=== PATIENT | female | born 1950 | race Caucasian/White ===

== ENCOUNTER → 2017-10-26 12:01 | Outpatient (CLI) | payer BC, SELFPAY ==
--- NOTE | 2017-10-26 12:07 | RAD_ITS ---
STUDY: X-RAY - LEFT FOOT CLINICAL: Female, 67 years old. Bilateral heel pain. TECHNIQUE: 3 view(s) of the foot. COMPARISON: None. FINDINGS: There is an enthesophyte involving the posterior superior calcaneus at the site of insertion of the Achilles tendon. Plantar spur. Normal visualized subtalar, talonavicular, calcaneocuboid, tarsal and tarsometatarsal articulations. Normal metatarsi. Normal metatarsophalangeal joint of the great toe. Normal tibial and fibular sesamoid bones. Normal interphalangeal joint of the great toe. Normal phalanges of the great toe. Normal second through fifth metatarsophalangeal joints. Normal interphalangeal joints and phalanges of the lesser toes. The soft tissue structures are unremarkable. RAD/Foot min 3 Views IMPRESSION: Calcaneal spurs. Electronically Signed: Erickson Chew MD at 15:20 EST Tel [phone], Service support ,
--- NOTE | 2017-10-26 12:07 | RAD_ITS ---
STUDY: X-RAY - RIGHT FOOT CLINICAL: Female, 67 years old. Bilateral heel pain. TECHNIQUE: 3 view(s) of the foot. COMPARISON: None. FINDINGS: There is a plantar calcaneal spur. Normal visualized subtalar, talonavicular, calcaneocuboid, tarsal and tarsometatarsal articulations. Normal metatarsi. Normal metatarsophalangeal joint of the great toe. Normal tibial and fibular sesamoid bones. Normal interphalangeal joint of the great toe. Normal phalanges of the great toe. Normal second through fifth metatarsophalangeal joints. Normal interphalangeal joints and phalanges of the lesser toes. The soft tissue structures are unremarkable. RAD/Foot min 3 Views IMPRESSION: Plantar spur. Electronically Signed: Erickson Chew MD at 15:20 EST Tel [phone], Service support ,
== END ==
PROVIDERS: Family Provider Family Medicine; PCP Family Medicine; Visit Provider Family Medicine
DX: M79.671 Pain in right foot (principal); M79.672 Pain in left foot
CPT/HCPCS: 73630

== ENCOUNTER → 2018-07-09 11:12 | Outpatient (CLI) | payer BC, SELFPAY ==
[2018-07-09 13:09] LABS: Anion Gap 6 (5-15); BUN 19 mg/dL (7-18); BUN/Creat Ratio 26.1 RATIO (10-20); Calcium,Total 8.9 mg/dL (8.5-10.1); Chloride 106 mmol/L (98-107); Cholesterol 236 mg/dL (200); Creatinine, Serum 0.73 mg/dL (0.55-1.02); EST Glomerular Filtration Rate 85 mL/min (>60); Est Glom Filt Rate - Afr Amer 103 mL/min (>60); Glucose 81 mg/dL (74-106); High Density Lipoprotein 67 mg/dL; Potassium 3.8 mmol/L (3.5-5.1); Sodium Level 140 mmol/L (136-145); Triglycerides 110 mg/dL; Very Low Density Lipoprotein 22 mg/dL (5-40)
== END ==
PROVIDERS: Family Provider Family Medicine; PCP Family Medicine; Referring Provider Family Medicine; Visit Provider Family Medicine
DX: I10 Essential (primary) hypertension (principal)
CPT/HCPCS: 36415; 80048; 80061

== ENCOUNTER → 2018-07-25 08:42 | Outpatient (CLI) | payer BC, SELFPAY ==
--- NOTE | 2018-07-25 08:47 | BI_ITS ---
MAMMOGRAPHY - BILATERAL DIAGNOSTIC REASON FOR EXAM: Female, 68 years old. Left breast discoloration at the lumpectomy site. Left breast tenderness. PERTINENT HISTORY: Personal history of breast cancer. Triple negative. TECHNIQUE: Digital bilateral breast bridget (3D mammographic acquisition) in the CC and MLO projections. 2-D mediolateral oblique (MLO) and craniocaudad (CC) views of both breasts were obtained. CAD: Full Field Digital Mammography with Computer Added Detection was performed. COMPARISON: Comparison is made with prior study July 24, 2017. FINDINGS: Breast Composition: There are scattered areas of fibroglandular density. There are no dominant masses or suspicious calcifications. The patient is status post resection of the left alveolar complex. Surgical clips are seen in the left axillary region there is evidence of postoperative scarring. There is evidence of a significant thickening of the left breast. No other significant abnormalities are identified. BI/DIAG MAMM W/CAD, BILAT IMPRESSION: Postsurgical changes in the left breast as described. Correlation with ultrasound at the site of the discomfort is recommended. ASSESSMENT CATEGORY: BIRADS Category 0: Incomplete. Need additional imaging evaluation. A letter regarding these results will be sent to the patient by the facility within 30 days. Approximately 10% of breast cancers are not detected by mammography. A normal mammogram should not delay biopsy of a clinically suspicious abnormality. Electronically Signed: Erickson Chew MD at 10:30 EST Tel [phone], Service support ,
--- NOTE | 2018-07-25 08:50 | US_ITS ---
STUDY: ULTRASOUND BREAST - LEFT REASON FOR EXAM: Female, 68 years old. Left breast discoloration. History of radiation. TECHNIQUE: Axial and longitudinal images of the LEFT breast were performed with a high resolution ultrasound transducer. COMPARISON: Comparison is made with prior ultrasound the left breast dated July 24, 2017 and prior mammogram dated July 25, 2018. FINDINGS: LEFT Breast: Entire left breast was examined by ultrasound. There is homogeneous fibroglandular tissue. No sonographic abnormality is seen. US/Breast Complete Unilateral IMPRESSION: No sonographic abnormality is seen. ASSESSMENT CATEGORY: BIRADS Category 1: Negative. A letter regarding these results will be sent to the patient by the facility within 30 days. Electronically Signed: Erickson Chew MD at 8:13 EST Tel [phone], Service support ,
== END ==
PROVIDERS: Family Provider Family Medicine; PCP Family Medicine; Referring Provider Nurse Practitioner; Visit Provider Nurse Practitioner
DX: C50.912 Malignant neoplasm of unspecified site of left female breast (principal); E28.39 Other primary ovarian failure
CPT/HCPCS: 76641; 77062; 77066; G0279

== ENCOUNTER → 2018-08-06 13:58 | Outpatient (CLI) | payer BC, SELFPAY ==
--- NOTE | 2018-08-06 14:03 | CT_ITS ---
STUDY: CT CHEST WITH CONTRAST REASON FOR EXAM: Female, 68 years old. History of left breast cancer 2016 with no interval skin changes. RADIATION DOSAGE (If Supplied By Facility): CTDIvol = ( 16.96 ) mGy, DLP = ( 665.71 ) mGycm TECHNIQUE: Transaxial imaging was performed following intravenous administration of 100 ml of Isovue 300 contrast material. Individualized dose optimization techniques were used for this CT. COMPARISON: 01/10/2017 CTA chest FINDINGS: There are a few emphysematous blebs demonstrated. There is minimal lower lobe atelectasis. There is no visualized focal consolidation. Within the superior aspect of the left lower lobe there is a vague focal soft tissue density that is possibly containing a calcification and less apparent than on the prior study. See image #53 series 2 axial view compared to January 10, 2017 image 150 series 2. This likely represents a tiny granuloma smaller than prior study. There is no demonstrated pleural abnormality. There is mild cardiac enlargement. Mild left atrial enlargement. There is calcification in the subcarinal region left paratracheal region and subcarinal left hilar and anterior to the esophagus compatible with old granulomatous disease. There is calcification in the bilateral ofster status post old granulomatous disease, stable since prior study. Normal enhanced pulmonary arteries. There is partial calcification of the aorta at the arch. The ascending thoracic aorta measures 3.7 x 3.8 cm. There are multi-level degenerative changes of the thoracic spine. There is a thick-walled appearance of the left breast tissue similar to the prior study. There is a left-sided axillary dissection with multiple surgical clips and postoperative change also similar in appearance to the prior study. The liver appears homogeneous mildly fatty infiltrated there is mild distention of the gallbladder. The spleen appears normal. Adrenal glands appear grossly unremarkable. CT/Chest WITH Contrast IMPRESSION: Evidence of old granulomatous disease. Minimal atelectasis. No visualized suspicious focal mass. Postoperative changes left axilla stable left breast thickening compatible with radiation therapy. Degenerative change thoracic spine. No obvious evidence of bony metastatic disease. Electronically Signed: Usha Euceda MD at 15:45 EST Tel , Service support ,
== END ==
PROVIDERS: Family Provider Family Medicine; PCP Family Medicine; Referring Provider Surgery; Visit Provider Surgery
DX: R23.4 Changes in skin texture (principal)
CPT/HCPCS: 71260; Q9967

== ENCOUNTER → 2018-08-08 15:57 | Outpatient (CLI) | payer BC, SELFPAY ==
--- NOTE | 2018-08-08 14:15 | BRBX_PTH ---
PATIENT: RACHEL SHARMA LOC: [facility] U#:[id number] AGE/SX: 75/F ROOM: RE08/08/[address]: Dr. Nathan Blancas MD : 1950 BED: DIS: SPEC #: [id number] RECD: 08/08/18 15:17 STATUS: AUBRIE DARRELL #: [id number] IVETTE: 08/08/18 14:[address]: Nathan Blancas DEPT: SURGICAL PATHOLOGY RECD BY: Mason Meier ENTERED: 08/09/18 08:00 SP TYPE: BREAST BX OTHR DR: Dr. Preet Bernstein MD Tissues: Left breast, NOS Procedures: Surgery Specimen Level IV HEADER OPERATION: Left breast punch biopsy PRE-OP DIAGNOSIS: Left breast mastectomy changes TISSUE SUBMITTED: Left breast tissue MICROSCOPIC DIAGNOSIS Left breast skin, punch biopsy: Skin with underlying tissue, negative for carcinoma. SJ:kaye 08/10/18 COMMENT Please make reference to previous specimen ([id number]) left breast, partial mastectomy with diagnosis of invasive ductal carcinoma. MICROSCOPIC DESCRIPTION Slides are reviewed. GROSS DESCRIPTION Received in fixative is one container labeled with the patient's name and designated left breast tissue. The specimen consists of a punch biopsy of ruiz-white skin measuring 0.3 cm in diameter and 0.7 cm in length. The specimen is totally submitted in one cassette. / RY:rg 08/09/18 TC:5 CPT: 42245
== END ==
PROVIDERS: Family Provider Family Medicine; PCP Family Medicine; Referring Provider Surgery; Visit Provider Surgery
DX: R92.2 Inconclusive mammogram (principal)
CPT/HCPCS: 88305

== ENCOUNTER 2018-08-30 10:30 | Outpatient (RCR) | payer BC, SELFPAY | END 2018-09-03 23:59 | LOC: NS 10:30 | PROVIDERS: Family Provider Family Medicine; PCP Family Medicine; Visit Provider Family Medicine | DX: E66.9 Obesity, unspecified (principal); Z68.31 Body mass index [BMI] 31.0-31.9, adult; E78.5 Hyperlipidemia, unspecified; Z71.3 Dietary counseling and surveillance | CPT/HCPCS: 97802; 97803 ==

== ENCOUNTER 2018-09-25 10:30 | Outpatient (RCR) | payer BC, SELFPAY | END 2018-10-04 23:59 | LOC: NS 10:30 | PROVIDERS: Family Provider Family Medicine; PCP Family Medicine; Visit Provider Family Medicine | DX: E66.9 Obesity, unspecified (principal); Z68.31 Body mass index [BMI] 31.0-31.9, adult; E78.5 Hyperlipidemia, unspecified; Z71.3 Dietary counseling and surveillance | CPT/HCPCS: 97803 ==

== ENCOUNTER 2018-10-08 09:32 | Outpatient (RCR) | payer BC, SELFPAY | END 2018-11-01 23:59 | LOC: NS 09:32 | PROVIDERS: Family Provider Family Medicine; PCP Family Medicine; Visit Provider Family Medicine | DX: E66.9 Obesity, unspecified (principal); Z68.31 Body mass index [BMI] 31.0-31.9, adult; E78.5 Hyperlipidemia, unspecified; Z71.3 Dietary counseling and surveillance | CPT/HCPCS: 97803 ==

== ENCOUNTER 2018-11-20 10:19 | Outpatient (RCR) | payer BC, SELFPAY | END 2018-12-02 23:59 | LOC: NS 10:19 | PROVIDERS: Family Provider Family Medicine; PCP Family Medicine; Visit Provider Family Medicine | DX: E66.9 Obesity, unspecified (principal); Z68.31 Body mass index [BMI] 31.0-31.9, adult; E78.5 Hyperlipidemia, unspecified; Z71.3 Dietary counseling and surveillance | CPT/HCPCS: 97803 ==

== ENCOUNTER 2018-12-31 08:30 | Outpatient (RCR) | payer BC, SELFPAY | END 2018-12-31 23:59 | disposition home or self-care (01) | LOC: NS 08:30 | PROVIDERS: Family Provider Family Medicine; PCP Family Medicine; Visit Provider Family Medicine | DX: E66.9 Obesity, unspecified (principal); Z68.31 Body mass index [BMI] 31.0-31.9, adult; E78.5 Hyperlipidemia, unspecified; Z71.3 Dietary counseling and surveillance | CPT/HCPCS: 97803 ==

== ENCOUNTER → 2019-01-17 10:41 | Outpatient (CLI) | payer BC, SELFPAY ==
[2019-01-17 12:45] LABS: Vitamin D,25 Hydroxy 54.4 ng/mL (29.95-100.01)
[2019-01-17 12:51] LABS: Anion Gap 6 (5-15); BUN 19 mg/dL (7-18); BUN/Creat Ratio 24.3 RATIO (10-20); Calcium,Total 9.3 mg/dL (8.5-10.1); Chloride 106 mmol/L (98-107); Cholesterol 244 mg/dL (200); Creatinine, Serum 0.78 mg/dL (0.55-1.02); EST Glomerular Filtration Rate 78 mL/min (>60); Est Glom Filt Rate - Afr Amer 95 mL/min (>60); Glucose 91 mg/dL (74-106); High Density Lipoprotein 71 mg/dL; Potassium 3.9 mmol/L (3.5-5.1); Sodium Level 141 mmol/L (136-145); Triglycerides 98 mg/dL; Very Low Density Lipoprotein 20 mg/dL (5-40)
== END ==
PROVIDERS: Family Provider Family Medicine; PCP Family Medicine; Referring Provider Family Medicine; Visit Provider Family Medicine
DX: Z00.00 Encounter for general adult medical examination without abnormal findings (principal); E55.9 Vitamin D deficiency, unspecified
CPT/HCPCS: 36415; 80048; 80061; 82306

== ENCOUNTER → 2019-04-16 12:28 | Outpatient (CLI) | payer BC, SELFPAY ==
--- NOTE | 2019-04-16 12:40 | BD_ITS ---
STUDY: DUAL ENERGY X-RAY ABSORPTIOMETRY / DXA REASON FOR EXAM: Female, 69 years old. Early menopause. Loss of height. TECHNIQUE: Bone Mineral Density (BMD) measurements of lumbar spine and bilateral hips were obtained. COMPARISON: Comparison is made with prior study May 31, 2000. FINDINGS: Lumbar Spine (L1-L4): g/cm2 (1.122) / T-score (0.5) / Z-score (1.1) Findings are suggestive of normal bone density with a low fracture risk. Left Femur Total: g/cm2 (0.881) / T-score (-1.0) / Z-score (0.3) Left Femoral Neck: g/cm2 (0.764) / T-score (-2.0) / Z-score (-0.4) Right Femur Total: g/cm2 (0.910) / T-score (-0.8) / Z-score (0.5) Right Femoral Neck: g/cm2 (0.840) / T-score (-1.4) / Z-score (0.1) The T-Scores on the most recent prior examination were: Lumbar Spine (L1-L4): There has been improvement of bone density since the previous examination. Left Femur Total: which represents a worsening of 17.8%. BD/Dexa Bone Density Study IMPRESSION: The patient is considered osteopenic as outlined below according to World Moody Organization (WHO) criteria with a moderate fracture risk. There has been worsening of bone density since the previous examination. Reference Information: The T-score is the number of standard deviations above or below the standard which is normal for young adults at their peak bone mineral density. The World Health Organization (WHO) interprets the T-scores as follows: Above -1 Normal bone density Between -1 and -2.5 Osteopenia Equal to / or below -2.5 Osteoporosis As a practical clinical guideline, osteopenia may be graded as follows: Mild -1 through -1.5 Moderate -1.6 through -2.0 Severe -2.1 through -2.4 The Z-score is the number of standard deviations above or below age-matched controls. A Z-score of less than -1.5 would be considered abnormal. References: 1. NIH Osteoporosis and Related Bone Diseases http://www.osteo.org 2. International Society for Clinical Densitometry http://www.iscd.org 3. National Osteoporosis Foundation http://www.nof.org Electronically Signed: Erickson Chew, at 15:41 EDT , Service support ,
== END ==
PROVIDERS: Family Provider Family Medicine; PCP Family Medicine; Referring Provider Nurse Practitioner Women's Health; Visit Provider Nurse Practitioner Women's Health
DX: M85.80 Other specified disorders of bone density and structure, unspecified site (principal)
CPT/HCPCS: 77080

== ENCOUNTER 2019-05-11 01:22 | Observation (INO) | payer BC, MEDICARE, SELFPAY ==
[2019-04-23 15:13] VITALS: BMI 30.9
[2019-05-11] VITALS (10 sets, daily range): BP systolic 127–149; BP diastolic 65–90; PULSE 59–83; RESP 16–20; TEMP 35.8–36.8; O2SAT 96–100; BMI 31.7; BMI 30.1; BMI 30.2
--- NOTE | 2019-05-11 02:15 | CT_ITS ---
STUDY: CT BRAIN WITHOUT CONTRAST REASON FOR EXAM: Female, 69 years old. Vertigo, nausea and vomiting RADIATION DOSAGE (If Supplied By Facility): CTDIvol = ( 44.99 ) mGy, DLP = ( 812.98 ) mGycm TECHNIQUE: Transaxial CT imaging of the brain was performed without administration of intravenous contrast material. Individualized dose optimization techniques were used for this CT. COMPARISON: No relevant priors. FINDINGS: Normal soft tissue structures. Normal calvarium. There is mild cerebral atrophy with widening of the extra-axial spaces and ventricular dilatation. There is minimal bilateral periventricular and subcortical white matter hypoattenuation which is symmetric in distribution. Asymmetric fluid attenuation overlying the right posterior cerebellar hemisphere. Normal basal ganglia and thalami. Normal brainstem. Normal cerebellum. There is no intracranial hemorrhage. There are no findings of an acute ischemic infarction. There is moderate mucoperiosteal thickening of the paranasal sinuses. CT/Brain/Head without Contrast IMPRESSION: 1. No evidence of an acute intracranial abnormality. 2. Minimal bilateral periventricular and subcortical white matter chronic small vessel disease with age appropriate cerebral atrophy. 3. Arachnoid cyst within the right posterior cranial fossa. 4. Moderate chronic paranasal sinus disease Electronically Signed: Alexandre Quiroz MD at 3:13 EDT Tel , Service support ,
--- NOTE | 2019-05-11 02:15 | EKG12_ITS ---
Test Reason : NAUSEA/VOMITING Blood Pressure : / mmHG Vent. Rate : 074 BPM Atrial Rate : 074 BPM P-R Int : 146 ms QRS Dur : 078 ms QT Int : 432 ms P-R-T Axes : 029 049 058 degrees QTc Int : 479 ms Normal sinus rhythm Normal ECG Confirmed by REX ROCHA ([id number]), editor department PINKY JAFFE ([id number]) on 05/13/2019 2:25:50 PM Referred By: DELIA Confirmed By:REX ROCHA
--- NOTE | 2019-05-11 02:15 | ED.VIS.GEN ---
History of Present Illness Chief Complaint: Nausea/Vomiting Narrative: Patient is a 69-year-old female who presents with severe dizziness. She has had an upper respiratory infection illness for several weeks. She complains of sinus pressure and congestion. She was put on doxycycline last week and developed dizziness nausea and vomiting. She was then switched to amoxicillin and had similar symptoms again tonight. She complains of a sensation of the room spinning. This is worse with movement of her head or leaving her eyes open. She has a little relief by leaving her eyes closed. She has had severe nausea and vomiting and also began to develop some diarrhea today. No chest pain no shortness of breath no headache. No tinnitus. No history of prior similar symptoms except the episode last week. She denies any paresthesias weakness numbness tingling speech difficulty other neurological symptoms. Past Medical History - Allergies and Home Meds Allergies/Adverse Reactions: Allergies amantadine Allergy (Verified 05/11/19 01:27) Unknown diclofenac [From Voltaren] Allergy (Verified 05/11/19 01:27) Hives methylprednisolone [From Medrol] Allergy (Verified 05/11/19 01:27) Hives Primary Care Physician: Preet Bernstein MD [Primary Care Provider] - Past Medical History: - - Hypertension, high cholesterol Smoking Status: Former smoker Review of Systems All systems negative except as indicated General: Denies: Fever Cardiovascular: Denies: Chest pain Respiratory: Denies: Dyspnea Gastrointestinal: Reports: Nausea, Vomiting Neurological: Reports: - - Vertigo. Denies: Headache Physical Exam Vital Signs/Narrative: Vital Signs Temp Pulse Resp BP Pulse Ox 05/11/19 01:23 96.5 F L 80 20 H 149/65 H 99 General: Well nourished, - - Patient actively vomiting throughout my history and exam Head: Normocephalic Eyes: Perrl, EOMI ENT: Moist mucous membranes Neck: Supple Cardiovascular: Regular rate, Regular rhythm Respiratory: No distress, CTA bilaterally Abdomen: Soft, Nontender, Nondistended Skin: Normal color Neurological: Alert, Normal Strength, Normal Sensation, - - No focal or lateralizing neurological symptoms Psychological: Normal affect Diagnostic/Tx/Re-eval Impressions Brain CT 05/11/19 02:15 IMPRESSION: 1. No evidence of an acute intracranial abnormality. 2. Minimal bilateral periventricular and subcortical white matter chronic small vessel disease with age appropriate cerebral atrophy. 3. Arachnoid cyst within the right posterior cranial fossa. 4. Moderate chronic paranasal sinus disease Electronically Signed: Alexandre Quiroz MD at 3:13 EDT Tel , Service support , 05/11/19 02:15 Brain/Head without Contrast [CT] Stat Laboratory Results 05/11/19 05/11/19 01:30 01:30 WBC 5.2 RBC 4.13 L Hgb 13.9 Hct 39.4 MCV 95.4 MCH 33.7 H MCHC 35.3 RDW Std Deviation 42.5 RDW Coeff of Rivas 12.2 Plt Count 240 MPV 9.7 Sodium 138 Potassium 2.9 L Chloride 105 Carbon Dioxide 23.0 Anion Gap 10 BUN 16 Creatinine 0.98 Estim Creat Clear Calc 50.13 Est GFR (MDRD) Af Amer 73 Est GFR (MDRD) Non-Af 60 BUN/Creatinine Ratio 16.3 Glucose 189 H Calcium 9.5 Total Bilirubin 0.30 AST 23 ALT 24 Alkaline Phosphatase 93 Troponin I < 0.015 Total Protein 7.2 Albumin 3.8 Globulin 3.4 Albumin/Globulin Ratio 1.1 - Medical Decision Making Labs as above notable only for potassium of 2.9 which is likely related to diarrhea. CT the head shows no acute process. EKG showed normal sinus rhythm at a rate of 74 with no acute ischemic changes. I initially ordered IV Valium however we do not have this available. She was given Ativan and Zofran. She continues to vomit. Oral meclizine was ordered but I do not believe she will be able to tolerate it at this point. She was also given IV Phenergan. At this point she will require hospitalization due to intractable vertigo. ED Disposition - Plan for ED Patient: Disposition: Acute Care [facility] Diagnosis: Vertigo, Hypokalemia Referrals: Preet Bernstein MD [Primary Care Provider] -
[2019-05-11] MEDS: Ondansetron 4 MG/2 ML Vial IV ×2 (02:20→09:36)
[2019-05-11 02:21] LABS: Hematocrit 39.4 % (37-47); Hemoglobin 13.9 g/dL (12.0-15.0); Mean Corp Hgb Conc 35.3 g/dL (32-36); Mean Corpuscular Hgb 33.7 pg (27.0-32.0); Mean Corpuscular Volume 95.4 fL (81-99); Mean Platelet Vol. 9.7 fl (6.2-12.0); Platelet Count 240 K/mm3 (150-450); RBC Distribution Width CV 12.2 % (11.6-14.6); RBC Distribution Width SD 42.5 fl (35.1-43.9); Red Blood Count 4.13 M/mm3 (4.2-5.4); White Blood Count 5.2 K/mm3 (4.4-11.0)
[2019-05-11 02:36] LABS: ALB/GLOB Ratio 1.1 RATIO (0.9-2.4); AST(SGOT) 23 U/L (15-37); Alanine Aminotransfer ALT/SGPT 24 U/L (13-56); Albumin, Serum 3.8 g/dL (3.2-5.0); Alkaline Phosphatase 93 U/L (45-117); Anion Gap 10 (5-15); BUN 16 mg/dL (7-18); BUN/Creat Ratio 16.3 RATIO (10-20); Calcium,Total 9.5 mg/dL (8.5-10.1); Chloride 105 mmol/L (98-107); Creatinine, Serum 0.98 mg/dL (0.55-1.02); EST Glomerular Filtration Rate 60 mL/min (>60); Est Glom Filt Rate - Afr Amer 73 mL/min (>60); Estimated Creatinine Clearance 50.13 ml/min; Globulin 3.4 g/dL (2.2-4.2); Glucose 189 mg/dL (74-106); Potassium 2.9 mmol/L (3.5-5.1); Protein, Total 7.2 g/dL (6.4-8.2); Sodium Level 138 mmol/L (136-145)
[2019-05-11] MEDS: LORazepam 2 MG/ML Syringe 1 MG IV (02:40)
[2019-05-11] MEDS: Potassium Chloride 10mEq/100mL 10 MEQ/100 ML IV.SOLN. 100 MEQ IV BOLUS ×4 (03:01→06:36)
[2019-05-11] MEDS: proMETHazine 25 MG/ML Syringe 6.25 MG IV (04:30)
[2019-05-11] MEDS: Meclizine HCl 25 MG Tablet PO ×4 (04:32→21:40)
--- NOTE | 2019-05-11 04:33 | PCM.HP.STD ---
Problem List (1) Vertigo Status: Acute (2) Hypokalemia Status: Acute (3) History of left breast cancer Status: Acute History of Present Illness Date of Admission: 05/11/19 Chief Complaint: vertigo The patient is a 69 year old F with a significant history of left breast cancer status post lumpectomy, chemotherapy and radiation who presented to emergency department with vertigo that started few hours before presentation. About a week ago or so she had vertigo which disappeared only to re-occur. In the last 3 to 4 weeks patient was coughing and she was diagnosed with upper respiratory tract infection. She was started on doxycycline. Reportedly she could not complete the dose of doxycycline because she had rhinorrhea and other intolerable symptoms. She reported later she developed pain in her jaw and and in her face she was diagnosed with sinusitis. Patient was put on Augmentin. Patient reports loose stools; nausea and vomiting. Denies hearing loss or tinnitus. She has had multiple travels by plane and reports a feeling of ear congestion which has since resolved. Patient had received Ativan IV at the emergency department and was very lethargic at the time of history taking. History was difficult to be obtained from patient. Past Medical History Medical History: Medical History (Last Reviewed 05/11/19 @ 06:01 by Matthew Thomas MD) History of left breast cancer (Acute) Z85.3 Anxiety F41.9 Breast cancer C50.919 jun 2016 Osteoarthritis M19.90 Osteopenia M85.80 Sleep apnea G47.30 s/p port insertion s/p port removal HTN (hypertension) I10 Allergies amantadine Allergy (Verified 05/11/19 01:27) Unknown diclofenac [From Voltaren] Allergy (Verified 05/11/19 01:27) Hives methylprednisolone [From Medrol] Allergy (Verified 05/11/19 01:27) Hives Home Medications: Ambulatory Orders Medication Instructions Recorded Calcium Carb/Mag Ox/Zinc Sulf 1 ea PO BID 06/24/16 [Ushhjwr-Okqeuizpk-Swtn Tablet] Cholecalciferol (VIT D3) [Vitamin 2,000 unit PO BID 06/24/16 D3] Flaxseed Oil [Eldred-3 Flaxseed Oil] 1,000 mg PO DAILY 06/24/16 Lisinopril [Zestril] 5 mg PO DAILY 06/24/16 Multivitamins,Therapeutic 1 tab PO DAILY 06/24/16 [Multivitamin] rosuvastatin 5 mg tablet 5 mg PO DAILY 04/23/19 Aspirin [Aspirin, Baby] 81 mg PO DAILY@0800 05/11/19 Surgical History: Surgical History (Last Reviewed 05/11/19 @ 06:01 by Matthew Thomas MD) H/O lumpectomy Z98.890 H/O tubal ligation Z98.51 S/P tonsillectomy and adenoidectomy Z90.89 neuroma surgery Lives: With Family Smoking Status: Former smoker Alcohol: Occasional - *Family History Maternal Family History: Family History (Last Updated 05/11/19 @ 06:02 by Matthew Thomas MD) Mother Congestive heart failure Father Congestive heart failure Diabetes Review of Systems Constitutional: Denies: Chills, Fever, Weight Change HEENT: Denies: Difficulty Hearing, Difficulty Swallowing, Dysphasia Cardiovascular: Denies: Chest Pain, Palpitations Respiratory: Reports: Cough. Denies: Shortness of breath at rest, Sputum production Gastrointestinal: Reports: Diarrhea, Nausea, Vomiting. Denies: Abdominal Pain Genitourinary: Denies: Dysuria Musculoskeletal: Denies: Joint Pain, Joint Tenderness Skin: Denies: Rash, Wounds Neurological: Denies: Numbness, Tingling, Focal weakness Psychiatric: Denies: Anxiety, Depression, Homicidal Ideations, Suicidal Ideations Hematologic/ Lymphatic: Denies: Easy Bruising, Easy Bleeding VTE Information - Inpt Only VTE Present on Admission: No VTE Mechan Device Prophylaxis: None VTE Pharm Prophylaxis ordered?: Yes Patient Problems: Active and Suspected Problems (Last Reviewed 05/11/19 @ 06:01 by Matthew Thomas MD) Vertigo (Acute) Hypokalemia (Acute) - Physical Exam General: Oriented x3, Cooperative, Lethargic HEENT: Atraumatic, PERRLA, EOMI, Normocephalic, EAC Clear Neck: Supple, No JVD, Negative Carotid Bruits Lungs: Clear to auscultation, Normal air movement Cardiovascular: Regular rate, No murmurs Abdomen: Bowel Sounds Present, Soft, Non Tender Extremities: No edema, Capillary Refill Less than 3 Seconds Skin: No rashes, No breakdown Musculoskeletal: No Tenderness to Palpation of Joints or Extremities Neurological: Cranial nerves II-XII grossly intact, - - Efra-Hallpike maneuver could not be done as with sitting in bed patient was very nauseous. Psych/Mental Status: Normal Affect, Appropriate Vital Signs Temp Pulse Resp BP Pulse Ox 96.5 F L 82 16 142/76 H 98 05/11/19 01:23 05/11/19 04:18 05/11/19 04:18 05/11/19 04:18 05/11/19 04:18 Oxygen Delivery Method Room Air Weight: 86.6 kg Body Mass Index (BMI) 31.7 Intake and Output for Last 24 Hours 05/09/19 05/10/19 05/11/19 23:59 23:59 23:59 Intake Total 100 / 100 Balance 100 / 100 Laboratory Tests Past 24 Hrs 05/11/19 05/11/19 01:30 01:30 WBC 5.2 RBC 4.13 L Hgb 13.9 Hct 39.4 MCV 95.4 MCH 33.7 H MCHC 35.3 RDW Std Deviation 42.5 RDW Coeff of Rivas 12.2 Plt Count 240 MPV 9.7 Sodium 138 Potassium 2.9 L Chloride 105 Carbon Dioxide 23.0 Anion Gap 10 BUN 16 Creatinine 0.98 Estim Creat Clear Calc 50.13 Est GFR (MDRD) Af Amer 73 Est GFR (MDRD) Non-Af 60 BUN/Creatinine Ratio 16.3 Glucose 189 H Calcium 9.5 Total Bilirubin 0.30 AST 23 ALT 24 Alkaline Phosphatase 93 Troponin I < 0.015 Total Protein 7.2 Albumin 3.8 Globulin 3.4 Albumin/Globulin Ratio 1.1 Assessment/Plan All Active Problems (Last Reviewed 05/11/19 @ 06:01 by Matthew Thomas MD) Vertigo (Acute) Hypokalemia (Acute) URI, acute (Acute) History of left breast cancer (Acute) The patient is a 69 year old F with a significant history of left breast cancer status post lumpectomy, chemotherapy and radiation who presented to emergency department with vertigo; nausea; vomiting; and diarrhea in the setting of recent diagnosis of upper respiratory tract infection with recent antibiotic use consistent with vertigo with likely peripheral origin and probable antibiotic associated diarrhea. Vertigo Different diagnoses include vestibular neuritis likely from upper respiratory infection. Other differential diagnosis includes BPPV. Cannot rule out central cause of vertigo. Order MRI/MRA of head and neck. Schedule meclizine 3 times daily Ativan IV as needed for vertigo. PT and OT consult for vestibular exercises. Since Cannot rule out central source of vertigo will allow permissive hypertension for 1 day and night of 05/12/2019. Labetalol as needed for blood pressure output of 220 or diastolic blood pressure of more than 120. We will put patient on clear liquid diet since he has intractable nausea and vomiting. Hypokalemia On presentation her potassium was 2.9. Patient was ordered 40 mEq of potassium IV at the emergency department. We will give another 40 mEq of potassium IV. Put on lactated Ringer's with potassium. Trend BMP Acute Diarrhea Viral syndrome or side effect of antibiotics. Supportive treatment with IV fluids. URI Discontinue antibiotics for now. Clinical monitoring. Hypertension Presentation blood pressure was not within goal. On home lisinopril. Held for permissive hypertension. Labetalol as needed per stroke protocol. Of not stroke is less likely but can not rule out. DVT Prophylaxis Subcutaneous Lovenox Code Visit OBSV E&M: 49225 Initial observation care L3
--- NOTE | 2019-05-11 07:02 | MRI_ITS ---
STUDY: MRA NECK WITH AND WITHOUT CONTRAST REASON FOR EXAM: Female, 69 years old. VERTIGO, HX BREAST CA. TECHNIQUE: Source images were obtained, MIPs were performed. The study was performed unenhanced. Intravenous contrast was administered. Route IV Amount 17 Type/Agent Dotarem COMPARISON: None. FINDINGS: RIGHT CAROTID ARTERIES: Antegrade flow within the right common carotid artery (CCA). Antegrade flow within the right carotid bulb. There is mild atherosclerotic plaque formation of the origin of the right internal carotid artery with less than 50% cross sectional diameter stenosis. There is tortuous elongation of the cervical portion of the right internal carotid artery. There is small focal outpouching of the mid cervical portion (image 2 series [id number]) LEFT CAROTID ARTERIES: Antegrade flow within the left common carotid artery (CCA). Antegrade flow within the left common carotid bulb. There is moderate atherosclerotic plaque formation of the origin of the left internal carotid artery with an estimated stenosis of 50-69% stenosis. There is tortuous elongation of the cervical portion of the left internal carotid artery. VERTEBRAL ARTERIES: Antegrade flow within the bilateral vertebral artery. MRI/MRA Neck WITH and W/O Contrast IMPRESSION: Right ICA outpouching. 50-60% stenosis of the left ICA. Further evaluation with CTA is recommended. Electronically Signed: Rosy Sanderson MD at 12:22 EDT Tel , Service support ,
--- NOTE | 2019-05-11 07:02 | MRI_ITS ---
STUDY: MRA OF THE HEAD WITHOUT CONTRAST REASON FOR EXAM: Female, 69 years old. VERTIGO. TECHNIQUE: 3-D [id number] (TOF) imaging was performed with MIPs. The study was performed unenhanced. COMPARISON: None. FINDINGS: Patent right cavernous carotid artery. Patent left cavernous carotid artery. Patent right A1 segments of the anterior cerebral artery. Patent left A1 segments of the anterior cerebral artery. Unremarkable anterior communicating artery (ACOM) region. Normal bilateral A2 segments of the anterior cerebral arteries. Patent right M1 and M2 segments of the middle cerebral arteries, with a unremarkable M1 bifurcation. Patent left M1 and M2 segments of the middle cerebral arteries, with a unremarkable M1 bifurcation. There is a persistent origin of the right posterior cerebral artery with absence of the P1 segment of the right posterior cerebral artery. There is non-visualization of the left posterior communicating artery (PCOM). Patent basilar artery with a normal basilar bifurcation. Patent bilateral posterior cerebral arteries. MRI/MRA Head ONLY without Contrast IMPRESSION: No occlusion Electronically Signed: Rosy Sanderson MD at 12:15 EDT Tel , Service support ,
--- NOTE | 2019-05-11 07:02 | MRI_ITS ---
STUDY: MRI BRAIN WITHOUT CONTRAST REASON FOR EXAM: Female, 69 years old. VERTIGO, HX BREAST CA. TECHNIQUE: Standardized multiplanar fat and water weighted pulse sequences were obtained. COMPARISON: 05/11/2019 CT of the head FINDINGS: Normal size of the ventricles and extra-axial spaces for the patient's age. There are a limited number of small white matter hyperintensities, distributed throughout the deep white matter tracts of the cerebral hemispheres, consistent with minimal chronic white matter ischemic changes. Normal bilateral basal ganglia. Normal thalami. There is no extra-axial fluid accumulation. Normal flow voids within the major intracranial circulation suggesting patency by spin echo criteria. Normal sella turcica, pituitary gland, infundibular stalk, optic chiasm and hypothalamus. Normal tectal plate and pineal gland. Normal midbrain, mireille and medulla. There is a retrocerebellar arachnoid cyst. Normal basal cisterns. There is moderate paranasal sinus disease. There is mild left mastoid fluid MRI/Brain without Contrast IMPRESSION: No acute intracranial abnormality. Moderate paranasal sinus disease. Mild left mastoid disease. Electronically Signed: Rosy Sanderson MD at 12:13 EDT Tel , Service support ,
[2019-05-11] MEDS: Enoxaparin 40 MG/0.4 ML Syringe SC (11:34)
[2019-05-11 12:01] LABS: Potassium 3.7 mmol/L (3.5-5.1)
[2019-05-11] MEDS: guaiFENesin 1,200 MG Tablet 1200 MG PO ×2 (13:00→21:41)
[2019-05-11] MEDS: Fluticasone 0.05% 1 SPRAY NASAL.SRY NASAL ×2 (13:00→21:41)
--- NOTE | 2019-05-11 13:40 | PN_ITS ---
<Manish Mansfield - Last Filed: 05/11/19 13:40> Patient Problems: Active and Suspected Problems (Last Reviewed 05/11/19 @ 06:01 by Matthew Thomas MD) Vertigo (Acute) Hypokalemia (Acute) Subjective: Pt with ongoing vertigo (described as like a emjcn-qm-gwyot), nausea, vomiting. She has no focal weakness. She has blurry vision, numbness, or tingling. She has had ongoing sinus issues with BL ear pain, frontal and maxillary sinus pain, and congestion. She Completed 5 days of Doxy, and later one day of amoxicillin (most recently). She has not seen ENT for this. MRI was negative for stroke. No tinnitus or hearing loss. - Physical Exam General: Alert, Oriented x3, Cooperative HEENT: Atraumatic, PERRLA, EOMI, Normocephalic, - - TMs are erythematous and with fluid. Neck: Supple, No JVD, Negative Carotid Bruits Lungs: Clear to auscultation, Normal air movement Cardiovascular: Regular rate, No murmurs Abdomen: Bowel Sounds Present, Soft, Non Tender Extremities: No edema, Capillary Refill Less than 3 Seconds Skin: No rashes, No breakdown Musculoskeletal: No Tenderness to Palpation of Joints or Extremities Neurological: Cranial nerves II-XII grossly intact, - - severe resting horizontal nystagmus worse with lateral gaze BL. Psych/Mental Status: Normal Affect, Appropriate, Alert and oriented to time, place, person, mood and affect Vital Signs Temp Pulse Resp BP Pulse Ox 98.2 F 83 18 143/90 H 96 05/11/19 11:44 05/11/19 11:44 05/11/19 11:44 05/11/19 11:44 05/11/19 11:44 Oxygen Delivery Method Room Air Weight: 181 lb 3.52 oz Body Mass Index (BMI) 30.1 Intake and Output for Last 24 Hours 05/09/19 05/10/19 05/11/19 23:59 23:59 23:59 Intake Total 875.75 / 875.75 Balance 875.75 / 875.75 Laboratory Tests Past 24 Hrs 05/11/19 05/11/19 05/11/19 01:30 01:30 11:34 WBC 5.2 RBC 4.13 L Hgb 13.9 Hct 39.4 MCV 95.4 MCH 33.7 H MCHC 35.3 RDW Std Deviation 42.5 RDW Coeff of Rivas 12.2 Plt Count 240 MPV 9.7 Sodium 138 Potassium 2.9 L 3.7 Chloride 105 Carbon Dioxide 23.0 Anion Gap 10 BUN 16 Creatinine 0.98 Estim Creat Clear Calc 50.13 Est GFR (MDRD) Af Amer 73 Est GFR (MDRD) Non-Af 60 BUN/Creatinine Ratio 16.3 Glucose 189 H Calcium 9.5 Total Bilirubin 0.30 AST 23 ALT 24 Alkaline Phosphatase 93 Troponin I < 0.015 Total Protein 7.2 Albumin 3.8 Globulin 3.4 Albumin/Globulin Ratio 1.1 Medical Necessity - Tobacco Use Smoking Status: Former smoker Assessment/Plan All Active Problems (Last Reviewed 05/11/19 @ 06:01 by Matthew Thomas MD) Vertigo (Acute) Hypokalemia (Acute) URI, acute (Acute) History of left breast cancer (Acute) 1. Vertigo 2/2 acute URI - pt has recurrent sinusitis - sinus dz on CT. pain, congestion, and ear pain. TMs are acutely inflamed BL. Start unasyn. ENT follow up as outpatient or if she fails to improve. Supportive care with decongestants. No fever/leukocytosis -MRI brain no stroke. Sinus disease and left mastoid disease noted. MRA head and neck - 50-60% stenosis of the left ICA, right ICA outpouching - outpatient follow up. 2. Hypokalemia resolved 3. Hx left breast cancer 4. Other chronic medical problems osteoarthritis, osteopenia, GABY, HTN, Anx. DVT ppx: lovenox DC planning: monitor for symptomatic improvement on IV abx. This patient was seen by Manish Mansfield PA-C under the supervision of Dr. Ahn. <Gladys Ahn - Last Filed: 05/11/19 14:38> - Physical Exam Vital Signs Temp Pulse Resp BP Pulse Ox 98.2 F 83 18 143/90 H 96 05/11/19 11:44 05/11/19 11:44 05/11/19 11:44 05/11/19 11:44 05/11/19 11:44 Oxygen Delivery Method Room Air Weight: 82.2 kg Body Mass Index (BMI) 30.1 Intake and Output for Last 24 Hours 05/09/19 05/10/19 05/11/19 23:59 23:59 23:59 Intake Total 875.75 / 875.75 Balance 875.75 / 875.75 Laboratory Tests Past 24 Hrs 05/11/19 05/11/19 05/11/19 01:30 01:30 11:34 WBC 5.2 RBC 4.13 L Hgb 13.9 Hct 39.4 MCV 95.4 MCH 33.7 H MCHC 35.3 RDW Std Deviation 42.5 RDW Coeff of Rivas 12.2 Plt Count 240 MPV 9.7 Sodium 138 Potassium 2.9 L 3.7 Chloride 105 Carbon Dioxide 23.0 Anion Gap 10 BUN 16 Creatinine 0.98 Estim Creat Clear Calc 50.13 Est GFR (MDRD) Af Amer 73 Est GFR (MDRD) Non-Af 60 BUN/Creatinine Ratio 16.3 Glucose 189 H Calcium 9.5 Total Bilirubin 0.30 AST 23 ALT 24 Alkaline Phosphatase 93 Troponin I < 0.015 Total Protein 7.2 Albumin 3.8 Globulin 3.4 Albumin/Globulin Ratio 1.1 Assessment/Plan This patient was seen in conjunction with DANIELLE Velázquez. I have independently interviewed and examined the patient and reviewed pertinent historical, laboratory, and other data. Please refer to DANIELLE Velázquez note for his patient's presentation, findings, and recommendations. I have reviewed and his note and concur with his documentation Patient was seen and examined. Complains of feeling very dizzy. Has persistent nausea. Denies any chest pain or shortness of breath. Complains of fullness in her sinuses. MRI of the brain showed no acute intracranial abnormality. Moderate paranasal sinus disease as well as left mastoid disease. 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 Vertigo 2. Acute respiratory infection/acute sinusitis 3. Hypokalemia 4. Hypertension 5. Osteopenia/osteoarthritis Plan: Continue with symptomatic treatment, meclizine as needed IV Unasyn Trend labs in a.m. PT and OT to evaluate and treat Code Visit Inpatient E&M: 38478 Subs Hosp L2
[2019-05-11 15:11] LABS: Anion Gap 5 (5-15); BUN 9 mg/dL (7-18); BUN/Creat Ratio 13.2 RATIO (10-20); Calcium,Total 9.1 mg/dL (8.5-10.1); Chloride 106 mmol/L (98-107); Creatinine, Serum 0.68 mg/dL (0.55-1.02); EST Glomerular Filtration Rate 91 mL/min (>60); Est Glom Filt Rate - Afr Amer 111 mL/min (>60); Estimated Creatinine Clearance 49.12 ml/min; Glucose 109 mg/dL (74-106); Potassium 3.7 mmol/L (3.5-5.1); Sodium Level 138 mmol/L (136-145)
--- NOTE | 2019-05-11 21:38 | NURSING ---
Verified with pharmacy that Unasyn and current IVF orders are ok to run together
[2019-05-12] VITALS (10 sets, daily range): BP systolic 117–152; BP diastolic 74–92; PULSE 56–99; RESP 16–18; TEMP 36.4–36.9; O2SAT 97–98
[2019-05-12] MEDS: Meclizine HCl 25 MG Tablet PO ×3 (05:41→21:58)
[2019-05-12] MEDS: guaiFENesin 1,200 MG Tablet 1200 MG PO ×2 (08:40→21:58)
[2019-05-12] MEDS: Fluticasone 0.05% 1 SPRAY NASAL.SRY NASAL ×2 (08:40→21:58)
[2019-05-12] MEDS: Enoxaparin 40 MG/0.4 ML Syringe SC (08:40)
--- NOTE | 2019-05-12 11:20 | PCM.PROGNOTE ---
<Manish Mansfield - Last Filed: 05/12/19 11:20> Patient Problems: Active and Suspected Problems (Last Reviewed 05/11/19 @ 06:01 by Matthew Thomas MD) Vertigo (Acute) Hypokalemia (Acute) Subjective: Nausea drastically improved. Still dizzy. Could not get out of bed and walk because she felt too dizzy and unsteady this AM. Otherwise, she feels better. She would like to advance her diet. She is having difficulty focusing with her eyes open as she quickly becomes dizzy. She has had amoxicillin in the past without nausea or vomiting, and seems to be tolerating the unasyn without issue. - Physical Exam General: Alert, Oriented x3, Cooperative HEENT: Atraumatic, PERRLA, EOMI, Normocephalic, - - no mastoid tenderness or bogginess. Neck: Supple, No JVD, Negative Carotid Bruits Lungs: Clear to auscultation, Normal air movement Cardiovascular: Regular rate, No murmurs Abdomen: Bowel Sounds Present, Soft, Non Tender Extremities: No edema, Capillary Refill Less than 3 Seconds Skin: No rashes, No breakdown Musculoskeletal: No Tenderness to Palpation of Joints or Extremities Neurological: Cranial nerves II-XII grossly intact, - - BL lateral nystagmus Psych/Mental Status: Normal Affect, Appropriate, Alert and oriented to time, place, person, mood and affect Vital Signs Temp Pulse Resp BP Pulse Ox 98.2 F 63 18 148/92 H 98 05/12/19 09:59 05/12/19 09:59 05/12/19 09:59 05/12/19 09:59 05/12/19 09:59 Oxygen Delivery Method Room Air Weight: 181 lb 3.52 oz Body Mass Index (BMI) 30.1 Intake and Output for Last 24 Hours 05/10/19 05/11/19 05/12/19 23:59 23:59 23:59 Intake Total 267 / 267 Balance 267 / 267 Laboratory Tests Past 24 Hrs 05/11/19 05/11/19 11:34 14:50 Sodium 138 Potassium 3.7 3.7 Chloride 106 Carbon Dioxide 27.0 Anion Gap 5 BUN 9 Creatinine 0.68 Estim Creat Clear Calc 49.12 Est GFR (MDRD) Af Amer 111 Est GFR (MDRD) Non-Af 91 BUN/Creatinine Ratio 13.2 Glucose 109 H Calcium 9.1 Medical Necessity - Tobacco Use Smoking Status: Former smoker Assessment/Plan All Active Problems (Last Reviewed 05/11/19 @ 06:01 by Matthew Thomas MD) Vertigo (Acute) Hypokalemia (Acute) URI, acute (Acute) History of left breast cancer (Acute) 1. Vertigo 2/2 acute URI - pt has recurrent sinusitis - sinus dz on CT. pain, congestion, and ear pain. TMs are acutely inflamed BL. Conttinue unasyn, transition to augmentin at DC. ENT follow up as outpatient. Supportive care with decongestants. No fever/leukocytosis -MRI brain no stroke. Sinus disease and left mastoid disease noted. MRA head and neck - 50-60% stenosis of the left ICA, right ICA outpouching - outpatient follow up. -still very dizzy, neurology consulted to evaluate in the AM. 2. Hypokalemia resolved 3. Hx left breast cancer 4. Other chronic medical problems osteoarthritis, osteopenia, GABY, HTN, Anx. DVT ppx: lovenox DC planning: neuro eval in the AM. Too dizzy to walk today. Continue PTOT. This patient was seen by Manish Mansfield PA-C under the supervision of Dr. Ahn. <Gladys Ahn - Last Filed: 05/12/19 16:37> - Physical Exam Vital Signs Temp Pulse Resp BP Pulse Ox 98.4 F 66 18 117/74 97 05/12/19 15:19 05/12/19 15:19 05/12/19 15:19 05/12/19 15:19 05/12/19 15:19 Oxygen Delivery Method Room Air Weight: 82.2 kg Body Mass Index (BMI) 30.1 Orthostatic Vital Signs Start: 05/12/19 13:41 Freq: q24h Status: Active Protocol: Activity Type Activity Date Activity User E-Sign Co-Sign Detail Recorded Client Recorded Date Recorded By Document 05/12/19 13:41 CHENTE [id number] 05/12/19 13:42 CHENTE 05/12/19 13:41 Orthostatic Vitals Standing -Blood Pressure (90/60-120/80) 143/81 H -Extremity Use Right Arm -Pulse Rate (60-100) 87 Sitting -Blood Pressure (90/60-120/80) 152/92 H -Extremity Use Right Arm -Pulse Rate (60-100) 78 Lying -Blood Pressure (90/60-120/80) 151/82 H -Extremity Use Right Arm -Pulse Rate (60-100) 69 Intake and Output for Last 24 Hours 05/10/19 05/11/19 05/12/19 23:59 23:59 23:59 Intake Total 1722.75 / 1722.75 Balance 1722.75 / 1722.75 Assessment/Plan This patient was seen in conjunction with DANIELLE Velázquez. I have independently interviewed and examined the patient and reviewed pertinent historical, laboratory, and other data. Please refer to DANIELLE Velázquez note for his patient's presentation, findings, and recommendations. I have reviewed and his note and concur with his documentation Patient was seen and examined. Complaining of dizziness. Not been ambulating much. 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 Vertigo 2. Acute respiratory infection/acute sinusitis 3. Hypokalemia, replaced 4. Hypertension 5. Osteopenia/osteoarthritis Plan: Continue with symptomatic treatment, meclizine as needed Continue on IV Unasyn, Possible DC in a.m. Code Visit Inpatient E&M: 92353 Subs Hosp L2
[2019-05-13] VITALS (10 sets, daily range): BP systolic 127–142; BP diastolic 76–89; PULSE 55–76; RESP 16; TEMP 36.6–37; O2SAT 92–99
[2019-05-13] MEDS: Meclizine HCl 25 MG Tablet PO ×2 (05:36→13:37)
[2019-05-13] MEDS: Enoxaparin 40 MG/0.4 ML Syringe SC (09:27)
[2019-05-13] MEDS: Fluticasone 0.05% 1 SPRAY NASAL.SRY NASAL (09:27)
[2019-05-13] MEDS: guaiFENesin 1,200 MG Tablet 1200 MG PO (09:27)
--- NOTE | 2019-05-13 10:52 | CASEMGMT ---
Per Verona RODRIGUEZ, pt needs set up for vestibular OP therapy at discharge. Pt is agreeable at this time and order obtained for vestibular therapy at [facility]. Pt given original and copy faxed to [facility] at this time. Pt also requests a wheeled walker at this time. Pt given verbal list of in-network local DME companies at this time. [place] obtained [place] [facility] [place] this time and pt would like walker delivered to hospital prior to discharge. Call to Domitila at [facility] and Domitila aware of order and that pt to be discharged today, voices understanding. Reji MANNING CM
--- NOTE | 2019-05-13 11:47 | CON.PCM_ITS ---
Problem List (1) Vertigo Status: Acute Reason for Consult Date of Consultation: 05/13/19 Reason for Consultation: Vertigo History of Present Illness: The patient is a 69 year old F with PMH HTN, history of left breast cancer, sta tus post lumpectomy and lymph node resection admitted with vertigo. Per patient she started having vertigo since Monday night 05/10/2019, she was reading a book at night and she is felt that the whole room was spinning, was nauseous and vomited, dizziness became worse with head movement. She felt that she may have some double vision but denies any speech disturbances headaches, focal motor motor weakness, sensory loss. She got admitted as the dizziness was persistent. Patient denies any frequent falls, does not use any cane or walker to ambulate, does drive and does not need any assistance for her ADLs. MRI brain done on admission did not show any acute stroke. MRA head/neck reported to show 60% stenosis of the left ICA. [] Past Medical History Medical History: Medical History (Last Reviewed 05/11/19 @ 06:01 by Matthew Thomas MD) History of left breast cancer (Acute) Z85.3 Anxiety F41.9 Breast cancer C50.919 jun 2016 Osteoarthritis M19.90 Osteopenia M85.80 Sleep apnea G47.30 s/p port insertion s/p port removal HTN (hypertension) I10 Allergies amantadine Allergy (Verified 05/11/19 01:27) Unknown diclofenac [From Voltaren] Allergy (Verified 05/11/19 01:27) Hives methylprednisolone [From Medrol] Allergy (Verified 05/11/19 01:27) Hives Home Medications: Ambulatory Orders Medication Instructions Recorded Calcium Carb/Mag Ox/Zinc Sulf 1 ea PO BID 06/24/16 [Afxrigs-Gmzezxsru-Pwxp Tablet] Cholecalciferol (VIT D3) [Vitamin 2,000 unit PO BID 06/24/16 D3] Flaxseed Oil [[place]-3 Flaxseed Oil] 1,000 mg PO DAILY 06/24/16 Lisinopril [Zestril] 5 mg PO DAILY 06/24/16 Multivitamins,Therapeutic 1 tab PO DAILY 06/24/16 [Multivitamin] rosuvastatin 5 mg tablet 5 mg PO DAILY 04/23/19 Aspirin [Aspirin, Baby] 81 mg PO DAILY@0800 05/11/19 Acetaminophen [Tylenol Tablet] 650 mg PO Q6H PRN PRN tab 05/13/19 Amoxicillin/Potassium Clav 1 ea PO BID #20 tab 05/13/19 [Augmentin 875-125 Tablet] Fluticasone 0.05% [Flonase Nasal 1 spray NASAL BID #0 nasal.sry 05/13/19 [place]] Guaifenesin [Mucinex] 1,200 mg PO BID tab 05/13/19 Meclizine HCl [Antivert] 25 mg PO TID PRN PRN #21 tab 05/13/19 Ondansetron HCl [Zofran] 4 mg PO Q6H PRN PRN #20 tab 05/13/19 Surgical History: Surgical History (Last Reviewed 05/11/19 @ 06:01 by Matthew Thomas MD) H/O lumpectomy Z98.890 H/O tubal ligation Z98.51 S/P tonsillectomy and adenoidectomy Z90.89 neuroma surgery Lives: With Family Smoking Status: Former smoker Alcohol: Occasional - *Family History Maternal Family History: Family History (Last Updated 05/11/19 @ 06:02 by Matthew Thomas MD) Mother Congestive heart failure Father Congestive heart failure Diabetes Review of Systems Constitutional: Reports: - - Complete ROS negative except as documented in HPI - Physical Exam General: Alert HEENT: Normocephalic Neck: Supple Lungs: Normal air movement Cardiovascular: Normal S1, Normal S2 Abdomen: Bowel Sounds Present Extremities: No cyanosis Neurological: - - Conscious, alert, CN II through XII grossly intact except bilateral vertical intermittent nystagmus, power 5 x 5 both upper and lower extremities, no sensory loss, no cerebellar signs, gait deferred, no NR, reflexes + B/L B/S/T/K/A Psych/Mental Status: Normal Affect Vital Signs Temp Pulse Resp BP Pulse Ox 98 F 72 16 135/76 H 92 05/13/19 09:00 05/13/19 10:53 05/13/19 09:00 05/13/19 08:37 05/13/19 09:01 Oxygen Delivery Method Room Air Weight: 82.2 kg Body Mass Index (BMI) 30.1 Orthostatic Vital Signs Start: 05/12/19 13:41 Freq: q24h Status: Active Protocol: Activity Type Activity Date Activity User E-Sign Co-Sign Detail Recorded Client Recorded Date Recorded By Document 05/12/19 13:41 CHENTE [id number] 05/12/19 13:42 CHENTE 05/12/19 13:41 Orthostatic Vitals Standing -Blood Pressure (90/60-120/80) 143/81 H -Extremity Use Right Arm -Pulse Rate (60-100) 87 Sitting -Blood Pressure (90/60-120/80) 152/92 H -Extremity Use Right Arm -Pulse Rate (60-100) 78 Lying -Blood Pressure (90/60-120/80) 151/82 H -Extremity Use Right Arm -Pulse Rate (60-100) 69 Intake and Output for Last 24 Hours 05/11/19 05/12/19 05/13/19 23:59 23:59 23:59 Intake Total 2334.75 / 2574.75 1802 / 1802 Balance 2334.75 / 2574.75 [id number] Assessment/Plan All Active Problems (Last Reviewed 05/11/19 @ 06:01 by Matthew Thomas MD) Vertigo (Acute) Hypokalemia (Acute) URI, acute (Acute) History of left breast cancer (Acute) The patient is a 69 year old F with PMH HTN, history of left breast cancer, status post lumpectomy and lymph node resection admitted with vertigo. Per patient she started having vertigo since Monday night 05/10/2019, she was reading a book at night and she is felt that the whole room was spinning, was nauseous and vomited, dizziness became worse with head movement. She felt that she may have some double vision but denies any speech disturbances headaches, focal motor motor weakness, sensory loss. She got admitted as the dizziness was persistent. Patient denies any frequent falls, does not use any cane or walker to ambulate, does drive and does not need any assistance for her ADLs. MRI brain done on admission did not show any acute stroke. MRA head/neck reported to show 60% stenosis of the left ICA. Impression Vertigo?likely BPPV Carotid stenosis Plan ?MRI brain done on admission did not show any acute stroke. ?MRA head/neck reported to show 60% stenosis of the left ICA. Right ICA ou tpouching. If CTA head/neck confirms aneurysm, patient would need Neurosurgery evaluation ?Check CTA head/neck ?Meclizine as needed ?ENT referral ?Vestibular therapy -Vascular Surgery consult ?PT/OT/ST ?Fall precautions ?GI/DVT prophylaxis ?Further medical management per hospitalist team ?Follow-up with neurology as outpatient in 4-6 weeks ?Please call with questions if any ?Thank you for allowing us to participate in patient's care management This note has been generated using Zscaler dictation software. It may contain incorrect words, spellings and punctuation's that were not noted in the review of the note prior to signing. Code Visit Inpatient E&M: 96208 Init Hosp L3
--- NOTE | 2019-05-13 11:54 | CT_ITS ---
STUDY: CTA HEAD AND NECK WITH CONTRAST REASON FOR EXAM: Female, 69 years old. 50-60% stenosis of the left internal carotid artery on MRA neck and undetermined focal outpouching of the right mid cervical internal carotid artery. 4 further evaluation. RADIATION DOSAGE (If Supplied By Facility): CTDIvol = ( 30.22 ) mGy, DLP = ( 1408.33 ) mGycm TECHNIQUE: CT angiography was performed with a multi-detector CT scanner. Data acquisition was obtained from the skull base through the vertex following intravenous administration of 100CC IV Isovue 370. MIP images were reconstructed from the axial data set. Post-processing of the angiographic images was performed, with multiplanar reformation and 3D reconstruction. Individualized dose optimization techniques were used for this CT. COMPARISON: MRA neck 05/11/2019. FINDINGS: Normal bilateral petrous carotid arteries. Normal right cavernous carotid artery with a normal supraclinoid bifurcation. Normal left cavernous carotid artery with a normal supraclinoid bifurcation. Normal right A1 segment of the anterior cerebral artery. Normal left A1 segments of the anterior cerebral artery. Normal intact anterior communicating artery (ACOM). Normal bilateral A2 segments of the anterior cerebral arteries. Normal right M1 and M2 segments of the middle cerebral arteries, with a normal M1 bifurcation. Normal left M1 and M2 segments of the middle cerebral arteries, with a normal M1 bifurcation. Normal right posterior communicating artery (PCOM). No visible left posterior communicating artery (PCOM). Normal bilateral vertebral arteries. Normal basilar artery with a normal basilar bifurcation. The visualized bilateral superior cerebellar (SCA) arteries are normal. Normal bilateral P1, P2 and visualized P3 segments of the posterior cerebral arteries. There is no demonstrated aneurysm of the [place]. There is no demonstrated abnormality of the visualized brain. AORTIC ARCH: Normal visualized aortic arch. Normal origins of the brachiocephalic, left common carotid, and left subclavian arteries. The left vertebral artery has a direct aortic arch origin and is less dominant. RIGHT CAROTID ARTERIES: Normal right common carotid artery (CCA). Normal right internal carotid bulb. Normal origin of the right internal carotid (ICA) artery without a hemodynamically significant stenosis. Tortuous loop of the distal cervical internal carotid artery. There is a small nonocclusive calcified plaque in the right distal cervical internal carotid artery. There is a small saccular aneurysm in the medial wall of the right distal cervical internal carotid artery. This is just above and medial to the calcified plaque in the lateral wall of the right distal cervical internal carotid artery. The aneurysmal sacs directed cephalad and it has a 4 mm wide necked. It is 3.5 mm long with a 3.5 mm wide fundus. Normal origin of the right external carotid artery (ECA). LEFT CAROTID ARTERIES: Minimally occlusive calcified plaque in the distal end of the left common carotid artery (CCA). The left common carotid artery remains widely patent. Normal left internal carotid bulb. Normal origin of the left internal carotid (ICA) artery without a hemodynamically significant stenosis. Widely patent tortuous visualized cervical portion of the left internal carotid artery. Normal origin of the left external carotid artery (ECA). VERTEBRAL ARTERIES: Normal bilateral vertebral arteries. The right vertebral artery slightly more dominant. The left vertebral artery has a direct aortic arch origin. CT/CTA Head AND Neck W/ Contrast IMPRESSION: 1. No CTA evidence of 50-60% stenosis of the left internal carotid artery that was reported on MRA neck. The left internal carotid artery is widely patent. 2. Minimally occlusive calcified plaque in the distal end of the left common carotid artery corresponds to the 50-60% stenosis of the left internal carotid artery. The left common carotid artery remains widely patent without significant stenosis. 3. 3.5 x 3.5 mm saccular aneurysm involving the medial wall of the right distal cervical internal carotid artery with a 4 mm wide neck. This is opposite and above the nonocclusive calcified plaque in the lateral wall of the tortuous right distal cervical internal carotid artery. 4. No CTA evidence of intracranial vaso-occlusive disease or intracranial aneurysm. 5. Widely patent aortic arch and origins of the great vessels including the nondominant left vertebral artery which has a direct aortic arch origin. Electronically Signed: Sunil Jimenez MD at 15:53 EDT , Service support ,
--- NOTE | 2019-05-13 13:29 | DCINST_ITS ---
- Discharge Diagnoses Current Active Problems: Current Active and Chronic Problems (Last Reviewed 05/11/19 @ 06:01 by Matthew Thomas MD) Vertigo (Acute) Hypokalemia (Acute) You will use the following diet at home:: Cardiac Your food should be the consistency of: Regular Your liquids should be the consistency of: Regular/Thin Discharge Activity: May Not Drive - may not drive if experiencing vertigo or using meclizine Additional Instructions: Pursue outpatient physical therapy/occupational therapy. Allergies/Adverse Reactions: Allergies amantadine Allergy (Verified 05/11/19 01:27) Unknown diclofenac [From Voltaren] Allergy (Verified 05/11/19 01:27) Hives methylprednisolone [From Medrol] Allergy (Verified 05/11/19 01:27) Hives Medications to take at Discharge Calcium Carb/Mag Ox/Zinc Sulf [Gksroeh-Uuwrkpefb-Ihyo Tablet] 1 ea PO BID 06/24/16 Cholecalciferol (VIT D3) [Vitamin D3] 2,000 unit PO BID 06/24/16 Flaxseed Oil [[place]-3 Flaxseed Oil] 1,000 mg PO DAILY 06/24/16 Lisinopril [Zestril] 5 mg PO DAILY 06/24/16 Multivitamins,Therapeutic [Multivitamin] 1 tab PO DAILY 06/24/16 rosuvastatin 5 mg tablet 5 mg PO DAILY 04/23/19 Aspirin [Aspirin, Baby] 81 mg PO DAILY@0800 05/11/19 Acetaminophen [Tylenol Tablet] 650 mg PO Q6H PRN PRN tablet 05/13/19 Amoxicillin/Potassium Clav [Augmentin 875-125 Tablet] 1 ea PO BID #20 tab 05/13/19 Fluticasone 0.05% [Flonase Nasal [place]] 1 spray NASAL BID #0 nasal.sry 05/13/19 Guaifenesin [Mucinex] 1,200 mg PO BID tablet 05/13/19 Meclizine HCl [Antivert] 25 mg PO TID PRN PRN #21 tab 05/13/19 Ondansetron HCl [Zofran] 4 mg PO Q6H PRN PRN #20 tab 05/13/19 The following prescriptions were given: Meclizine HCl [Antivert] 25 mg PO TID PRN PRN #21 tab PRN Reason: Vertigo Transmission Status: Pending to [id number] Amoxicillin/Potassium Clav [Augmentin 875-125 Tablet] 1 ea PO BID #20 tab Transmission Status: Pending to [id number] Ondansetron HCl [Zofran] 4 mg PO Q6H PRN PRN #20 tab PRN Reason: Nausea Transmission Status: Pending to [id number] Primary Care Physician: Preet Bernstein MD [Primary Care Provider] - Please follow up with your Primary Care Physician in: 1-2 weeks Test Results: Test results from this visit will be discussed in further detail at your follow- up appointment, if applicable. Please Follow Up With: Redd Rosario MD When: 1-2 weeks Proposed Discharge Date: 05/13/19
[2019-05-13] MEDS: 0.9% NaCl Peripheral Flush Adult/Peds IV (13:38)
--- NOTE | 2019-05-13 16:14 | DS.PCM_ITS ---
<Manish Mansfield - Last Filed: 05/13/19 16:28> Discharge Date and Diagnosis - Problem List Patient Problems: Active and Suspected Problems (Last Reviewed 05/11/19 @ 06:01 by Matthew Thomas MD) Vertigo (Acute) Hypokalemia (Acute) Date of Admission: 05/11/19 Date of Discharge: 05/13/19 - Primary Discharge Diagnosis Active and Suspected Problems (Last Reviewed 05/11/19 @ 06:01 by Matthew Thomas MD) Vertigo (Acute) 2/2 sinusitis/otitis Acute sinusitis with otitis media Hypokalemia Hx breast cancer in remission HTN GABY Anxiety osteoarthritis osteopenia Hospital Course and Treatment Imaging Results: IMAGING: CT/CTA Head AND Neck W/ Contrast IMPRESSION: 1. No CTA evidence of 50-60% stenosis of the left internal carotid artery that was reported on MRA neck. The left internal carotid artery is widely patent. 2. Minimally occlusive calcified plaque in the distal end of the left common carotid artery corresponds to the 50-60% stenosis of the left internal carotid artery. The left common carotid artery remains widely patent without significant stenosis. 3. 3.5 x 3.5 mm saccular aneurysm involving the medial wall of the right distal cervical internal carotid artery with a 4 mm wide neck. This is opposite and above the nonocclusive calcified plaque in the lateral wall of the tortuous right distal cervical internal carotid artery. 4. No CTA evidence of intracranial vaso-occlusive disease or intracranial aneurysm. 5. Widely patent aortic arch and origins of the great vessels including the nondominant left vertebral artery which has a direct aortic arch origin. CT/Brain/Head without Contrast IMPRESSION: 1. No evidence of an acute intracranial abnormality. 2. Minimal bilateral periventricular and subcortical white matter chronic small vessel disease with age appropriate cerebral atrophy. 3. Arachnoid cyst within the right posterior cranial fossa. 4. Moderate chronic paranasal sinus disease MRI/Brain without Contrast IMPRESSION: No acute intracranial abnormality. Moderate paranasal sinus disease. Mild left mastoid disease. MRI/MRA Head ONLY without Contrast IMPRESSION: No occlusion MRI/MRA Neck WITH and W/O Contrast IMPRESSION: Right ICA outpouching. 50-60% stenosis of the left ICA. Further evaluation with CTA is recommended. Consultations: [place] - Neuro Operations: None Procedures: None Summary of Care Provided: Hospital Course: The patient is a 69 year old F with pmhx as above who presented to the ER with severe vertigo. This began 1 week prior to presentation and resolved on its own. The day of presentation it came back and was severe. She had severe nausea and vomiting. She had been fighting a sinus infection for the past 3-4 weeks. She had taken a course of doxy for 5 days which helped, however it came back. She started amoxicillin prior to presentation but was too nauseous to keep it down. She had severe BL lateral nystagmus. In the ER she had a CT of the brain without stroke, also showing sinusitis. She also complained of sinus pain and ear fullness. She was admitted for stroke work up. She had an MRI brain which did not show stroke, it did however show sinusitis and mastoiditis. On TM exam she had inflammation, erythema, and fluid present. She was placed on unasyn. She had MRA of the head and neck. This showed 50-60% stenosis of the left ICA. Neurology was consulted. Neuro recommended CTA of the head and neck. This showed that there was no stenosis as reported in the MRA's. See reports above. It did however, show a 3.5x3.5mm aneurysm as above. I discussed this with Neuro who advised follow up in 1-2 weeks with neurosurgery. I have advised the patient on the findings and instructed her to have strict follow up with her PCP especially with regards to blood pressure, and to see Dr. Barbara Waller for neurosurgery in 1-2 weeks. As for her vertigo, this gradually improved with antibiotics, meclizine, mucinex, and nasal steroids. She was placed on augmentin to complete a 14 day course of antibiotics as she has failed outpatient therapy. I have also advised her to see Dr. Rosario, ENT, whom she has seen in the past. She was discharged home in stable condition. I have recommended outpatient PT and OT for vestibular therapy at discharge as she did have episodic vertigo with position change. She is to not drive if she experiences vertigo or requiring meclizine. This patient was seen by Manish Mansfield PA-C under the supervision of Dr. Razo. [] Patient Problems: Active and Suspected Problems (Last Reviewed 05/11/19 @ 06:01 by Matthew Thomas MD) Vertigo (Acute) Hypokalemia (Acute) - Physical Exam General: Alert, Oriented x3, Cooperative HEENT: Atraumatic, PERRLA, EOMI, Normocephalic Neck: Supple, No JVD, Negative Carotid Bruits Lungs: Clear to auscultation, Normal air movement Cardiovascular: Regular rate, No murmurs Abdomen: Bowel Sounds Present, Soft, Non Tender Extremities: No edema, Capillary Refill Less than 3 Seconds Skin: No rashes, No breakdown Musculoskeletal: No Tenderness to Palpation of Joints or Extremities Neurological: Cranial nerves II-XII grossly intact Psych/Mental Status: Normal Affect, Appropriate, Alert and oriented to time, place, person, mood and affect Vital Signs Temp Pulse Resp BP Pulse Ox 98.6 F 71 16 142/76 H 99 05/13/19 15:51 05/13/19 15:51 05/13/19 15:51 05/13/19 15:51 05/13/19 15:51 Oxygen Delivery Method Room Air Weight: 181 lb 3.52 oz Body Mass Index (BMI) 30.1 Orthostatic Vital Signs Start: 05/12/19 13:41 Freq: q24h Status: Active Protocol: Activity Type Activity Date Activity User E-Sign Co-Sign Detail Recorded Client Recorded Date Recorded By Document 05/12/19 13:41 CHENTE [id number] 05/12/19 13:42 CHENTE 05/12/19 13:41 Orthostatic Vitals Standing -Blood Pressure (90/60-120/80) 143/81 H -Extremity Use Right Arm -Pulse Rate (60-100) 87 Sitting -Blood Pressure (90/60-120/80) 152/92 H -Extremity Use Right Arm -Pulse Rate (60-100) 78 Lying -Blood Pressure (90/60-120/80) 151/82 H -Extremity Use Right Arm -Pulse Rate (60-100) 69 Intake and Output for Last 24 Hours 05/11/19 05/12/19 05/13/19 23:59 23:59 23:59 Intake Total 2334.75 / 2574.75 4.0 / 1913.0 Balance 2334.75 / 2574.75 1914.0 / 1913.0 Discharge Diet: Low fat/ Low Cholesterol, 2000 mg Sodium Diet Discharge Activity: May Not Drive - may not drive if experiencing vertigo or using meclizine Home Medications: Medications to take at Discharge Calcium Carb/Mag Ox/Zinc Sulf [Hqlpkrj-Dpqnuvhqi-Iwhg Tablet] 1 ea PO BID 06/24/16 Cholecalciferol (VIT D3) [Vitamin D3] 2,000 unit PO BID 06/24/16 Flaxseed Oil [[place]-3 Flaxseed Oil] 1,000 mg PO DAILY 06/24/16 Lisinopril [Zestril] 5 mg PO DAILY 06/24/16 Multivitamins,Therapeutic [Multivitamin] 1 tab PO DAILY 06/24/16 rosuvastatin 5 mg tablet 5 mg PO DAILY 04/23/19 Aspirin [Aspirin, Baby] 81 mg PO DAILY@0800 05/11/19 Acetaminophen [Tylenol Tablet] 650 mg PO Q6H PRN PRN tab 05/13/19 Amoxicillin/Potassium Clav [Augmentin 875-125 Tablet] 1 ea PO BID #20 tab 05/13/19 Fluticasone 0.05% [Flonase Nasal [place]] 1 spray NASAL BID #0 nasal.sry 05/13/19 Guaifenesin [Mucinex] 1,200 mg PO BID tab 05/13/19 Meclizine HCl [Antivert] 25 mg PO TID PRN PRN #21 tab 05/13/19 Ondansetron HCl [Zofran] 4 mg PO Q6H PRN PRN #20 tab 05/13/19 Following Prescrptions Were Given to Patient: Meclizine HCl [Antivert] 25 mg PO TID PRN PRN #21 tab PRN Reason: Vertigo Transmission Status: [id number] Amoxicillin/Potassium Clav [Augmentin 875-125 Tablet] 1 ea PO BID #20 tab Transmission Status: Received by [id number] Ondansetron HCl [Zofran] 4 mg PO Q6H PRN PRN #20 tab PRN Reason: Nausea Transmission Status: Re[facility] by [id number] Primary Care Physician: Preet Bernstein MD [Primary Care Provider] - Please follow up with your Primary Care Physician in: 1-2 weeks Please Follow Up With: Redd Rosario MD When: 1-2 weeks Please Follow Up With: Barbara Waller MD When: 1-2 weeks Disposition: Home Minutes spent on discharge:: 45 Patient Condition:: Stable Medical Necessity - Tobacco Use Smoking Status: Former smoker Meaningful Use Info Meaningful Use Diagnoses (Choose all that apply): None applicable <Pedro Razo - Last Filed: 05/13/19 17:10> Discharge Date and Diagnosis - Primary Discharge Diagnosis Active and Suspected Problems (Last Reviewed 05/11/19 @ 06:01 by Matthew Thomas MD) Vertigo (Acute) Hypokalemia (Acute) Hospital Course and Treatment Imaging Results: 05/13/19 11:54 CTA Head AND Neck W/ Contrast [CT] Urgent Summary of Care Provided: This patient was seen in conjunction with Manish SANTOS. I have independently interviewed and examined the patient and reviewed pertinent history, examination findings, laboratory and plan of management. I have reviewed the note and agree with the documented findings with the few additional points. In brief, patient is admitted for severe vertigo as mentioned above. Patient also had nausea, vomiting and moderate paranasal sinusitis including maxillary and frontal sinuses. On exam today, there is no sinus tenderness on frontal and maxillary sinuses. Patient was treated with IV antibiotics for sinusitis. Earlier she just took 2 days of amoxicillin and earlier doxycycline. Follow-up with the ENT doctor. Patient was seen by neurologist. MRI brain was done which did not show acute stroke but sinusitis and mastoiditis. Patient also has inflammation erythema and fluid present on otoscopic exam. CTA of head and neck was done which showed 3.5 x 3.5 mm saccular aneurysm involving the medial wall of the right distal cervical internal carotid artery with a 4 mm wide neck. The patient is discharged home with outpatient OT for vertigo. Patient also advised to follow-up with neurosurgery in 1 to 2 weeks as mentioned above. Prescription was given for Augmentin as mentioned above. She was also advised to follow-up with ENT Dr. Rosario. Discharge medication reconciliation done. Discharge follow-up instructions completed. Discharge process discussed with the patient and all questions were answered to patient's satisfaction.. Total time spent, exact 35 minutes on discharge meds reconciliation, examination, review of imaging and blood test and discussion with the patient on follow-up instructions. I have discussed my assessment with PA, Manish and orders have been reviewed. [] Clinical Impression(s) from Imaging Studies Brain CT 05/11/19 02:15 IMPRESSION: 1. No evidence of an acute intracranial abnormality. 2. Minimal bilateral periventricular and subcortical white matter chronic small vessel disease with age appropriate cerebral atrophy. 3. Arachnoid cyst within the right posterior cranial fossa. 4. Moderate chronic paranasal sinus disease Electronically Signed: Alexandre Quiroz MD at 3:13 EDT Tel , Service support , Brain MRI 05/11/19 07:02 IMPRESSION: No acute intracranial abnormality. Moderate paranasal sinus disease. Mild left mastoid disease. Electronically Signed: Rosy Sanderson MD at 12:13 EDT Tel , Service support , Head MRA 05/11/19 07:02 IMPRESSION: No occlusion Electronically Signed: Rosy Sanderson MD at 12:15 EDT Tel , Service support , Neck MRA 05/11/19 07:02 IMPRESSION: Right ICA outpouching. 50-60% stenosis of the left ICA. Further evaluation with CTA is recommended. Electronically Signed: Rosy Sanderson MD at 12:22 EDT Tel , Service support , Head/Neck CTA 05/13/19 11:54 IMPRESSION: 1. No CTA evidence of 50-60% stenosis of the left internal carotid artery that was reported on MRA neck. The left internal carotid artery is widely patent. 2. Minimally occlusive calcified plaque in the distal end of the left common carotid artery corresponds to the 50-60% stenosis of the left internal carotid artery. The left common carotid artery remains widely patent without significant stenosis. 3. 3.5 x 3.5 mm saccular aneurysm involving the medial wall of the right distal cervical internal carotid artery with a 4 mm wide neck. This is opposite and above the nonocclusive calcified plaque in the lateral wall of the tortuous right distal cervical internal carotid artery. 4. No CTA evidence of intracranial vaso-occlusive disease or intracranial aneurysm. 5. Widely patent aortic arch and origins of the great vessels including the nondominant left vertebral artery which has a direct aortic arch origin. Electronically Signed: Sunil Jimenez MD at 15:53 EDT , Service support , Subjective: Seen and examined. Patient heart rate and blood pressure is controlled. Seen by neurologist. He recommended CTA of head and neck. - Physical Exam General: Alert, Oriented x3, Cooperative HEENT: Atraumatic, PERRLA, EOMI, Normocephalic Neck: Supple, No JVD, Negative Carotid Bruits Lungs: Clear to auscultation, Normal air movement, No rhonchi, No wheeze, No rales Cardiovascular: Regular rate, Regular Rhythm, Normal S1, Normal S2, No murmurs Abdomen: Bowel Sounds Present, Soft, Non Tender, Non-Distended Extremities: No edema, Capillary Refill Less than 3 Seconds Skin: No rashes, No breakdown Musculoskeletal: No Tenderness to Palpation of Joints or Extremities, Arthritic Changes Neurological: Cranial nerves II-XII grossly intact, Deep Tendon Reflexes 2+/4 and Symmetrical, Neuro grossly intact Psych/Mental Status: Normal Affect, Appropriate Vital Signs Temp Pulse Resp BP Pulse Ox 98.6 F 71 16 142/76 H 99 05/13/19 15:51 05/13/19 15:51 05/13/19 15:51 05/13/19 15:51 05/13/19 15:51 Oxygen Delivery Method Room Air Weight: 181 lb 3.52 oz Body Mass Index (BMI) 30.1 Orthostatic Vital Signs Start: 05/12/19 13:41 Freq: q24h Status: Active Protocol: Activity Type Activity Date Activity User E-Sign Co-Sign Detail Recorded Client Recorded Date Recorded By Document 05/12/19 13:41 CHENTE [id number] 05/12/19 13:42 CHENTE 05/12/19 13:41 Orthostatic Vitals Standing -Blood Pressure (90/60-120/80) 143/81 H -Extremity Use Right Arm -Pulse Rate (60-100) 87 Sitting -Blood Pressure (90/60-120/80) 152/92 H -Extremity Use Right Arm -Pulse Rate (60-100) 78 Lying -Blood Pressure (90/60-120/80) 151/82 H -Extremity Use Right Arm -Pulse Rate (60-100) 69 Intake and Output for Last 24 Hours 05/11/19 05/12/19 05/13/19 23:59 23:59 23:59 Intake Total 2334.75 / 2574.75 1913.0 / 1913.0 Balance 2334.75 / 2574.75 1913.0 / 1913.0 Code Visit OBSV E&M: 53000 Observation care discharge
== END 2019-05-13 13:31 | disposition home or self-care (01) ==
LOC: ED 04:31 → PCU 05:28
PROVIDERS: Physician Assistant; Admitting Provider Hospitalist; Emergency Provider Emergency Medicine; Family Provider Family Medicine; PCP Family Medicine; Visit Provider Internal Medicine
DX: J01.90 Acute sinusitis, unspecified (principal); H66.90 Otitis media, unspecified, unspecified ear; R42 Dizziness and giddiness; E87.6 Hypokalemia; I67.1 Cerebral aneurysm, nonruptured; I10 Essential (primary) hypertension; E78.00 Pure hypercholesterolemia, unspecified; M19.90 Unspecified osteoarthritis, unspecified site; Z79.899 Other long term (current) drug therapy; Z87.891 Personal history of nicotine dependence; Z79.82 Long term (current) use of aspirin; Z85.3 Personal history of malignant neoplasm of breast; G47.33 Obstructive sleep apnea (adult) (pediatric)
CPT/HCPCS: 36415; 70450; 70496; 70498; 70544; 70549; 70551; 80048; 80053; 84132; 84484; 85027; 93005; 96361; 96365; 96366; 96372; 96375; 96376; 97162; 97166; 97530; 99218; 99251; 99285; A9575; J7030; J7040; J7120; Q9967; A4216; G0378; G0463; J0295; J2405

== ENCOUNTER 2019-06-05 15:00 | Outpatient (RCR) | payer BC, SELFPAY ==
[2019-05-11 11:26] VITALS: BMI 30.1
--- NOTE | 2019-05-22 15:21 | HP.PTEVAL ---
Patient's Visit Information RACHEL SHARMA is a 69 year old F referred to Physical Therapy by DANIELLE Velázquez with a diagnosis of vertigo. Date of Evaluation: 05/22/19 Physical Therapist: Víctor Madrigal DPT, OCS, CSCS - Visit Plan Frequency: 1-2x /Week Duration: 4-6 Weeks Plan: weekly to 2x/week for adaptation, habituation and balance ex as needed. - Subjective Findings: Has vestibular neuritis. Was fighting a cold and eventually got ear and sinus infection. Got inner ear infection about two weeks ago and could not do anything. Was on antibiotic prior to becoming vestibular. did not help. Got in car and got motion sickness and nausea. Stopped antibiotic at that point. Felw home from [place] shortly thereafter and got pain R cheek adn went to regular doctor. Got another antibiotic for sinus infection. The next night she lied in bed and started spinning while reading a book. Rolled adn got worse, Hard to balance and vomitted. She called the squad on Monday night and went to hospital and had catscan to r/o stroke. In hopsital all day Monday and had to keep eyes closed and not move. ENT visited a few days later on Monday and could not really walk. Then later on Monday she was able to get to commode adn recliner. Ran some scans and may have narrow of carotid artery. More testing catscan on Monday. Went home Monday a week ago. Saw Marlene and only wants therapy. Gets around at home with stinson and needs wh walker out and about. [employer] work and moving can make her dizzy/goofy feeling with hard to focus. Feels normal when not moving. Feeling more normal every day. Currently at 70% better. 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 Was hard to look at computer and now can do it but not very long. Basic aDLs are getting done. Has steps at home and they are not too bad. Lives with Kids. - Objective neck ROM WNL and painfree. Walks with wh walker safe adn I, trasnfers I without UE, steps reciprocal albeit slow without rail. VOR walking veering. - B hallpike nicole, - roll test. Oculomotor: no nystagmus with gaze or head shake. - skew eye deviation. - ocular tilt. normal convergence. + L head thrust test. pursuit adn saccades normal. VOR 2/10 horiz for 20 seconds adn 1/10 vertic both after 30 seconds adn duration no longer than 30 seconds. - Balance Scores Functional Gait Assessment Score: 16 % Disability: 46.6700 CATSIB Score (Max score 120 seconds): 95 - Goals Goal 1:: abolish dizzyness Goal Time Frame: 2-4 Weeks Goal 2:: balance / to diminish fall risk. Goal Time Frame: 2-4 Weeks Goal 3:: Ready to travel for work without hesitation Goal Time Frame: 2-4 Weeks Goal 4:: <10% DHI Goal Time Frame: 2-4 Weeks - Rehabilitation Potential Physical Therapy Diagnosis: Unilateral vestibular hypofunction Rehabilitation Potential: Good - Anticipated Interventions Patient/Client Instruction: Educate patient on: Condition, Plan of Care For the Purpose of:: To increase tolerance to activity/condition/position, To improve ability of physical actions for home/community/work/leisure, To improve gait and locomotor functions Therapeutic Exercise to Include: Balance training Comment: adaptation/habituation For the Purpose of:: To increase tolerance to activity/condition/position, To improve ability of physical actions for home/community/work/leisure Thank you for the opportunity to evaluate your patient. For Medicare and Medicare HMO plans, please review the plan of care and approve it. It will need to be FAXED BACK to us at [phone] for Medicare purposes. For Medicare only, by signing this I certify the plan of care. Please let me know if there are questions or concerns regarding this plan of care. Physician Signature: Date:
--- NOTE | 2019-08-08 16:29 | HP.PT.NRP ---
HP - Discharge Summary (1) - Patient Information RACHEL SHARMA was seen in my office for initial evaluation on 05/22/19. The following Plan of Care was established for this patient: Initial Frequency: 1-2x /Week Initial Duration: 4-6 Weeks - Anticipated Interventions Patient/Client Instruction: Educate patient on: Condition, Plan of Care For the Purpose of:: To increase tolerance to activity/condition/position, To improve ability of physical actions for home/community/work/leisure, To improve gait and locomotor functions Therapeutic Exercise to Include: Balance training For the Purpose of:: To increase tolerance to activity/condition/position, To improve ability of physical actions for home/community/work/leisure This patient was last seen in our office 06/05/19. Pertinent comments regarding their Physical therapy will appear below: Pt seen 3 vists for vertigo and was 85% better. Was to f/u 2 weeks later but neglected to schedule. At this point, it has been over two months adn I will discontinue due to nonattendance. At this point I will be discontinuing this patient from physical therapy. I would be happy to see this patient again in the future if found appropriate by the physician. Thank you! Víctor Madrigal, DPT, OCS, CSCS
== END 2019-06-05 19:00 | disposition home or self-care (01) ==
LOC: PT 15:00
PROVIDERS: Family Provider Family Medicine; PCP Family Medicine; Referring Provider Family Medicine; Visit Provider Physician Assistant
DX: R42 Dizziness and giddiness (principal)
CPT/HCPCS: 97110; 97162; 97530

== ENCOUNTER → 2019-06-14 10:44 | Outpatient (CLI) | payer BC, SELFPAY ==
[2019-05-11 11:26] VITALS: BMI 30.1
[2019-06-14 13:09] LABS: Anion Gap 7 (5-15); BUN 17 mg/dL (7-18); BUN/Creat Ratio 19.6 RATIO (10-20); Calcium,Total 9.4 mg/dL (8.5-10.1); Chloride 108 mmol/L (98-107); Cholesterol 194 mg/dL (200); Creatinine, Serum 0.87 mg/dL (0.55-1.02); EST Glomerular Filtration Rate 69 mL/min (>60); Est Glom Filt Rate - Afr Amer 84 mL/min (>60); Glucose 94 mg/dL (74-106); High Density Lipoprotein 73 mg/dL; Potassium 4.4 mmol/L (3.5-5.1); Sodium Level 141 mmol/L (136-145); Triglycerides 67 mg/dL; Very Low Density Lipoprotein 13 mg/dL (5-40)
== END ==
PROVIDERS: Family Provider Family Medicine; PCP Family Medicine; Referring Provider Family Medicine; Visit Provider Family Medicine
DX: I10 Essential (primary) hypertension (principal)
CPT/HCPCS: 36415; 80048; 80061

== ENCOUNTER → 2019-07-29 13:20 | Outpatient (CLI) | payer BC, SELFPAY ==
[2019-05-11 11:26] VITALS: BMI 30.1
--- NOTE | 2019-07-29 13:22 | BI_ITS ---
MAMMOGRAPHY - BILATERAL SCREENING 3-D TOMOSYNTHESIS REASON FOR EXAM: Female, 69 years old. PERTINENT HISTORY: No significant family history. TECHNIQUE: 2-D mammograms and 3-D Tomosynthesis of the breast (s) were performed. CAD was performed. COMPARISON: None. FINDINGS: The breast composition is of scattered fibroglandular tissue. On the mediolateral oblique projection of the left breast there is 1.2 cm subtle lesion in the middle of the breast with spiculation this is not identified on the craniocaudal view most likely represents summation of shadows but I do recommend ultrasound for better assessment. No architectural distortion is identified. There is no skin thickening or retraction. The right breast reveals no abnormality detected. BI/SCREENING MAMM (CAD), BILAT IMPRESSION: Subtle spiculated 1.2cm area midportion of the left breast seen in the craniocaudal view for ultrasound evaluation. BIRADS-0. Approximately 10% of breast cancers are not detected by mammography. A normal mammogram should not delay biopsy of a clinically suspicious abnormality. Electronically Signed: Noah Livingston, at 10:07 EST Tel , Service support ,
== END ==
PROVIDERS: Family Provider Family Medicine; PCP Family Medicine; Referring Provider Nurse Practitioner Women's Health; Visit Provider Nurse Practitioner Women's Health
DX: Z12.31 Encounter for screening mammogram for malignant neoplasm of breast (principal)
CPT/HCPCS: 77067

== ENCOUNTER → 2019-08-05 11:04 | Outpatient (CLI) | payer BC, SELFPAY ==
[2019-07-29 14:13] VITALS: BMI 30.1
--- NOTE | 2019-08-05 11:08 | US_ITS ---
STUDY: ULTRASOUND BREAST - LEFT REASON FOR EXAM: Female, 69 years old. Abnormal screening mammogram. TECHNIQUE: Axial and longitudinal images of the LEFT breast were performed with a high resolution ultrasound transducer. # OF IMAGES: 41 COMPARISON: Comparison is made with prior mammogram dated July 29, 2019 and prior ultrasound of the left breast dated July 25, 2018. FINDINGS: LEFT Breast: There is a 4 mm x 5 mm x 4 mm well-defined hypoechoic nodule with central echogenic hilum. This may represent a small lymph node. US/Breast Limited Unilateral IMPRESSION: Findings suggestive of a 4 mm x 5 mm x 4 mm lymph node at the 11:00 position of the breast. ASSESSMENT CATEGORY: BIRADS Category 2: Benign. A letter regarding these results will be sent to the patient by the facility within 30 days. Electronically Signed: Erickson Chew, at 15:17 EST , Service support ,
== END ==
PROVIDERS: Family Provider Family Medicine; PCP Family Medicine; Referring Provider Obstetrics & Gynecology; Visit Provider Obstetrics & Gynecology
DX: R92.8 Other abnormal and inconclusive findings on diagnostic imaging of breast (principal)
CPT/HCPCS: 76642

== ENCOUNTER → 2019-08-27 09:49 | Outpatient (CLI) | payer BC, SELFPAY ==
--- NOTE | 2019-08-27 | IMM_PTH ---
PATIENT: RACHEL SHARMA LOC: [facility] U#:[id number] AGE/SX: 75/F ROOM: RE08/27/[address]: Dr. Nathan Blancas MD : 1950 BED: DIS: SPEC #: [id number] RECD: 08/29/19 11:56 STATUS: AUBRIE REQ #: [id number] IVETTE: 08/27/19 00:[address]: Nathan Blancas DEPT: IMMUNOHISTOCHEMISTRY RECD BY: Ana Maria Manzano ENTERED: 08/29/19 11:57 SP TYPE: IMMUNO OTHR DR: Dr. Preet Bernstein MD Tissues: Left breast, NOS Procedures: Calponin-1(initial) CK5-6 (add) P53 (add) P40 (add) PHYSICIAN & INSTITUTION [place] [id number] SPECIMEN INFORMATION: Tissue Source: Left breast biopsy Clinical Info: Abnormal ultrasound Specimen Number: [id number] CPT code: 90347, 77340 x3 METHODOLOGY: Deparaffinized sections of prefer/formalin-fixed tissue or PAP/DQ stained slides are incubated with monoclonal/polyclonal antibodies/oligonucleotide probes. Localization is made via biotin free immunoperoxidase method. Appropriate controls are performed and reacted as expected. Results on target cell population are indicated in the following table: RESULTS: ANTIBODY / CLONE RESULT Calponin-1 (UH671X) positive P40 (BC28) positive CK5-6 (D5 & 1684) positive P53 (DO-7) negative These tests were developed and their performance characteristics determined by [facility]. They may not have been cleared or approved by the U.S. Food and Drug Administration. The FDA has determined that such clearance or approval is not necessary. The above immunohistochemical/dualISH markers are ordered and reviewed by the Pathologist. INTERPRETATION: Left breast, biopsy: Benign breast tissue. AM:kaye 08/30/19
--- NOTE | 2019-08-27 | BRBX_PTH ---
PATIENT: RACHEL SHARMA LOC: [facility] U#:[id number] AGE/SX: 75/F ROOM: RE08/27/[address]: Dr. Nathan Blancas MD : 1950 BED: DIS: SPEC #: [id number] RECD: 08/27/19 10:44 STATUS: AUBRIE RAMÍREZ #: [id number] IVETTE: 08/27/19 00:[address]: Nathan Blancas DEPT: SURGICAL PATHOLOGY RECD BY: Alexandre Cast ENTERED: 08/27/19 11:56 SP TYPE: BREAST BX OTHR DR: Dr. Preet Bernstein MD Tissues: Left breast, NOS Procedures: Surgery Specimen Level IV HEADER OPERATION: Left breast biopsy PRE-OP DIAGNOSIS: Abnormal ultrasound TISSUE SUBMITTED: Left breast FIXATION TIME: 36 hours MICROSCOPIC DIAGNOSIS Left breast, biopsy: Dense collagenized stroma. No evidence of malignancy. See comment. AM:kaye 08/29/19 COMMENT Immunohistochemistry ([id number]) supports the above diagnosis. MICROSCOPIC DESCRIPTION Slides are reviewed. GROSS DESCRIPTION Received in fixative is one container labeled with the patient's name and designated left breast. The specimen consists of multiple elongated fragments of ruiz-yellow fibroadipose tissue that in aggregate measure 2.5 x 0.5 x 0.1 cm. The entire specimen is submitted in one cassette. / SJ:rg 08/27/19 TC:3 CPT: 85721
[2019-08-27 08:54] VITALS: BMI 30.1
--- NOTE | 2019-08-27 09:51 | BI_ITS ---
MAMMOGRAPHY - UNILATERAL DIAGNOSTIC: LEFT BREAST REASON FOR EXAM: Female, 69 years old. Recent left breast biopsy TECHNIQUE: Digital examination. Spot compression views were performed. CAD: CAD was performed on this study. Mediolateral oblique (MLO) and craniocaudad (CC) views of both breasts were obtained. COMPARISON: 07/29/2019, 07/25/2018 FINDINGS: Breast Composition: There are scattered areas of fibroglandular density. Patient with recent breast biopsy on the left with a clip placed along the central one third of the CC and also MLO views Stable clips in the left axilla. There are no dominant masses or suspicious calcifications. BI/DIAG MAMM W/CAD, UNILAT IMPRESSION: New post biopsy clip on the left due to recent biopsy with good positioning of the clip. Correlation with the biopsy result is recommended as follow-up. ASSESSMENT CATEGORY: BIRADS Category 3: Probably Benign - Short-Interval Follow-up Suggested. A letter regarding these results will be sent to the patient by the facility within 30 days. FOLLOW UP RECOMMENDATION: Follow up recommended within 6 months. (C) Approximately 10% of breast cancers are not detected by mammography. A normal mammogram should not delay biopsy of a clinically suspicious abnormality. Electronically Signed: Deny Ac MD at 15:22 EST Tel [phone], Service support ,
== END ==
PROVIDERS: Family Provider Family Medicine; PCP Family Medicine; Referring Provider Surgery; Visit Provider Surgery
DX: N63.20 Unspecified lump in the left breast, unspecified quadrant (principal); R92.8 Other abnormal and inconclusive findings on diagnostic imaging of breast
CPT/HCPCS: 77065; 88305; 88341; 88342

== ENCOUNTER → 2019-11-13 13:25 | Outpatient (CLI) | payer BC, SELFPAY ==
[2019-08-27 08:54] VITALS: BMI 30.1
[2019-11-08 15:03] LABS: BUN 16 mg/dL (7-18); Creatinine, Serum 0.69 mg/dL (0.55-1.02); EST Glomerular Filtration Rate 90 mL/min (>60); Est Glom Filt Rate - Afr Amer 109 mL/min (>60)
--- NOTE | 2019-11-13 13:30 | CT_ITS ---
STUDY: CTA NECK WITH CONTRAST REASON FOR EXAM: Female, 69 years old. Carotid artery aneurysm. Hx hypertension, breast cancer with left lumpectomy and axillary LN removed, radiation and amp; chemotherapy. RADIATION DOSAGE (If Supplied By Facility): CTDIvol = ( 21.16 ) mGy, DLP = ( 578.48 ) mGycm TECHNIQUE: CT angiography with multi-detector data acquisition was performed from the aortic arch to the skull base following intravenous administration of 100mL Isovue 300. MIP images were reconstructed from the axial data set. Post-processing of the angiographic images was performed, with multiplanar reformation and 3D reconstruction. Individualized dose optimization techniques were used for this CT. COMPARISON: None. FINDINGS: Focal calcific nodule in the posterior aspect of the right lobe of the thyroid. There is a 1 cm cystic nodule in the isthmus. AORTIC ARCH: There is atherosclerotic calcific plaque formation of the aortic arch and great vessels arising from the aortic arch, without a hemodynamically significant stenosis. There is a normal origin of the brachiocephalic, left common carotid, and left subclavian arteries. Calcific plaque at the origin of the left subclavian artery. RIGHT CAROTID ARTERIES: Normal right common carotid artery (CCA). Normal right common carotid bulb. Normal origin of the right internal carotid (ICA) artery without a hemodynamically significant stenosis. Nonstenotic calcific plaque in the distal portion of the right internal carotid artery. Normal visualized cervical portion of the right internal carotid artery. Normal origin of the right external carotid artery (ECA). LEFT CAROTID ARTERIES: Normal left common carotid artery (CCA). Normal left common carotid bulb. There is mild atherosclerotic plaque formation of the origin of the left internal carotid artery with less than 50% cross sectional diameter stenosis. Normal visualized cervical portion of the left internal carotid artery. Normal origin of the left external carotid artery (ECA). VERTEBRAL ARTERIES: There is enhancement within the bilateral vertebral arteries with a small left vertebral artery, and a dominant right vertebral artery. CT/CTA Neck W/WO Contrast IMPRESSION: Focal calcific plaque at the origin of the left internal carotid artery without significant stenosis. Electronically Signed: Erickson Chew, at 14:16 EDT , Service support ,
== END ==
PROVIDERS: PCP Family Medicine; Referring Provider Surgery Vascular Surgery; Visit Provider Surgery Vascular Surgery
DX: I72.0 Aneurysm of carotid artery (principal); I65.22 Occlusion and stenosis of left carotid artery; Z85.828 Personal history of other malignant neoplasm of skin; K21.9 Gastro-esophageal reflux disease without esophagitis; E78.00 Pure hypercholesterolemia, unspecified; I10 Essential (primary) hypertension; F32.9 Major depressive disorder, single episode, unspecified; Z85.3 Personal history of malignant neoplasm of breast; F41.9 Anxiety disorder, unspecified
CPT/HCPCS: 36415; 70498; 82565; 84520; Q9967

== ENCOUNTER → 2019-12-16 09:37 | Outpatient (CLI) | payer BC, SELFPAY ==
[2019-08-27 08:54] VITALS: BMI 30.1
[2019-12-16 12:47] LABS: Anion Gap 3 (5-15); BUN 12 mg/dL (7-18); BUN/Creat Ratio 16.2 RATIO (10-20); Calcium,Total 9.2 mg/dL (8.5-10.1); Chloride 104 mmol/L (98-107); Cholesterol 192 mg/dL (200); Creatinine, Serum 0.74 mg/dL (0.55-1.02); EST Glomerular Filtration Rate 83 mL/min (>60); Est Glom Filt Rate - Afr Amer 100 mL/min (>60); Free T3 3.3 pg/mL (2.18-3.98); Glucose 88 mg/dL (74-106); High Density Lipoprotein 71 mg/dL; Potassium 3.6 mmol/L (3.5-5.1); Sodium Level 138 mmol/L (136-145); T4 Total, Thyroxin 9.7 ug/dL (4.8-13.9); Thyroid Stim Hormone (TSH) 2.11 uIU/mL (0.358-3.74); Triglycerides 79 mg/dL; Very Low Density Lipoprotein 16 mg/dL (5-40)
== END ==
PROVIDERS: PCP Family Medicine; Referring Provider Family Medicine; Visit Provider Family Medicine
DX: E04.1 Nontoxic single thyroid nodule (principal); I10 Essential (primary) hypertension
CPT/HCPCS: 36415; 80048; 80061; 84436; 84443; 84481

== ENCOUNTER → 2020-02-06 09:02 | Outpatient (CLI) | payer BC, SELFPAY ==
[2019-08-27 08:54] VITALS: BMI 30.1
--- NOTE | 2020-02-06 09:04 | US_ITS ---
STUDY: ULTRASOUND BREAST - LEFT REASON FOR EXAM: Female, 69 years old. History of prior left lumpectomy. TECHNIQUE: Axial and longitudinal images of the LEFT breast were performed with a high resolution ultrasound transducer. # OF IMAGES: 53 COMPARISON: Comparison is made with prior ultrasound the left breast dated August 05, 2019. FINDINGS: LEFT Breast: No sonographic abnormality is seen. US/Breast Complete Unilateral IMPRESSION: No sonographic abnormality is seen. ASSESSMENT CATEGORY: BIRADS Category 1: Negative. A letter regarding these results will be sent to the patient by the facility within 30 days. Electronically Signed: Erickson Chew, at 12:16 EDT , Service support ,
--- NOTE | 2020-02-06 09:04 | BI_ITS ---
MAMMOGRAPHY - UNILATERAL DIAGNOSTIC: LEFT BREAST REASON FOR EXAM: Female, 69 years old. Six-month follow-up for left breast biopsy. PERTINENT HISTORY: Non-contributory. TECHNIQUE: Digital unilateral breast bridget (3D mammographic acquisition) in the CC and MLO projections. 2-D mediolateral oblique (MLO) and craniocaudad (CC) views of both breasts were obtained. CAD: Full Field Digital Mammography with Computer Added Detection was performed. COMPARISON: Comparison is made with prior examination dated August 27, 2019. FINDINGS: Breast Composition: There are scattered areas of fibroglandular density. There are no dominant masses or suspicious calcifications. A tissue clip marker is seen in the slightly upper central portion of the left breast. Stable overlying skin thickening. Stable architectural distortion in the axillary region of the left breast with the surgical clips seen in the left axillary region. No other significant abnormalities are identified. There has been no significant change since the prior study. BI/DIAG MAMM W/CAD, UNILAT IMPRESSION: Stable unilateral diagnostic mammogram. One year follow-up mammogram recommended. (A) ASSESSMENT CATEGORY: BIRADS Category 2: Benign. A letter regarding these results will be sent to the patient by the facility within 30 days. Approximately 10% of breast cancers are not detected by mammography. A normal mammogram should not delay biopsy of a clinically suspicious abnormality. Electronically Signed: Erickson Chew, at 10:10 EDT , Service support ,
== END ==
PROVIDERS: PCP Family Medicine; Referring Provider Surgery; Visit Provider Surgery
DX: R92.8 Other abnormal and inconclusive findings on diagnostic imaging of breast (principal); Z85.3 Personal history of malignant neoplasm of breast
CPT/HCPCS: 76641; 77061; 77065; G0279

== ENCOUNTER → 2020-06-15 09:41 | Outpatient (CLI) | payer BC, SELFPAY ==
[2020-02-12 12:15] VITALS: BMI 30.1
[2020-06-15 13:33] LABS: Anion Gap 7 (5-15); BUN 11 mg/dL (7-18); BUN/Creat Ratio 15.3 RATIO (10-20); Calcium,Total 9.4 mg/dL (8.5-10.1); Chloride 103 mmol/L (98-107); Cholesterol 208 mg/dL (200); Creatinine, Serum 0.72 mg/dL (0.55-1.02); EST Glomerular Filtration Rate 86 mL/min (>60); Est Glom Filt Rate - Afr Amer 104 mL/min (>60); Glucose 91 mg/dL (74-106); High Density Lipoprotein 83 mg/dL; Potassium 3.6 mmol/L (3.5-5.1); Sodium Level 139 mmol/L (136-145); Triglycerides 67 mg/dL; Very Low Density Lipoprotein 13 mg/dL (5-40)
== END ==
PROVIDERS: PCP Family Medicine; Visit Provider Family Medicine
DX: I10 Essential (primary) hypertension (principal)
CPT/HCPCS: 36415; 80048; 80061

== ENCOUNTER → 2020-08-03 15:38 | Outpatient (CLI) | payer BC, SELFPAY ==
[2020-02-12 12:15] VITALS: BMI 30.1
[2020-08-03 15:23] VITALS: BMI 28.3
--- NOTE | 2020-08-03 15:39 | BI_ITS ---
MAMMOGRAPHY - BILATERAL SCREENING REASON FOR EXAM: Female, 70 years old. Routine annual screening examination. PERTINENT HISTORY: Personal history of breast cancer. Prior left lumpectomy with radiation and chemotherapy. TECHNIQUE: Digital bilateral breast brennen (3D mammographic acquisition) in the CC and MLO projections. 2-D mediolateral oblique (MLO) and craniocaudad (CC) views of both breasts were obtained. CAD: Full Field Digital Mammography with Computer Added Detection was performed. COMPARISON: Comparison is made with prior study dated 08/27/2019 and 02/06/2020. FINDINGS: Breast Composition: There are scattered areas of fibroglandular density. There are no dominant masses or suspicious calcifications. The patient is status post prior left lumpectomy with post surgical scarring. A tissue clip marker is once again seen in the central portion of the left breast. Stable overlying skin thickening. No other significant abnormalities are identified. There has been no significant change since the prior study. BI/SCREEN MAMM (CAD) W/BRENNEN BILAT IMPRESSION: Stable bilateral screening mammogram. Yearly follow-up mammogram recommended. (A) ASSESSMENT CATEGORY: BIRADS Category 2: Benign. A letter regarding these results will be sent to the patient by the facility within 30 days. Approximately 10% of breast cancers are not detected by mammography. A normal mammogram should not delay biopsy of a clinically suspicious abnormality. [id number] Electronically Signed: Erickson Chew, at 16:17 EST , Service support ,
== END ==
PROVIDERS: PCP Family Medicine; Referring Provider Obstetrics & Gynecology; Visit Provider Obstetrics & Gynecology
DX: Z12.31 Encounter for screening mammogram for malignant neoplasm of breast (principal); Z85.3 Personal history of malignant neoplasm of breast; R32 Unspecified urinary incontinence
CPT/HCPCS: 77063; 77067; 87086

== ENCOUNTER → 2020-10-24 09:53 | Outpatient (CLI) | payer BC, SELFPAY ==
[2020-08-03 15:23] VITALS: BMI 28.3
[2020-10-24 10:52] LABS: BUN 15 mg/dL (7-18); Creatinine, Serum 0.89 mg/dL (0.55-1.02); EST Glomerular Filtration Rate 67 mL/min (>60); Est Glom Filt Rate - Afr Amer 81 mL/min (>60)
== END ==
PROVIDERS: PCP Family Medicine; Visit Provider Surgery Vascular Surgery
DX: Z01.818 Encounter for other preprocedural examination (principal); I65.22 Occlusion and stenosis of left carotid artery; I72.0 Aneurysm of carotid artery; Z85.828 Personal history of other malignant neoplasm of skin; K21.9 Gastro-esophageal reflux disease without esophagitis; E78.70 Disorder of bile acid and cholesterol metabolism, unspecified; I10 Essential (primary) hypertension; F32.9 Major depressive disorder, single episode, unspecified; F41.9 Anxiety disorder, unspecified; Z85.3 Personal history of malignant neoplasm of breast
CPT/HCPCS: 36415; 82565; 84520

== ENCOUNTER → 2020-11-12 13:00 | Outpatient (CLI) | payer BC, SELFPAY ==
[2020-08-03 15:23] VITALS: BMI 28.3
--- NOTE | 2020-11-12 13:05 | CT_ITS ---
STUDY: CTA NECK WITH CONTRAST REASON FOR EXAM: Female, 70 years old. STENOSIS/ANEURYSM OF CAROTID ARTERY/ESSEN HTN/HX BREAST CA RADIATION DOSAGE (If Supplied By Facility): CTDIvol = ( 21.07 ) mGy, DLP = ( 563.58 ) mGycm TECHNIQUE: CT angiography with multi-detector data acquisition was performed from the aortic arch to the skull base following intravenous administration of IV 100mL Isovue-370. MIP images were reconstructed from the axial data set. Post-processing of the angiographic images was performed, with multiplanar reformation and 3D reconstruction. Individualized dose optimization techniques were used for this CT. COMPARISON: CTA carotid 11/13/2019 FINDINGS: AORTIC ARCH: Normal visualized aortic arch. Normal origins of the brachiocephalic, left common carotid, and left subclavian arteries. RIGHT CAROTID ARTERIES: Normal right common carotid artery (CCA). Normal right common carotid bulb. Normal origin of the right internal carotid (ICA) artery without a hemodynamically significant stenosis. Normal visualized cervical portion of the right internal carotid artery. Normal origin of the right external carotid artery (ECA). LEFT CAROTID ARTERIES: Normal left common carotid artery (CCA). There is mild atherosclerotic plaque formation with minimal narrowing of the left carotid bulb. Normal origin of the left internal carotid (ICA) artery without a hemodynamically significant stenosis. Normal visualized cervical portion of the left internal carotid artery. Normal origin of the left external carotid artery (ECA). VERTEBRAL ARTERIES: Normal bilateral vertebral arteries. Right vertebral artery is dominant. Left vertebral artery demonstrates change in the anatomic variant origin directly from the arch. 6 x 10 mm cystic lesion within the isthmus of the thyroid. IMPRESSION: 10 mm cystic lesion within the thyroid. Recommend nonemergent thyroid ultrasound follow-up. Normal bilateral cervical carotid and vertebral arteries. Electronically Signed: Redd Rosenthal MD at 23:11 EST , Service support , CT/CTA Neck W/WO Contrast
== END ==
PROVIDERS: PCP Family Medicine; Referring Provider Surgery Vascular Surgery; Visit Provider Surgery Vascular Surgery
DX: I65.22 Occlusion and stenosis of left carotid artery (principal); I72.0 Aneurysm of carotid artery; Z85.828 Personal history of other malignant neoplasm of skin; K21.9 Gastro-esophageal reflux disease without esophagitis; E78.70 Disorder of bile acid and cholesterol metabolism, unspecified; I10 Essential (primary) hypertension; F32.9 Major depressive disorder, single episode, unspecified; F41.9 Anxiety disorder, unspecified; Z85.3 Personal history of malignant neoplasm of breast
CPT/HCPCS: 70498; Q9967

== ENCOUNTER → 2020-12-14 10:00 | Outpatient (CLI) | payer BC, SELFPAY ==
[2020-08-03 15:23] VITALS: BMI 28.3
[2020-12-14 12:37] LABS: Cholesterol 198 mg/dL (200); High Density Lipoprotein 80 mg/dL; Triglycerides 57 mg/dL; Very Low Density Lipoprotein 11 mg/dL (5-40)
== END ==
PROVIDERS: PCP Family Medicine; Visit Provider Family Medicine
DX: I10 Essential (primary) hypertension (principal)
CPT/HCPCS: 36415; 80061

== ENCOUNTER → 2020-12-17 12:55 | Outpatient (CLI) | payer BC, SELFPAY ==
[2020-08-03 15:23] VITALS: BMI 28.3
--- NOTE | 2020-12-17 12:59 | US_ITS ---
STUDY: THYROID ULTRASOUND REASON FOR EXAM: Female, 70 years old. CYST TECHNIQUE: Ultrasound evaluation of the thyroid was performed with real-time and static wright-scale imaging. COMPARISON: CT 11/12/2020 FINDINGS: RIGHT LOBE: The right lobe of the thyroid gland measures 3.8 x 1.5 x 2.0 cm. There is a homogeneous echotexture. There are no demonstrated solid, cystic or complex lesions. 5 mm coarse calcification of the posterior right lobe of the thyroid gland. LEFT LOBE: The left lobe of the thyroid gland measures 3.4 x 1.5 x 1.3 cm. There is a homogeneous echotexture. Nodule 1:5 x 3 x 5 mm solid hypoechoic wider than tall ill-defined marginated nodule with no echogenic foci (TR 4) in the mid left lobe consistent with a tiny adenoma. ISTHMUS: The isthmus measures 4 mm thick. Nodule 2:13 x 5 x 14 mm cystic anechoic septated wider than tall smoothly marginated nodule with no echogenic foci (TR 1) in the isthmus consistent with a colloid cyst corresponding to the mass seen on CT.. The regional lymph nodes are normal. US/Thyroid IMPRESSION: Ultrasound confirms a 14 mm colloid cyst in the isthmus corresponding to the nodule seen on CT Electronically Signed: Memo Balbuena MD at 13:50 EDT Tel , Service support ,
== END ==
PROVIDERS: PCP Family Medicine; Referring Provider Family Medicine; Visit Provider Family Medicine
DX: E04.1 Nontoxic single thyroid nodule (principal)
CPT/HCPCS: 76536

== ENCOUNTER → 2021-06-16 10:01 | Outpatient (CLI) | payer BC, SELFPAY ==
[2021-06-16 12:31] LABS: Anion Gap 5 (5-15); BUN 15 mg/dL (7-18); Calcium,Total 9.7 mg/dL (8.5-10.1); Chloride 102 mmol/L (98-107); Cholesterol 210 mg/dL (200); Creatinine, Serum 0.88 mg/dL (0.55-1.02); EST Glomerular Filtration Rate 68 mL/min (>60); Est Glom Filt Rate - Afr Amer 82 mL/min (>60); Glucose 91 mg/dL (74-106); High Density Lipoprotein 78 mg/dL; Potassium 3.9 mmol/L (3.5-5.1); Sodium Level 138 mmol/L (136-145); Triglycerides 100 mg/dL; Very Low Density Lipoprotein 20 mg/dL (5-40)
== END ==
PROVIDERS: PCP Family Medicine; Referring Provider Family Medicine; Visit Provider Family Medicine
DX: F32.A Depression, unspecified (principal)
CPT/HCPCS: 36415; 80048; 80061

== ENCOUNTER → 2021-08-04 10:31 | Outpatient (CLI) | payer BC, SELFPAY ==
[2020-08-03 15:23] VITALS: BMI 28.3
--- NOTE | 2021-08-04 10:33 | BI_ITS ---
MAMMOGRAPHY - BILATERAL SCREENING REASON FOR EXAM: Female, 71 years old. Routine annual screening examination. PERTINENT HISTORY: Personal history of breast cancer. Prior left lumpectomy with chemotherapy and radiation therapy. TECHNIQUE: Digital bilateral breast brennen (3D mammographic acquisition) in the CC and MLO projections. 2-D mediolateral oblique (MLO) and craniocaudad (CC) views of both breasts were obtained. CAD: Full Field Digital Mammography with Computer Added Detection was performed. COMPARISON: Comparison is made with prior study dated 08/03/2020 and 02/06/2020. FINDINGS: Breast Composition: There are scattered areas of fibroglandular density. There are no dominant masses or suspicious calcifications. Once again, the patient is status post left lumpectomy with postsurgical changes in the deep upper lateral aspect of the left breast. A tissue clip marker is once again seen in the central portion of the left breast. No other significant abnormalities are identified. There has been no significant change since the prior study. BI/SCRN MAMM (CAD)W/BRENNEN BILAT IMPRESSION: Stable bilateral screening mammogram. Yearly follow-up mammogram recommended. (A) ASSESSMENT CATEGORY: BIRADS Category 2: Benign. A letter regarding these results will be sent to the patient by the facility within 30 days. Approximately 10% of breast cancers are not detected by mammography. A normal mammogram should not delay biopsy of a clinically suspicious abnormality. [id number] Electronically Signed: Erickson Chew MD at 12:38 EST , Service support ,
--- NOTE | 2021-08-04 10:36 | BD_ITS ---
STUDY: DUAL ENERGY X-RAY ABSORPTIOMETRY / DXA REASON FOR EXAM: Female, 71 years old. Osteopenia TECHNIQUE: Bone Mineral Density (BMD) measurements of lumbar spine and bilateral hips were obtained. COMPARISON: Comparison is made with prior study 04/16/2019. FINDINGS: Lumbar Spine (L1-L4): g/cm2 (0.956) / T-score (-0.8) / Z-score (1.2) Findings are suggestive of normal bone density with a low fracture risk. Left Femur Total: g/cm2 (0.835) / T-score (-0.9) / Z-score (0.6) Left Femoral Neck: g/cm2 (0.6 x 0) / T-score (-1.8) / Z-score (0.0) Right Femur Total: g/cm2 (0.931) / T-score (-0.1) / Z-score (1.4) Right Femoral Neck: g/cm2 (0.684) / T-score (-1.5) / Z-score (0.3) The T-Scores on the most recent prior examination were: Lumbar Spine (L1-L4): There has been worsening of bone density since the previous examination. Left Femur Total: which represents an improvement of 2.1%. Right Femur Total: which represents an improvement of 10%. BD/Dexa Bone Density Study IMPRESSION: The patient is considered osteopenic as outlined below according to World Moody Organization (WHO) criteria with a moderate fracture risk. There has been improvement of bone density since the previous examination. Reference Information: The T-score is the number of standard deviations above or below the standard which is normal for young adults at their peak bone mineral density. The World Health Organization (WHO) interprets the T-scores as follows: Above -1 Normal bone density Between -1 and -2.5 Osteopenia Equal to / or below -2.5 Osteoporosis As a practical clinical guideline, osteopenia may be graded as follows: Mild -1 through -1.5 Moderate -1.6 through -2.0 Severe -2.1 through -2.4 The Z-score is the number of standard deviations above or below age-matched controls. A Z-score of less than -1.5 would be considered abnormal. References: 1. NIH Osteoporosis and Related Bone Diseases www osteo.org 2. International Society for Clinical Densitometry www iscd.org 3. National Osteoporosis Foundation www nof.org Electronically Signed: Erickson Chew MD at 11:53 EST , Service support ,
== END ==
PROVIDERS: PCP Family Medicine; Referring Provider Obstetrics & Gynecology; Visit Provider Obstetrics & Gynecology
DX: Z12.31 Encounter for screening mammogram for malignant neoplasm of breast (principal); M85.80 Other specified disorders of bone density and structure, unspecified site
CPT/HCPCS: 77063; 77067; 77080

== ENCOUNTER → 2022-02-03 | Outpatient (CLI) | payer BC, SELFPAY ==
[2022-02-03 13:02] LABS: Anion Gap 4 (5-15); BUN 18 mg/dL (7-18); BUN/Creat Ratio 21.8 RATIO (10-20); Calcium,Total 9.6 mg/dL (8.5-10.1); Chloride 105 mmol/L (98-107); Cholesterol 194 mg/dL (200); Creatinine, Serum 0.83 mg/dL (0.55-1.02); EST Glomerular Filtration Rate 73 mL/min (>60); Est Glom Filt Rate - Afr Amer 88 mL/min (>60); Glucose 101 mg/dL (74-106); High Density Lipoprotein 71 mg/dL; Potassium 4.2 mmol/L (3.5-5.1); Sodium Level 138 mmol/L (136-145); Thyroid Stim Hormone (TSH) 1.73 uIU/mL (0.358-3.74); Triglycerides 95 mg/dL; Very Low Density Lipoprotein 19 mg/dL (5-40)
== END | disposition home or self-care (01) ==
LOC: MFPLAB 09:46
PROVIDERS: PCP Family Medicine; Visit Provider Family Medicine
DX: I10 Essential (primary) hypertension (principal); F41.9 Anxiety disorder, unspecified
CPT/HCPCS: 36415; 80048; 80061; 84443

== ENCOUNTER → 2022-07-18 | Outpatient (CLI) | payer BC, SELFPAY ==
--- NOTE | 2022-07-18 08:45 | RAD_ITS ---
STUDY: X-RAY - ESOPHAGUS (BARIUM SWALLOW) WITH FLUOROSCOPY REASON FOR EXAM: Female, 72 years old. DYSPHAGIA TECHNIQUE: 15 view(s) of the esophagus were obtained following swallowing of barium. FLUOROSCOPY TIME (if supplied): (28 seconds) minutes/seconds COMPARISON: None. FINDINGS: There is no demonstrated esophageal foreign body. There is no demonstrated stricture or mucosal abnormality. Normal gastroesophageal junction, without a demonstrated hiatal hernia. The patient ingested a 12 mm tablet of barium without any difficulty. There is atherosclerotic calcification of the aortic arch with tortuosity of the descending aorta. Normal visualized pulmonary parenchyma. Normal visualized osseous structures of the thorax. RAD/Esophagus Dual Contrast IMPRESSION: Normal plain film x-ray examination (barium swallow) of the esophagus. Electronically Signed: Erickson Chew MD at 13:48 EST ,
== END | disposition home or self-care (01) ==
LOC: RAD 08:42
PROVIDERS: PCP Family Medicine; Referring Provider Internal Medicine Gastroenterology; Visit Provider Internal Medicine Gastroenterology
DX: R13.10 Dysphagia, unspecified (principal)
CPT/HCPCS: 74221

== ENCOUNTER → 2022-08-19 | Outpatient (CLI) | payer BC, SELFPAY ==
--- NOTE | 2022-08-19 10:32 | BI_ITS ---
MAMMOGRAPHY - BILATERAL SCREENING REASON FOR EXAM: Female, 72 years old. Routine annual screening examination. PERTINENT HISTORY: Personal history of breast cancer. Prior left lumpectomy with radiation and chemotherapy. TECHNIQUE: Digital bilateral breast brennen (3D mammographic acquisition) in the CC and MLO projections. 2-D mediolateral oblique (MLO) and craniocaudad (CC) views of both breasts were obtained. CAD: Full Field Digital Mammography with Computer Added Detection was performed. COMPARISON: Comparison is made with prior study 08/04/2021 and 08/03/2020. FINDINGS: Breast Composition: There are scattered areas of fibroglandular density. There are no dominant masses or suspicious calcifications. Once again, the patient is status post left lumpectomy with postsurgical changes seen in the deep upper lateral aspect of the left breast. A tissue clip marker is also seen in the central portion of the left breast No other significant abnormalities are identified. There has been no significant change since the prior study. BI/SCRN MAMM (CAD)W/BRENNEN BILAT IMPRESSION: Stable bilateral screening mammogram. Yearly follow-up mammogram recommended. (A) ASSESSMENT CATEGORY: BIRADS Category 2: Benign. A letter regarding these results will be sent to the patient by the facility within 30 days. Approximately 10% of breast cancers are not detected by mammography. A normal mammogram should not delay biopsy of a clinically suspicious abnormality. [id number] Electronically Signed: Erickson Chew MD at 8:43 EST ,
== END | disposition home or self-care (01) ==
LOC: OPBI 10:31
PROVIDERS: PCP Family Medicine; Visit Provider Obstetrics & Gynecology
DX: Z12.31 Encounter for screening mammogram for malignant neoplasm of breast (principal); Z92.21 Personal history of antineoplastic chemotherapy
CPT/HCPCS: 77063; 77067

== ENCOUNTER → 2023-09-01 | Outpatient (CLI) | payer MEDICARE, SELFPAY ==
--- NOTE | 2023-09-01 08:47 | BI_ITS ---
MAMMOGRAPHY - BILATERAL SCREENING 3-D TOMOSYNTHESIS REASON FOR EXAM: Female, 73 years old. Routine annual screening mammogram. PERTINENT HISTORY: Prior left lumpectomy, radiation therapy and chemotherapy for breast cancer. TECHNIQUE: 2-D mammograms and 3-D Tomosynthesis of the breast (s) were performed. CAD was performed. COMPARISON: August 19, 2022, August 04, 2021 FINDINGS: The breast composition is composed of scattered fibroglandular density. Stable benign calcifications, left fat necrosis calcifications and post lumpectomy changes of the left breast with skin thickening and minimal deformity. No dominant masses, suspicious microcalcifications or asymmetry is identified. BI/SCRN MAMM (CAD)W/BRENNEN BILAT IMPRESSION: No interval change and no mammographic signs of malignancy. Routine yearly mammogram recommended. ASSESSMENT CATEGORY: BIRADS Category 2: Benign. A letter regarding these results will be sent to the patient by the facility within 30 days. FOLLOW UP RECOMMENDATION: Yearly follow up mammogram recommended. (A) Approximately 10% of breast cancers are not detected by mammography. A normal mammogram should not delay biopsy of a clinically suspicious abnormality. Electronically Signed: Sheldon Menjivar MD at 14:11 EST ,
--- OUTSIDE RECORDS SUMMARY | 2023-09-01 09:03 | XMS RPT_ITS | CCD ---
Author Name Unknown Address [id number] [place] [address] Organization [facility] Care Team Providers Care Healthcare Sales Representative Name Role Phone Preet Bernstein MD Primary Care Provider [phone]( [phone] Edin MANCINI MD, Daesung Unavailable Preet Bernstein MD Primary Care Provider Edin MANCINI MD, Daesung Unavailable Howard Arias DO Primary Care Provider HOWARD ARIAS Primary Care Unavailable MELLO STEVEN Attending Unavailable CARISSA LEDBETTER Referring Unavailable Cleveland Calhoun RN Unavailable [phone] Cleveland Calhoun RN Unavailable [phone] HOWARD ARIAS Primary Care Unavailable HOWARD ARIAS Attending Unavailable HOWARD ARIAS Primary Care Unavailable HOWARD ARIAS Referring Unavailable HOWARD ARIAS Primary Care Unavailable PB IYER JR Referring Unavailable HOWARD ARIAS Primary Care Unavailable CARISSA LEDBETTER Attending Unavailable LAZARA JAIN Referring Unavailable RUTH KHAN Attending Unavailable HOWARD ARIAS Primary Care Unavailable THUY HOUSTON Attending Unavailable CRISPIN HAWKINS Referring UnavailHOWARD Woods Primary Care Unavailable PREET BERNSTEIN Primary Care Unavailable LAZARA JAIN Referring Unavailable RUTH KHAN Attending Unavailable REEMA DAN Attending Unavailable HOWARD ARIAS Primary Care Unavailable THUY HOUSTON Referring Unavailable BONIFACIO PALMA Attending Unavailabl e HOWARD ARIAS Primary Care Unavailable MABLE MCPHERSON Referring Unavailable HOWARD ARIAS Primary Care Unavailable MABLE MCPHERSON Referring Unavailable HOWARD ARIAS Primary Care Unavailable HOWARD ARIAS Primary Care Unavailable MABLE MCPHERSON Referring Unavailable HOWARD ARIAS Primary Care Unavailable PB IYER JR Attending Unavailable HOWARD ARIAS Primary Care Unavailable MABLE MCPHERSON Attending Unavailable MABLE MCPHERSON Attending Unavailable ARIASHOWARD SCHOFIELD Primary Care Unavailable ARIASHOWARD SCHOFIELD Primary Care Unavailable MABLE MCPHERSON Referring Unavailable HOWARD ARIAS Primary Care Unavailable CARISSA LEDBETTER Referring Unavailable CRISPIN HAWKINS Attending UnavailHOWARD Woods Primary Care Unavailable CRISPIN HAWKINS Attending UnavailHOWARD Woods Primary Care Unavailable Allergies Allergy Classification Reported Allergen(s) Allergy Type Date of Onset Reaction(s) Facility (20 sources) Amantadine; Translations: [AMANTADINE] Drug Allergy 11-07-2008 Intolerance [facility] (20 sources) Diclofenac; Translations: [DICLOFENAC SODIUM] Drug Allergy 11-27-2007 Hives [facility] Work Phone: Medications Current Medications Medication Drug Class(es) Dates Sig (Normalized) Sig (Original) amoxicillin 875 mg / clavulanate 125 mg oral tablet (1 source) Penicillin-class Antibacterial Start: 11-23-2022 End: 11-30-2022 take 1 tablet by mouth twice daily amoxicillin-clav ulanic acid (AUGMENTIN) 875-125 mg per tablet Take 1 tablet by mouth twice daily for 7 days. 14 tablet 0 11/23/2022 11/30/2022 Active Completed/Discontinued Medications Medication Drug Class(es) Dates Sig (Normalized) Sig (Original) aspirin 81 mg delayed release oral tablet (20 sources) Platelet Aggregation Inhibitor, Nonsteroidal Anti-inflammatory Drug take 1 tablet by mouth once daily aspirin, enteric coated (ASPIRIN, ENTERIC COATED) 81 mg EC tablet Indications: Abnormal CT scan Take 81 mg by mouth once daily. 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)] Onset: 02-07-2023 Chronic Attention-deficit, conduct, and disruptive behavior disorders (1 source) Other symptoms and signs involving appearance and behavior; Translations: [Cognitive and behavioral changes] Onset: 04-04-2023 Episodic Cancer of breast (20 sources) 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; Translations: [Malignant neoplasm of unspecified site of left female breast] Onset: 06-20-2016 Chronic Disorders of lipid metabolism (20 sources) Hyperlipidemia; Translations: [Hyperlipidemia, unspecified] Onset: 06-22-2006 06-22-2006 Chronic Disorders usually diagnosed in infancy, childhood, or adolescence (20 sources) Attention deficit hyperactivity disorder, predominantly inattentive type; Translations: [Other specified behavioral and emotional disorders with onset usually occurring in childhood and adolescence] Onset: 02-22-2012 02-22-2012 Chronic Epilepsy; convulsions (16 sources) Dysmnesic seizure; 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, not intractable, without status epilepticus] Onset: 01-24-2023 Chronic Essential hypertension (20 sources) Essential hypertension; Translations: [Essential (primary) hypertension] Onset: 06-22-2006 06-22-2006 Chronic Miscellaneous mental health disorders (2 sources) Dissociative convulsions; Translations: [Conversion disorder with seizures or convulsions] Onset: 08-11-2023 08-11-2023 Chronic Mood disorders (20 sources) Depressive disorder; Translations: [Other specified depressive episodes] Onset: 02-22-2012 08-22-2006 Chronic Mood disorders (1 source) Mood disorders; Translations: [Depression, unspecified depression type] Onset: 02-22-2012 Nutritional deficiencies (20 sources) Vitamin D deficiency; Translations: [Vitamin D deficiency, unspecified] Onset: 08-01-2017 08-01-2017 Chronic Other and ill-defined cerebrovascular disease (1 source) Cerebral aneurysm, nonruptured; Translations: [Nonruptured cerebral aneurysm] Onset: 02-07-2023 Chronic Other nervous system disorders (12 sources) Cerebral arachnoid cyst; Translations: [Cerebral cysts] Onset: 03-23-2023 Chronic Other nervous system disorders (1 source) Cerebral cysts; Translations: [Intracranial arachnoid cyst] Onset: 03-23-2023 Chronic Other nervous system disorders (3 sources) Impaired cognition; Translations: [Other symptoms and signs involving cognitive functions and awareness] 03-30-2023 Episodic Other nervous system disorders (1 source) Disorganized thinking; Translations: [Other symptoms and signs involving cognitive functions and awareness] 04-27-2023 Episodic Other nervous system disorders (1 source) Other symptoms and signs involving cognitive functions and awareness; Translations: [Cognitive and behavioral changes] Onset: 04-04-2023 Episodic Other upper respiratory infections (1 source) Bacterial sinusitis; Translations: [Chronic sinusitis, unspecified] Chronic Residual codes; unclassified (1 source) Amnesia; Translations: [Other amnesia] Episodic Residual codes; unclassified (1 source) Confusional state; Translations: [Disorientation, unspecified] 04-24-2023 Episodic Spondylosis; intervertebral disc disorders; other back problems (20 sources) Low back pain; Translations: [Lumbago] 08-22-2006 Episodic Past or Other Problems Problem Classification Problem Date Documented Da te Episodic/Chronic Cancer of breast (16 sources) History of malignant neoplasm of breast; Translations: [Personal history of malignant neoplasm of breast] Onset: 01-25-2023 Episodic Epilepsy; convulsions (3 sources) Seizure; Translations: [Unspecified convulsions] Onset: 02-07-2023 Episodic Nonspecific chest pain (2 sources) Chest pain; Translations: [Chest pain, unspecified] Onset: 10-04-2022 Episodic Other bone disease and musculoskeletal deformities (20 sources) Osteopenia; Translations: [Other specified disorders of bone density and structure, unspecified site] Onset: 08-01-2017 08-01-2017 Episodic Other bone disease and musculoskeletal deformities (1 source) Other specified disorders of bone density and structure, unspecified site; Translations: [Osteopenia, unspecified location] Onset: 08-01-2017 Episodic Other screening for suspected conditions (not mental disorders or infectious disease) (20 sources) Mammography abnormal; Translations: [Other abnormal and inconclusive findings on diagnostic imaging of breast] Onset: 06-09-2016 06-09-2016 Episodic Residual codes; unclassified (20 sources) Memory impairment; Translations: [Other amnesia] Onset: 01-25-2023 Episodic Residual codes; unclassified (13 sources) H/O: radiation exposure; Translations: [Personal history of irradiation] Onset: 01-25-2023 01-25-2023 Episodic Residual codes; unclassified (13 sources) History of antineoplastic chemotherapy; Translations: [Personal history of antineoplastic chemotherapy] Onset: 01-25-2023 01-25-2023 Episodic Residual codes; unclassified (2 sources) Other amnesia; Translations: [Memory changes] Onset: 01-24-2023 Episodic Sprains and strains (20 sources) Neck sprain; Translations: [Sprain of joints and ligaments of unspecified parts of neck, initial encounter] Onset: 08-02-2006 08-02-2006 Episodic Results Test Name Value Interpretation Reference Range Facil ity Vital Signs Date Time Vital Sign Value Performing Clinician Faci lity 08-11-2023 10:13-0500 Body height 163.8 cm Crispin Hawkins MD Work Phone: [facility] 08-11-2023 10:13-0500 Body weight 72.58 kg Crispin Hawkins MD Work Phone: [facility] 08-11-2023 10:13-0500 Diastolic blood pressure 85 mm[Hg] Crispin Hawkins MD Work Phone: [facility] 08-11-2023 10:13-0500 Heart rate 73 /min Crispin Hawkins MD Work Phone: [facility] 08-11-2023 10:13-0500 Respiratory rate 16 /min Crispin Hawkins MD Work Phone: [facility] 08-11-2023 10:13-0500 Systolic blood pressure 136 mm[Hg] Crispin Hawkins MD Work Phone: [facility] 04-24-2023 09:13-0400 Body weight 71.76 kg Reema Nayan HISTOLOGY AIDE.MANAGER [employer] Work Phone: [facility] 04-24-2023 09:13-0400 Diastolic blood pressure 72 mm[Hg] Reema Nayan HISTOLOGY AIDE.MANAGER [employer] Work Phone: [facility] 04-24-2023 09:13-0400 Heart rate 62 /min Reema Nayan HISTOLOGY AIDE.MANAGER [employer] Work Phone: [facility] 04-24-2023 09:13-0400 Respiratory rate 16 /min Reema Nayan HISTOLOGY AIDE.MANAGER [employer] Work Phone: [facility] 04-24-2023 09:13-0400 SaO2% (BldA) [Mass fraction] 98 % Reema Dan HISTOLOGY AIDE.MANAGER [employer] Work Phone: [facility] 04-24-2023 09:13-0400 Systolic blood pressure 104 mm[Hg] Reema Nayan HISTOLOGY AIDE.MANAGER [employer] Work Phone: [facility] 04-04-2023 12:36-0400 Body weight 71.44 kg Thuy Houston MD Work Phone: [facility] 04-04-2023 12:36-0400 Diastolic blood pressure 69 mm[Hg] Thuy Houston MD Work Phone: [facility] 04-04-2023 12:36-0400 Heart rate 62 /min Thuy Houston MD Work Phone: [facility] 04-04-2023 12:36-0400 Systolic blood pressure 112 mm[Hg] Thuy Houston MD Work Phone: [facility] 03-23-2023 09:59-0400 Body height 162.6 cm Mello Steven MD Work Phone: [facility] 03-23-2023 09:59-0400 Body weight 70.67 kg Mello Steven MD Work Phone: [facility] 03-23-2023 09:59-0400 Diastolic blood pressure 86 mm[Hg] Mello Steven MD Work Phone: [facility] 03-23-2023 09:59-0400 Heart rate 63 /min Mello Steven MD Work Phone: [facility] 03-23-2023 09:59-0400 Systolic blood pressure 131 mm[Hg] Mello Steven MD Work Phone: [facility] 03-08-2023 08:01-0400 Body height 163.8 cm Crispin Hawkins MD Work Phone: [facility] 03-08-2023 08:01-0400 Body weight 72.58 kg Crispin Hawkins MD Work Phone: [facility] 03-08-2023 08:01-0400 Diastolic blood pressure 86 mm[Hg] Crispin Hawkins MD Work Phone: [facility] 03-08-2023 08:01-0400 Heart rate 63 /min Crispin Hawkins MD Work Phone: [facility] 03-08-2023 08:01-0400 Respiratory rate 16 /min Crispin Hawkins MD Work Phone: [facility] 03-08-2023 08:01-0400 Systolic blood pressure 138 mm[Hg] Crispin Hawkins MD Work Phone: [facility] 02-27-2023 13:28-0400 Body height 164.5 cm Ruth Khan HISTOLOGY AIDE.MANAGER [employer] Work Phone: [facility] 02-27-2023 13:28-0400 Body temperature 97.39 [degF] Ruth Khan HISTOLOGY AIDE.MANAGER [employer] Work Phone: [facility] 02-27-2023 13:28-0400 Body weight 73.94 kg Ruth Khan HISTOLOGY AIDE.MANAGER [employer] Work Phone: [facility] 02-27-2023 13:28-0400 Diastolic blood pressure 85 mm[Hg] Ruth Khan HISTOLOGY AIDE.MANAGER [employer] Work Phone: [facility] 02-27-2023 13:28-0400 Heart rate 63 /min Ruth Khan HISTOLOGY AIDE.MANAGER [employer] Work Phone: [facility] 02-27-2023 13:28-0400 SaO2% (BldA) [Mass fraction] 98 % Ruth Khan HISTOLOGY AIDE.MANAGER [employer] Work Phone: [facility] 02-27-2023 13:28-0400 Systolic blood pressure 122 mm[Hg] Ruth Khan HISTOLOGY AIDE.MANAGER [employer] Work Phone: [facility] 02-14-2023 09:08-0400 Body temperature 98.4 [degF] Carissa Ramirezer PA-C Work Phone: [facility] 02-14-2023 09:08-0400 Body weight 73.48 kg Carissa Ramirezer PA-C Work Phone: [facility] 02-14-2023 09:08-0400 Diastolic blood pressure 87 mm[Hg] Carissa Ramirezer PA-C Work Phone: [facility] 02-14-2023 09:08-0400 Heart rate 54 /min Carissa Ramirezer PA-C Work Phone: [facility] 02-14-2023 09:08-0400 Respiratory rate 16 /min Carissa Ramirezer PA-C Work Phone: [facility] 02-14-2023 09:08-0400 SaO2% (BldA) [Mass fraction] 99 % Carissa Ramirezer PA-C Work Phone: [facility] 02-14-2023 09:08-0400 Systolic blood pressure 138 mm[Hg] Carissa Ramirezer PA-C Work Phone: [facility] 11-23-2022 16:57-0400 Body temperature 98.1 [degF] Diogenes Pendlebury HISTOLOGY AIDE.MANAGER [employer] Work Phone: [facility] 11-23-2022 16:57-0400 Body weight 72.58 kg Diogenes Pendlebury HISTOLOGY AIDE.MANAGER [employer] Work Phone: [facility] 11-23-2022 16:57-0400 Diastolic blood pressure 80 mm[Hg] Diogenes Pendlebury HISTOLOGY AIDE.MANAGER [employer] Work Phone: [facility] 11-23-2022 16:57-0400 Heart rate 62 /min Diogenes Pendlebury HISTOLOGY AIDE.MANAGER [employer] Work Phone: [facility] 11-23-2022 16:57-0400 Respiratory rate 18 /min Diogenes Pendlebury HISTOLOGY AIDE.MANAGER [employer] Work Phone: [facility] 11-23-2022 16:57-0400 SaO2% (BldA) [Mass fraction] 98 % Diogenes Dueñas HISTOLOGY AIDE.MANAGER [employer] Work Phone: [facility] 11-23-2022 16:57-0400 Systolic blood pressure 126 mm[Hg] Diogenes Pendlebury HISTOLOGY AIDE.MANAGER [employer] Work Phone: [facility] 10-03-2022 14:30-0500 Body height 163.8 cm Amble Mcpherson HISTOLOGY AIDE.MANAGER [employer] Work Phone: [facility] 10-03-2022 14:30-0500 Body weight 74.39 kg Mable Mcpherson HISTOLOGY AIDE.MANAGER [employer] Work Phone: [facility] 10-03-2022 14:30-0500 Diastolic blood pressure 60 mm[Hg] Mable Mcpherson HISTOLOGY AIDE.MANAGER [employer] Work Phone: [facility] 10-03-2022 14:30-0500 Heart rate 72 /min Mable Mcpherson HISTOLOGY AIDE.MANAGER [employer] Work Phone: [facility] 10-03-2022 14:30-0500 Respiratory rate 14 /min Mable Mcpherson HISTOLOGY AIDE.MANAGER [employer] Work Phone: [facility] 10-03-2022 14:30-0500 SaO2% (BldA) [Mass fraction] 98 % Mable Mcpherson HISTOLOGY AIDE.MANAGER [employer] Work Phone: [facility] 10-03-2022 14:30-0500 Systolic blood pressure 140 mm[Hg] Mable Mcpherson HISTOLOGY AIDE.MANAGER [employer] Work Phone: [facility] 08-15-2022 08:52-0500 Body height 163 cm Denver Khan HISTOLOGY AIDE.MANAGER [employer] Work Phone: [facility] 08-15-2022 08:52-0500 Body temperature 98.01 [degF] Ruth Khan HISTOLOGY AIDE.MANAGER [employer] Work Phone: [facility] 08-15-2022 08:52-0500 Body weight 75.3 kg Denver Khan HISTOLOGY AIDE.MANAGER [employer] Work Phone: [facility] 08-15-2022 08:52-0500 Diastolic blood pressure 75 mm[Hg] Ruth Khan HISTOLOGY AIDE.MANAGER [employer] Work Phone: [facility] 08-15-2022 08:52-0500 Heart rate 60 /min Ruth Khan HISTOLOGY AIDE.MANAGER [employer] Work Phone: [facility] 08-15-2022 08:52-0500 SaO2% (BldA) [Mass fraction] 98 % Ruth Khan HISTOLOGY AIDE.MANAGER [employer] Work Phone: [facility] 08-15-2022 08:52-0500 Systolic blood pressure 130 mm[Hg] Ruth Khan HISTOLOGY AIDE.MANAGER [employer] Work Phone: [facility] 02-28-2022 08:16-0400 Body temperature 98.6 [degF] Ruth Khan HISTOLOGY AIDE.MANAGER [employer] Work Phone: [facility] 02-28-2022 08:16-0400 Body weight 81.65 kg Ruth Khan HISTOLOGY AIDE.MANAGER [employer] Work Phone: [facility] 02-28-2022 08:16-0400 Diastolic blood pressure 88 mm[Hg] Ruth Khan HISTOLOGY AIDE.MANAGER [employer] Work Phone: [facility] 02-28-2022 08:16-0400 Heart rate 68 /min Ruth Khan HISTOLOGY AIDE.MANAGER [employer] Work Phone: [facility] 02-28-2022 08:16-0400 Systolic blood pressure 136 mm[Hg] Ruth Khan HISTOLOGY AIDE.MANAGER [employer] Work Phone: [facility] Encounters Encounter Date Encounter Type Care Provider Facility Start: 08-11-2023 End: 08-11-2023 ambulatory CRISPIN HAWKINS [facility] Start: 08-11-2023 End: 08-11-2023 Patient encounter procedure Crispin Hawkins MD Work Phone: Neurology Epilepsy Procedures Date Procedure Procedure Detail Performing Clinician Start: 11-10-2022 Ct head/brain w/o co ntrast material Mable Mcpherson HISTOLOGY AIDE.MANAGER [employer] Work Phone: Start: 10-04-2022 Lipid 1996 panel - S lola or Plasma Ct (I-Stat) Work Phone: Start: 08-15-2022 Mammography Mable Somers son HISTOLOGY AIDE.MANAGER [employer] Work Phone: Start: 02-03-2017 Colonoscopy Ruth Owens enter HISTOLOGY AIDE.MANAGER [employer] Work Phone: Start: 11-17-2011 Mammography Ruth Owens enter HISTOLOGY AIDE.MANAGER [employer] Work Phone: Plan of Treatment Date Care Activity Detail Author Start: 10-04-2027 Lipid 1996 panel - S lola or Plasma Lipid Screening [facility] Start: 10-04-2027 LIPID SCREEN LIPID SCREEN [facility] Start: 02-03-2027 Colonoscopy COLONOSCOPY [facility] Start: 02-03-2027 COLORECTAL CANCER SCREENING COLORECTAL CANCER SCREENING [facility] Start: 03-27-2026 DIABETES SCREEN DIABETES SCREEN [facility] Start: 03-27-2026 Diabetes Screening Diabetes Screenin g [facility] Start: 10-04-2025 DIABETES SCREEN DIABETES SCREEN [facility] Start: 05-21-2025 Urine microalbumin profile DTa P,Tdap,Td Vaccine (4 - Td or Tdap) [facility] Start: 04-24-2024 ANNUAL PCP TEAM INVASIVE CARDIOLOGIST BRAVO DISEASE VISIT ANNUAL PCP TEAM CHRONIC DISEASE VISIT [facility] Start: 04-24-2024 BP CONTROLLED (<130/80) BP CONTROLLE D (<130/80) [facility] Start: 04-04-2024 BP CONTROLLED (<130/80) BP CONTROLLE D (<130/80) [facility] Start: 01-24-2024 ANNUAL PCP TEAM INVASIVE CARDIOLOGIST BRAVO DISEASE VISIT ANNUAL PCP TEAM CHRONIC DISEASE VISIT [facility] Start: 10-24-2023 ANNUAL PCP TEAM INVASIVE CARDIOLOGIST BRAVO DISEASE VISIT ANNUAL PCP TEAM CHRONIC DISEASE VISIT [facility] Start: 10-24-2023 BP CONTROLLED (<130/80) BP CONTROLLE D (<130/80) [facility] Start: 10-03-2023 ANNUAL PCP TEAM INVASIVE CARDIOLOGIST BRAVO DISEASE VISIT ANNUAL PCP TEAM CHRONIC DISEASE VISIT [facility] Start: 10-03-2023 BP CONTROLLED (<130/80) BP CONTROLLE D (<130/80) [facility] Start: 10-03-2023 Urine microalbumin profile [facility] Immunizations Immunization Date Immunization Notes Care Provider Wander andrew 06-03-2022 influenza virus vacc ine, unspecified formulation Ct (I-Stat) Work Phone: [facility] 03-04-2010 tetanus toxoid, redu david diphtheria toxoid, and acellular pertussis vaccine, adsorbed Ruth Khan HISTOLOGY AIDE.MANAGER [employer] Work Phone: [facility] 07-05-2006 influenza virus vacc ine, unspecified formulation Denver Khan HISTOLOGY AIDE.MANAGER [employer] Work Phone: [facility] Work Phone: 07-26-2005 influenza virus vacc ine, unspecified formulation Denver Khan HISTOLOGY AIDE.MANAGER [employer] Work Phone: [facility] 07-20-2004 pneumococcal polysaccharide vaccine, 23 valent Ruth Khan HISTOLOGY AIDE.MANAGER [employer] Work Phone: [facility] Work Phone: 12-20-1999 diphtheria and tetan us toxoids, adsorbed for pediatric use Denver Khan HISTOLOGY AIDE.MANAGER [employer] Work Phone: [facility] Work Phone: Payers Date Payer Category Payer Medicare [employer] [place] [id number] 2023-Present [phone] [address] [place] [address] O [id number] 2023 Medicare [id number] 2013 Unknown [employer] PPO OOS [id number] 2013-Present [phone] [address] [place] [address] PPO [id number] 2013 Unknown [employer] PPO OOS [id number] 2013-Present [phone] [address] [place] [address] PPO [id number] 2013 Unknown [id number] Social History Date Type Detail Facility Start: 07-18-2016 End: 08-11-2023 Tobacco smoking status NHIS Ex-smoker [facility] End: 09-04-1997 History of tobacco use Current smoker [facility] End: 09-04-1997 History of tobacco use Cigarette Smoker [facility] Start: 07-18-2016 End: 01-23-2023 Cigarettes smoked current (pack per day) - Reported 1 [facility] Start: 07-18-2016 End: 08-11-2023 Tobacco use and exposure Smokeless tobacco non-user [facility] Start: 02-28-2022 End: 08-11-2023 Alcohol intake Current drinker of alcohol (finding) [facility] Start: 02-12-2021 History SDOH Alcohol Comment occassionally [facility] Start: 07-18-2016 End: 10-24-2022 Tobacco Comment Pt smoked on & off x 20 years. [facility] Start: 1950 Sex Assigned At Female C [facility] Start: 10-17-2022 History SDOH Alcohol Frequency 2 [facility] Start: 10-17-2022 History SDOH Alcohol Std Drinks 1 [facility] Start: 10-17-2022 History SDOH Social Connections Phone 4 [facility] Start: 10-17-2022 History SDOH Social Connections Get Together 5 [facility] Start: 10-17-2022 History SDOH Social Connections Congregation 3 [facility] Start: 10-17-2022 History SDOH Physica l Activity DPW 0 [facility] Start: 10-17-2022 End: 01-23-2023 Social connection and isolation panel [facility] Do you belong to any clubs or organizations such as christian groups, unions, fraternal or athletic groups, or school groups? Yes [facility] Are you now , , , , never or living with a partner? [facility] How often to you hav e a drink containing alcohol? Monthly or less [facility] How many standard dr inks containing alcohol do you have on a typical day? 1 or 2 [facility] How often do you hav e 6 or more drinks on 1 occasion? Never [facility] How hard is it for y ou to pay for the very basics like food, housing, medical care, and heating Not hard at all [facility] Do you feel stress - tense, restless, nervous, or anxious, or unable to sleep at night because your mind is troubled all the time - these days [OSQ] To some extent [facility] The food that (I/we) bought just didn't last, and (I/we) didn't have money to get more. Never true [facility] Start: 10-13-2021 Gender identity Identifies as female gender (finding) [facility] Start: 10-13-2021 Sexual orientation Heterosexual (fin ding) [facility] How hard is it for y ou to pay for the very basics like food, housing, medical care, and heating Not very hard [facility] In the past 12 month s, was there a time when you were not able to pay the mortgage or rent on time? No [facility] History of tobacco use Passive smoker [facility] Clinical Notes 11-14-2016 to 08-11-2023 Patient InstructionsCrispin Hawkins MD - 08/11/2023 10:17 AM ESTTelephone Encounter - Jennifer Dunne PRODUCTION MECHANIC - 05/15/2023 10:49 AM Bonifacio Mack, PhD - 05/03/2023 8:46 AM EDT Note Date & Type Note Facility 08-11-2023 Note HNO ID: [id number] Author: Crispin Hawkins MD Service: ? Author Type: Physician Type: Progress Notes Filed: 08/14/2023 10:54 AM Note Text: [facility] Patient Name: Rachel Leigh Date of : 1950 ESTABLISHED EPILEPSY CLINIC NOTE 08/11/2023 10:20 AM Reason for Visit: Follow Up Clinical Summary: Ms. Leigh is a 73 year old right-handed female seen in [facility]. There is no one accompanying the patient during today's visit. DIAGNOSIS SUMMARY Paroxysmal Events HISTORY OF PRESENT ILLNESS Handedness: right-handed Age of onset: 72 years Seizure History and Evolution Ms. Rachel Leigh is a 73 year old Right handed woman with history of hypertension here for evaluation of possible seizures. Referred by Dr. Ieyr/Ms. Carissa Ledbetter PA-C from Neurology clinic. Fall of 2018 had sudden onset of vertigo with nystagmus- underwent vestibular rehab. Reportedly MRI was negative for stroke. MRA neck showed a small outpouching of distal cervical Right ICA which was confirmed on CTA as a 3.5 x3.5 mm saccular aneurysm.Subsequent repeat CTA in 2019 and 2022 does not mention aneurym in the report. She was started on Aspirin 81 mg. In March 2021 she had Covid while on a cruise ship. Had 'brain fog' symptoms since then. Was briefly on Addreall for ADD symptoms but that led to high blood pressure and worsening cognitive symptoms. She was also told by other providers that she may have bipolar disorder that was misdiagnosed as ADD. Around 2021, she started experiencing constant sense of familiarity to events, conversations or day to day tasks. She would point out to a TV show or news shows and would say I have seen that but family would tell her that this a new event or show. She would tell people that they had this exact conversation before only to have others tell her this is not the case. These sensations are present althtough the day. She is at a point where she is limiting interactions with others to avoid distress. She underwent routine EEG(20 mins) in January 2023 during which she had constant sense of familiarity- EEG had no correlating seizures. MRI/MRA brain was non-contributory except for right cerebellar archnoid cyst. Crying all the time. Celexa helps. 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 Graduated with honors. Paternal Aunt with epilepsy ( unknown type and medications) Son had febrile seizure in 5th-6th grade, and another seizure in the setting of head injury. Interval Seizure History Since last visit, She underwent EMU evaluation which was non-diagnostic. She had persistant Patience vu with periodic worsening during EMU stay and was NOT associated EEG changes. She was given a bolus of Vimpat 200 mg IV once without any change in her symptoms. [facility] a neurocognitive evaluation with no evidence of abnormalities or patterns suggestive of a neurodegenerative disorder. Total # of Current Anti-seizure Medications: Side Effects to Current Anti-seizure Medications: Seizure Frequency at First Visit: Longest Seizure-free Interval: CURRENT OUTPATIENT ANTISEIZURE MEDICATIONS (as of the start of the encounter) None Prior Anti-seizure Therapies: Trial Adequacy: Max Daily Dose Achieved: Side Effects: Effectiveness: Comments: Comorbidities: Episode Description: SEIZURE TYPE 1: Patience Vu Onset: Jul 2022 Aura: yes Aura - Cognition: Patience-vu Loss of awareness: Duration: Frequency: Last occurred: Patient Entered Data: EPILEPSY SCORE 04/04/2023 10:03 AM PHQ-9 SCORE 7 [Mild Depression] SALBADOR 2 SCORE - SALBADOR 7 SCORE - QOLIE-10 SCORE (0=worst; 100=best QoL - higher scores represent better function) - LSSS SCORE (0- no seizures 100- most severe possible seizures) - C-SSRS SCREEN - On average, how many hours of sleep do you get in a 24-hour period? - PROMIS Sleep Disturbance T-SCORE - Have you been diagnosed with Sleep Apnea? - Seizure risk factors: Brain Tumor Unanswered SENIOR POLICY ANALYST Infections Unanswered Developmental Delay Unanswered Family history of seizures Unanswered Febrile Seizure Unanswered Complications Unanswered Stroke Unanswered Traumatic Brain Injury Unanswered Previous Epilepsy Evaluations MRI brain 05/2019 [facility] : no acute intracranial abnormality. 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 MRI brain 02/07/2023 [facility] No acute brain findings. Moderate generalized brain volume loss. Hippocampal volume is concordant with th (more content not included)... [facility] 08-11-2023 Crispin Lozoya MD - 08/11/2023 10:41 AM EST Summary of the things we discussed today: The testing so far is unrevealing for epileptic disorders, neurodegenerative disorders or brain lesion (like tumors). In cases without organic causes, there is some anecdotal evidence of benefit with CBT. I will refer you to see a psychologist for cognitive behavioral therapy (CBT) for persistent Patience Vu. Please call my office if you develop a new symptom/seizures. Crispin Hawkins MD Associate Staff, Epilepsy [facility] August 11, 2023 Office phone: [phone] documented in this encounter [facility] 08-11-2023 History of Present illness Narrative [facility] Patient Name: Rachel Leigh Date of : 1950 ESTABLISHED EPILEPSY CLINIC NOTE 08/11/2023 10:20 AM Reason for Visit: Follow Up Clinical Summary: Ms. Leigh is a 73 year old right-handed female seen in [facility]. There is no one accompanying the patient during today's visit. DIAGNOSIS SUMMARY Paroxysmal Events HISTORY OF PRESENT ILLNESS Handedness: right-handed Age of onset: 72 years Seizure History and Evolution Ms. Rachel Leigh is a 73 year old Right handed woman with history of hypertension here for evaluation of possible seizures. Referred by Dr. Iyer/Ms. Carissa Ledbetter PA-C from Neurology clinic. Fall of 2018 had sudden onset of vertigo with nystagmus- underwent vestibular rehab. Reportedly MRI was negative for stroke. MRA neck showed a small outpouching of distal cervical Right ICA which was confirmed on CTA as a 3.5 x3.5 mm saccular aneurysm.Subsequent repeat CTA in 2019 and 2022 does not mention aneurym in the report. She was started on Aspirin 81 mg. In March 2021 she had Covid while on a cruise ship. Had 'brain fog' symptoms since then. Was briefly on Addreall for ADD symptoms but that led to high blood pressure and worsening cognitive symptoms. She was also told by other providers that she may have bipolar disorder that was misdiagnosed as ADD. Around 2021, she started experiencing constant sense of familiarity to events, conversations or day to day tasks. She would point out to a TV show or news shows and would say I have seen that but family would tell her that this a new event or show. She would tell people that they had this exact conversation before only to have others tell her this is not the case. These sensations are present althtough the day. She is at a point where she is limiting interactions with others to avoid distress. She underwent routine EEG(20 mins) in January 2023 during which she had constant sense of familiarity- EEG had no correlating seizures. MRI/MRA brain was non-contributory except for right cerebellar archnoid cyst. Crying all the time. Celexa helps. 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 Graduated with honors. Paternal Aunt with epilepsy ( unknown type and medications) Son had febrile seizure in 5th-6th grade, and another seizure in the setting of head injury. Interval Seizure History Since last visit, She underwent EMU evaluation which was non-diagnostic. She had persistant Patience vu with periodic worsening during EMU stay and was NOT associated EEG changes. She was given a bolus of Vimpat 200 mg IV once without any change in her symptoms. She was referred to [facility] and underwent a neurocognitive evaluation with no evidence of abnormalities or patterns suggestive of a neurodegenerative disorder. Total # of Current Anti-seizure Medications: Side Effects to Current Anti-seizure Medications: Seizure Frequency at First Visit: Longest Seizure-free Interval: CURRENT OUTPATIENT ANTISEIZURE MEDICATIONS (as of the start of the encounter) None Prior Anti-seizure Therapies: Trial Adequacy: Max Daily Dose Achieved: Side Effects: Effectiveness: Comments: Comorbidities: Episode Description: SEIZURE TYPE 1: Patience Vu Onset: Jul 2022 Aura: yes Aura - Cognition: Patience-vu Loss of awareness: Duration: Frequency: Last occurred: Patient Entered Data: EPILEPSY SCORE 04/04/2023 10:03 AM PHQ-9 SCORE 7 [Mild Depression] SALBADOR 2 SCORE - SALBADOR 7 SCORE - QOLIE-10 SCORE (0=worst; 100=best QoL - higher scores represent better function) - LSSS SCORE (0- no seizures 100- most severe possible seizures) - C-SSRS SCREEN - On average, how many hours of sleep do you get in a 24-hour period? - PROMIS Sleep Disturbance T-SCORE - Have you been diagnosed with Sleep Apnea? - Seizure risk factors: Brain Tumor Unanswered SENIOR POLICY ANALYST Infections Unanswered Developmental Delay Unanswered Family history of seizures Unanswered Febrile Seizure Unanswered Complications Unanswered Stroke Unanswered Traumatic Brain Injury Unanswered Previous Epilepsy Evaluations MRI brain 05/2019 [facility] : no acute intracranial abnormality. 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 MRI brain 02/07/2023 [facility] No acute brain findings. Moderate generalized brain volume loss. Hippocampal volume is concordant with the general background brain volume loss. Approximately 3 cm right-sided retrocerebellar arachnoid cyst. Localized mass effect on the posterior right cerebellum, but no abnormal signal or any evidence for CSF obstruction. Normally patent intracranial arterial vasculature. Normal variant anatomy as noted. Satisfactory patency of the cervical great vessels. EEG 01/2023 [facility] Interictal: Normal, Ictal: No EEG Change Paroxysmal Event Impression: This EEG is within normal limits. No epileptiform discharges during this recording. The patient reported a constant feeling of patience vu during the recording, which was not accompanied by EEG changes to confirm seizure activity. Other caregivers: Primary Care Provider: Howard Arias, DO Current Outpatient Medications Medication Sig citalopram (CELEXA) 20 mg tablet Take 1 tablet by mouth once daily. lisinopril (ZESTRIL) 10 mg tablet Take 1 tablet by mouth once daily. BIOTIN ORAL Take by mouth once daily. rosuvastatin (CRESTOR) 5 mg tablet Take 1 tablet by mouth once daily. calcium citrate/vitamin D3 (CITRACAL-D3 PETITES ORAL) Take by mouth once daily. OTC NUTRITIONAL SUPPLEMENT 20 mg Collagen Powder, add to cup of coffee every morning B-complex with vitamin C (VITAMIN B COMPLEX-C ORAL) Take 1 capsule by mouth once daily. MAGNESIUM ORAL Take 1 tablet by mouth once daily. aspirin, enteric coated (ASPIRIN, ENTERIC COATED) 81 mg EC tablet Take 81 mg by mouth once daily. flaxseed 1,000 mg cap Take 1 capsule by mouth once daily. multivitamins(DAILY MULTIVITAMIN TAB) Take one(1) tablet daily. Current Facility-Administered Medications Medication Dose Route Frequency perflutren lipid microspheres 1.3 mL in NaCl (PF) 0.9% 10 mL injection (DEFINITY) INTRAVENOUS DIRECTED PRN sodium chloride 0.9 % (flush) 10 mL (BD POSIFLUSH) 10 mL INTRAVENOUS DIRECTED PRN ALLERGIES Allergen Reactions Amantadine Intolerance crying Voltaren [Diclofena* Hives PAST MEDICAL HISTORY Diagnosis Date Anxiety disorder in conditions classified elsewhere Breast cancer (HCC) 2015 Breast cancer--LEFT Depressive disorder, not elsewhere classified Diverticulosis of colon (without mention of hemorrhage) Esophageal reflux Internal hemorrhoids without mention of complication Lumbago Other and unspecified hyperlipidemia Skin cancer Unspecified essential hypertension PAST SURGICAL HISTORY Procedure Laterality Date BX BREAST W/DEVICE 1ST LESION ULTRASOUND GUID Left 06/09/16 U/S core left retroareolar bx COLONOSCOPY FLX DX W/COLLJ SPEC WHEN PFRMD 03/03/2004,2012 Colonoscopy HEART CATHETERIZATION 98 INSJ TUNNELED CTR VAD W/SUBQ PORT AGE 5 YR/> Right 06-28-16 MASTECTOMY,PARTIAL, WITH AXILLARY LYMPHADENECTOMY Left 06-28-16 W/ SLN BIOPSY PAST SURGICAL HISTORY OF BILAT. PARTIAL SALPINGECTOMY PAST SURGICAL HISTORY OF NEUROMA REMOVED FROM L FOOT PAST SURGICAL HISTORY OF REATTACHMENT OF L DISTAL BICEPS TONSILLECTOMY PRIMARY/SECONDARY <AGE 12 UNSPECIFIED ORAL SURGERY PROCEDURE, BY REPORT [place] [facility] FAMILY HISTORY Problem Relation Age of Onset Osteoporosis Mother Heart Mother CHF Hypertension Mother Diabetes Father Hypertension Father Heart Father CHF Cancer Maternal Grandfather 60's, lung cancer, hx of smoking Cancer Maternal Uncle 70 Lung cancer Cancer Maternal Uncle 60's; lung and esophageal cancer; hx of smoking Skin Cancer Paternal Aunt SOCIAL HISTORY: -Lives in [place], [place] -Patient lives alone? -Vocation: -Education: -Cigarette, alcohol, substance use: -Functional status: -Patient driving? Review of Systems All other systems reviewed and are negative. VITAL SIGNS: BP 136/85 Pulse 73 Resp 16 Ht 163.8 cm (5' 4.5 ) Wt 72.6 kg (160 lb) BMI 27.04 kg/m General Examination: She is alone. General: Awake, alert, interactive, no acute distress, good nutritional status, normal development, well-kept Neurological Exam Mental Status Alert, fully oriented, attentive, with normal cognition, memory, speech and affect. Cranial Nerves Face symmetric. Hearing intact with conversational speech. Motor Examination and Coordination Motor examination with normal bulk. Normal coordination. No adventitious movements or significant tremor. Gait Casual gait normal. IMPRESSION: Ms. Rachel Leigh is a 73 year old Right handed woman with persistant Patience Vu of uncertain etiology. EM evaluation did not show EEG changes associated with these symptoms. Empiric trial of Anti-seizure medications ( outpatient as well as IV bolus during EMU stay) did not offer improvement in her symptoms. No epileptic cause has been found at this time to explain her Patience Vu. She underwent evaluation at [facility] where neurocognitive testing did not shows neurodegenerative process. Her test results showed above average to superior scoring in various performance measures. We discussed that since no organic cause have been found yet for her symptoms, she may benefit from cognitive behavioral therapy. Anecdotal evidence suggested benefit with CBT for persistent Patience Vu. PLAN: Referral to psychology for CBT for non-epileptic phenomenon. Follow up with Epilepsy as needed or if symptoms change. Data reviewed as above including: electronic medical record I discussed the risks, benefits and alternatives of the medical plan with the patient. Questions were answered. The patient agreed with the plan as discussed. FOLLOW-UP: Return if symptoms worsen or fail to improve. I spent a total of 20 minutes on the date of the service which included: preparing to see the patient completing clinical documentation [id number] patient care obtaining and/or reviewing separately obtained history performing a medically appropriate examination counseling and educating the patient/family/caregiver ordering medications, tests, or procedures Crispin Hawkins MD cc: Primary Care Physician: Howard Arias DO [id number] [facility] [id number] Referring: Patient: Ms. Rachel Leigh [id number] [facility] [id number] documented in this encounter [facility] 05-15-2023 Miscellaneous Notes Called pt and let her know of below. She voices understanding . She states to just despose of paperwork she made a copy. After looking closer at her paperwork, this should likely be completed by her specialist-neurology or neuropsych as it is requesting diagnoses and prognosis, which I don't have this specific information. Forms are in the outbox in our office. Reema Dan APRN.LAM Paperwork placed in RS inbox Geeta Hendricks Contacted patient and paperwork not dropped off at this time. Geeta Hendricks Ok to forward these forms to myself as I saw her the most recently. Reema Dan APRN.CNP Patient reports her employer tells her she will need to do Short Term Disability in order to hold her job. Reports she was told, since pcp found her brain issues to begin with, she is told pcp will have to fill out the paperwork. Reports she will be sending the forms to pcp, either through [facility] or drop them off. Reports she was just seen by Mechanic Assistant on 04-24-23. documented in this encounter [facility] 05-03-2023 Note HNO ID: [id number] Author: Bonifacio Palma, PhD Service: ? 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 The current evaluation was performed in the context of medical care and a clinical referral question and not for purposes of a forensic, disability, or workers' compensation evaluation. This assessment is part of a multidisciplinary evaluation conducted in the [facility]. The assessment consisted of a brief interview with the patient and collateral (when available), neurobehavioral examination, and standardized neuropsychological assessment. Given the targeted nature of the referral, details of the patient's history, which are already known to the referral source, are only briefly summarized. Please see patient medical records for more detailed information. RELEVANT BACKGROUND: Ms. Rachel Leigh is a 73 year old, right-handed, , White female referred for a neuropsychological evaluation in the context of cognitive concerns. MoCA score in Dr. Houston's evaluation (04/04/23) was 26/30. The patient was unaccompanied to the evaluation. She reported a feeling of patience vu that has been almost constant since fall. She indicated that her children raised concerns around Thanksgi2021. She reported a long-standing history of attention problems (diagnosed with ADD as an adult) but feels this is a different experience. She finds it difficult to differentiate between experiences and whether she has already done something or not. REVIEW OF COGNITIVE FUNCTIONS: Memory: as above Attention/Working Memory: patience vu experiences are frustrating and distracting Executive Functions: misplaces items, trouble making decisions Language: word finding problems, words may come to her later Visuospatial: affected by cataracts Motor: no changes FUNCTIONAL STATUS: Driving: has to think more about where she is going Medications: independent Finances: she may think she has already paid or may pay a bill twice; she has had difficulty with adding or balancing her checkbook Appointments: uses calendar, checks frequently Regarding mood, the patient reported that she tries to remain positive but often becomes overwhelmed and frustrated by her difficulties and can be tearful. Suicidal ideation was denied. RECENT WORK-UP: MRI Brain: 02/07/2023 IMPRESSION: No acute brain findings. Moderate generalized brain volume loss. Hippocampal volume is concordant with the general background brain volume loss. Approximately 3 cm right-sided retrocerebellar arachnoid cyst. Localized mass effect on the posterior right cerebellum, but no abnormal signal or any evidence for CSF obstruction. Normally patent intracranial arterial vasculature. Normal variant anatomy as noted. Satisfactory patency of the cervical great vessels. EMU: 03/27/2023-03/30/2023; per records, patient was noted to have intermittent feelings of patience vu through her admission without EEG change. SOCIAL/ACADEMIC/OCCUPATIONAL BACKGROUND: Development: No complications or developmental delays Medical History: osteopenia, breast cancer (s/p chemotherapy and radiation), COVID-19 (2021), hyperlipidemia, hypertension, and GABY Surgical History: tonsillectomy, partial mastectomy Neurological History: no known history of head injury, stroke, or seizure Current Medications (in Epic): citalopram, lisinopril, rosuvastatin, multivitamin, flaxseed, aspirin, magnesium, vitamin B complex, Citracal, biotin. Psychiatric History: The patient reported lifelong psychiatric issues, dating back to grade school. She was reportedly prescribed a nerve pill in 4th grade due to perfectionistic tendencies (i.e., needing to get perfect grades). She has been treated on and off throughout her life for different issues (e.g., marriage problems, financial concerns). She is currently prescribed Celexa by her PCP. She has seen a therapist in the past. She was diagnosed with Attention Deficit Disorder around age 62 (currently untreated). Substance Use: Current substance use is unremarkable (drinks alcohol on vacation). Past substance use is notable for nicotine and alcohol. Family Medical History: Parkinson's disease (maternal aunt), psychiatric disorders (various family members) Educational History: 13 years, including high school and a few semesters of college. She reported attention difficulties in school that were likely undiagnosed ADD. 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 She is currently on leave from her job. Social History: The patient is and has 2 children. The patient li (more content not included)... 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 The current evaluation was performed in the context of medical care and a clinical referral question and not for purposes of a forensic, disability, or workers' compensation evaluation. This assessment is part of a multidisciplinary evaluation conducted in the [facility]. The assessment consisted of a brief interview with the patient and collateral (when available), neurobehavioral examination, and standardized neuropsychological assessment. Given the targeted nature of the referral, details of the patient's history, which are already known to the referral source, are only briefly summarized. Please see patient medical records for more detailed information. RELEVANT BACKGROUND: Ms. Rcahel Leigh is a 73 year old, right-handed, , White female referred for a neuropsychological evaluation in the context of cognitive concerns. MoCA score in Dr. Houston's evaluation (04/04/23) was 26/30. The patient was unaccompanied to the evaluation. She reported a feeling of patience vu that has been almost constant since fall. She indicated that her children raised concerns around 2021. She reported a long-standing history of attention problems (diagnosed with ADD as an adult) but feels this is a different experience. She finds it difficult to differentiate between experiences and whether she has already done something or not. REVIEW OF COGNITIVE FUNCTIONS: Memory: as above Attention/Working Memory: patience vu experiences are frustrating and distracting Executive Functions: misplaces items, trouble making decisions Language: word finding problems, words may come to her later Visuospatial: affected by cataracts Motor: no changes FUNCTIONAL STATUS: Driving: has to think more about where she is going Medications: independent Finances: she may think she has already paid or may pay a bill twice; she has had difficulty with adding or balancing her checkbook Appointments: uses calendar, checks frequently Regarding mood, the patient reported that she tries to remain positive but often becomes overwhelmed and frustrated by her difficulties and can be tearful. Suicidal ideation was denied. RECENT WORK-UP: MRI Brain: 02/07/2023 IMPRESSION: No acute brain findings. Moderate generalized brain volume loss. Hippocampal volume is concordant with the general background brain volume loss. Approximately 3 cm right-sided retrocerebellar arachnoid cyst. Localized mass effect on the posterior right cerebellum, but no abnormal signal or any evidence for CSF obstruction. Normally patent intracranial arterial vasculature. Normal variant anatomy as noted. Satisfactory patency of the cervical great vessels. EMU: 03/27/2023-03/30/2023; per records, patient was noted to have intermittent feelings of patience vu through her admission without EEG change. SOCIAL/ACADEMIC/OCCUPATIONAL BACKGROUND: Development: No complications or developmental delays Medical History: osteopenia, breast cancer (s/p chemotherapy and radiation), COVID-19 (2021), hyperlipidemia, hypertension, and GABY Surgical History: tonsillectomy, partial mastectomy Neurological History: no known history of head injury, stroke, or seizure Current Medications (in Epic): citalopram, lisinopril, rosuvastatin, multivitamin, flaxseed, aspirin, magnesium, vitamin B complex, Citracal, biotin. Psychiatric History: The patient reported lifelong psychiatric issues, dating back to grade school. She was reportedly prescribed a nerve pill in 4th grade due to perfectionistic tendencies (i.e., needing to get perfect grades). She has been treated on and off throughout her life for different issues (e.g., marriage problems, financial concerns). She is currently prescribed Celexa by her PCP. She has seen a therapist in the past. She was diagnosed with Attention Deficit Disorder around age 62 (currently untreated). Substance Use: Current substance use is unremarkable (drinks alcohol on vacation). Past substance use is notable for nicotine and alcohol. Family Medical History: Parkinson's disease (maternal aunt), psychiatric disorders (various family members) Educational History: 13 years, including high school and a few semesters of college. She reported attention difficulties in school that were likely undiagnosed ADD. 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 She is currently on leave from her job. Social History: The patient is and has 2 children. The patient lives with her son and [id number]. PHYSICAL FUNCTIONING: Motor Problems: reduced balance (attributed to vertigo) Sensory Problems: none Pain: denied chronic pain Sleep: Average of 6 hours per night, reported GABY, uses CPAP regularly, feels unrested upon awakening and is often tired. Autonomic Dysfunction: none BEHAVIORAL OBSERVATIONS: Mood: anxious Affect: broad Rapport: amicable Speech: fluent Comprehension: good Historian: good, somewhat overly inclusive or tangential at times Thought Processes: logical Motor: normal Sensory Problems: wore glasses Participation: active Attention: appeared alert but somewhat inattentive Behavior: reported some difficulty seeing stimuli on angle estimation task Effort/Validity: appropriate; results are considered valid ? COGNITIVE RESULTS: Estimated premorbid abilities: Based on a combination of her single word reading performance and demographic variables, Ms. Ricci premorbid intellectual abilities are estimated to be in the average range. Attention/Processing Speed: Auditory attentional span was superior. Working memory was high average. Performance on a measure of visuomotor processing speed and sequencing was superior. Processing speed on a digit-symbol reports analyst task was high average. Speeded color naming was high average, and speeded word reading was high average. Executive functioning: Verbal abstract reasoning ability was superior. Visual planning/problem solving was very superior. Mental flexibility and visuomotor set shifting was superior. Verbal response inhibition was superior, and the same task with a set switching component was high average. Language: Confrontation naming was intact. Lexical verbal fluency was superior. Semantic verbal fluency was average. Learning and Memory: Story learning was high average. Following a delay, story recall was superior, and recognition of story elements was within normal limits. Word list learning was average. Following a delay, word recall was high average, and recognition of the words was average. Learning of geometric shapes was superior. Following a delay, recall of the shapes was high average, and recognition was average. Visuospatial: Visuoconstruction (block assembly) ability was high average. Copy of individual geometric shapes was within expectations. Visuoperception on an angle estimation task was low average. Mood: Ms. Leigh endorsed mild symptoms of depression and moderate symptoms of anxiety on self-report measures. SUMMARY/IMPRESSIONS: Neuropsychological evaluation revealed performance that was within the normal range or higher in all cognitive domains, with scores falling in the low average to very superior range relative to age-based norms. Particular strengths (i.e., superior range or higher) were observed on measures of story recall, non-verbal learning, auditory attention, psychomotor speed, lexical verbal fluency, and various executive functions. On brief mood screening measures, she indicated mild symptoms of depression and moderate symptoms of anxiety. Overall, results of this exam indicate a normal neuropsychological profile. Findings do not support the presence of a neurodegenerative condition or cognitive disorder. The patient reported understandable distress and frustration regarding ongoing patience vu experiences, although the current exam does not reveal a neurological correlate of her symptoms. Factors that may affect cognition and daily function include ongoing mood disturbance and fatigue, as well as possible residual effects of COVID-19 infection. RECOMMENDATIONS 1. This exam establishes a baseline of cognitive function at this time, and repeat neuropsychological evaluation may be considered in the future if there are further concerns about her cognitive status. 2. Ms. Leigh is encouraged to maintain a healthy lifestyle to optimize brain health and limit risk factors for stroke and cognitive decline. Continued engagement in regular activity and exercise is recommended and may be beneficial. Continued involvement in cognitively stimulating activities is also recommended (i.e., reading, puzzles, gardening). Lastly, attention to nutritional factors and proper diet is encouraged. OVERVIEW The graph below shows performance in different areas of cognitive function. The table is intended to serve as a summary of the data and may not include each individual test score derived. See 'Test Results' and 'Impressions/Summary' section for a comprehensive discussion of all test scores. Very Superior Superior X X High Average X X X X Average X X X n/a Low Average Moderately Low Extremely Low Estimated IQ Learning Memory Recog- nition Attention Processing Speed Executive Language Visuo- spatial Motor This table should not be presented separate from the Neuropsychological Evaluation Report dated 05/03/2023. This report is meant to be considered as only one part of the comprehensive examination. The results will be communicated to the referring physician via shared electronic medical record. Bonifacio Palma, Ph.D., [facility]- Board Certified in Clinical Neuropsychology Neurobehavioral status exam/clinical interview by neuropsychologist = 1 hour Neuropsychological evaluation services by neuropsychologist = 2 hours Neuropsychological test administration/scoring by supervisor files = 2 hours documented in this encounter [facility] 04-30-2023 Note HNO ID: [id number] Author: Cleveland Calhoun RN Service: ? Author Type: Registered Nurse Type: Progress Notes Filed: 04/30/2023 3:32 PM Note Text: TRANSITION CARE MANAGEMENT (TCM) FOLLOW-UP NOTE Provider Action/FYI: TCM Chart review Pt had PCP f/u on 04/24/23 Telephone outreach deferred. Appointments for Next 60 Days Date Time Provider Location Dept Phone 05/03/2023 8:00 AM BONIFACIO PALMA Bldg [phone] Discharge Network Status: In-Network Discharge Summary: Pt discharged from [facility] on 03/30/23. Admitted for: Seizures Courtesy Van Driver plan for next outreach: No further follow up needed at this time JACQUELIN Education Ordered -: No Signature Cleveland Calhoun RN April 30, 2023 [facility] 04-30-2023 History of Present illness Narrative TRANSITION CARE MANAGEMENT (TCM) FOLLOW-UP NOTE Provider Action/FYI: TCM Chart review Pt had PCP f/u on 04/24/23 Telephone outreach deferred. Appointments for Next 60 Days Date Time Provider Location Dept Phone 05/03/2023 8:00 AM BONIFACIO PALMA Bldg [phone] Discharge Network Status: In-Network Discharge Summary: Pt discharged from [facility] on 03/30/23. Admitted for: Seizures Courtesy Van Driver plan for next outreach: No further follow up needed at this time JACQUELIN Education Ordered -: No Signature Cleveland Calhoun RN April 30, 2023 documented in this encounter [facility] 04-30-2023 Note Patient Outreach (AM [facility]) RACHEL LEIGH ([id number]) 1950 F Date Time Provider Department 04/30/23 CLEVELAND CALHOUN AM[facility] During your visit today, we recorded the following information about you: Cleveland Calhoun RN 04/30/2023 3:32 PM Signed TRANSITION CARE MANAGEMENT (TCM) FOLLOW-UP NOTE Provider Action/FYI: TCM Chart review Pt had PCP f/u on 04/24/23 Telephone outreach deferred. Appointments for Next 60 Days Date Time Provider Location Dept Phone 05/03/2023 8:00 AM BONIFACIO PALMA [facility] [phone] Discharge Network Status: In-Network Discharge Summary: Pt discharged from [facility] on 03/30/23. Admitted for: Seizures Courtesy Van Driver plan for next outreach: No further follow up needed at this time JACQUELIN Education Ordered -: No Signature Cleveland Calhoun RN April 30, 2023 Allergies As of Date: 04/30/2023 Noted Allergy Reaction AMANTADINE 11/07/2008 5 - Intolerance Comments: crying VOLTAREN (DICLOFENAC SODIUM) 11/27/2007 4 - Hives Date Reviewed: 04/24/2023 Reviewed by: Reema Dan APRN.[employer]NA[employer] - Fully Assessed Reason for Visit: Transition Of Care [4074] Cmt: TCM follow up [facility] Discharge 03/30/23 Prescriptions as of 04/30/2023 - citalopram (CELEXA) 20 mg tablet Take 1 tablet by mouth once daily. - lisinopril (ZESTRIL) 10 mg tablet Take 1 tablet by mouth once daily. - BIOTIN ORAL Take by mouth once daily. - rosuvastatin (CRESTOR) 5 mg tablet Take 1 tablet by mouth once daily. - calcium citrate/vitamin D3 (CITRACAL-D3 PETITES ORAL) Take by mouth once daily. - OTC NUTRITIONAL SUPPLEMENT 20 mg Collagen Powder, add to cup of coffee every morning - B-complex with vitamin C (VITAMIN B COMPLEX-C ORAL) Take 1 capsule by mouth once daily. - MAGNESIUM ORAL Take 1 tablet by mouth once daily. - aspirin, enteric coated (ASPIRIN, ENTERIC COATED) 81 mg EC tablet Take 81 mg by mouth once daily. - flaxseed 1,000 mg cap Take 1 capsule by mouth once daily. - multivitamins(DAILY MULTIVITAMIN TAB) Take one(1) tablet daily. Facility-Administered Medications as of 04/30/2023 - perflutren lipid microspheres 1.3 mL in NaCl (PF) 0.9% 10 mL injection (DEFINITY) - sodium chloride 0.9 % (flush) 10 mL (BD POSIFLUSH) Meds Comments as of 05/08/2008: Problem List As Of Date 04/30/2023 Noted Resolved HYPERTENSION NOS [I10] 06/22/2006 Dyslipidemia [E78.5] 06/22/2006 SPRAIN OF NECK [S13.9XXA] 08/02/2006 SPRAIN LUMBAR REGION [S33.5XXA] 08/02/2006 LUMBAGO [M54.50] DEPRESSIVE DISORDER NEC [F32.89] ANXIETY STATE NOS [F41.1] SPRAIN OF KNEE AND LEG NEC [S83.8X9A, S86.819A] 11/13/2007 ADD (attention deficit disorder) [F98.8] 02/22/2012 Depression [F32.A] 02/22/2012 Abnormality of left breast on screening mammogr*06/09/2016 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] 06/20/2016 Breast cancer, stage 3 (HCC) [C50.919] 07/12/2016 Chemotherapy-induced neutropenia (HCC) [D70.1, *08/05/2016 01/27/2017 Invasive ductal carcinoma of left breast in fem*11/02/2016 Cancer of central portion of left female breast*11/14/2016 01/20/2017 Vitamin D deficiency [E55.9] 08/01/2017 Osteopenia [M85.80] 08/01/2017 History of radiation exposure [Z92.3] 01/25/2023 History of chemotherapy [Z92.21] 01/25/2023 History of breast cancer [Z85.3] 01/25/2023 Memory problem [R41.3] 01/25/2023 Memory changes [R41.3] 01/25/2023 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 Arias rather than previous PCP. Please contact pt and confirm. Patient has been identified by name and date of : Yes Last office visit in this department: 04/24/2023 RX INSTRUCTIONS: Patient aware RX will be sent to pharmacy. No need to notify patient. Patient phones requesting refills as follows: Requested Prescriptions Pending Prescriptions Disp Refills citalopram (CELEXA) 20 mg tablet Sig: Take 1 tablet by mouth once daily. lisinopril (ZESTRIL) 10 mg tablet Sig: Take 1 tablet by mouth once daily. Please review and advise. Lakhwinder Schaefer documented in this encounter [facility] 04-24-2023 Note HNO ID: [id number] Author: Reema Dan APRN.[employer] Service: ? Author Type: Nurse Practitioner Type: Progress Notes Filed: 04/27/2023 8:19 AM Note Text: Chief Complaint Patient presents with: Follow Up: Memory changes HPI Rachel Leigh is a 73 year old female who presents here today for Above Complaints. Today: Having memory concerns. Frequent patience vu. Is seeing multiple neurologic specialists. Is scheduled with neuropsychology on 05/03/2023. Is not having anyone go with her to her to her appointments with neuro specialists. States she doesn't need anyone to drive with her because she knows where she is going. Denies needing someone to help her remember directions/instructions from specialists at these visits. Past medical history, appointments, medications, allergies reviewed. Previous Medical History PAST MEDICAL HISTORY Diagnosis Date Anxiety disorder in conditions classified elsewhere Breast cancer (HCC) 2016 Breast cancer--LEFT Depressive disorder, not elsewhere classified Diverticulosis of colon (without mention of hemorrhage) Esophageal reflux Internal hemorrhoids without mention of complication Lumbago Other and unspecified hyperlipidemia Skin cancer Unspecified essential hypertension Previous Surgical History PAST SURGICAL HISTORY Procedure Laterality Date BX BREAST W/DEVICE 1ST LESION ULTRASOUND GUID Left 06/09/16 U/S core left retroareolar bx COLONOSCOPY FLX DX W/COLLJ SPEC WHEN PFRMD 03/03/2004,2012 Colonoscopy HEART CATHETERIZATION 98 INSJ TUNNELED CTR VAD W/SUBQ PORT AGE 7 YR/> Right 06-28-16 MASTECTOMY,PARTIAL, WITH AXILLARY LYMPHADENECTOMY Left 06-28-16 W/ SLN BIOPSY PAST SURGICAL HISTORY OF BILAT. PARTIAL SALPINGECTOMY PAST SURGICAL HISTORY OF NEUROMA REMOVED FROM L FOOT PAST SURGICAL HISTORY OF REATTACHMENT OF L DISTAL BICEPS TONSILLECTOMY PRIMARY/SECONDARY UNSPECIFIED ORAL SURGERY PROCEDURE, BY REPORT [place] [facility] Family History FAMILY HISTORY Problem Relation Age of Onset Osteoporosis Mother Heart Mother CHF Hypertension Mother Diabetes Father Hypertension Father Heart Father CHF Cancer Maternal Grandfather 60's, lung cancer, hx of smoking Cancer Maternal Uncle 70 Lung cancer Cancer Maternal Uncle 60's; lung and esophageal cancer; hx of smoking Skin Cancer Paternal Aunt Patient Allergies ALLERGIES Allergen Reactions Amantadine Intolerance crying Voltaren [Diclofena* Hives Current Medications Current Outpatient Medications on File Prior to Visit Medication Sig BIOTIN ORAL Take by mouth once daily. rosuvastatin (CRESTOR) 5 mg tablet Take 1 tablet by mouth once daily. calcium citrate/vitamin D3 (CITRACAL-D3 PETITES ORAL) Take by mouth once daily. lisinopril (ZESTRIL, PRINIVIL) 10 mg tablet Take 10 mg by mouth once daily. citalopram (CELEXA) 20 mg tablet Take 20 mg by mouth once daily. OTC NUTRITIONAL SUPPLEMENT 20 mg Collagen Powder, add to cup of coffee every morning B-complex with vitamin C (VITAMIN B COMPLEX-C ORAL) Take 1 capsule by mouth once daily. MAGNESIUM ORAL Take 1 tablet by mouth once daily. aspirin, enteric coated (ASPIRIN, ENTERIC COATED) 81 mg EC tablet Take 81 mg by mouth once daily. flaxseed 1,000 mg cap Take 1 capsule by mouth once daily. multivitamins(DAILY MULTIVITAMIN TAB) Take one(1) tablet daily. Current Facility-Administered Medications on File Prior to Visit Medication perflutren lipid microspheres 1.3 mL in NaCl (PF) 0.9% 10 mL injection (DEFINITY) sodium chloride 0.9 % (flush) 10 mL (BD POSIFLUSH) Social History Social History Tobacco Use Smoking status: Former Packs/day: 1 Types: Cigarettes Quit date: 09/04/1997 Years since quittin.6 Smokeless tobacco: Never Tobacco comments: Pt smoked on AND off x 20 years. Vaping Use Vaping Use: Never used Substance Use Topics Alcohol use: Yes Comment: occassionally Drug use: No Review of Symptoms REVIEW OF SYSTEMS See HPI, otherwise negative EXAM: BP 104/72 (BP Site: Right Arm, BP Position: Sitting, BP Cuff Size: Regular Adult) Pulse 62 Resp 16 Wt 71.8 kg (158 lb 3.2 oz) SpO2 98% BMI 27.15 kg/m? General Appearance: Well appearing, alert, in no acute distress, well-hydrated, well nourished.. Lungs: Lungs clear to auscultation. No wheezing, rhonchi, rales.. Heart: RRR without murmur, gallop, or rubs. No ectopy. Psychiatric: pleasant, cooperative, tangential, repetitive, anxious, impulsive in speech. Health Maintenance List SHINGRIX VACCINE(1 of 2) Never done PNEUMOCOCCAL: 65+(2 - PCV) due on 02/14/2017 COVID-19 VACCINE(5 - Moderna series) due on 01/20/2023 ADVANCE DIRECTIVE DISCUSSION due on 09/03/2023 DTAP,TDAP,TD(3 - Td or Tdap) due on 10/03/2023 INFLUENZA(1) due on 05/05/2023 MAMMOGRAM due on 08/15/2023 ANNUAL PCP TEAM CHRONIC DISEASE VISIT due on 04/24/2024 BP CONTROLLED (<130/80) due on 04/24/2024 DIABETES SCREEN due on 03/27 (more content not included)... [facility] 04-24-2023 Instructions Reema Dan APRN.MANA[employer] - 04/24/2023 9:46 AM EDT See neuropsychology on 05/03 as scheduled. Recommend family member go along to appointments to help with retaining information. Do not take lorazepam at this point due to already existing symptoms. documented in this encounter [facility] 04-24-2023 History of Present illness Narrative Chief Complaint Patient presents with: Follow Up: Memory changes HPI Rachel Leigh is a 73 year old female who presents here today for Above Complaints. Today: Having memory concerns. Frequent patience vu. Is seeing multiple neurologic specialists. Is scheduled with neuropsychology on 05/03/2023. Is not having anyone go with her to her to her appointments with neuro specialists. States she doesn't need anyone to drive with her because she knows where she is going. Denies needing someone to help her remember directions/instructions from specialists at these visits. Past medical history, appointments, medications, allergies reviewed. Previous Medical History PAST MEDICAL HISTORY Diagnosis Date Anxiety disorder in conditions classified elsewhere Breast cancer (HCC) 2016 Breast cancer--LEFT Depressive disorder, not elsewhere classified Diverticulosis of colon (without mention of hemorrhage) Esophageal reflux Internal hemorrhoids without mention of complication Lumbago Other and unspecified hyperlipidemia Skin cancer Unspecified essential hypertension Previous Surgical History PAST SURGICAL HISTORY Procedure Laterality Date BX BREAST W/DEVICE 1ST LESION ULTRASOUND GUID Left 06/09/16 U/S core left retroareolar bx COLONOSCOPY FLX DX W/COLLJ SPEC WHEN PFRMD 03/03/2004,2012 Colonoscopy HEART CATHETERIZATION 98 INSJ TUNNELED CTR VAD W/SUBQ PORT AGE 7 YR/> Right 06-28-16 MASTECTOMY,PARTIAL, WITH AXILLARY LYMPHADENECTOMY Left 06-28-16 W/ SLN BIOPSY PAST SURGICAL HISTORY OF BILAT. PARTIAL SALPINGECTOMY PAST SURGICAL HISTORY OF NEUROMA REMOVED FROM L FOOT PAST SURGICAL HISTORY OF REATTACHMENT OF L DISTAL BICEPS TONSILLECTOMY PRIMARY/SECONDARY <AGE 14 UNSPECIFIED ORAL SURGERY PROCEDURE, BY REPORT [place] [facility] Family History FAMILY HISTORY Problem Relation Age of Onset Osteoporosis Mother Heart Mother CHF Hypertension Mother Diabetes Father Hypertension Father Heart Father CHF Cancer Maternal Grandfather 60's, lung cancer, hx of smoking Cancer Maternal Uncle 70 Lung cancer Cancer Maternal Uncle 60's; lung and esophageal cancer; hx of smoking Skin Cancer Paternal Aunt Patient Allergies ALLERGIES Allergen Reactions Amantadine Intolerance crying Voltaren [Diclofena* Hives Current Medications Current Outpatient Medications on File Prior to Visit Medication Sig BIOTIN ORAL Take by mouth once daily. rosuvastatin (CRESTOR) 5 mg tablet Take 1 tablet by mouth once daily. calcium citrate/vitamin D3 (CITRACAL-D3 PETITES ORAL) Take by mouth once daily. lisinopril (ZESTRIL, PRINIVIL) 10 mg tablet Take 10 mg by mouth once daily. citalopram (CELEXA) 20 mg tablet Take 20 mg by mouth once daily. OTC NUTRITIONAL SUPPLEMENT 20 mg Collagen Powder, add to cup of coffee every morning B-complex with vitamin C (VITAMIN B COMPLEX-C ORAL) Take 1 capsule by mouth once daily. MAGNESIUM ORAL Take 1 tablet by mouth once daily. aspirin, enteric coated (ASPIRIN, ENTERIC COATED) 81 mg EC tablet Take 81 mg by mouth once daily. flaxseed 1,000 mg cap Take 1 capsule by mouth once daily. multivitamins(DAILY MULTIVITAMIN TAB) Take one(1) tablet daily. Current Facility-Administered Medications on File Prior to Visit Medication perflutren lipid microspheres 1.3 mL in NaCl (PF) 0.9% 10 mL injection (DEFINITY) sodium chloride 0.9 % (flush) 10 mL (BD POSIFLUSH) Social History Social History Tobacco Use Smoking status: Former Packs/day: 1 Types: Cigarettes Quit date: 09/04/1997 Years since quittin.6 Smokeless tobacco: Never Tobacco comments: Pt smoked on & off x 20 years. Vaping Use Vaping Use: Never used Substance Use Topics Alcohol use: Yes Comment: occassionally Drug use: No Review of Symptoms REVIEW OF SYSTEMS See HPI, otherwise negative EXAM: BP 104/72 (BP Site: Right Arm, BP Position: Sitting, BP Cuff Size: Regular Adult) Pulse 62 Resp 16 Wt 71.8 kg (158 lb 3.2 oz) SpO2 98% BMI 27.15 kg/m General Appearance: Well appearing, alert, in no acute distress, well-hydrated, well nourished.. Lungs: Lungs clear to auscultation. No wheezing, rhonchi, rales.. Heart: RRR without murmur, gallop, or rubs. No ectopy. Psychiatric: pleasant, cooperative, tangential, repetitive, anxious, impulsive in speech. Health Maintenance List SHINGRIX VACCINE(1 of 2) Never done PNEUMOCOCCAL: 65+(2 - PCV) due on 02/14/2017 COVID-19 VACCINE(5 - Moderna series) due on 01/20/2023 ADVANCE DIRECTIVE DISCUSSION due on 09/03/2023 DTAP,TDAP,TD(3 - Td or Tdap) due on 10/03/2023 INFLUENZA(1) due on 05/05/2023 MAMMOGRAM due on 08/15/2023 ANNUAL PCP TEAM CHRONIC DISEASE VISIT due on 04/24/2024 BP CONTROLLED (<130/80) due on 04/24/2024 DIABETES SCREEN due on 03/27/2026 COLORECTAL CANCER SCREENING due on 02/03/2027 LIPID SCREEN due on 10/04/2027 BONE DENSITY Completed HPV VACCINE Aged Out HEPATITIS C SCREENING Discontinued Data reviewed See HPI, otherwise negative ASSESSMENT/PLAN: 1. Disorganized thought process - ICD9: 781.99, ICD10: R41.89 (primary diagnosis) Extremely tangential in speech, poor thought processes, repetitive in speech. Encouraged patient to continue following with her neuro specialists. Family members have offered to accompany her to visits and she does not feel this is necessary, encouraged her to allow them to attend because is always helpful to have a second set of ears to help remember specifics of appointments. 2. Patience vu seizure disorder (HCC) - ICD9: 345.40, ICD10: G40.209 Extremely tangential in speech, poor thought processes, repetitive in speech. Encouraged patient to continue following with her neuro specialists. Family members have offered to accompany her to visits and she does not feel this is necessary, encouraged her to allow them to attend because is always helpful to have a second set of ears to help remember specifics of appointments. 3. Memory changes - ICD9: 780.93, ICD10: R41.3 Extremely tangential in speech, poor thought processes, repetitive in speech. Encouraged patient to continue following with her neuro specialists. Family members have offered to accompany her to visits and she does not feel this is necessary, encouraged her to allow them to attend because is always helpful to have a second set of ears to help remember specifics of appointments. 4. Memory problem - ICD9: 780.93, ICD10: R41.3 Extremely tangential in speech, poor thought processes, repetitive in speech. Encouraged patient to continue following with her neuro specialists. Family members have offered to accompany her to visits and she does not feel this is necessary, encouraged her to allow them to attend because is always helpful to have a second set of ears to help remember specifics of appointments. 5. Confusion - ICD9: 298.9, ICD10: R41.0 Extremely tangential in speech, poor thought processes, repetitive in speech. Encouraged patient to continue following with her neuro specialists. Family members have offered to accompany her to visits and she does not feel this is necessary, encouraged her to allow them to attend because is always helpful to have a second set of ears to help remember specifics of appointments. Reema Dan APRN.LAM Greater than 50% of 45-minute visit spent face to face with patient in counseling and education. documented in this encounter [facility] 04-04-2023 Note HNO ID: [id number] Author: Thuy Houston MD Service: ? Author Type: Physician Type: Progress Notes Filed: 04/05/2023 9:16 AM Note Text: [facility] New Patient Evaluation Date: April 04, 2023 Patient Name: Rachel Leigh The [facility] was asked by Dr. Hawkins to evaluate Rachel Leigh. Our recommendations of care will be communicated by shared medical record. Reason for Evaluation/Chief complaint: memory problems Accompanied by: SELF --------- - SUBJECTIVE: HPI: Rachel Leigh is a 73 year old Right handed female who presents to the [facility] for an initial evaluation for memory concerns . Patient has been seen and referred by Dr. Crispin Hawkins. Patient has a pertinent PMHx significant for Hypertension,Depression, Anxiety and Hyperlipidemia. 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 She stopped working about 6 months ago since she had issues. She states she has issues with patience vu. She stated even though she is meeting me for the first time today she has the sensation that she has seen me before. She thinks symptoms started July of 2022 or at least by the end of year. The kids started questioning her in because she would tell them that she already knows something or already saw a movie which hasn't even been released. In March 2022 she was in [place] she got COVID in the cruise even since then she states she has been in a Fog. She states she feels she has chemo brain. She states she cant remember. In Fall 2018 she states she had vestibular neuronitis and has been having issues with poor focus. She had breast cancer in 2015. She has been somewhat tangential throughout the encounter and needed to be redirected. She denies any auditory or visual hallucinations. She has had a psychiatrist in the past during COVID. She no longer is following with a psychiatrist. She also states during COVID was tough for her as she also had ADD and didn't have structure. Her support was the christian but due to restrictions during COVID she was socially isolated. She does not have a therapist. She is frustrated that she has had multiple evaluations now but no definitive answers. Short-term Memory: Repeats questions/statements: YES Misplacing items around the house: YES always been forgetful Difficulty remembering details of recent conversations within a few hours: YES Difficulty remembering names of familiar people (not family or friends): YES Missed some appointments or major events due to memory changes: YES Language: Word-finding difficulty: YES Fluency: NO Difficulty understanding conversations: YES Difficulty with reading or writing: YES Difficulty with reading comprehension: YES Mood: Frustrated not being able to do things I used to. She is sometimes depressed. When she watches an old movie it helps her feel at ease. She denies any thought of hurting herself or others. Neurobehavioral symptoms: slightly impaired. People have told her she looks more confused. Sleep: normally Goes to bed at 10 pm wakes up at 6:30 am. She is always tired. Parkinsonism: normal REVIEW OF SYSTEMS: Weight change/Appetite: alright Hearing: no change Vision: no change Constipation, Diarrhea: no Incontinence: no Chest pain: No Edema: No Dyspnea: No Falls/injuries/accidents: No NEURO: SEE HPI --------- - OUTPATIENT MEDICATIONS Current Outpatient Medications on File Prior to Visit Medication Sig BIOTIN ORAL Take by mouth once daily. rosuvastatin (CRESTOR) 5 mg tablet Take 1 tablet by mouth once daily. calcium citrate/vitamin D3 (CITRACAL-D3 PETITES ORAL) Take by mouth once daily. lisinopril (ZESTRIL, PRINIVIL) 10 mg tablet Take 10 mg by mouth once daily. citalopram (CELEXA) 20 mg tablet Take 20 mg by mouth once daily. OTC NUTRITIONAL SUPPLEMENT 20 mg Collagen Powder, add to cup of coffee every morning B-complex with vitamin C (VITAMIN B COMPLEX-C ORAL) Take 1 capsule by mouth once daily. MAGNESIUM ORAL Take 1 tablet by mouth once daily. aspirin, enteric coated (ASPIRIN, ENTERIC COATED) 81 mg EC tablet Take 81 mg by mouth once daily. flaxseed 1,000 mg cap Take 1 capsule by mouth once daily. multivitamins(DAILY MULTIVITAMIN TAB) Take one(1) tablet daily. Current Facility-Administered Medications on File Prior to Visit Medication perflutren lipid microspheres 1.3 mL in NaCl (PF) 0.9% 10 mL injection (DEFINITY) sodium chloride 0.9 % (flush) 10 mL (BD POSIFLUSH) MEDICAL HISTORY PAST MEDICAL HISTORY Diagnosis Date Anxiety disorder in conditions classified elsewhere Breast cancer (HCC) 2 (more content not included)... [facility] 04-04-2023 Instructions Abner Crowell MD - 04/04/2023 2:05 PM EDT Complete Neuropsych testing May consider talking to your PCP about talking about a psychiatrist or a counselor regarding your stress/ anxiety. Follow up with Dr. Houston after the same documented in this encounter [facility] 04-04-2023 History of Present illness Narrative Images from the original note were not included. [facility] New Patient Evaluation Date: April 04, 2023 Patient Name: Rachel Leigh The [facility] was asked by Dr. Hawkins to evaluate Rachel Leigh. Our recommendations of care will be communicated by shared medical record. Reason for Evaluation/Chief complaint: memory problems Accompanied by: SELF SUBJECTIVE: HPI: Rachel Leigh is a 73 year old Right handed female who presents to the [facility] for an initial evaluation for memory concerns . Patient has been seen and referred by Dr. Crispin Hawkins. Patient has a pertinent PMHx significant for Hypertension,Depression, Anxiety and Hyperlipidemia. 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 She stopped working about 6 months ago since she had issues. She states she has issues with patience vu. She stated even though she is meeting me for the first time today she has the sensation that she has seen me before. She thinks symptoms started July of 2022 or at least by the end of year. The kids started questioning her in thanks because she would tell them that she already knows something or already saw a movie which hasn't even been released. In March 2022 she was in [place] she got COVID in the cruise even since then she states she has been in a Fog. She states she feels she has chemo brain. She states she cant remember. In Fall 2018 she states she had vestibular neuronitis and has been having issues with poor focus. She had breast cancer in 2014. She has been somewhat tangential throughout the encounter and needed to be redirected. She denies any auditory or visual hallucinations. She has had a psychiatrist in the past during COVID. She no longer is following with a psychiatrist. She also states during COVID was tough for her as she also had ADD and didn't have structure. Her support was the christian but due to restrictions during COVID she was socially isolated. She does not have a therapist. She is frustrated that she has had multiple evaluations now but no definitive answers. Short-term Memory: Repeats questions/statements: YES Misplacing items around the house: YES always been forgetful Difficulty remembering details of recent conversations within a few hours: YES Difficulty remembering names of familiar people (not family or friends): YES Missed some appointments or major events due to memory changes: YES Language: Word-finding difficulty: YES Fluency: NO Difficulty understanding conversations: YES Difficulty with reading or writing: YES Difficulty with reading comprehension: YES Mood: Frustrated not being able to do things I used to. She is sometimes depressed. When she watches an old movie it helps her feel at ease. She denies any thought of hurting herself or others. Neurobehavioral symptoms: slightly impaired. People have told her she looks more confused. Sleep: normally Goes to bed at 10 pm wakes up at 6:30 am. She is always tired. Parkinsonism: normal REVIEW OF SYSTEMS: Weight change/Appetite: alright Hearing: no change Vision: no change Constipation, Diarrhea: no Incontinence: no Chest pain: No Edema: No Dyspnea: No Falls/injuries/accidents: No NEURO: SEE HPI OUTPATIENT MEDICATIONS Current Outpatient Medications on File Prior to Visit Medication Sig BIOTIN ORAL Take by mouth once daily. rosuvastatin (CRESTOR) 5 mg tablet Take 1 tablet by mouth once daily. calcium citrate/vitamin D3 (CITRACAL-D3 PETITES ORAL) Take by mouth once daily. lisinopril (ZESTRIL, PRINIVIL) 10 mg tablet Take 10 mg by mouth once daily. citalopram (CELEXA) 20 mg tablet Take 20 mg by mouth once daily. OTC NUTRITIONAL SUPPLEMENT 20 mg Collagen Powder, add to cup of coffee every morning B-complex with vitamin C (VITAMIN B COMPLEX-C ORAL) Take 1 capsule by mouth once daily. MAGNESIUM ORAL Take 1 tablet by mouth once daily. aspirin, enteric coated (ASPIRIN, ENTERIC COATED) 81 mg EC tablet Take 81 mg by mouth once daily. flaxseed 1,000 mg cap Take 1 capsule by mouth once daily. multivitamins(DAILY MULTIVITAMIN TAB) Take one(1) tablet daily. Current Facility-Administered Medications on File Prior to Visit Medication perflutren lipid microspheres 1.3 mL in NaCl (PF) 0.9% 10 mL injection (DEFINITY) sodium chloride 0.9 % (flush) 10 mL (BD POSIFLUSH) MEDICAL HISTORY PAST MEDICAL HISTORY Diagnosis Date Anxiety disorder in conditions classified elsewhere Breast cancer (HCC) 2016 Breast cancer--LEFT Depressive disorder, not elsewhere classified Diverticulosis of colon (without mention of hemorrhage) Esophageal reflux Internal hemorrhoids without mention of complication Lumbago Other and unspecified hyperlipidemia Skin cancer Unspecified essential hypertension SURGICAL HISTORY PAST SURGICAL HISTORY Procedure Laterality Date BX BREAST W/DEVICE 1ST LESION ULTRASOUND GUID Left 06/09/16 U/S core left retroareolar bx COLONOSCOPY FLX DX W/COLLJ SPEC WHEN PFRMD 03/03/2004,2012 Colonoscopy HEART CATHETERIZATION 98 INSJ TUNNELED CTR VAD W/SUBQ PORT AGE 7 YR/> Right 06-28-16 MASTECTOMY,PARTIAL, WITH AXILLARY LYMPHADENECTOMY Left 06-28-16 W/ SLN BIOPSY PAST SURGICAL HISTORY OF BILAT. PARTIAL SALPINGECTOMY PAST SURGICAL HISTORY OF NEUROMA REMOVED FROM L FOOT PAST SURGICAL HISTORY OF REATTACHMENT OF L DISTAL BICEPS TONSILLECTOMY PRIMARY/SECONDARY <AGE 14 UNSPECIFIED ORAL SURGERY PROCEDURE, BY REPORT [place] [facility] SOCIAL HISTORY Social History Tobacco Use Smoking status: Former Packs/day: 1.00 Types: Cigarettes Quit date: 09/04/1997 Years since quittin.5 Smokeless tobacco: Never Tobacco comments: Pt smoked on & off x 20 years. Vaping Use Vaping Use: Never used Substance Use Topics Alcohol use: Yes Comment: occassionally Drug use: No -No tobacco. Ocassionally during vacation uses alcohol. No history of substance abuse. -Marital status: Social She lives with kids since her breast cancer diagnosis in 2014 -Advanced directives/POA: She states her POA is her son. FAMILY HISTORY FAMILY HISTORY Problem Relation Age of Onset Osteoporosis Mother Heart Mother CHF Hypertension Mother Diabetes Father Hypertension Father Heart Father CHF Cancer Maternal Grandfather 60's, lung cancer, hx of smoking Cancer Maternal Uncle 70 Lung cancer Cancer Maternal Uncle 60's; lung and esophageal cancer; hx of smoking Skin Cancer Paternal Aunt No known family history of dementia. ALLERGIES ALLERGIES Allergen Reactions Amantadine Intolerance crying Voltaren [Diclofena* Hives OUTSIDE RECORDS: No outside records provided to review. INTERNAL RECORDS: The patient's electronic medical record was reviewed. The relevant details are summarized in this note. Functional Evaluation: B-ADLs: (I=independent,A=assistance,D=dep endent) ?Bathing: I , Dressing: I , Toileting: I , Transferring: I , Continence: I , Feeding: I I-ADLs: Transportation: I , Medications: I , Handle Finances: I sometimes pays twice or forgets to pay since fall. OBJECTIVE: PHYSICAL EXAM: Vitals: BP 112/69 Pulse 62 Wt 71.4 kg (157 lb 8 oz) BMI 27.03 kg/m General appearance: Sitting upright. Appears stated age. No acute distress. Non-toxic appearing. No hypomimia. Lungs: Non labored respirations Heart:Normal Rate Neuro: Sebastien Cognitive Assessment (MoCA) Version 1 Total Score: 26/30 Visuospatial/Executive Alternating [place] Making: Patient successfully draws the pattern without drawing any lines that cross. (+1) Visuoconstructional Skills (Shape): Patient is unable to successfully complete the task. (0) Visuoconstructional Skills (Clock): Abnormal-Hands Visuospatial/Executive Score: 3/5 Naming The patient was able to name: Camel or Dromedary, Lion, Rhinoceros or Rhino Naming Score: 3/3 Memory Trials Memory Trial (1): The patient was able to correctly register: 5/5 Memory Trial (2): The patient was able to correctly register: 5/5 Attention Forward Digit Span: Correct (+1) Backward Digit Span: Correct (+1) Vigilance: Incorrect (0) Attention - Serial 7's: (4 or 5) Correct subtractions (+3) Attention Score: 5/6 Language Sentence Repetition (1): Correct (+1) Sentence Repetition (2): Correct (+1) Verbal Fluency: Patient produced 19 words. (+1) Language Score: 3/3 Abstraction Abstraction (1): Patient successfully related similarity. (+1) Abstraction (2): Patient successfully related similarity. (+1) Abstraction Score: 2/2 Delayed Recall Word 1: Spontaneously recalled (+1) Word 2: Unable to recall (0) Word 3: Spontaneously recalled (+1) Word 4: Spontaneously recalled (+1) Word 5: Spontaneously recalled (+1) Delayed Recall Score: 4/5 Orientation The patient was able to answer correctly: exact date, month, year, day of the week, exact place (name of hospital, clinic, office), city. Orientation Score: 6/6 Education less than or equal to 12th grade: +0 Semantic Fluency Patient produced 18 words. MoCA Past Scores MoCA 04/04/2023 MOCA TOTAL SCORE 26 out of 30 Visuospatial/ Executive 3 Naming 3 Attention 5 Language 3 Abstraction 2 Delayed Recall 4 Orientation 6 Education Level 0 Mental Status: Alert, oriented to person, place, and time. Follows commands. Answering questions appropriately. No dysarthria or hypophonia. Cranial Nerves: EOMI CN VII: Face symmetric CN VIII: Auditory acuity intact CN IX/CN X: Normal palate elevation CN XI: Normal shoulder shrug CN XII: Tongue Midline Motor Exam: No cog-wheeling. No rest tremor. No significant postural or intention tremor. No bradykinesia with finger tapping bilaterally. No abnormal movements, jerks. At least 4/5 Strength with no focality of weakness. Reflexes 2+ symmetric Sensory: Intact to light touch in all extremities. Coordination: FNF with no ataxia or dysmetria. Gait: Arises independently; normal posture; gait stable with normal stride length, NEUROPSYCHOLOGY: None no file IMAGING REVIEW: MRI Brain February 2023 No acute brain findings. Moderate generalized brain volume loss. Hippocampal volume is concordant with the general background brain volume loss. Approximately 3 cm right-sided retrocerebellar arachnoid cyst. (Has followed with general neurology for same. Plans for interval imaging and followup) Localized mass effect on the posterior right cerebellum, but no abnormal signal or any evidence for CSF obstruction. LABS Hemoglobin A1C Date Value Ref Range Status 10/04/2022 5.4 4.3 - 5.6 % Final Comment: [place] [employer] guidelines indicate that patients with HgbA1c in the range 5.7-6.4% are at increased risk for development of diabetes, and intervention by lifestyle modification may be beneficial. HgbA1c greater or equal to 6.5% is considered diagnostic of diabetes. TSH Date Value Ref Range Status 01/24/2023 1.700 0.270 - 4.200 mIU/L Final Vitamin B12 Date Value Ref Range Status 01/24/2023 688 232 - 1,245 pg/mL Final Plan ASSESSMENT: Rachel Leigh is a 73 year old Right handed female who presents to the [facility] for an initial evaluation for memory concerns . Patient has been seen and referred by Dr. Crispin Hawkins. Patient has a pertinent PMHx significant for Hypertension,Depression, Anxiety and Hyperlipidemia. Impression: She's referred for memory complaints after recent EMU stay. According to her feeling of Patience vu started in July 2022. The feeling of Patience Vu has been most distressing for her. March 2022 reports she had issues after COVID after an [place] cruise and feels foggy. In Fall 2018 she reports she had vestibular neuronitis and since then having issues with focusing and concentration. MOCA 26/30 with excellent semantic and phonetic fluency. Independent with with ADL's and IADL's although has noted some issue with her finances in the past year with ocassional missed bills. She has been worked up for Patience Vu sensation by epilepsy team and no EEG correlation .Low concern for a neurodegenerative process. Also endorses has history of ADD, anxiety and depression and social isolation after COVID. Will proceed with baseline neurocognitive evaluation. PLAN: Complete Neuropsych testing for baseline evaluation May consider talking to your PCP about a psychiatrist or a counselor regarding your stress/ anxiety. Follow up with Dr. Houston after the same Abner Crowell MD Cognitive Neurology Fellow [facility] 04/04/2023 1:05 PM Attending Note I evaluated the patient and personally participated in the mcdonald components. I have seen and evaluated the patient and discussed the case with the Cognitive Neurology Fellow. I agree with the assessment and plan as documented in the note. I spent a total of 60 minutes on the date of the service which included preparing to see the patient, [id number] patient care, completing clinical documentation, obtaining and/or reviewing separately obtained history, performing a medically appropriate examination, counseling and educating the patient/family/caregiver, ordering medications, tests, or procedures, and communicating with other HCPs (not separately reported). Voice recognition software was used to compose this office note. Please excuse any unintended typographical errors. Thuy Houston M.D Geriatric Medicine [facility] CC: Referring Physician: Crispin Hawkins [id number] [facility] [id number] PCP: Howard Arias [address] [place] [address] Patient Entered Data: Patient-Reported 04/04/2023 Where are you currently living? Home / Private residence Are you using any community resources to help care for yourself? No Has your caregiver accompanied you today? No Did you receive help completing this questionnaire? No If you received help, could you have completed this questionnaire on your own? N/A - I did not receive any help Activities of Daily Living (ADL) No flowsheet data found. PROMIS-10 PROMIS 10 02/13/2023 10/17/2022 In general, would you say your health is: Good Good In general, would you say your quality of life is: Fair Good In general, how would you rate your physical health? Good Good In general, how would you rate your mental health, including your mood and your ability to think? Poor Good In general, how would you rate your satisfaction with your social activities and relationships? Fair Good To what extent are you able to carry out your everyday physical activities such as walking, climbing stairs, carrying groceries, or moving a chair? Moderately Mostly In general, please rate how well you carry out your usual social activities and roles. (This includes activities at home, at work and in your community, and responsibilities as a parent, child, spouse, employee, friend, etc.) Poor Good How would you rate your pain on average? 0 - No Pain 1 How would you rate your fatigue on average? Moderate Mild How often have you been bothered by emotional problems such as feeling anxious, depressed or irritable? Often Sometimes PROMIS Adult Short Form-Global Health Score (Physical) 44.9 (Good) 47.7 (Good) PROMIS Adult Short Form-Global Health Score (Mental) 31.3 (Fair) 43.5 (Good) PHQ-9 PHQ-9 All Questions 04/04/2023 02/26/2023 Little interest or pleasure in doing things 1 1 Feeling down, depressed, or hopeless 0 1 Trouble falling or staying asleep, or sleeping too much 1 - Feeling tired or having little energy 1 - Poor appetite or overeating 1 - Feeling bad about yourself - or that you are a failure or have let yourself or your family down 0 - Trouble concentrating on things, such as reading the newspaper or watching television 2 - Moving or speaking so slowly that other people could have noticed. Or the opposite - being so fidgety or restless that you have been moving around a lot more than usual 1 - Thoughts that you would be better off , or of hurting yourself in some way 0 - PHQ-9 Score 7 - (0-4) minimal depression (5-9) mild depression (10-14) moderate depression (15-19) moderately severe depression (20-27) severe depression Full History of PHQ-9 Scores PHQ-9 Score 04/04/2023 7 Sleep 04/04/2023 02/13/2023 Have you been diagnosed with sleep apnea? Yes - Are you currently using positive airway pressure (PAP) therapy? Yes - How many hours per night on average do you use PAP therapy? 6 - Do you snore loudly? - Yes Do you often feel sleepy, tired, or fatigued during the day? - Yes Have you been told that you stop breathing during sleep? - Yes Have you been told or are you being treated for high blood pressure? - Yes Probability of moderate-severe sleep apnea (%) SAPS V2 - 51 (Recommend sleep study) No flowsheet data found. Caregiver-Reported No flowsheet data found. Dementia Severity Rating Scale (DSRS) No flowsheet data found. documented in this encounter [facility] 04-04-2023 Nurse Note Rachel Leigh is a 73 year old year old right handed woman Accompanied by: patient. 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 Consult Vital Signs: BP 112/69 Pulse 62 Wt 71.4 kg (157 lb 8 oz) BMI 27.03 kg/m documented in this encounter [facility] 03-31-2023 Note [place] [facility] [place]ACHEL LEIGH ([id number]) 1950 F Date Time Provider Department 03/31/23 [facility] During your visit today, we recorded the following information about you: Cleveland Calhoun RN 03/31/2023 11:42 AM Signed TCM Home Visit Referral Source of Stratification: TCM [facility] Admission Status: Discharged Readmission Risk Score: 6 LUCAS Score: 2 Patient meets program referral criteria: No Patient does not qualify for High Risk TCM Home Visit program due to: Discharged home, does not meet program criteria Clevelnad Calhoun RN March 31, 2023 9:58 AM TRANSITIONAL CARE MANAGEMENT (TCM) COMMUNITY MONITORING PROGRAM Provider Action/FYI: Spoke to patient. Pt states she has patience vu Has been having it since July 2022 Denies headache or dizziness. Pt states she is having some fatigue Did not move around much the past 4 days in the hospital. Denies questions or concerns. Appointments for Next 60 Days Date Time Provider Location Dept Phone 04/24/2023 9:00 AM [facility] [phone] SUMMARY: Discharge Network Status: In-Network Discharge Pt discharged from [facility] on 03/30/23. Admitted for: Seizures HOSPITAL COURSE: Rachel Leigh is a 73 year old female with depression and anxiety that presented with daily sensations of Patience Vu concerning for possible epileptic seizures since July of 2020. Prior routine EEG was normal while patient reported constant Patience Vu sensation. Recently started on low dose LCM 50/50 with no improvement. Rachel presented to the [facility] on 03/27/2023 for diagnosis. Medications (Vimpat) were discontinued during the admission. Patient noted to have intermittent feelings of patience vu through her admission without EEG change. Please see separate video-EEG report for details. A one time trial of LCM 200 mg was given on 03/30 with no effect. Prior to discharge, antiepileptic medications were stopped as there was no evidence of Epilepsy. A referral was placed to [facility] for further work up. Transitions of Care Critical Issues: SPECIALIST FOLLOW-UP: [facility] [place] MEDICATION CHANGES: Vimpat stopped LABS AND PROCEDURES PENDING AT DISCHARGE: Finalized Video EEG Report Contact made with patient: Yes Hi my name is Cleveland Calhoun RN and I am calling from the [facility] on behalf of your PCP, Howard Arias, DO I understand you were recently in the hospital so I am calling to check in with you to ensure you are feeling well now that you're home. May I ask you a few questions related to your hospital stay and well-being? Yes Contact with patient post discharge, spoke to patient. Patient identified by name and . Do you feel your health is BETTER, WORSE, or the SAME since leaving the hospital? Same ACTION TAKEN: Patient indicated symptoms are better or same, no action required. Continue outreach. MEDICATIONS: Many patients have questions or concerns about their medications once they are home. Do you have any questions about taking your medications or which medication you should be on? No Do you need any medication refills at this time, including any of the medications you might take only when needed? No ACTION TAKEN: No action required For RNs or Pharmacy completing outreach ONLY, was a medication review completed? Yes SOCIAL: We would like to make sure you have what you need so that your basics needs are met - including your personal safety, food, housing and medications. Would you like to speak with a social work team automobile assembler to help give you support for any of these needs? No It can be normal to feel anxious or down during a time like this. Would you like to talk to a mental health professional about how you have been feeling? No ACTION TAKEN: No action taken DISCHARGE INTRUCTIONS: Your discharge instructions / After Visit Summary (AVS) are important in guiding you through the recovery process. Do you have any questions related to your discharge instructions? No Do you have all the necessary equipment and supplies at home? Yes ACTION TAKEN: No action required I would like to help you schedule a hospital follow-up virtual or telephone visit with your PCP. This is a great way for you to connect with your provider to ensure you have safely transitioned home. If you are agreeable, I will send your request to a keyboarding teacher who will contact and assist you with that appointment. This will give you an opportunity to ask any questions or address any concerns you may have with your PCP. Inform the patient that if they have any questions or concerns prior to that appointment, to call their PCP's office right away. ACTION TAKEN: No action required, patient declines appointment. Your doctor would like us to remind you of the recommendations regard (more content not included)... [facility] 03-31-2023 Note HNO ID: [id number] Author: Cleveland Calhoun RN Service: ? Author Type: Registered Nurse Type: Progress Notes Filed: 03/31/2023 11:42 AM Note Text: TCM Home Visit Referral Source of Stratification: TCM [facility] Admission Status: Discharged Readmission Risk Score: 6 LUACS Score: 2 Patient meets program referral criteria: No Patient does not qualify for High Risk TCM Home Visit program due to: Discharged home, does not meet program criteria Cleveland Calhoun RN March 31, 2023 9:58 AM TRANSITIONAL CARE MANAGEMENT (TCM) COMMUNITY MONITORING PROGRAM Provider Action/FYI: Spoke to patient. Pt states she has patience vu Has been having it since July 2022 Denies headache or dizziness. Pt states she is having some fatigue Did not move around much the past 4 days in the hospital. Denies questions or concerns. Appointments for Next 60 Days Date Time Provider Location Dept Phone 04/24/2023 9:00 AM [facility] [phone] SUMMARY: Discharge Network Status: In-Network Discharge Pt discharged from [facility] on 03/30/23. Admitted for: Seizures HOSPITAL COURSE: Rachel Leigh is a 73 year old female with depression and anxiety that presented with daily sensations of Patience Vu concerning for possible epileptic seizures since July of 2020. Prior routine EEG was normal while patient reported constant Patience Vu sensation. Recently started on low dose LCM 50/50 with no improvement. Rachel presented to [facility] on [facility]/27/2023 for diagnosis. Medications (Vimpat) were discontinued during the admission. Patient noted to have intermittent feelings of patience vu through her admission without EEG change. Please see separate video-EEG report for details. A one time trial of LCM 200 mg was given on 03/30 with no effect. Prior to discharge, antiepileptic medications were stopped as there was no evidence of Epilepsy. A referral was placed to [facility] for further work up. Transitions of Care Critical Issues: SPECIALIST FOLLOW-UP: [facility] [place] MEDICATION CHANGES: Vimpat stopped LABS AND PROCEDURES PENDING AT DISCHARGE: Finalized Video EEG Report Contact made with patient: Yes Hi my name is Cleveland Calhoun RN and I am calling from the [facility] on behalf of your PCP, Howard Arias, DO I understand you were recently in the hospital so I am calling to check in with you to ensure you are feeling well now that you're home. May I ask you a few questions related to your hospital stay and well-being? Yes Contact with patient post discharge, spoke to patient. Patient identified by name and . Do you feel your health is BETTER, WORSE, or the SAME since leaving the hospital? Same ACTION TAKEN: Patient indicated symptoms are better or same, no action required. Continue outreach. MEDICATIONS: Many patients have questions or concerns about their medications once they are home. Do you have any questions about taking your medications or which medication you should be on? No Do you need any medication refills at this time, including any of the medications you might take only when needed? No ACTION TAKEN: No action required For RNs or Pharmacy completing outreach ONLY, was a medication review completed? Yes SOCIAL: We would like to make sure you have what you need so that your basics needs are met - including your personal safety, food, housing and medications. Would you like to speak with a social work team automobile assembler to help give you support for any of these needs? No It can be normal to feel anxious or down during a time like this. Would you like to talk to a mental health professional about how you have been feeling? No ACTION TAKEN: No action taken DISCHARGE INTRUCTIONS: Your discharge instructions / After Visit Summary (AVS) are important in guiding you through the recovery process. Do you have any questions related to your discharge instructions? No Do you have all the necessary equipment and supplies at home? Yes ACTION TAKEN: No action required I would like to help you schedule a hospital follow-up virtual or telephone visit with your PCP. This is a great way for you to connect with your provider to ensure you have safely transitioned home. If you are agreeable, I will send your request to a keyboarding teacher who will contact and assist you with that appointment. This will give you an opportunity to ask any questions or address any concerns you may have with your PCP. Inform the patient that if they have any questions or concerns prior to that appointment, to call their PCP's office right away. ACTION TAKEN: No action required, patient declines appointment. Your doctor would like us to remind you of the recommendations regarding the coronavirus (Covid19) outbreak: Avoid public places as much as possible. Avoid close contact (within 6 feet) with others you don?t live with, especially if they are sick (more content not included)... [facility] 03-31-2023 History of Present illness Narrative TCM Home Visit Referral Source of Stratification: TCM [facility] Admission Status: Discharged Readmission Risk Score: 6 LUCAS Score: 2 Patient meets program referral criteria: No Patient does not qualify for High Risk TCM Home Visit program due to: Discharged home, does not meet program criteria Cleveland Calhoun RN March 31, 2023 9:58 AM TRANSITIONAL CARE MANAGEMENT (TCM) COMMUNITY MONITORING PROGRAM Provider Action/FYI: Spoke to patient. Pt states she has patience vu Has been having it since July 2022 Denies headache or dizziness. Pt states she is having some fatigue Did not move around much the past 4 days in the hospital. Denies questions or concerns. Appointments for Next 60 Days Date Time Provider Location Dept Phone 04/24/2023 9:00 AM [facility] [phone] SUMMARY: Discharge Network Status: In-Network Discharge Pt discharged from [facility] on 03/30/23. Admitted for: Seizures HOSPITAL COURSE: Rachel Leigh is a 73 year old female with depression and anxiety that presented with daily sensations of Patience Vu concerning for possible epileptic seizures since July of 2020. Prior routine EEG was normal while patient reported constant Patience Vu sensation. Recently started on low dose LCM 50/50 with no improvement. Rachel presented to the [facility] on 03/27/2023 for diagnosis. Medications (Vimpat) were discontinued during the admission. Patient noted to have intermittent feelings of patience vu through her admission without EEG change. Please see separate video-EEG report for details. A one time trial of LCM 200 mg was given on 03/30 with no effect. Prior to discharge, antiepileptic medications were stopped as there was no evidence of Epilepsy. A referral was placed to [facility] for further work up. Transitions of Care Critical Issues: SPECIALIST FOLLOW-UP: [facility] [place] MEDICATION CHANGES: Vimpat stopped LABS AND PROCEDURES PENDING AT DISCHARGE: Finalized Video EEG Report Contact made with patient: Yes Hi my name is Cleveland Calhoun RN and I am calling from the [facility] on behalf of your PCP, Howard Arias, DO I understand you were recently in the hospital so I am calling to check in with you to ensure you are feeling well now that you're home. May I ask you a few questions related to your hospital stay and well-being? Yes Contact with patient post discharge, spoke to patient. Patient identified by name and . Do you feel your health is BETTER, WORSE, or the SAME since leaving the hospital? Same ACTION TAKEN: Patient indicated symptoms are better or same, no action required. Continue outreach. MEDICATIONS: Many patients have questions or concerns about their medications once they are home. Do you have any questions about taking your medications or which medication you should be on? No Do you need any medication refills at this time, including any of the medications you might take only when needed? No ACTION TAKEN: No action required For RNs or Pharmacy completing outreach ONLY, was a medication review completed? Yes SOCIAL: We would like to make sure you have what you need so that your basics needs are met - including your personal safety, food, housing and medications. Would you like to speak with a social work team automobile assembler to help give you support for any of these needs? No It can be normal to feel anxious or down during a time like this. Would you like to talk to a mental health professional about how you have been feeling? No ACTION TAKEN: No action taken DISCHARGE INTRUCTIONS: Your discharge instructions / After Visit Summary (AVS) are important in guiding you through the recovery process. Do you have any questions related to your discharge instructions? No Do you have all the necessary equipment and supplies at home? Yes ACTION TAKEN: No action required I would like to help you schedule a hospital follow-up virtual or telephone visit with your PCP. This is a great way for you to connect with your provider to ensure you have safely transitioned home. If you are agreeable, I will send your request to a keyboarding teacher who will contact and assist you with that appointment. This will give you an opportunity to ask any questions or address any concerns you may have with your PCP. Inform the patient that if they have any questions or concerns prior to that appointment, to call their PCP's office right away. ACTION TAKEN: No action required, patient declines appointment. Your doctor would like us to remind you of the recommendations regarding the coronavirus (Covid19) outbreak: Avoid public places as much as possible. Avoid close contact (within 6 feet) with others you don t live with, especially if they are sick. Stay home if you are sick. Wash your hands regularly for at least 20 seconds with soap and water. Wear a cloth mask in public places to help reduce community spread. Do not go to your Doctor s office unless instructed to do so. For any non-emergency symptoms, call your Doctor s office to get instructions on how to manage (we might recommend a telephone or virtual visit). For emergency symptoms, proceed to Emergency Department as usual but inform them of cough and fever symptoms HAL if present (or call on the way if possible). JACQUELIN Education Ordered -: No Cleveland Calhoun RN documented in this encounter [facility] 03-30-2023 Note HNO ID: [id number] Author: Jovita Gallagher APRN.[employer]NAGER [employer] Service: Neurology Adult Epilepsy Author Type: Nurse Practitioner Type: Progress Notes Filed: 03/30/2023 12:10 PM Note Text: NEUROLOGY EPILEPSY MONITORING UNIT (EMU) PROGRESS NOTE NIGHT AND WEEKEND COVERAGE: After 5 pm and over the weekends, please page [phone] to contact the epilepsy provider occupational therapy director Subjective No complaints. No difference after loading dose of Vimpat IV 200 mg HOME ANTI EPILEPTIC DRUGS: LCM 50/50 ANTI EPILEPTIC DRUGS HERE: Objective 03/30/23 0510 03/30/23 0824 03/30/23 0933 03/30/23 1000 BP: 116/62 117/69 Pulse: (!) 53 63 67 Resp: 13 19 Temp: 36.4 ?C (97.5 ?F) 36.8 ?C (98.2 ?F) TempSrc: Temporal Temporal SpO2: 97% 98% Weight: Height: EKG, TELEMETRY, EEG, MONITORS AND ALARMS ARE ON: Yes ? Written order: Remains standing. SEIZURE DETECTION SOFTWARE ON: Yes ? combination technician has been notified: Yes ? customer account administrator has been notified: Yes EXAM: Mental Status: Alert and oriented to person, place and time. Able to follow 1 and 2 step commands. Cranial Nerves: Pupils equal and reactive to light, extraocular muscles intact. No nystagmus, face symmetric. Motor: Moves all extremities equally. Sensation: Intact to light touch. Coordination: No dysmetria DATA: Diagnostic tests reviewed for today's visit: Component Latest Ref Rng AND Units 03/27/2023 Lacosamide 2.2 - 19.8 ug/mL 3.2 Desmethyllacosamide <2.6 ug/mL <0.6 QUALITY CHECKLIST: Lines, Drains, and Airways Line Duration Peripheral 03/27/23 1412 Right Hand 22 Gauge 2 days Reviewed lines and needs to be continued: REASONS: PRN IV SEIZURE MEDICATION Current restraint orders: None Assessment AND Plan This is a 73 year old right handed females with depression and anxiety that presents with daily sensations of Patience Vu concerning for possible epileptic seizures since July of 2020. Prior routine EEG was normal while patient reported constant Patience Vu sensation. Recently started on low dose LCM 50/50 with minimal improvement. Admitted to clarify diagnosis. Trial of LCM 200 mg IV this morning to see if any affect of Patience vu, no change per pt Seizures- PLAN: VEEG for diagnosis Seizure precautions Hold LCM SCD's bilaterally Continue 2 mg of ativan for rescue for sz >3 mins or 3 or more sz's in 8 hrs DC planning: pending results Medication and Non-Pharmacologic VTE Prophylaxis/Anticoagulants Anticoagulant AND Antiplatelet Medications (From admission, onward) Start Dose Route Frequency Last Action Ordered Stop 03/27/23 2100 aspirin, enteric coated 81 mg tab(s) 81 mg ORAL AT BEDTIME Given, 03/29 202803/27/23 1547 -- 03/27/23 1315 activity - mobilize patient (sc,ak) VTE Prophylaxis: VTE prophylaxis appropriate Plan of care discussed with: Provider, RN, Patient SIGNATURE: Jovita Gallagher APRN.CNP PATIENT NAME: Rachel Leigh DATE: March 30, 2023 TIME: 11:00 AM [facility] 03-29-2023 Note HNO ID: [id number] Author: Jovita Gallagher APRN.[employer]NA[employer] Service: Neurology Adult Epilepsy Author Type: Nurse Practitioner Type: Progress Notes Filed: 03/29/2023 1:04 PM Note Text: Attestation signed by Crispin Hawkins MD at 03/29/2023 4:26 PM EPILEPSY CENTER ATTENDING NOTE [facility] Epilepsy Monitoring Unit Progress Note Date of Service: 03/29/2023 [facility] STAFF PHYSICIAN NOTE OF PERSONAL INVOLVEMENT IN CARE Patient was interviewed and examined by me on separate attending rounds this morning with nurse practitioner, Jovita Gallagher [employer]. I have reviewed the history, exam, diagnosis, and plan obtained and documented by the nurse practitioner as above. I performed my own [id number] assessment and personally participated in the mcdonald components. The following comments revise or confirm these. I have discussed the case and management of the patient's care with the care team. Clinical overnight update: No episodes. No complaints. Reports constant sense of familiarity Pertinent exam: Normal neurological examination Data reviewed: Continuous video EEG recording was personally reviewed by myself and the results of the evaluation to date are summarized below. Interictal findings: ST LT Ictal findings: None yet. Reports constant feeling of sense of familiarity (when meeting new staff on the floor, watching TV or reading news) IMPRESSION: Ms. Rachel Leigh is a 73 year old Right handed woman with constant sensation of Patience Vu. 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 Routine EEG was normal while patient reported constant Patience Vu sensation. We gave a trial of Low dose Vimpat 50 mg BID without significant improvement, however she was able to read a book without Patience vu. Currently admitted for diagnostic evaluation. So far no EEG seizures have been recorded, while she is reporting constant Patience Vu. Interictal EEG shows sharp transients in Left temporal region ( no definite Sharp waves). Primary epileptologist: Crispin Hawkins MD Admit Date: 03/27/2023 Seizure types: Type A: Patience Vu AEDs Home LCM 50 mg BID Here None Prior PLAN: Continuous video-EEG monitoring continues Holding home anti-epileptic medications. Will give trial of IV vimpat 200 mg once in the AM tomorrow. If any improvement in her symptoms is noted, we may place her on maintenance dose. If no response, we discussed not resuming AEDs and getting [facility]. Admission AED levels pending Activation procedures: hyperventilation, photic stimulation Seizure precautions Rescue plan in place: 2mg of lorazepam (Ativan) IV as needed for prolonged motor epileptic seizure greater than 3 minutes and or 3rd motor epileptic seizure within 8 hours. Discharge planning pending capturing episodes of concern. Follow-up after discharge with Crispin Hawkins MD The treatment plan was discussed in detail with the patient. Time for questions was given and answers were discussed. The patient agreed with the treatment plan. Crispin Hawkins MD Associate Staff, Epilepsy [facility] 03/29/2023 Office phone: [phone] Pager: [phone] For urgent EEG review, call the Epilepsy Continuous Monitoring Unit (ECMU) at [facility] [phone] or [phone]. For overnight issues, 7pm [place] 7am, [place] [phone]. For in house night coverage of emergencies, call [facility] pager [phone]. NEUROLOGY EPILEPSY MONITORING UNIT (EMU) PROGRESS NOTE NIGHT AND WEEKEND COVERAGE: After 5 pm and over the weekends, please page [phone] to contact the epilepsy provider occupational therapy director Subjective No complaints. Continues to report intermittent feeling of familiarly when meeting new staff HOME ANTI EPILEPTIC DRUGS: LCM 50/50 ANTI EPILEPTIC DRUGS HERE: Objective 03/29/23 0200 03/29/23 0300 03/29/23 0500 03/29/23 1057 BP: 121/71 Pulse: (!) 47 (!) 46 (!) 56 Resp: 13 12 14 Temp: 36.6 ?C (97.9 ?F) 36.2 ?C (97.2 ?F) TempSrc: Temporal Temporal SpO2: 99% 98% 98% Weight: Height: EKG, TELEMETRY, EEG, MONITORS AND ALARMS ARE ON: Yes ? Written order: Remains standing. SEIZURE DETECTION SOFTWARE ON: Yes ? combination technician has been notified: Yes ? customer account administrator has been notified: Yes EXAM: Mental Status: Alert and orien (more content not included)... [facility] 03-29-2023 Note HNO ID: [id number] Author: Jovita Gallagher APRN.MANAGER UNIVERSITY Service: Neurology Adult Epilepsy Author Type: Nurse Practitioner Type: Progress Notes Filed: 03/29/2023 1:02 PM Note Text: NEUROLOGY EPILEPSY MONITORING UNIT (EMU) PROGRESS NOTE NIGHT AND WEEKEND COVERAGE: After 5 pm and over the weekends, please page [phone] to contact the epilepsy provider occupational therapy director Subjective No complaints. Continues to report intermittent feeling of familiarly when meeting new staff HOME ANTI EPILEPTIC DRUGS: LCM 50/50 ANTI EPILEPTIC DRUGS HERE: Objective 03/29/23 0200 03/29/23 0300 03/29/23 0500 03/29/23 1057 BP: 121/71 Pulse: (!) 47 (!) 46 (!) 56 Resp: 13 12 14 Temp: 36.6 ?C (97.9 ?F) 36.2 ?C (97.2 ?F) TempSrc: Temporal Temporal SpO2: 99% 98% 98% Weight: Height: EKG, TELEMETRY, EEG, MONITORS AND ALARMS ARE ON: Yes ? Written order: Remains standing. SEIZURE DETECTION SOFTWARE ON: Yes ? combination technician has been notified: Yes ? customer account administrator has been notified: Yes EXAM: Mental Status: Alert and oriented to person, place and time. Able to follow 1 and 2 step commands. Cranial Nerves: Pupils equal and reactive to light, extraocular muscles intact. No nystagmus, face symmetric. Motor: Moves all extremities equally. Sensation: Intact to light touch. Coordination: No dysmetria DATA: Diagnostic tests reviewed for today's visit: Component Latest Ref Rng AND Units 03/27/2023 Lacosamide 2.2 - 19.8 ug/mL 3.2 Desmethyllacosamide <2.6 ug/mL <0.6 QUALITY CHECKLIST: Lines, Drains, and Airways Line Duration Peripheral 03/27/23 1412 Right Hand 22 Gauge 1 day Reviewed lines and needs to be continued: REASONS: PRN IV SEIZURE MEDICATION Current restraint orders: None Assessment AND Plan This is a 73 year old right handed females with depression and anxiety that presents with daily sensations of Patience Vu concerning for possible epileptic seizures since July of 2020. Prior routine EEG was normal while patient reported constant Patience Vu sensation. Recently started on low dose LCM 50/50 with minimal improvement. Admitted to clarify diagnosis. LCM held on admission. Seizures- PLAN: VEEG for diagnosis Seizure precautions Hold LCM SCD's bilaterally Continue 2 mg of ativan for rescue for sz >3 mins or 3 or more sz's in 8 hrs DC planning: pending results Medication and Non-Pharmacologic VTE Prophylaxis/Anticoagulants Anticoagulant AND Antiplatelet Medications (From admission, onward) Start Dose Route Frequency Last Action Ordered Stop 03/27/23 2100 aspirin, enteric coated 81 mg tab(s) 81 mg ORAL AT BEDTIME Given, 03/28 203603/27/23 1547 -- 03/27/23 1315 activity - mobilize patient (sc,oh) VTE Prophylaxis: VTE prophylaxis appropriate Plan of care discussed with: Provider, RN, Patient SIGNATURE: Jovita Gallagher APRN.CNP PATIENT NAME: Rachel Leigh DATE: March 29, 2023 TIME: 10:35 AM [facility] 03-29-2023 Note HNO ID: [id number] Author: Jovita Israel RN Service: Care Management Author Type: Registered Nurse Type: Care Mgt Progress Note Filed: 03/29/2023 7:50 AM Note Text: CARE MANAGEMENT PROGRESS NOTE SERVICE DATE: 03/29/2023 SERVICE TIME: 7:50 AM LOS: 0 days Post-Acute Discharge Planning Patient Goal(s): General wellness, Be able to go home Mack of Choice Explained: Discharge Planning Participant(s): Patient Patient/Family Comments: Anticipated # of Days Until Discharge: Transport at Discharge: Transportation Arrangements: Car Destination: Home Needs Prior to Discharge: Needs Prior to Discharge: To Be Determined, Discharge Prescriptions Post-Acute Discharge Plan: Patient from home with family. IND DETONATOR MAKER. Family to provide transportation at discharge. Planned admission. No CM needs at this time. Will follow for transitional care planning. SIGNATURE: Jovita Israel RN PATIENT NAME: Rachel Leigh DATE: March 29, 2023 TIME: 7:50 AM PAGER/CONTACT #: [phone] [facility] 03-28-2023 Note HNO ID: [id number] Author: Jovita Israle RN Service: Care Management Author Type: Registered Nurse Type: Care Mgt Initial Assessment Filed: 03/28/2023 10:04 AM Note Text: CARE MANAGEMENT: ASSESSMENT AND DISCHARGE PLAN SERVICE DATE: March 28, 2023 SERVICE TIME: 10:02 AM PCP: Howard Arias DO Primary Contact: Extended Emergency Contact Information Primary Emergency Contact: Jonnie Leigh Address: [address] [place] [address] Mobile Relation: Son Secondary Emergency Contact: Kaelyn Leigh Address: [address] [place], [place] [id number] [place] [address] Mobile Relation: Other Admission Status: Observation Insurance Provider: JESENIA FARMER OOS Discharge Planning requested by: Per Department Practice Potential Transition Plans No Services Indicated;Home Advance Directives Current Advance Directive: Health Care Power of Forming Machine Tender;Living Will In Chart: No Current Living Arrangements and Support Lives with: Children Type of Residence: Private Residence (House) Does the patient have to climb stairs at home?: Yes;stairs outside the home;stairs within the home Support: Friends/neighbors, Family members, Children How do you manage to accomplish the following: Independent: Ambulation;Bathe/Shower;Dress;Carmen ls/Meal Prep;Going to the bathroom;Medication Management;Transportation to appointments/community Current Services/Equipment Current Post-Acute Service(s): DME Current DME Type: Continuous Positive Airway Pressure Discharge Planning Patient Goal(s): General wellness, Be able to go home Mack of Choice Explained: Mack of Choice Given: No Reason Not Given: No placements necessary Are you interested in bedside delivery of your medications? No Discharge Planning Participant(s): Patient Patient/Family Comments: Caregiver Assessment: Caregiver is ready, willing and able to meet the patient's needs as recommended by the inter-professional team: No Caregiver needed Transport at Discharge: Transportation Arrangements: Car Destination: Home Needs Prior to Discharge: Needs Prior to Discharge: To Be Determined;Discharge Prescriptions Post-Acute Discharge Plan: Spoke with patient. Patient lives with her son and his in a 2 story home. She lives upstairs. 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 +Cpap. Patient states that she has AD's but are at home. She uses [facility] in [place] for scripts. Family to provide transportation at discharge. +PCP +RX +DME No CM needs at this time. Will follow for transitional care planning. SIGNATURE: Jovita Israel RN PATIENT NAME: Rachel Leigh DATE: March 28, 2023 TIME: 10:02 AM CONTACT #: [phone] [facility] 03-28-2023 Note HNO ID: [id number] Author: Jovita Gallagher APRN.MANAGER [employer]IVERSITY Service: Neurology Adult Epilepsy Author Type: Nurse Practitioner Type: Progress Notes Filed: 03/28/2023 10:39 AM Note Text: Attestation signed by Crispin Hawkins MD at 03/28/2023 11:40 AM EPILEPSY CENTER ATTENDING NOTE [facility] Epilepsy Monitoring Unit Progress Note Date of Service: March 28, 2023 [facility] STAFF PHYSICIAN NOTE OF PERSONAL INVOLVEMENT IN CARE Patient was interviewed and examined by me on separate attending rounds this morning with nurse practitioner, Jovita Gallagher MANAGER UNIVERSITY. I have reviewed the history, exam, diagnosis, and plan obtained and documented by the nurse practitioner as above. I performed my own [id number] assessment and personally participated in the mcdonald components. The following comments revise or confirm these. I have discussed the case and management of the patient's care with the care team. Clinical overnight update: No episodes. No complaints. Pertinent exam: Normal neurological examination Data reviewed: Continuous video EEG recording was personally reviewed by myself and the results of the evaluation to date are summarized below. Interictal findings: ST LT Ictal findings: None yet. Reports constant feeling of sense of familiarity ( when meeting new staff on the floor, watching TV or reading news) IMPRESSION: Ms. Rachel Leigh is a 73 year old Right handed woman with constant sensation of Patience Vu. 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 Routine EEG was normal while patient reported constant Patience Vu sensation. We gave a trial of Low dose Vimpat 50 mg BID without significant improvement, however she was able to read a book without Patience vu. Currently admitted for diagnostic evaluation. So far no EEG seizures have been recorded, while she is reporting constant Patience Vu. Interictal EEG shows sharp transients in Left temporal region ( no definite Sharp waves). Primary epileptologist: Crispin Hawkins MD Admit Date: 03/27/2023 Seizure types: Type A: Patience Vu AEDs Home LCM 50 mg BID Here None Prior PLAN: Continuous video-EEG monitoring continues Holding home anti-epileptic medications Admission AED levels pending Activation procedures: hyperventilation, photic stimulation Seizure precautions Rescue plan in place: 2mg of lorazepam (Ativan) IV as needed for prolonged motor epileptic seizure greater than 3 minutes and or 3rd motor epileptic seizure within 8 hours. Discharge planning pending capturing episodes of concern. We may give a trial of higher dose of Vimpat at discharge while we plan to refer her to [facility]. Follow-up after discharge with Crispin Hawkins MD The treatment plan was discussed in detail with the patient. Time for questions was given and answers were discussed. The patient agreed with the treatment plan. Crispin Hawkins MD Associate Staff, Epilepsy [facility] March 28, 2023 Office phone: [phone] Pager: [phone] For urgent EEG review, call the Epilepsy Continuous Monitoring Unit (ECMU) at [facility] [phone] or [phone]. For overnight issues, 7pm [place] 7am, [place] [phone]. For in house night coverage of emergencies, call [facility] pager [phone]. NEUROLOGY EPILEPSY MONITORING UNIT (EMU) PROGRESS NOTE NIGHT AND WEEKEND COVERAGE: After 5 pm and over the weekends, please page [phone] to contact the epilepsy provider occupational therapy director Subjective No complaints. Continues to report intermittent feeling of familiarly when meeting new staff and changing channels on the TV, like she has met them before or seen the show before HOME ANTI EPILEPTIC DRUGS: LCM 50/50 ANTI EPILEPTIC DRUGS HERE: Objective 03/27/23 2100 03/27/23 2302 03/28/23 0514 03/28/23 0910 BP: 129/86 120/75 125/77 121/80 Pulse: (!) 58 (!) 53 (!) 52 Resp: 23 14 13 Temp: 36.6 ?C (97.9 ?F) 36.6 ?C (97.9 ?F) 36.3 ?C (97.3 ?F) TempSrc: Temporal Temporal Oral SpO2: 98% 97% Weight: Height: EKG, TELEMETRY, EEG, MONITORS AND ALARMS ARE ON: Yes Written order: Remains standing. SEIZURE DETECTION SOFTWARE ON: Yes combination technician has been notified: Yes customer account administrator has been notified: Yes EXAM: Mental Status: Alert and oriented to person, place and time. Able to follow (more content not included)... [facility] documented as of this encounter (statuses as of 03/30/2023) [facility]07-24-2023 History of Past illness Narrative* Problem Noted Date Diagnosed Date Resolved Date Seizures 03/27/2023 03/30/2023 Last Assessment & Plan: PLAN: VEEG for diagnosis Seizure precautions Hold LCM SCD's bilaterally Continue 2 mg of ativan for rescue for sz >3 mins or 3 or more sz's in 8 hrs DC planning: pending results Cancer of central portion of left female breast 11/14/2016 01/20/2017 Chemotherapy-induced neutropenia 08/05/2016 01/27/2017 documented as of this encounter (statuses as of 03/31/2023) [facility] History of Past illness Narrative* Problem Noted Date Diagnosed Date Resolved Date Seizures 03/27/2023 03/30/2023 Last Assessment & Plan: PLAN: VEEG for diagnosis Seizure precautions Hold LCM SCD's bilaterally Continue 2 mg of ativan for rescue for sz >3 mins or 3 or more sz's in 8 hrs DC planning: pending results Cancer of central portion of left female breast 11/14/2016 01/20/2017 Chemotherapy-induced neutropenia 08/05/2016 01/27/2017 documented as of this encounter (statuses as of 04/05/2023) [facility] History of Past illness Narrative* Problem Noted Date Diagnosed Date Resolved Date Seizures 03/27/2023 03/30/2023 Last Assessment & Plan: PLAN: VEEG for diagnosis Seizure precautions Hold LCM SCD's bilaterally Continue 2 mg of ativan for rescue for sz >3 mins or 3 or more sz's in 8 hrs DC planning: pending results Cancer of central portion of left female breast 11/14/2016 01/20/2017 Chemotherapy-induced neutropenia 08/05/2016 01/27/2017 documented as of this encounter (statuses as of 04/27/2023) [address]24-2023 History of Past illness Narrative* Problem Noted Date Diagnosed Date Resolved Date Seizures 03/27/2023 03/30/2023 Last Assessment & Plan: PLAN: VEEG for diagnosis Seizure precautions Hold LCM SCD's bilaterally Continue 2 mg of ativan for rescue for sz >3 mins or 3 or more sz's in 8 hrs DC planning: pending results Cancer of central portion of left female breast 11/14/2016 01/20/2017 Chemotherapy-induced neutropenia 08/05/2016 01/27/2017 documented as of this encounter (statuses as of 04/28/2023) [facility] History of Past illness Narrative* Problem Noted Date Diagnosed Date Resolved Date Seizures 03/27/2023 03/30/2023 Last Assessment & Plan: PLAN: VEEG for diagnosis Seizure precautions Hold LCM SCD's bilaterally Continue 2 mg of ativan for rescue for sz >3 mins or 3 or more sz's in 8 hrs DC planning: pending results Cancer of central portion of left female breast 11/14/2016 01/20/2017 Chemotherapy-induced neutropenia 08/05/2016 01/27/2017 documented as of this encounter (statuses as of 04/30/2023) [facility] History of Past illness Narrative* Problem Noted Date Diagnosed Date Resolved Date Seizures 03/27/2023 03/30/2023 Last Assessment & Plan: PLAN: VEEG for diagnosis Seizure precautions Hold LCM SCD's bilaterally Continue 2 mg of ativan for rescue for sz >3 mins or 3 or more sz's in 8 hrs DC planning: pending results Cancer of central portion of left female breast 11/14/2016 01/20/2017 Chemotherapy-induced neutropenia 08/05/2016 01/27/2017 documented as of this encounter (statuses as of 05/04/2023) [facility] History of Past illness Narrative* Problem Noted Date Diagnosed Date Resolved Date Seizures 03/27/2023 03/30/2023 Last Assessment & Plan: PLAN: VEEG for diagnosis Seizure precautions Hold LCM SCD's bilaterally Continue 2 mg of ativan for rescue for sz >3 mins or 3 or more sz's in 8 hrs DC planning: pending results Cancer of central portion of left female breast 11/14/2016 01/20/2017 Chemotherapy-induced neutropenia 08/05/2016 01/27/2017 documented as of this encounter (statuses as of 05/15/2023) [facility] History of Past illness Narrative* Problem Noted Date Diagnosed Date Resolved Date Seizures 03/27/2023 03/30/2023 Last Assessment & Plan: PLAN: VEEG for diagnosis Seizure precautions Hold LCM SCD's bilaterally Continue 2 mg of ativan for rescue for sz >3 mins or 3 or more sz's in 8 hrs DC planning: pending results Cancer of central portion of left female breast 11/14/2016 01/20/2017 Chemotherapy-induced neutropenia (HCC) 08/05/2016 01/27/2017 documented as of this encounter (statuses as of 08/14/2023) [facility]-20-2023 NoteHNO ID: [id number] Author: Mello Steven MD Service: ? Author Type: Physician Type: Progress Notes Filed: 03/23/2023 2:13 PM Note Text: [facility] General Neurology Follow up/ Established patient visit Individuals who were included in, or assisted with the encounter were: Rachel Leigh Mello Steven MD Chief Complaint/Issues: Rachel Leigh is a 73 year old right-handed female with history of hypertension, anxiety, depression seen in the [facility] for: Arachnoid cyst Most Recent Neurological Assessment and Plan: Last Filed Values None HPI/Interval History: She has been seeing neurologist Dr. Hawkins for Patience vu. She had MRI brain which showed an arachnoid cyst and was referred to me. She is otherwise doing well. No headache, dizziness. Fall of 2019 had sudden onset of vertigo with nystagmus- underwent vestibular rehab. Reportedly MRI was negative for stroke. MRA neck showed a small outpouching of distal cervical Right ICA which was confirmed on CTA as a 3.5 x3.5 mm saccular aneurysm.Subsequent repeat CTA in 2019 and 2022 does not mention aneurym in the report. She was started on Aspirin 81 mg. MRI brain 02/07/2023 Moderate generalized brain volume loss. Hippocampal volume is concordant with the general background brain volume loss. Approximately 3 cm right-sided retrocerebellar arachnoid cyst. Localized mass effect on the posterior right cerebellum, but no abnormal signal or any evidence for CSF obstruction. MRA head and neck 02/07/2023 Distal internal carotid arteries are normally patent to the carotid terminus. Anterior circulation branch vessels are patent. Left A1 segment is dominant. No focal high-grade intracranial stenosis, vessel cutoff, filling defect, vascular malformation, or aneurysm. General Examination: BP 131/86 Pulse 63 Ht 162.6 cm (5' 4 ) Wt 70.7 kg (155 lb 12.8 oz) BMI 26.74 kg/m? General: Awake, alert, interactive, no acute distress, good nutritional status, normal development, well-kept Neurological Exam Mental Status Alert, fully oriented, attentive, with normal cognition, memory, speech and affect. Cranial Nerves Visual guevara intact. Pupils reactive. Extraocular movements conjugate and full. No ptosis. No nystagmus. Facial sensation intact. Face symmetric and strong. Palate and tongue normal. XI normal. Motor Examination and Coordination Motor examination with normal bulk, strength and tone. No drift. Normal rapid alternating movements and coordination. No adventitious movements or significant tremor. Reflexes Deep tendon reflexes graded by MRC Sensation Sensation intact to light touch, pinprick, proprioception and vibration. Gait Arises easily. Casual gait are normal. Assessment AND Plan 03/23/2023 - General Neurology, Mello Steven MD ASSESSMENT Rachel Leigh is a 73 year old right-handed female with history of hypertension, breast cancer s/p resection, anxiety, depression seen in the [facility] for: 1. Arachnoid cyst -- Arachnoid cyst: I suspect that there is a scheduling error. She has been seeing neurologist. There is no previous imaging to compare. But I discussed with her about the nature course of the arachnoid cyst. There is no compression on the cerebellum or brainstem at this moment. No surrounding edema. I think it could be followed with periodic MRI. --?a small outpouching of distal cervical Right ICA suspected to be aneurysm: It did not show on the recent MRA. I agree that we need to obtain original CTA. It could be artifact or very small. I would recommend either repeated CTA now or in a year. I discussed with her about risk of factors with associated with aneurysm growth or rupture. She does not smoke. She drinks alcohol only socially. Blood pressure is well controlled. --HTN --anxiety, depression --Patiencecollette altamirano: Constant feeling. She has scheduled EMU next week. --H breast cancer s/p resection PLAN -- repeat MRI brain in a year to follow-up on the arachnoid cyst --obtain OSH CTA in 2019 and repeat CTA in a year. --You can follow up with Dr. Iyer or her other neurologist Encounter Diagnosis ICD-10-CM 1. Intracranial arachnoid cyst G93.0 No follow-ups on file. Data Review Objective Current Outpatient Medications Medication Sig BIOTIN ORAL Take by mouth once daily. lacosamide (VIMPAT) 50 mg tab Take 1 tablet by mouth twice daily for 30 days. rosuvastatin (CRESTOR) 5 mg tablet Take 1 tablet by mouth once daily. calcium citrate/vitamin D3 (CITRACAL-D3 PETITES ORAL) Take by mouth once daily. lisinopril (ZESTRIL, PRINIVIL) 10 mg tablet Take 10 mg by mouth once daily. citalopram (CELEXA) 20 mg tablet Take 20 mg by mouth once daily. OTC NUTRITIONAL SUPPLEMENT 20 mg Collagen Powder, add to cup of coffee every mor (more content not included)...[id number] * Patient Instructions* Mello Steven MD - 03/23/2023 10:30 AM EDT --The arachnoid cyst is likely chronic that you have been having for years if not lifelong. I recommend to repeat MRI brain in a year --Regarding the reported aneurysm on your CTA in 2019, it is not shown on your MRA. Either that is very small or artifact on CTA. We can repeat a CTA head and neck in a year. Drinking alcohol, smoking, or high blood pressure may cause aneurysm growth. --You can follow up with Dr. Iyer if it's closure to you. [facility] History of Present illness Narrative* Mello Steven MD - 03/23/2023 10:02 AM EDT Images from the original note were not included. [facility] Follow up/ Established patient visit Individuals who were included in, or assisted with the encounter were: Rachel Steven, MD Chief Complaint/Issues: Rachel Leigh is a 73 year old right-handed female with history of hypertension, anxiety, depression seen in the [facility] for: Arachnoid cyst Most Recent Neurological Assessment and Plan: Last Filed Values None HPI/Interval History: She has been seeing neurologist Dr. Hawkins for Patience adarsh. She had MRI brain which showed an arachnoid cyst and was referred to me. She is otherwise doing well. No headache, dizziness. Fall of 2019 had sudden onset of vertigo with nystagmus- underwent vestibular rehab. Reportedly MRIwas negative for stroke. MRA neck showed a small outpouching of distal cervical Right ICA which wasconfirmed on CTA as a 3.5 x3.5 mm saccular aneurysm.Subsequent repeat CTA in 2019 and 2022 does notmention aneurym in the report. She was started on Aspirin 81 mg. MRI brain 02/07/2023 Moderate generalized brain volume loss. Hippocampal volume is concordant with the general background brain volume loss. Approximately 3 cm right-sided retrocerebellar arachnoid cyst. Localized mass effect on the posterior right cerebellum, but no abnormal signal or any evidence for CSF obstruction. MRA head and neck 02/07/2023 Distal internal carotid arteries are normally patent to the carotid terminus. Anterior circulation branch vessels are patent. Left A1 segment is dominant. No focal high-grade intracranial stenosis, vessel cutoff, filling defect, vascular malformation, or aneurysm. General Examination: BP 131/86 Pulse 63 Ht 162.6 cm (5' 4 ) Wt 70.7 kg (155 lb 12.8 oz) BMI 26.74 kg/m General: Awake, alert, interactive, no acute distress, good nutritional status, normal development,well-kept Neurological Exam Mental Status Alert, fully oriented, attentive, with normal cognition, memory, speech and affect. Cranial Nerves Visual guevara intact. Pupils reactive. Extraocular movements conjugate and full. No ptosis. No nystagmus. Facial sensation intact. Face symmetric and strong. Palate and tongue normal. XI normal. Motor Examination and Coordination Motor examination with normal bulk, strength and tone. No drift. Normal rapid alternating movementsand coordination. No adventitious movements or significant tremor. Reflexes Deep tendon reflexes graded by MRC Sensation Sensation intact to light touch, pinprick, proprioception and vibration. Gait Arises easily. Casual gait are normal. Assessment & Plan 03/23/2023 - General Neurology, Mello Steven MD ASSESSMENT Rachel Leigh is a 73 year old right-handed female with history of hypertension, breast cancer s/p resection, anxiety, depression seen in the [facility] for General Neurology for: 1. Arachnoid cyst -- Arachnoid cyst: I suspect that there is a scheduling error. She has been seeing neurologist. There is no previous imaging to compare. But I discussed with her about the nature course of the arachnoid cyst. There is no compression on the cerebellum or brainstem at this moment. No surrounding edema. I think it could be followed with periodic MRI. --?a small outpouching of distal cervical Right ICA suspected to be aneurysm: It did not show on the recent MRA. I agree that we need to obtain original CTA. It could be artifact or very small. I would recommend either repeated CTA now or in a year. I discussed with her about risk of factors with associated with aneurysm growth or rupture. She does not smoke. She drinks alcohol only socially. Blood pressure is well controlled. --HTN --anxiety, depression --Patience vu: Constant feeling. She has scheduled EMU next week. --H breast cancer s/p resection PLAN -- repeat MRI brain in a year to follow-up on the arachnoid cyst --obtain OSH CTA in 2019 and repeat CTA in a year. --You can follow up with Dr. Iyer or her other neurologist Encounter Diagnosis ICD-10-CM 1. Intracranial arachnoid cyst G93.0 No follow-ups on file. Data Review Objective Current Outpatient Medications Medication Sig BIOTIN ORAL Take by mouth once daily. lacosamide (VIMPAT) 50 mg tab Take 1 tablet by mouth twice daily for 30 days. rosuvastatin (CRESTOR) 5 mg tablet Take 1 tablet by mouth once daily. calcium citrate/vitamin D3 (CITRACAL-D3 PETITES ORAL) Take by mouth once daily. lisinopril (ZESTRIL, PRINIVIL) 10 mg tablet Take 10 mg by mouth once daily. citalopram (CELEXA) 20 mg tablet Take 20 mg by mouth once daily. OTC NUTRITIONAL SUPPLEMENT 20 mg Collagen Powder, add to cup of coffee every morning B-complex with vitamin C (VITAMIN B COMPLEX-C ORAL) Take 1 capsule by mouth once daily. MAGNESIUM ORAL Take 1 tablet by mouth once daily. aspirin, enteric coated (ASPIRIN, ENTERIC COATED) 81 mg EC tablet Take 81 mg by mouth once daily. flaxseed 1,000 mg cap Take 1 capsule by mouth once daily. multivitamins(DAILY MULTIVITAMIN TAB) Take one(1) tablet daily. cholecalciferol (VITAMIN D3) 5,000 unit tab Take 5,000 Units by mouth once daily. Current Facility-Administered Medications Medication Dose Route Frequency perflutren lipid microspheres 1.3 mL in NaCl (PF) 0.9% 10 mL injection (DEFINITY) INTRAVENOUS DIRECTED PRN sodium chloride 0.9 % (flush) 10 mL (BD POSIFLUSH) 10 mL INTRAVENOUS DIRECTED PRN ACTIVE PROBLEM LIST Unspecified Essential Hypertension Dyslipidemia Sprain of Neck Sprain of Lumbar Region Lumbago Depressive Disorder, Not Elsewhere Classified Anxiety State, Unspecified Sprain and Strain of Other Specified Sites of Knee and Leg Add (Attention Deficit Disorder) Depression Abnormality of Left Breast On Screening Mammogram Ductal Carcinoma of Left Breast (Hcc) Breast Cancer, Stage 3 (Hcc) Invasive Ductal Carcinoma of Left Breast in Female (Hcc) Vitamin D Deficiency Osteopenia History of Radiation Exposure History of Chemotherapy History of Breast Cancer Memory Problem Memory Changes Patience Vu Seizure Disorder (Hcc) PAST MEDICAL HISTORY Diagnosis Date Anxiety disorder in conditions classified elsewhere Breast cancer (HCC) 2015 Breast cancer--LEFT Depressive disorder, not elsewhere classified Diverticulosis of colon (without mention of hemorrhage) Esophageal reflux Internal hemorrhoids without mention of complication Lumbago Other and unspecified hyperlipidemia Skin cancer Unspecified essential hypertension PAST SURGICAL HISTORY Procedure Laterality Date BX BREAST W/DEVICE 1ST LESION ULTRASOUND GUID Left 06/09/16 U/S core left retroareolar bx COLONOSCOPY FLX DX W/COLLJ SPEC WHEN PFRMD 03/03/2004,2013 Colonoscopy HEART CATHETERIZATION 98 INSJ TUNNELED CTR VAD W/SUBQ PORT AGE 5 YR/> Right 06-28-16 MASTECTOMY,PARTIAL, WITH AXILLARY LYMPHADENECTOMY Left 06-28-16 W/ SLN BIOPSY PAST SURGICAL HISTORY OF BILAT. PARTIAL SALPINGECTOMY PAST SURGICAL HISTORY OF NEUROMA REMOVED FROM L FOOT PAST SURGICAL HISTORY OF REATTACHMENT OF L DISTAL BICEPS TONSILLECTOMY PRIMARY/SECONDARY <AGE 14 UNSPECIFIED ORAL SURGERY PROCEDURE, BY REPORT [place] [facility] Social History Tobacco Use Smoking status: Former Packs/day: 1.00 Types: Cigarettes Quit date: 09/04/1997 Years since quittin.5 Smokeless tobacco: Never Tobacco comments: Pt smoked on & off x 20 years. Vaping Use Vaping Use: Never used Substance Use Topics Alcohol use: Yes Comment: occassionally Drug use: No FAMILY HISTORY Problem Relation Age of Onset Osteoporosis Mother Heart Mother CHF Hypertension Mother Diabetes Father Hypertension Father Heart Father CHF Cancer Maternal Grandfather 60's, lung cancer, hx of smoking Cancer Maternal Uncle 70 Lung cancer Cancer Maternal Uncle 60's; lung and esophageal cancer; hx of smoking Skin Cancer Paternal Aunt Review of Systems Lab and Test Review: Results for orders placed or performed in visit on 01/24/23 TSH BLD Result Value Ref Range TSH 1.700 0.270 - 4.200 mIU/L T4 FREE/FREE THYROX Result Value Ref Range Free T4 1.1 0.9 - 1.7 ng/dL T3 FREE BLD Result Value Ref Range Free T3 2.8 2.3 - 4.1 pg/mL VITAMIN D 25 HYDROXY Result Value Ref Range Vitamin D 25 Hydroxy 90.2 (H) 31.0 - 80.0 ng/mL VITAMIN B12 BLOOD Result Value Ref Range Vitamin B12 688 232 - 1,245 pg/mL HEAVY METALS SCRN BL Result Value Ref Range Arsenic, Blood <10.0 <=12.0 ug/L Lead <2.0 <=4.9 ug/dL Mercury <2.5 <=10.0 ug/L C-REACTIVE PROTEIN (CRP) Result Value Ref Range CRP <0.3 <0.9 mg/dL SED RATE WESTERGREN Result Value Ref Range Sed Rate, Westergren 2 0 - 20 mm/hr IRON + TIBC Result Value Ref Range Iron 94 41 - 186 ug/dL TIBC 310 232 - 386 ug/dL Transferrin Saturation 30.3 15.0 - 57.0 % Outside Data/Labs: Subjective Patient-Entered Data: 03/23/23 - GENERAL NEUROLOGY SCORES PROMIS 10 02/09/2021 10/17/2022 02/13/2023 In general, would you say your health is: Very good Good Good In general, would you say your quality of life is: Very good Good Fair In general, how would you rate your physical health? Good Good Good In general, how would you rate your mental health, including your mood and your ability to think? Good Good Poor In general, how would you rate your satisfaction with your social activities and relationships? Very good Good Fair To what extent are you able to carry out your everyday physical activities such as walking, climbing stairs, carrying groceries, or moving a chair? Completely Mostly Moderately In general, please rate how well you carry out your usual social activities and roles. (This includes activities at home, at work and in your community, and responsibilities as a parent, child, spouse, employee, friend, etc.) Good Good Poor How would you rate your pain on average? 0 - No Pain 1 0 - No Pain How would you rate your fatigue on average? Mild Mild Moderate How often have you been bothered by emotional problems such as feeling anxious, depressed or irritable? Rarely Sometimes Often PROMIS Adult Short Form-Global Health Score (Physical) 54.1 (Very Good) 47.7 (Good) 44.9 (Good) PROMIS Adult Short Form-Global Health Score (Mental) 50.8 (Very Good) 43.5 (Good) 31.3 (Fair) Depression Screening 02/06/2017 02/09/2021 02/26/2023 PHQ-2 Score 0 0 2 SLEEP APNEA SCORE 02/13/2023 Probability of moderate-severe sleep apnea (%) SAPS V2 51 (Recommend sleep study) No flowsheet data found. No flowsheet data found. I spent a total of 40 minutes on the date of the service which included preparing to see the patient, [id number] patient care, completing clinical documentation, obtaining and/or reviewing separately obtained history, performing a medically appropriate examination, counseling and educating the pat ient/family/caregiver, ordering medications, tests, or procedures, independently interpreting results (not separately reported), communicating results to the patient/family/caregiver, and care coordination (not separately reported). Mello Steven MD documented in this [facility]23 NoteHNO ID: [id number] Author: Crispin Hawkins MD Service: ? Author Type: Physician Type: Progress Notes Filed: 03/09/2023 9:19 AM Note Text: [facility] Patient Name: Rachel ROSE Date of : 1950 Referring Provider: Carissa Ledbetter [address] [facility] [place] [address] INITIAL EPILEPSY CLINIC NOTE 03/08/2023 8:00 AM CHIEF COMPLAINT: New Patient and Seizures HISTORY OF PRESENT ILLNESS Ms. Leigh is a 73 year old right-handed female [facility] for initial consultation. There is no one accompanying the patient during today's visit. Handedness: right-handed Age of onset: 72 years Seizure History and Evolution Ms. Rachel Leigh is a 73 year old Right handed woman with history of hypertension here for evaluation of possible seizures. Referred by Dr. Iyer/Ms. Carissa Ledbetter PA-C from Neurology clinic. Fall of 2018 had sudden onset of vertigo with nystagmus- underwent vestibular rehab. Reportedly MRI was negative for stroke. MRA neck showed a small outpouching of distal cervical Right ICA which was confirmed on CTA as a 3.5 x3.5 mm saccular aneurysm.Subsequent repeat CTA in 2019 and 2022 does not mention aneurym in the report. She was started on Aspirin 81 mg. In March 2021 she had Covid while on a cruise ship. Had 'brain fog' symptoms since then. Was briefly on Addreall for ADD symptoms but that led to high blood pressure and worsening cognitive symptoms. She was also told by other providers that she may have bipolar disorder that was misdiagnosed as ADD. Around 2021, she started experiencing constant sense of familiarity to events, conversations or day to day tasks. She would point out to a TV show or news shows and would say I have seen that but family would tell her that this a new event or show. She would tell people that they had this exact conversation before only to have others tell her this is not the case. These sensations are present althtough the day. She is at a point where she is limiting interactions with others to avoid distress. She underwent routine EEG(20 mins) in January 2023 during which she had constant sense of familiarity- EEG had no correlating seizures. MRI/MRA brain was non-contributory except for right cerebellar archnoid cyst. Crying all the time. Celexa helps. 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 Graduated with honors. Paternal Aunt with epilepsy ( unknown type and medications) Son had febrile seizure in 5th-6th grade, and another seizure in the setting of head injury. Total # of Current Anti-seizure Medications: Side Effects to Current Anti-seizure Medications: Seizure Frequency at First Visit: Longest Seizure-free Interval: CURRENT OUTPATIENT ANTISEIZURE MEDICATIONS (as of the start of the encounter) None Prior Anti-seizure Therapies: Trial Adequacy: Max Daily Dose Achieved: Side Effects: Effectiveness: Comments: Comorbidities: Episode Description: SEIZURE TYPE 1: Patience Vu Onset: Jul 2022 Aura: yes Aura - Cognition: Patience-vu Loss of awareness: Duration: Frequency: Last occurred: 1 per day Patient Entered Data: EPILEPSY SCORE No Data PHQ-9 SCORE - SALBADOR 2 SCORE - SALBADOR 7 SCORE - QOLIE-10 SCORE (0=worst; 100=best QoL - higher scores represent better function) - LSSS SCORE (0- no seizures 100- most severe possible seizures) - C-SSRS SCREEN - On average, how many hours of sleep do you get in a 24-hour period? - PROMIS Sleep Disturbance T-SCORE - Have you been diagnosed with Sleep Apnea? - Seizure risk factors: Brain Tumor Unanswered SENIOR POLICY ANALYST Infections Unanswered Developmental Delay Unanswered Family history of seizures Unanswered Febrile Seizure Unanswered Complications Unanswered Stroke Unanswered Traumatic Brain Injury Unanswered Previous Epilepsy Evaluations MRI brain 05/2019 [facility] : no acute intracranial abnormality. 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 MRI brain 02/07/2023 [facility] No acute brain findings. Moderate generalized brain volume loss. Hippocampal volume is concordant with the general background brain volume loss. Approximately 3 cm right-sided retrocerebellar arachnoid cyst. Localized mass effect on the posterior right cerebellum, but no abnormal signal or any evidence for CSF obstruction. Normally patent intracranial arterial vasculature. Normal variant anatomy as noted. Satisfactory patency of the cervical great vessels. EEG 01/2023 [facility] Interictal: Normal, Ic (more content not included)...[facility]07-05-2023 Instructions* Patient Instructions* Crispin Hawkins MD - 03/08/2023 9:03 AM EDT Summary of the things we discussed today We will plan to bring you in for an inpatient video-EEG monitoring test to get diagnostic clarification of your symptoms. In the interim, we will give a trial of low dose Vimpat 50 mg twice a day. Please reach out to my office to give us an update on how you are responding to the medication in 2-3 weeks. Seizure precautions - No driving in the [facility] until seizure free for 6 months - No operating heavy machines - No swimming without supervision or bathing in a bathtub due to risk of drowning in the event of aseizure. Patient may shower. - Avoid unsafe heights, including ladders, due to risk of fall-related injury in the event of a seizure. - Seizure precipitating factors discussed including not taking seizure medications as prescribed, stress, excessive caffeine intake, energy drinks, alcohol, sleep deprivation or any identifiable seizure precipitating factor. ' Crispin Hawkins MD Associate Staff, Epilepsy [facility] March 08, 2023 Office phone: [phone] documented in this encounterMount [facility]el [facility]07-05-2023 History of Present illness Narrative* Crispin Hawkins MD - 03/08/2023 8:10 AM EDT [facility] Patient Name: Rachel ROSE Date of : 1950 Referring Provider: Carissa Ledbetter [address] [facility] [place] [address] INITIAL EPILEPSY CLINIC NOTE 03/08/2023 8:00 AM CHIEF COMPLAINT: New Patient and Seizures HISTORY OF PRESENT ILLNESS Ms. Leigh is a 73 year old right-handed female seen in [facility] for initial consultation. There is no one accompanying the patient during today's visit. Handedness: right-handed Age of onset: 72 years Seizure History and Evolution Ms. Rachel Leigh is a 73 year old Right handed woman with history of hypertension here for evaluation of possible seizures. Referred by Dr. Iyer/Ms. Carissa Ledbetter PA-C from Neurology clinic. Fall of 2018 had sudden onset of vertigo with nystagmus- underwent vestibular rehab. Reportedly MRIwas negative for stroke. MRA neck showed a small outpouching of distal cervical Right ICA which wasconfirmed on CTA as a 3.5 x3.5 mm saccular aneurysm.Subsequent repeat CTA in 2019 and 2022 does notmention aneurym in the report. She was started on Aspirin 81 mg. In March 2021 she had Covid while on a cruise ship. Had 'brain fog' symptoms since then. Was briefly on Addreall for ADD symptoms but that led to high blood pressure and worsening cognitive symptoms. She was also told by other providers that she may have bipolar disorder that was misdiagnosed as ADD. Around 2021, she started experiencing constant sense of familiarity to events, conversations or day to day tasks. She would point out to a TV show or news shows and would say I have seen that but family would tell her that this a new event or show. She would tell people that they had this exact conversation before only to have others tell her this is not the case. These sensations are present althtough the day. She is at a point where she is limiting interactions with others to avoid distress. She underwent routine EEG(20 mins) in January 2023 during which she had constant sense of familiarity- EEG had no correlating seizures. MRI/MRA brain was non- contributory except for right cerebellar archnoid cyst. Crying all the time. Celexa helps. 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 Graduated with honors. Paternal Aunt with epilepsy ( unknown type and medications) Son had febrile seizure in 5th-6th grade, and another seizure in the setting of head injury. Total # of Current Anti-seizure Medications: Side Effects to Current Anti-seizure Medications: Seizure Frequency at First Visit: Longest Seizure-free Interval: CURRENT OUTPATIENT ANTISEIZURE MEDICATIONS (as of the start of the encounter) None Prior Anti-seizure Therapies: Trial Adequacy: Max Daily Dose Achieved: Side Effects: Effectiveness: Comments: Comorbidities: Episode Description: SEIZURE TYPE 1: Patience Vu Onset: Jul 2022 Aura: yes Aura - Cognition: Patience-vu Loss of awareness: Duration: Frequency: Last occurred: 1 per day Patient Entered Data: EPILEPSY SCORE No Data PHQ-9 SCORE - SALBADOR 2 SCORE - SALBADOR 7 SCORE - QOLIE-10 SCORE (0=worst; 100=best QoL - higher scores represent better function) - LSSS SCORE (0- no seizures 100- most severe possible seizures) - C-SSRS SCREEN - On average, how many hours of sleep do you get in a 24-hour period? - PROMIS Sleep Disturbance T-SCORE - Have you been diagnosed with Sleep Apnea? - Seizure risk factors: Brain Tumor Unanswered SENIOR POLICY ANALYST Infections Unanswered Developmental Delay Unanswered Family history of seizures Unanswered Febrile Seizure Unanswered Complications Unanswered Stroke Unanswered Traumatic Brain Injury Unanswered Previous Epilepsy Evaluations MRI brain 05/2019 [facility] : no acute intracranial abnormality. 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 MRI brain 02/07/2023 [facility] No acute brain findings. Moderate generalized brain volume loss. Hippocampal volume is concordant with the general background brain volume loss. Approximately 3 cm right-sided retrocerebellar arachnoid cyst. Localized mass effect on the posterior right cerebellum, but no abnormal signal or any evidence for CSF obstruction. Normally patent intracranial arterial vasculature. Normal variant anatomy as noted. Satisfactory patency of the cervical great vessels. EEG 01/2023 [facility] Interictal: Normal, Ictal: No EEG Change Paroxysmal Event Impression: This EEG is within normal limits. No epileptiform discharges during this recording. The patient reported a constant feeling of patience vu during the recording, which was not accompanied by EEG changes to confirm seizure activity. Other caregivers: Primary Care Provider: Howard Arias, DO Current Outpatient Medications Medication Sig rosuvastatin (CRESTOR) 5 mg tablet Take 1 tablet by mouth once daily. calcium citrate/vitamin D3 (CITRACAL-D3 PETITES ORAL) Take by mouth once daily. lisinopril (ZESTRIL, PRINIVIL) 10 mg tablet Take 10 mg by mouth once daily. citalopram (CELEXA) 20 mg tablet Take 20 mg by mouth once daily. OTC NUTRITIONAL SUPPLEMENT 20 mg Collagen Powder, add to cup of coffee every morning B-complex with vitamin C (VITAMIN B COMPLEX-C ORAL) Take 1 capsule by mouth once daily. MAGNESIUM ORAL Take 1 tablet by mouth once daily. aspirin, enteric coated (ASPIRIN, ENTERIC COATED) 81 mg EC tablet Take 81 mg by mouth once daily. flaxseed 1,000 mg cap Take 1 capsule by mouth once daily. multivitamins(DAILY MULTIVITAMIN TAB) Take one(1) tablet daily. BIOTIN ORAL Take by mouth once daily. lacosamide (VIMPAT) 50 mg tab Take 1 tablet by mouth twice daily for 30 days. cholecalciferol (VITAMIN D3) 5,000 unit tab Take 5,000 Units by mouth once daily. Current Facility-Administered Medications Medication Dose Route Frequency perflutren lipid microspheres 1.3 mL in NaCl (PF) 0.9% 10 mL injection (DEFINITY) INTRAVENOUS DIRECTED PRN sodium chloride 0.9 % (flush) 10 mL (BD POSIFLUSH) 10 mL INTRAVENOUS DIRECTED PRN ALLERGIES Allergen Reactions Amantadine Intolerance crying Voltaren [Diclofena* Hives PAST MEDICAL HISTORY Diagnosis Date Anxiety disorder in conditions classified elsewhere Breast cancer (HCC) 2016 Breast cancer--LEFT Depressive disorder, not elsewhere classified Diverticulosis of colon (without mention of hemorrhage) Esophageal reflux Internal hemorrhoids without mention of complication Lumbago Other and unspecified hyperlipidemia Skin cancer Unspecified essential hypertension PAST SURGICAL HISTORY Procedure Laterality Date BX BREAST W/DEVICE 1ST LESION ULTRASOUND GUID Left 06/09/16 U/S core left retroareolar bx COLONOSCOPY FLX DX W/COLLJ SPEC WHEN PFRMD 03/03/2004,2012 Colonoscopy HEART CATHETERIZATION 98 INSJ TUNNELED CTR VAD W/SUBQ PORT AGE 5 YR/> Right 06-28-16 MASTECTOMY,PARTIAL, WITH AXILLARY LYMPHADENECTOMY Left 06-28-16 W/ SLN BIOPSY PAST SURGICAL HISTORY OF BILAT. PARTIAL SALPINGECTOMY PAST SURGICAL HISTORY OF NEUROMA REMOVED FROM L FOOT PAST SURGICAL HISTORY OF REATTACHMENT OF L DISTAL BICEPS TONSILLECTOMY PRIMARY/SECONDARY <AGE 14 UNSPECIFIED ORAL SURGERY PROCEDURE, BY REPORT [place] [facility] FAMILY HISTORY Problem Relation Age of Onset Osteoporosis Mother Heart Mother CHF Hypertension Mother Diabetes Father Hypertension Father Heart Father CHF Cancer Maternal Grandfather 60's, lung cancer, hx of smoking Cancer Maternal Uncle 70 Lung cancer Cancer Maternal Uncle 60's; lung and esophageal cancer; hx of smoking Skin Cancer Paternal Aunt SOCIAL HISTORY: -Lives in [place], [place] -Patient lives alone? -Vocation: -Education: -Cigarette, alcohol, substance use: -Functional status: -Patient driving? Review of Systems All other systems reviewed and are negative. VITAL SIGNS: BP 138/86 Pulse 63 Resp 16 Ht 163.8 cm (5' 4.5 ) Wt 72.6 kg (160 lb) BMI 27.04 kg/m General Examination: She is alone. General: Awake, alert, interactive, no acute distress, good nutritional status, normal development,well-kept Neurological Exam Mental Status Alert, fully oriented, attentive, with normal cognition, memory, speech and affect. Cranial Nerves Face symmetric. Hearing intact with conversational speech. Motor Examination and Coordination Motor examination with normal bulk. Normal coordination. No adventitious movements or significant tremor. Gait Casual gait normal. IMPRESSION: Ms. Rachel Leigh is a 73 year old Right handed woman with constant sensation of Patience Vu. 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 Routine EEG was normal while patient reported constant Patience Vu sensation. Patient is a previously high functioning person, now clearly distraught by these symptoms. Discussed trial of low dose AEDs to see if it provides any benefit while we plan for video EEG monitoring. Will give Vimpat 50 mg BID. She is also struggling with emotional lability and has some benefit with Celexa. Seizures: 1. Psychic Aura PLAN: Start Vimpat 50 mg BID. Diagnostic EMU evaluation. If no benefit with AED trial and if EMU evaluation remains normal, patient may benefit from evaluation at [facility] for memory impairment. Data reviewed as above including: MRI images, electronic medical record Testing Ordered Diagnostic epilepsy monitoring unit admission (see separate abstract on this date) Education Seizure precautions - No driving in the [facility] until seizure free for 6 months - No operating heavy machines - No swimming without supervision or bathing in a bathtub due to risk of drowning in the event of aseizure. Patient may shower. - Avoid unsafe heights, including ladders, due to risk of fall-related injury in the event of a seizure. - Seizure precipitating factors discussed including not taking seizure medications as prescribed, stress, excessive caffeine intake, energy drinks, alcohol, sleep deprivation or any identifiable seizure precipitating factor. I discussed the risks, benefits and alternatives of the medical plan with the patient. Questions were answered. The patient agreed with the plan as discussed. FOLLOW-UP: Return in about 4 months (around 07/09/2023). I spent a total of 70 minutes on the date of the service which included: preparing to see the patient [id number] patient care completing clinical documentation obtaining and/or reviewing separately obtained history performing a medically appropriate examination counseling and educating the patient/family/caregiver ordering medications, tests, or procedures Crispin Hawkins MD cc: Primary Care Physician: Howard Arias DO [address] [place], [place] [id number] Referring: Carissa Ledbetter [address] [id number] Patient: Ms. Rachel Leigh [address] [id number] Please route this encounter to the EMU Scheduling Pool ( P EMU ) or PMU Scheduling Pool ( P PMU ) through LOS & Follow up PHASE 1.0 AND 1.5 ORDER SYNOPSIS Patient: Rachel Leigh ([id number]) Best contact number: [phone] Insurance: Payor: LESLY / Plan: JESENIA STOCK PPO OOS / Product Type: PPO / Scheduling Team: Please call for adult patients: Donna Buenrostro ([phone]) Jovita Mcpherson ([phone]) Grazyna Zavala ([phone]) Susanne Olivares([phone]) Jamilah Cuenca([phone]) Please call for pediatric patients: Susanne Olivares ([phone]) Donna Buenrostro ([phone]) Jovita Mcpherson ([phone]) Grazyna Zavala ([phone]),Jamilah Cuenca([phone]) 03/08/2023 Admission Type EMU Adult Number of Days requested 5 Location [place] (Adults only) Admit Priority Routine PURPOSE 03/08/2023 Patient Being Considered for Epilepsy Surgery? No VEEG recommended to assess seizure burden, address new & concerning syymptom- sign complex, and/or clarify syndromic epilepsy diagnosis? Yes 03/08/2023 Sphenoidal monitoring No Electrode placement Standard Appointments and Tests EPIL EEG LEAD PLACEMENT EPIL VEEG ADMIT TO EMU/PMU Consultations CONSULT TO NEUROLOGY Epilepsy Center Please route this encounter to the EMU Scheduling pool ( P EMU ) or PMU Scheduling pool ( P PMU ) through LOS & Follow up Scheduling coordinators: For all VNS patients being scheduled for JORDAN, please schedule VNS off/on office visits. documented in this encounterMount [facility]el [facility]06-26-2023 NoteHNO ID: [id number] Author: Ruth Khan APRN.MANAGER UNIVERSITY Service: ? Author Type: Nurse Practitioner Type: Progress Notes Filed: 02/27/2023 2:06 PM Note Text: Chief Complaint Patient presents with: Established Patient HPI: Rachel Leigh is a 73 year old female who presents here today for follow up breast cancer. Per Dr. Jain's previous note: H/o abnormal left mammogram. She is A0. Menarche at age 13. This child born when she was 23. menopause age 51. She did not breast-feed. No previous breast biopsy. She is not on any estrogen replacement. Family history is negative for breast cancer or ovarian cancer. She denies any left nipple discharge or bleeding. No left breast pain. The patient simply presented for routine mammogram screening. On June 02, 2016 at the [facility] she had bilateral mammography. There was felt to be a ridge of tissue and the subareolar region of the left breast with thickening of the periareolar areolar region. Correlation with ultrasound was recommended. The mammograms were interpreted as BI-RADS Category 0. Subsequently on June 06, 2016 an ultrasound and diagnostic left mammogram was obtained demonstrating a 2.1 x 1.4 x 1.2 cm irregular hypoechoic mass in the retroareolar region of the left breast with increased vascular supply. BI-RADS Category 5. Biopsy strongly recommended. The patient by Dr. Blancas at the request of Dr. Preet Bernstein MD for advice regarding abnormal left mammogram. Mrs. Leigh had a needle biopsy of the left breast mass on June 09, 2016. Pathology showed invasive ductal carcinoma, nuclear grade 3 (1.1 centimeter in greatest length); ER/MA 0%, HER-2/ember positive 2+ by IHC, FISH nonamplified ( HER-2: CEP 17 ratio: 1.09, average HER-2 signal 1.8 ). Status post partial left mastectomy with removal of the nipple areolar complex as well as a left axillary blue dye sentinel lymph node biopsy then extended to a left axillary lymph node dissection. The primary tumor was retroareolar though not invading the areola or nipple. 2.1 x 2 x 1.5 cm. The initial sentinel lymph node was negative. A total of 14 lymph nodes were removed. 8 with macro metastasis. Overall grade was 3. Margins were clear being 0.2 cm from the overlying nipple which was removed with other margins being more than 3 cm. The sentinel node had a 1 cm area of metastasis with extranodal extension noted. Estrogen receptor -0% Progesterone receptor -0% HER-2/ember equivocal 2+ HER-2/ember by dual ALEJANDRO negative Stage IIIA Adjuvant Chemotherapy Treatment: Dose-dense Adriamycin / Cytoxan x 4; Pacitaxel x 4 ( 07/25/16 - 11/13/16 ) Adjuvant Radiation Therapy: 6000 cGy in 30 fractions. (5000 cGy in 25 fractions to the left breast and regional lymphatics to the 100% isodose line with 10 AND 15 MV and 6 segmented guevara followed by 1000 cGy in 5 fractions boost to the tumor bed to the 90% isodose line with 12 MV electron and 1 en face field.) ( 11/22/16 to 01/04/17 ) Pt. has been followed by Neuro for feeling like things have already happened during the day. Dx-Patience vu seizure disorder/cognitive impairment/depression Appetite: Ok. Energy level: I get tired. I'm not working so I'm not out and doing stuff. Denies fevers or recent illness. 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 Past medical history, appointments, medications, allergies reviewed. No changes. EXAM: BP 122/85 Pulse 63 Temp 36.3 ?C (97.4 ?F) Ht 164.5 cm (5' 4.76 ) Wt 73.9 kg (163 lb) SpO2 98% BMI 27.32 kg/m? APPEARANCE Well appearing, alert, in no acute distress, well-hydrated, well nourished. HEART RRR with normal S1 and S2, no murmurs LUNG clear to auscultation BREAST FEMALE no mass/nodule b/l, L nipple/AC surgically absent/radiation changes LYMPH NODES No cervical lymphadenopathy, No supraclavicular lymphadenopathy, and No axillary lymphadenopathy. ABDOMEN bowel sounds normoactive, soft, non-tender EXTREMITIES No edema NEURO Awake, alert and oriented x 3, Normal gait, and No involuntary motions. SKIN Skin color, texture, turgor normal, no suspicious rashes or lesions ASSESSMENT/PLAN: 1. 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 Stage IIIA Status post partial left mastectomy. Completed Adjuvant chemotherapy AND radiation therapy. - No concerning findings on exam. - Pt. now 6 years out from treatment. - Mammogram due 2022. Ordered by GLUE SPECIALTY SUPERVISOR-Done at [facility]. - Bone density per GLUE SPECIALTY SUPERVISOR. - Follow up in one year (more content not included)...[facility] 02-27-2023 History of Present illness Narrative* Ruth Khan, LISA.[facility] - 02/27/2023 1:33 PM EDT Chief Complaint Patient presents with: Established Patient HPI: Rachel Leigh is a 73 year old female who presents here today for follow up breast cancer. Per Dr. Jain's previous note: H/o abnormal left mammogram. She is A0. Menarche at age 13. This child born when she was 23. menopause age 51. She did not breast-feed. No previous breast biopsy. She is not on any estrogen replacement. Family history is negative for breast cancer or ovarian cancer. She denies any left nipple discharge or bleeding. No left breast pain. The patient simply presented for routine mammogram screening. On June 02, 2016 at the [facility] she had bilateral mammography. There was felt to be a ridge of tissue and the subareolar region of the left breast with thickening of the periareolar areolar region. Correlation with ultrasound was recommended. The mammograms were interpreted as BI-RADS Category 0. Subsequently on June 06, 2016 an ultrasound and diagnostic left mammogram was obtained demonstrating a 2.1 x 1.4 x 1.2 cm irregular hypoechoic mass in the retroareolar region of the left breast with increased vascular supply. BI-RADS Category 5. Biopsy strongly recommended. The patient by Dr. Blancas at the request of Dr. Preet Bernstein MD for advice regarding abnormal left mammogram. Mrs. Leigh had a needle biopsy of the left breast mass on June 09, 2016. Pathologyshowed invasive ductal carcinoma, nuclear grade 3 (1.1 centimeter in greatest length); ER/MA 0%, HER-2/ember positive 2+ by IHC, FISH nonamplified ( HER-2: CEP 17 ratio: 1.09, average HER-2 signal 1.8 ). Status post partial left mastectomy with removal of the nipple areolar complex as well as a left axillary blue dye sentinel lymph node biopsy then extended to a left axillary lymph node dissection. The primary tumor was retroareolar though not invading the areola or nipple. 2.1 x 2 x 1.5 cm. The initial sentinel lymph node was negative. A total of 14 lymph nodes were removed. 8 with macro metastasis. Overall grade was 3. Margins were clear being 0.2 cm from the overlying nipple which was removed with other margins being more than 3 cm. The sentinel node had a 1 cm area of metastasis with extranodal extension noted. Estrogen receptor -0% Progesterone receptor -0% HER-2/ember equivocal 2+ HER-2/ember by dual ALEJANDRO negative Stage IIIA Adjuvant Chemotherapy Treatment: Dose-dense Adriamycin / Cytoxan x 4; Pacitaxel x 4 ( 07/25/16 - 11/13/16 ) Adjuvant Radiation Therapy: 6000 cGy in 30 fractions. (5000 cGy in 25 fractions to the left breast and regional lymphatics to the 100% isodose line with 10 & 15 MV and 6 segmented guevara followedby 1000 cGy in 5 fractions boost to the tumor bed to the 90% isodose line with 12 MV electron and 1en face field.) ( 11/22/16 to 01/04/17 ) Pt. has been followed by Neuro for feeling like things have already happened during the day. Dx-Patience vu seizure disorder/cognitive impairment/depression Appetite: Ok. Energy level: I get tired. I'm not working so I'm not out and doing stuff. Denies fevers or recent illness. 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 Past medical history, appointments, medications, allergies reviewed. No changes. EXAM: BP 122/85 Pulse 63 Temp 36.3 C (97.4 F) Ht 164.5 cm (5' 4.76 ) Wt 73.9 kg (163 lb) SpO2 98% BMI 27.32 kg/m APPEARANCE Well appearing, alert, in no acute distress, well-hydrated, well nourished. HEART RRR with normal S1 and S2, no murmurs LUNG clear to auscultation BREAST FEMALE no mass/nodule b/l, L nipple/AC surgically absent/radiation changes LYMPH NODES No cervical lymphadenopathy, No supraclavicular lymphadenopathy, and No axillary lymphadenopathy. ABDOMEN bowel sounds normoactive, soft, non-tender EXTREMITIES No edema NEURO Awake, alert and oriented x 3, Normal gait, and No involuntary motions. SKIN Skin color, texture, turgor normal, no suspicious rashes or lesions ASSESSMENT/PLAN: 1. 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 Stage IIIA Status post partial left mastectomy. Completed Adjuvant chemotherapy & radiation therapy. - No concerning findings on exam. - Pt. now 6 years out from treatment. - Mammogram due 2022. Ordered by GLUE SPECIALTY SUPERVISOR-Done at [facility]. - Bone density per GLUE SPECIALTY SUPERVISOR. - Follow up in one year. - Pt. aware to call office any questions/concerns. The patient indicates understanding of these issues and agrees with the plan. All documentation from previous visit of 08/15/22-Dr. Jain/myself was copied and pasted, documentation has been reviewed and edited as necessary for today's visit. Ruth Khan APRN.LAM documented in this encounterMount Carmel Health System06-13-2023 NoteHNO ID: [id number] Author: Carissa Ledbetter PA-C Service: ? Author Type: Physician Technical Mgr Type: Progress Notes Filed: 02/14/2023 9:59 AM Note Text: ESTABLISHED PATIENT VISIT Last visit: 12/19/[address] Iyer ASSESSMENT/PLAN: 1. Patience vu seizure disorder (HCC) - ICD9: 345.40, ICD10: G40.209 (primary diagnosis) 2. Cognitive impairment - ICD9: 294.9, ICD10: R41.89 3. Depression, unspecified depression type - ICD9: 311, ICD10: F32.A 4. History of cerebral aneurysm - ICD9: V12.59, ICD10: Z86.79 Patient with complaints as above, with primary symptom being feeling like where is in the present, she already experienced in the past. This is a near constantly and daily symptoms. Patient is a poor historian with pressured speech and poor focus. Neuro exam is otherwise non-focal. Etiology of symptoms uncertain. Pt fixated at this point that these are seizures, although pt with not risks for seizures. Still, feel appropriate to further evaluate and thus, will order EEG to determine if epileptiform abnormalities as well as MRI brain to evaluate for possible intracranial source of such symptoms. Pt later at conclusion of visit also mentions she has an aneurysm in the base of her brain and thus will also get MRA of head and neck to further evaluate for such. Will determine further workup based on results of this study. However, if workup in unremarkable then would recommend evaluations by psychiatry and neuropsychology for evaluation of ADD or other possible mood disorder given concerns for bipolar disorder by other physicians in the past. Pb Iyer MD CHIEF COMPLAINT: follow up HISTORY OF PRESENT ILLNESS: Rachel Leigh is a 73 year old female, There were no vitals taken for this visit. with a PMH significant for hypertension, breast cancer, dyslipidemia, depression, anxiety. MRI of the brain showed possible cystic structure with mass effect and cerebellum, no other abnormalities found. MRA head and neck normal without any signs of aneurysm. EEG was obtained, patient did have patience vu experience while EEG was obtained, but this was normal without any signs of epileptiform changes. Since last appointment, patient continues to have daily episodes of patience vu-like feeling, without any definitive start and stop time for each episode. Notes that she has difficulty differentiating if she is experienced something or not, if what she is experiencing at the current time is real. Notes that he had to take a leave absence from work, works from home. Notes that during a meeting she would feel as if everything she was experiencing she is already experienced, and then we have difficulty remembering what happened afterwards. No loss of consciousness with these episodes, no tongue biting, no bowel bladder incontinence. No history of seizures in the past, but notes history of breast cancer with last chemotherapy and radiation in 2017. Notes that symptoms began around the time of , but may have been gradually beginning prior to this. Notes they definitely worsened around 2021. No known eliciting event, medication or anything else. Patient also notes some overall poor memory issues, has history of ADD but states this feels different. States that she has poor short-term memory, forgets what people said, get what things happen. No getting lost with having walking, no bowel or bladder incontinence, no gait change, no leaving the stove on, no falls at home. Patient also notes some increased emotional lability, states that she would not on the Celexa 20 mg she would be crying frequently throughout the day. Of note, patient states that she had a previous neurologic work-up at [facility] in [place] concerning for possible aneurysm. Records are unavailable, but MRA head and neck did not show any signs of aneurysm recently. 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 REVIEW OF SYSTEMS GENERAL:No weight loss, malaise or fevers. HEENT:Negative for frequent or significant headaches, No changes in hearing or vision, no nose bleeds or other nasal problems NECK:Negative for lumps, goiter, pain and significant neck swelling RESPIRATORY: Negative for cough, wheezing or shortness of breath. CARDIOVASCULAR: Negative for chest pain, leg swelling or palpitations. GASTROINTESTINAL: Negative for abdominal discomfort, blood in stools or black stools or change in bowel habits GENITOURINARY: No history of dysuria, frequency or incontinence MUSCULOSKELETAL: Negative for joint pain or swelling, back pain or muscle pain. NEUROLOGIC:Negative for focal numbness or weakness, headaches and dizziness or syncope, vision changes, speech/languag changes - EXCEPT that as per HPI above. SKIN:Negative for lesions, rash, and itching. PSYCHIATRIC: Negative for sleep disturbance, mood disorder and recent psychosocial (more content not included)...[facility]06-13-2023 Instructions* Patient Instructions* Carissa Ledbetter PA-C - 02/14/2023 9:10 AM EDT Consult to neurosurgery Consult to epilepsy for further work up of patience vu seizure disorder Follow up as needed should further work up with epilepsy be negative. documented in this encounterMount Carmel Health System06-13-2023 History of Present illness Narrative* Carissa Ledbetter PA-C - 02/14/2023 9:07 AM EDT ESTABLISHED PATIENT VISIT Last visit: 12/19/[address] Iyer ASSESSMENT/PLAN: 1. Patience vu seizure disorder (HCC) - ICD9: 345.40, ICD10: G40.209 (primary diagnosis) 2. Cognitive impairment - ICD9: 294.9, ICD10: R41.89 3. Depression, unspecified depression type - ICD9: 311, ICD10: F32.A 4. History of cerebral aneurysm - ICD9: V12.59, ICD10: Z86.79 Patient with complaints as above, with primary symptom being feeling like where is in the present, she already experienced in the past. This is a near constantly and daily symptoms. Patient is a poorhistorian with pressured speech and poor focus. Neuro exam is otherwise non-focal. Etiology of symptoms uncertain. Pt fixated at this point that these are seizures, although pt with not risks for seizures. Still, feel appropriate to further evaluate and thus, will order EEG to determine if epileptiform abnormalities as well as MRI brain to evaluate for possible intracranial source of such symptoms. Pt later at conclusion of visit also mentions she has an aneurysm in the base of her brain and thus will also get MRA of head and neck to further evaluate for such. Will determine further workup based on results of this study. However, if workup in unremarkable then would recommend evaluations bypsychiatry and neuropsychology for evaluation of ADD or other possible mood disorder given concernsfor bipolar disorder by other physicians in the past. Pb Iyer MD CHIEF COMPLAINT: follow up HISTORY OF PRESENT ILLNESS: Rachel Leigh is a 73 year old female, There were no vitals taken for this visit. with a PMH significant for hypertension, breast cancer, dyslipidemia, depression, anxiety. MRI of the brain showed possible cystic structure with mass effect and cerebellum, no other abnormalities found. MRA head and neck normal without any signs of aneurysm. EEG was obtained, patient did have d j vu experience while EEG was obtained, but this was normal without any signs of epileptiformchanges. Since last appointment, patient continues to have daily episodes of d j vu-like feeling, without any definitive start and stop time for each episode. Notes that she has difficulty differentiating if she is experienced something or not, if what she is experiencing at the current time is real. Notes that he had to take a leave absence from work, works from home. Notes that during a meeting she would feel as if everything she was experiencing she is already experienced, and then we have difficultyremembering what happened afterwards. No loss of consciousness with these episodes, no tongue biting, no bowel bladder incontinence. No history of seizures in the past, but notes history of breast cancer with last chemotherapy and radiation in 2016. Notes that symptoms began around the time of , but may have been gradually beginning prior to this. Notes they definitely worsened around Year'2021. No known eliciting event, medication or anything else. Patient also notes some overall poor memory issues, has history of ADD but states this feels different. States that she has poor short-term memory, forgets what people said, get what things happen. No getting lost with having walking, no bowel or bladder incontinence, no gait change, no leaving thestove on, no falls at home. Patient also notes some increased emotional lability, states that she would not on the Celexa 20 mg she would be crying frequently throughout the day. Of note, patient states that she had a previous neurologic work-up at [facility] in [place] concerning for possible aneurysm. Records are unavailable, but MRA head and neck did not show any signs of aneurysm recently. 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 REVIEW OF SYSTEMS GENERAL:No weight loss, malaise or fevers. HEENT:Negative for frequent or significant headaches, No changes in hearing or vision, no nose bleeds or other nasal problems NECK:Negative for lumps, goiter, pain and significant neck swelling RESPIRATORY: Negative for cough, wheezing or shortness of breath. CARDIOVASCULAR: Negative for chest pain, leg swelling or palpitations. GASTROINTESTINAL: Negative for abdominal discomfort, blood in stools or black stools or change in bowel habits GENITOURINARY: No history of dysuria, frequency or incontinence MUSCULOSKELETAL: Negative for joint pain or swelling, back pain or muscle pain. NEUROLOGIC:Negative for focal numbness or weakness, headaches and dizziness or syncope, vision changes, speech/languag changes - EXCEPT that as per HPI above. SKIN:Negative for lesions, rash, and itching. PSYCHIATRIC: Negative for sleep disturbance, mood disorder and recent psychosocial stressors. HEMATOLOGIC/LYMPHATIC/IMMUNOLOGIC:Negative for prolonged bleeding, bruising easily or swollen nodes. ENDOCRINE: Negative for cold or heat intolerance, polyuria, polydipsia and goiter. The remainder of the ROS was reviewed and is negative. LAB/IMAGING: Those performed since patient's last visit have been reviewed. MRI brain, MRA head and neck 02/08/23 IMPRESSION: No acute brain findings. Moderate generalized brain volume loss. Hippocampal volume is concordant with the general background brain volume loss. Approximately 3 cm right-sided retrocerebellar arachnoid cyst. Localized mass effect on the posterior right cerebellum, but no abnormal signal or any evidence for CSF obstruction. Normally patent intracranial arterial vasculature. Normal variant anatomy as noted. Satisfactory patency of the cervical great vessels. EEG 01/25/23 Impression: This EEG is within normal limits. No epileptiform discharges during this recording. The patient reported a constant feeling of patience vu during the recording, which was not accompanied by EEG changes to confirm seizure activity. MEDICATIONS: rosuvastatin (CRESTOR) 5 mg tablet^Take 1 tablet by mouth once daily.^Disp: 90 tablet^Rfl: 3 calcium citrate/vitamin D3 (CITRACAL-D3 PETITES ORAL)^Take by mouth once daily.^Disp: ^Rfl: lisinopril (ZESTRIL, PRINIVIL) 10 mg tablet^Take 10 mg by mouth once daily.^Disp: ^Rfl: citalopram (CELEXA) 20 mg tablet^Take 20 mg by mouth once daily.^Disp: ^Rfl: OTC NUTRITIONAL SUPPLEMENT^20 mg Collagen Powder, add to cup of coffee every morning^Disp: ^Rfl: B-complex with vitamin C (VITAMIN B COMPLEX-C ORAL)^Take 1 capsule by mouth once daily.^Disp: ^Rfl: MAGNESIUM ORAL^Take 1 tablet by mouth once daily.^Disp: ^Rfl: aspirin, enteric coated (ASPIRIN, ENTERIC COATED) 81 mg EC tablet^Take 81 mg by mouth once daily.^Disp: ^Rfl: flaxseed 1,000 mg cap^Take 1 capsule by mouth once daily.^Disp: ^Rfl: multivitamins(DAILY MULTIVITAMIN TAB)^Take one(1) tablet daily.^Disp: ^Rfl: 0 cholecalciferol (VITAMIN D3) 5,000 unit tab^Take 5,000 Units by mouth once daily.^Disp: ^Rfl: HISTORIES PAST MEDICAL HISTORY Diagnosis Date Anxiety disorder in conditions classified elsewhere Breast cancer ([facility]) 2015 Breast cancer--LEFT Depressive disorder, not elsewhere classified Diverticulosis of colon (without mention of hemorrhage) Esophageal reflux Internal hemorrhoids without mention of complication Lumbago Other and unspecified hyperlipidemia Skin cancer Unspecified essential hypertension FAMILY HISTORY Problem Relation Age of Onset Osteoporosis Mother Heart Mother CHF Hypertension Mother Diabetes Father Hypertension Father Heart Father CHF Cancer Maternal Grandfather 60's, lung cancer, hx of smoking Cancer Maternal Uncle 70 Lung cancer Cancer Maternal Uncle 60's; lung and esophageal cancer; hx of smoking Skin Cancer Paternal Aunt SOCIAL HISTORY Social History Tobacco Use Smoking status: Former Packs/day: 1.00 Types: Cigarettes Quit date: 09/04/1997 Years since quittin.4 Smokeless tobacco: Never Tobacco comments: Pt smoked on & off x 20 years. Vaping Use Vaping Use: Never used Substance Use Topics Alcohol use: Yes Comment: occassionally Drug use: No PHYSICAL EXAMINATION BP 138/87 Pulse (!) 54 Temp 36.9 C (98.4 F) Resp 16 Wt 73.5 kg (162 lb) SpO2 99% BMI 27.38 kg/m GENERAL EXAM: General appearance: NAD, pleasant. HEENT: NC/AT, nasal congestion absent, no oral lesions, membranes moist. NECK: No masses, supple. Lungs: Breathing comfortably Extr: Moves all extremities without difficulty Skin: Cool to touch. No rash. NEUROLOGICAL EXAM: General: Awake, alert, oriented x3 (person,place,time), speech fluent, no dysarthria; comprehension, naming, repetition intact. Does get confused and forgets what she is talking about, states that she remembers me even though we have not met CN: PERRL, EOMI and without nystagmus, VFF to confrontation, facial sensation and strength are normal and symmetric, hearing is intact to finger rub bilaterally, palate and tongue movements are intact and symmetric. SCM and trapezius strength normal. Motor: Normal tone, bulk and strength (5/5) bilaterally (throughout extremities x4). Reflexes: 2/4 and symmetric, plantar stimulation is flexor. Coordination: FNF intact. No tremors. Sensation: LT, intact throughout. No evidence of neglect. Negative extinction to double simultaneous stimulation Gait: Narrow based and stable with normal stride and arm swing. Assessment and Plan: ASSESSMENT/PLAN: 1. Patience vu seizure disorder (HCC) - ICD9: 345.40, ICD10: G40.209 (primary diagnosis) Patient with persistent d j vu-like symptoms, starting around last year but acutely worsening around New Year's. Notes she has a daily experience of d j vu. Patient also notes increased emotional lability since July of last year, states that without the Celexa she would be crying daily. States that she is unsure when things are happening as she is experiencing them, unsure if this is in the past or present. Notes confusion associated with this and poor memory. Notes that she had to stop working because when she was in meetings she would have felt she already experienced this and would not be able to remember them afterwards. No tongue biting, no convulsions, no bowel bladder incontinence. EEG was negative, MRI did show possible arachnoid cysts, but no mass. Patient with history breast cancer, finished chemotherapy in 2017. Patient may need further seizure work-up if routine EEG was not sensitive enough. Will refer to epilepsy for further evaluation. Patient without any issues driving, no loss of consciousness with any of her episodes. There is no definitive start and stop time for each episode. 2. Intracranial arachnoid cyst - ICD9: 348.0, ICD10: G93.0 Patient with arachnoid cyst found on MRI, with possible mass effect. Does not appear to be causing any impediment with CSF drainage, but will refer to neurosurgery for further evaluation. 3. Memory loss - ICD9: 780.93, ICD10: R41.3 Patient with general memory loss, poor short-term memory. Unclear this is secondary to her d j vu or alternative process. MRI of brain does show moderate generalized volume loss, hippocampus loss is consistent with overall volume loss. Patient without any falls, no car accidents, no getting lost while driving or walking, no leaving stove on. Says she still working, although currently on leave dueto possible seizures. Discussed neurocognitive testing, prefer to rule out seizure disorder prior to having further cognitive work-up done. Patient without any concerns of safety at home at this time, no loss of consciousness, no falling. Neurologic exam is overall reassuring. Unclear etiology story loss, differentials include chemotherapy exposure, mild cognitive impairment, seizure disorder. Patient agreeable to treatment plan at this time, all questions were answered. Patient to follow-upshould epilepsy work-up be negative. Carissa Ledbetter PA-C I spent a total of 45 minutes on the date of the service which included preparing to see the patient, [id number] patient care, completing clinical documentation, obtaining and/or reviewing separately obtained history, performing a medically appropriate examination, counseling and educating the pat ient/family/caregiver, and ordering medications, tests, or procedures. This document has been created with the use of voice recognition technology. It may contain inaccuracies: (e.g. misspellings, inaccurate syntax or word sense) that have escaped review. [facility] NoteHNO ID: [id number] Author: RT Gen(R) Service: Radiology Author Type: Technologist Type: Progress Notes Filed: 02/07/2023 7:14 PM Note Text: Radiology Service Progress Note PATIENT NAME: Rachel Leigh DATE OF SERVICE: February 07, 2023 TIME: 7:13 PM PATIENT IDENTITY VERIFICATION COMPLETED USING TWO (2) IDENTIFIERS: Name and Date of confirmed by patient verbally. FALL SCREENING: Has the patient had 2 falls in the last year or 1 fall with injury or currently using an Ambulatory Assistive Device (Walker, Cane, Wheelchair, Crutches, etc.)? No PATIENT GENDER DATA: Female. status: : No status: NO. PATIENT RELEVANT IMPLANT DATA REVIEWED: Yes RADIOLOGY DEPARTMENT: MR; Exam(s) Completed: Head: Seizure [place] MRA Neck: Carotids MRA, bilateral PERIPHERAL IV DATA: Not applicable SIGNED BY: Manan Alaniz, RT(R)MR February 07, 2023 7:13 [facility]05-22-2023 NoteHNO ID: [id number] Author: Howard Arias, DO Service: ? Author Type: Physician Type: Progress Notes Filed: 01/25/2023 7:39 AM Note Text: CC: Rachel Leigh is a 72 year old female who presents to the office to establish care. HPI: Patient states that all day long she experiences situations that she can recollect such as patience Vu symptoms even though that she hasn't seen those situations (the same people she sees in the same spot, having the same conversations). This is getting to be very annoying to her. Struggles with concentration deficit, hx of ADD. Also history of Covid 19 infection in March 2022, struggled with same feeling of chemo brain until fall 2021. Then kept struggling with sinusitis and URI symptoms. She is unsure when exactly this Patience Vu symptoms started but did start after March 2022. Had CT brain in November 2022 which was normal- has seen Dr. Iyer Neurologist recently on 12/19/2022. She is scheduled to have MRI and MRA brain and carotid testing on February 07 for further evaluation. Is struggling with conversations and forgetting what she has told someone and also struggling with memory at times. Afraid that this is affecting her ability to work right now. Was on stimulant for ADD in the past. Was started on Celexa medication due to ADD and anxiety. Lives with youngest son and her daughter in law. Hx of chemo and radiation to chest due to breast CA in 2015, has had some palpitations. Had ECHO completed 09/2022- EF 58% and Grade 1 diastolic dysfunction. Also LA mild enlargement and mild aortic regurgitation. Has appt to see Cardiology Sury Abreu CNP in a few weeks. Also did have a very severe significant illness in Fall 2018, she is wondering if she had covid 19 then. Was treated with antibiotics and had vertigo symptoms. She thinks she had a reaction to the antibiotics. Had severe fatigue and sleepiness. Did have labs in Sep which showed high vitamin D levels, otherwise CBC and CMP were normal Hasn't had thyroid labs or metal labs or iron labs or vitamin B12 levels or inflammation markers checked. PAST MEDICAL HISTORY Diagnosis Date Anxiety disorder in conditions classified elsewhere Breast cancer (HCC) 2016 Breast cancer--LEFT Depressive disorder, not elsewhere classified Diverticulosis of colon (without mention of hemorrhage) Esophageal reflux Internal hemorrhoids without mention of complication Lumbago Other and unspecified hyperlipidemia Skin cancer Unspecified essential hypertension PAST SURGICAL HISTORY Procedure Laterality Date BX BREAST W/DEVICE 1ST LESION ULTRASOUND GUID Left 06/09/16 U/S core left retroareolar bx COLONOSCOPY FLX DX W/COLLJ SPEC WHEN PFRMD 03/03/2004,2013 Colonoscopy HEART CATHETERIZATION 98 INSJ TUNNELED CTR VAD W/SUBQ PORT AGE 5 YR/> Right 06-28-16 MASTECTOMY,PARTIAL, WITH AXILLARY LYMPHADENECTOMY Left 06-28-16 W/ SLN BIOPSY PAST SURGICAL HISTORY OF BILAT. PARTIAL SALPINGECTOMY PAST SURGICAL HISTORY OF NEUROMA REMOVED FROM L FOOT PAST SURGICAL HISTORY OF REATTACHMENT OF L DISTAL BICEPS TONSILLECTOMY PRIMARY/SECONDARY UNSPECIFIED ORAL SURGERY PROCEDURE, BY REPORT [place] [facility] Social History: Social History Tobacco Use Smoking status: Former Packs/day: 1.00 Types: Cigarettes Quit date: 09/04/1997 Years since quittin.4 Smokeless tobacco: Never Tobacco comments: Pt smoked on AND off x 20 years. Vaping Use Vaping Use: Never used Substance Use Topics Alcohol use: Yes Comment: occassionally Drug use: No FAMILY HISTORY Problem Relation Age of Onset Osteoporosis Mother Heart Mother CHF Hypertension Mother Diabetes Father Hypertension Father Heart Father CHF Cancer Maternal Grandfather 60's, lung cancer, hx of smoking Cancer Maternal Uncle 70 Lung cancer Cancer Maternal Uncle 60's; lung and esophageal cancer; hx of smoking Skin Cancer Paternal Aunt Current Outpatient prescriptions: calcium citrate/vitamin D3 (CITRACAL-D3 PETITES ORAL)Take by mouth once daily.Disp: Rfl: cholecalciferol (VITAMIN D3) 5,000 unit tabTake 5,000 Units by mouth once daily.Disp: Rfl: lisinopril (ZESTRIL, PRINIVIL) 10 mg tabletTake 10 mg by mouth once daily.Disp: Rfl: citalopram (CELEXA) 20 mg tabletTake 20 mg by mouth once daily.Disp: Rfl: OTC NUTRITIONAL BAAHDCYEIS76 mg Collagen Powder, add to cup of coffee every morningDisp: Rfl: B-complex with vitamin C (VITAMIN B COMPLEX-C ORAL)Take 1 capsule by mouth once daily.Disp: Rfl: MAGNESIUM ORALTake 1 tablet by mouth once daily.Disp: Rfl: aspirin, enteric coated (ASPIRIN, ENTERIC COATED) 81 mg EC tabletTake 81 mg by mouth once daily.Disp: Rfl: multivitamins(DAILY MULTIVITAMIN TAB)Take one(1) tablet daily.Disp: Rfl: 0 rosuvastatin (CRESTOR) 5 mg tabletTake 1 tablet by mouth once daily.Disp: 90 tabletRfl: 3 flaxseed 1,000 mg capTake 1 capsule by mouth once daily.Disp: Rfl: Allergies: ALLERGIES Allerg (more content not included)...[facility]04-17-2023 Note HNO ID: [id number] Author: Pb Iyer Jr., MD Service: ? Author Type: Physician Type: Progress Notes Filed: 12/19/2022 3:16 PM Note Text: NEW PATIENT (CONSULT) HISTORY AND PHYSICAL EXAM PRIMARY CARE PHYSICIAN: Howard Arias DO REASON FOR CONSULT: Seizures REFERRING PHYSICIAN: Mable Mcpherson APRN.LAM CHIEF COMPLAINT: Seizures Consultation requested by Mable Mcpherson APRN.LAM for an opinion regarding chief complaint of Patient presents with: New Patient and my final recommendations will be communicated back to the requesting physician by way of shared medical record or letter via [place] mail. HISTORY OF PRESENT ILLNESS: Rachel Leigh is a 72 year old female, BMI 27.28 kg/m2 with a PMH significant for that noted below. States presented to PCP on 10/03/22 for symptoms occurring since 07/2022 with definite episode on 09/03/22. Pt takes time to explain symptoms, with pt's focus on testing that was completed and ordered tests. Pt focused on diagnosis of seizures provided by PCP. Pt states she is seeing things that she already saw over and over all day long. States she feels like she has had this conversation with me before even though we have never met. States that when she was checking in, the people around her feel the same people are checking in. If at an intersection, feels the cars that are there are the same cars that are already there. States cannot do anything without this sensation. The event on (): lives with children, and states she would come downstairs and they would have something on the tv and would say I already saw that , but they will say they have not seen it . States she does not feel they perform a sermon at [facility] that they have not already done. Then goes back to [employer], (does not then clarify if really was [employer]). States a commercial came on for the movie a man named Morgan, and she states she already saw it, but they state it was not even released yet. Then states on [place] was watching football game and would see plays happening that in her mind are already happening. Then states she would be switching between the football game and [place] celebration and every time it was I already saw this . This is occurring everyday, every hour, every minute per pt. 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 States only time she can relax is if she watches an old movie. 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 CT brain on 11/10/22 showing no definite acute intracranial process on review of images. Per rad report: Post-operative change: None. Acute change: No evidence of an acute infarct or other acute parenchymal process. Hemorrhage: No evidence of acute intracranial hemorrhage. ECASS hemorrhagic transformation score: Not Applicable Mass Lesion / Mass Effect: Incidental right paramedian posterior convexity cerebellar arachnoid cyst with no substantial mass effect. Otherwise no apparent intracranial mass or extra-axial fluid collection. No midline shift. Chronic change: Scattered patchy foci of low attenuation are present within supratentorial white matter which is a nonspecific finding but likely represents mild microvascular ischemia. Atherosclerotic calcifications in the carotid siphons. Parenchyma: Mild generalized prominence of the sulci and fissures, although the overall parenchymal volume is suspected to be within normal limits for patient age. Ventricles: Ventricular calibers are commensurate with the parenchymal volume and normal in configuration. No loc. No abnormal movements. No tongue biting or urinary incontinence with symptoms. Pt states she does have ADD and thus working from home is very hard and during COVID was not taking medications for ADD. Then PCP started on Adderall but BP too high and became angry. Then tried on Vyvanse, but still side effects and crying all the time. Then started on Celexa. States dx with ADD at age 62 years (I cannot find dx). Note pt then states Dr. Bernstein felt pt might have been misdiagnosed and actually biplopar. Pressured speech throughout the interview. Now I cannot remember stuff . Pt does have GABY but states using PAP. States has difficulties balancing checkbook and so much she cannot remember and feels stressed out doing stuff. States getting to the point that she does not want to go out anymore. She questions if she is making up a story. MODIFIED MOCA: Immediate recall: 01/06 Number repeat: 10/06 Sentence repeat: 10/06 Serial 7s: [id number] 10/07 Similar objects: 10/06 Orientation: 12/19/2022, Jared02/07 Namin/3 Delayed recall: 12/07 A tap: 09/04 Clock drawin/3 REVIEW OF SYSTEMS GENERAL:No weight loss, malaise or fevers. HEENT:Negative for frequent or significant (more content not included)... [facility]03-22-2023 NoteHNO ID: [id number] Author: Diogenes Dueñas APRN.[employer] Service: ? Author Type: Nurse Practitioner Type: Progress Notes Filed: 11/23/2022 5:26 PM Note Text: Subjective HPI Nontoxic-appearing female presents urgent care chief plaint possible sinus infection. Duration of symptoms 10 days. Associated symptoms sinus pressure drainage. Patient states over the last 3 to 4 days she has noted unilateral facial tenderness and upper teeth tenderness. History of sinus infections this feels similar. Has used OTC medication no success. No known sick contacts. Denies any history of sinus surgery. Denies any fever body aches chills productive cough chest pain shortness of breath pleuritic pain hemoptysis nausea vomiting abdominal pain change in bowel or bladder habits. Past medical history prescription medication use and allergies reviewed. .Patient presents with: Sinus Problem: Sinus pressure, facial pain and drainage x 10 days PAST MEDICAL HISTORY Diagnosis Date Anxiety disorder in conditions classified elsewhere Breast cancer (HCC) 2015 Breast cancer--LEFT Depressive disorder, not elsewhere classified Diverticulosis of colon (without mention of hemorrhage) Esophageal reflux Internal hemorrhoids without mention of complication Lumbago Other and unspecified hyperlipidemia Skin cancer Unspecified essential hypertension PAST SURGICAL HISTORY Procedure Laterality Date BX BREAST W/DEVICE 1ST LESION ULTRASOUND GUID Left 06/09/16 U/S core left retroareolar bx COLONOSCOPY FLX DX W/COLLJ SPEC WHEN PFRMD 03/03/2004,2012 Colonoscopy HEART CATHETERIZATION 98 INSJ TUNNELED CTR VAD W/SUBQ PORT AGE 5 YR/> Right 18 MASTECTOMY,PARTIAL, WITH AXILLARY LYMPHADENECTOMY Left 06-28-16 W/ SLN BIOPSY PAST SURGICAL HISTORY OF BILAT. PARTIAL SALPINGECTOMY PAST SURGICAL HISTORY OF NEUROMA REMOVED FROM L FOOT PAST SURGICAL HISTORY OF REATTACHMENT OF L DISTAL BICEPS TONSILLECTOMY PRIMARY/SECONDARY UNSPECIFIED ORAL SURGERY PROCEDURE, BY REPORT [place] [facility] ALLERGIES Amantadine and Voltaren [Diclofenac Sodium] MEDICATIONS calcium citrate/vitamin D3 (CITRACAL-D3 PETITES ORAL)Take by mouth once daily.Disp: Rfl: lisinopril (ZESTRIL, PRINIVIL) 10 mg tabletTake 10 mg by mouth once daily.Disp: Rfl: citalopram (CELEXA) 20 mg tabletTake 20 mg by mouth once daily.Disp: Rfl: OTC NUTRITIONAL COAXPZIDWQ14 mg Collagen Powder, add to cup of coffee every morningDisp: Rfl: rosuvastatin (CRESTOR) 5 mg tabletTake 5 mg by mouth once daily.Disp: Rfl: B-complex with vitamin C (VITAMIN B COMPLEX-C ORAL)Take 1 capsule by mouth once daily.Disp: Rfl: MAGNESIUM ORALTake 1 tablet by mouth once daily.Disp: Rfl: aspirin, enteric coated (ASPIRIN, ENTERIC COATED) 81 mg EC tabletTake 81 mg by mouth once daily.Disp: Rfl: flaxseed 1,000 mg capTake 1 capsule by mouth once daily.Disp: Rfl: cholecalciferol (VITAMIN D3) 5,000 unit tabTake 5,000 Units by mouth once daily.Disp: Rfl: multivitamins(DAILY MULTIVITAMIN TAB)Take one(1) tablet daily.Disp: Rfl: 0 (Patient not taking: Reported on 11/23/2022) FAMILY HISTORY Problem Relation Age of Onset Osteoporosis Mother Heart Mother CHF Hypertension Mother Diabetes Father Hypertension Father Heart Father CHF Cancer Maternal Grandfather 60's, lung cancer, hx of smoking Cancer Maternal Uncle 70 Lung cancer Cancer Maternal Uncle 60's; lung and esophageal cancer; hx of smoking Skin Cancer Paternal Aunt Social History Tobacco Use Smoking status: Former Packs/day: 1.00 Types: Cigarettes Quit date: 09/04/1997 Years since quittin.2 Smokeless tobacco: Never Tobacco comments: Pt smoked on AND off x 20 years. Vaping Use Vaping Use: Never used Substance Use Topics Alcohol use: Yes Comment: occassionally Drug use: No BP 126/80 Pulse 62 Temp 36.7 ?C (98.1 ?F) (Tympanic) Resp 18 Wt 72.6 kg (160 lb) SpO2 98% BMI 27.04 kg/m? Review of Systems Constitutional: Negative for chills, fever and malaise/fatigue. HENT: Positive for congestion and sinus pain. Negative for ear discharge, ear pain and sore throat. Eyes: Negative for blurred vision, pain, discharge and redness. Respiratory: Negative for cough, hemoptysis, sputum production, shortness of breath, wheezing and stridor. Cardiovascular: Negative for chest pain. Gastrointestinal: Negative for abdominal pain, diarrhea, nausea and vomiting. Musculoskeletal: Negative for myalgias. Skin: Negative for itching and rash. Neurological: Negative for dizziness and headaches. Objective Physical Exam Constitutional: General: She is not in acute distress. Appearance: She is not diaphoretic. HENT: Head: Normocephalic. Jaw: No trismus, tenderness or pain on movement. Right Ear: Tympanic membrane, ear canal and external ear normal. Left Ear: Tympanic membrane, ear canal and external ear normal. Nose: Right Sinus: Maxillary sinus tenderness present. (more content not included)...[facility]03-22-2023 History of Present illness Narrative* Diogenes Dueñas APRN.[facility] - 11/23/2022 5:02 PM EDT Subjective HPI Nontoxic-appearing female presents urgent care chief plaint possible sinus infection. Duration of symptoms 10 days. Associated symptoms sinus pressure drainage. Patient states over the last 3 to 4 days she has noted unilateral facial tenderness and upper teeth tenderness. History of sinus infections this feels similar. Has used OTC medication no success. No known sick contacts. Denies any historyof sinus surgery. Denies any fever body aches chills productive cough chest pain shortness of breath pleuritic pain hemoptysis nausea vomiting abdominal pain change in bowel or bladder habits. Past medical history prescription medication use and allergies reviewed. .Patient presents with: Sinus Problem: Sinus pressure, facial pain and drainage x 10 days PAST MEDICAL HISTORY Diagnosis Date Anxiety disorder in conditions classified elsewhere Breast cancer (HCC) 2016 Breast cancer--LEFT Depressive disorder, not elsewhere classified Diverticulosis of colon (without mention of hemorrhage) Esophageal reflux Internal hemorrhoids without mention of complication Lumbago Other and unspecified hyperlipidemia Skin cancer Unspecified essential hypertension PAST SURGICAL HISTORY Procedure Laterality Date BX BREAST W/DEVICE 1ST LESION ULTRASOUND GUID Left 06/09/16 U/S core left retroareolar bx COLONOSCOPY FLX DX W/COLLJ SPEC WHEN PFRMD 03/03/2004,2012 Colonoscopy HEART CATHETERIZATION 98 INSJ TUNNELED CTR VAD W/SUBQ PORT AGE 7 YR/> Right 06-28-16 MASTECTOMY,PARTIAL, WITH AXILLARY LYMPHADENECTOMY Left 06-28-16 W/ SLN BIOPSY PAST SURGICAL HISTORY OF BILAT. PARTIAL SALPINGECTOMY PAST SURGICAL HISTORY OF NEUROMA REMOVED FROM L FOOT PAST SURGICAL HISTORY OF REATTACHMENT OF L DISTAL BICEPS TONSILLECTOMY PRIMARY/SECONDARY <AGE 14 UNSPECIFIED ORAL SURGERY PROCEDURE, BY REPORT [place] [facility] ALLERGIES Amantadine and Voltaren [Diclofenac Sodium] MEDICATIONS calcium citrate/vitamin D3 (CITRACAL-D3 PETITES ORAL)^Take by mouth once daily.^Disp: ^Rfl: lisinopril (ZESTRIL, PRINIVIL) 10 mg tablet^Take 10 mg by mouth once daily.^Disp: ^Rfl: citalopram (CELEXA) 20 mg tablet^Take 20 mg by mouth once daily.^Disp: ^Rfl: OTC NUTRITIONAL SUPPLEMENT^20 mg Collagen Powder, add to cup of coffee every morning^Disp: ^Rfl: rosuvastatin (CRESTOR) 5 mg tablet^Take 5 mg by mouth once daily.^Disp: ^Rfl: B-complex with vitamin C (VITAMIN B COMPLEX-C ORAL)^Take 1 capsule by mouth once daily.^Disp: ^Rfl: MAGNESIUM ORAL^Take 1 tablet by mouth once daily.^Disp: ^Rfl: aspirin, enteric coated (ASPIRIN, ENTERIC COATED) 81 mg EC tablet^Take 81 mg by mouth once daily.^Disp: ^Rfl: flaxseed 1,000 mg cap^Take 1 capsule by mouth once daily.^Disp: ^Rfl: cholecalciferol (VITAMIN D3) 5,000 unit tab^Take 5,000 Units by mouth once daily.^Disp: ^Rfl: multivitamins(DAILY MULTIVITAMIN TAB)^Take one(1) tablet daily.^Disp: ^Rfl: 0 (Patient not taking: Reported on 11/23/2022) FAMILY HISTORY Problem Relation Age of Onset Osteoporosis Mother Heart Mother CHF Hypertension Mother Diabetes Father Hypertension Father Heart Father CHF Cancer Maternal Grandfather 60's, lung cancer, hx of smoking Cancer Maternal Uncle 70 Lung cancer Cancer Maternal Uncle 60's; lung and esophageal cancer; hx of smoking Skin Cancer Paternal Aunt Social History Tobacco Use Smoking status: Former Packs/day: 1.00 Types: Cigarettes Quit date: 09/04/1997 Years since quittin.2 Smokeless tobacco: Never Tobacco comments: Pt smoked on & off x 20 years. Vaping Use Vaping Use: Never used Substance Use Topics Alcohol use: Yes Comment: occassionally Drug use: No BP 126/80 Pulse 62 Temp 36.7 C (98.1 F) (Tympanic) Resp 18 Wt 72.6 kg (160 lb) SpO2 98% BMI 27.04 kg/m Review of Systems Constitutional: Negative for chills, fever and malaise/fatigue. HENT: Positive for congestion and sinus pain. Negative for ear discharge, ear pain and sore throat. Eyes: Negative for blurred vision, pain, discharge and redness. Respiratory: Negative for cough, hemoptysis, sputum production, shortness of breath, wheezing and stridor. Cardiovascular: Negative for chest pain. Gastrointestinal: Negative for abdominal pain, diarrhea, nausea and vomiting. Musculoskeletal: Negative for myalgias. Skin: Negative for itching and rash. Neurological: Negative for dizziness and headaches. Objective Physical Exam Constitutional: General: She is not in acute distress. Appearance: She is not diaphoretic. HENT: Head: Normocephalic. Jaw: No trismus, tenderness or pain on movement. Right Ear: Tympanic membrane, ear canal and external ear normal. Left Ear: Tympanic membrane, ear canal and external ear normal. Nose: Right Sinus: Maxillary sinus tenderness present. Mouth/Throat: Lips: [place]. Mouth: Mucous membranes are moist. Pharynx: Oropharynx is clear. Uvula midline. No pharyngeal swelling, oropharyngeal exudate, posterior oropharyngeal erythema or uvula swelling. Eyes: Conjunctiva/sclera: Conjunctivae normal. Pupils: Pupils are equal, round, and reactive to light. Cardiovascular: Rate and Rhythm: Normal rate and regular rhythm. Heart sounds: Normal heart sounds. Pulmonary: Effort: Pulmonary effort is normal. No tachypnea, accessory muscle usage or respiratory distress. Breath sounds: Normal breath sounds. No stridor. No wheezing, rhonchi or rales. Abdominal: Palpations: Abdomen is soft. Tenderness: There is no abdominal tenderness. There is no guarding or rebound. Musculoskeletal: Cervical back: Normal range of motion and neck supple. No rigidity or tenderness. Lymphadenopathy: Cervical: No cervical adenopathy. Skin: General: Skin is warm and dry. Neurological: Mental Status: She is alert and oriented to person, place, and time. ASSESSMENT/PLAN: 1. Bacterial sinusitis - ICD9: 473.9, 041.9, ICD10: J32.9, B96.89 Diagnosed with bacterial sinusitis. Placed on Augmentin. Red flags prompt reevaluation discussed. Patient was educated on supportive therapies. Patient will follow up with primary care provider as needed. Patient was instructed to immediately proceed to emergency room for any new, worsening, or symptoms lasting longer than anticipated. The patient's clinical presentation is otherwise unremarkable at this time. Based on exam and clinical finding, the patient is stable for discharge. Plan of care was discussed with patient. Patient verbalizes understanding and agrees to plan of care. This note was generated using [employer] software. It may contain errors in wording, punctuation, or spelling. Diogenes Dueñas APRN.LAM documented in this encounterMount [facility]03-15-2023 Miscellaneous Notes* Telephone Encounter - Reema Dan APRN.CNP - 11/16/2022 5:36 PM EDT Noted, thank you. Reema Dan APRN.CNP * Telephone Encounter - Addis Gonzalez - 11/16/2022 4:12 PM EDT Spoke with the patient and she prefers to keep appointment with Dr Iyer rather than a sooner appointment with another provider.She is on the wait list for Kyle Iyer but there is nothing sooner at thistime. She also stated she does not need FMLA paperwork completed as her employer is small. * Telephone Encounter - Geeta Hendricks - 11/11/2022 3:22 PM EST Schedulers, are we able to get patient scheduled sooner with neuro? Geeta Hendricks * Telephone Encounter - Mable Mcpherson APRN.CNP - 11/11/2022 3:16 PM EST Please see if we can get her in with neurology sooner. If needing FMLA -- please have her get paperwork from employer and schedule appointment to review and discuss. Thank you, Mable Mcpherson APRN.CNP documented in this encounterMount Carmel [facility] System03-09-2023 NoteHNO ID: [id number] Author: RT Beth(Conchita) Service: ? Author Type: Supervisor Multifocal Lens Type: Progress Notes Filed: 11/10/2022 2:57 PM Note Text: Radiology Service Progress Note PATIENT NAME: Rachel Leigh DATE OF SERVICE: November 10, 2022 TIME: 2:56 PM PATIENT IDENTITY VERIFICATION COMPLETED USING TWO (2) IDENTIFIERS: Name and Date of confirmed by patient verbally. FALL SCREENING: Has the patient had 2 falls in the last year or 1 fall with injury or currently using an Ambulatory Assistive Device (Walker, Cane, Wheelchair, Crutches, etc.)? No PATIENT GENDER DATA: Female. status: : No status: NO. PATIENT RELEVANT IMPLANT DATA REVIEWED: Yes RADIOLOGY DEPARTMENT: CT; Exam(s) Completed: Brain PERIPHERAL IV DATA: Not applicable SIGNED BY: RT Rula(R) November 10, 2022 2:56 [facility]03-09-2023 History of Present illness Narrative* Carmenza Dupree RT(R) - 11/10/2022 8:20 AM EST Radiology Service Progress Note PATIENT NAME: Rachel Leigh DATE OF SERVICE: November 10, 2022 TIME: 2:56 PM PATIENT IDENTITY VERIFICATION COMPLETED USING TWO (2) IDENTIFIERS: Name and Date of confirmedby patient verbally. FALL SCREENING: Has the patient had 2 falls in the last year or 1 fall with injury or currently using an Ambulatory Assistive Device (Walker, Cane, Wheelchair, Crutches, etc.)? No PATIENT GENDER DATA: Female. status: : No status: NO. PATIENT RELEVANT IMPLANT DATA REVIEWED: Yes RADIOLOGY DEPARTMENT: CT; Exam(s) Completed: Brain PERIPHERAL IV DATA: Not applicable SIGNED BY: RT Rula(R) November 10, 2022 2:56 PM documented in this encounterMount Carmel Health System02-20-2023 NoteHNO ID: [id number] Author: Mable Mcpherson APRN.MANAGER [employer]ERS[employer] Service: ? Author Type: Nurse Practitioner Type: Progress Notes Filed: 10/24/2022 10:36 AM Note Text: Chief Complaint Patient presents with: 4 week f/up HPI Rachel Leigh is a 72 year old female who presents here today for Above Complaints.. Rachel is a new patient to our PCP team as of last visit 3 weeks ago. Following up today d/t numerous complaints at last visit. Concerns today... Patience-vu ---- Following up on Patience-vu symptoms from last visit. Reports feeling like everything she does has already happened. Not able to predict future but as she is experiencing things, she feels as though it already happened. Will have conversations with family, and she feels like she already heard the same stories over and over again. No prior neurology hx. No other neuro deficits. Walking normally. No hx of seizures. memory seems intact. Feels memory will be delayed sometimes. Mini-cog/MMSE performed. See below in PE. Past medical history, appointments, medications, allergies reviewed. Previous Medical History PAST MEDICAL HISTORY Diagnosis Date Anxiety disorder in conditions classified elsewhere Breast cancer (HCC) 2016 Breast cancer--LEFT Depressive disorder, not elsewhere classified Diverticulosis of colon (without mention of hemorrhage) Esophageal reflux Internal hemorrhoids without mention of complication Lumbago Other and unspecified hyperlipidemia Skin cancer Unspecified essential hypertension Previous Surgical History PAST SURGICAL HISTORY Procedure Laterality Date BX BREAST W/DEVICE 1ST LESION ULTRASOUND GUID Left 06/09/16 U/S core left retroareolar bx COLONOSCOPY FLX DX W/COLLJ SPEC WHEN PFRMD 03/03/2004,2013 Colonoscopy HEART CATHETERIZATION 98 INSJ TUNNELED CTR VAD W/SUBQ PORT AGE 5 YR/> Right 06-28-16 MASTECTOMY,PARTIAL, WITH AXILLARY LYMPHADENECTOMY Left 06-28-16 W/ SLN BIOPSY PAST SURGICAL HISTORY OF BILAT. PARTIAL SALPINGECTOMY PAST SURGICAL HISTORY OF NEUROMA REMOVED FROM L FOOT PAST SURGICAL HISTORY OF REATTACHMENT OF L DISTAL BICEPS TONSILLECTOMY PRIMARY/SECONDARY UNSPECIFIED ORAL SURGERY PROCEDURE, BY REPORT [place] [facility] Family History FAMILY HISTORY Problem Relation Age of Onset Osteoporosis Mother Heart Mother CHF Hypertension Mother Diabetes Father Hypertension Father Heart Father CHF Cancer Maternal Grandfather 60's, lung cancer, hx of smoking Cancer Maternal Uncle 70 Lung cancer Cancer Maternal Uncle 60's; lung and esophageal cancer; hx of smoking Skin Cancer Paternal Aunt Patient Allergies ALLERGIES Allergen Reactions Amantadine Intolerance crying Voltaren [Diclofena* Hives Current Medications Current Outpatient Medications on File Prior to Visit Medication Sig calcium citrate/vitamin D3 (CITRACAL-D3 PETITES ORAL) Take by mouth once daily. cholecalciferol (VITAMIN D3) 5,000 unit tab Take 5,000 Units by mouth once daily. lisinopril (ZESTRIL, PRINIVIL) 10 mg tablet Take 10 mg by mouth once daily. citalopram (CELEXA) 20 mg tablet Take 20 mg by mouth once daily. OTC NUTRITIONAL SUPPLEMENT 20 mg Collagen Powder, add to cup of coffee every morning rosuvastatin (CRESTOR) 5 mg tablet Take 5 mg by mouth once daily. B-complex with vitamin C (VITAMIN B COMPLEX-C ORAL) Take 1 capsule by mouth once daily. MAGNESIUM ORAL Take 1 tablet by mouth once daily. aspirin, enteric coated (ASPIRIN, ENTERIC COATED) 81 mg EC tablet Take 81 mg by mouth once daily. flaxseed 1,000 mg cap Take 1 capsule by mouth once daily. multivitamins(DAILY MULTIVITAMIN TAB) Take one(1) tablet daily. (Patient not taking: Reported on 10/03/2022) Current Facility-Administered Medications on File Prior to Visit Medication perflutren lipid microspheres 1.3 mL in NaCl (PF) 0.9% 10 mL injection (DEFINITY) sodium chloride 0.9 % (flush) 10 mL (BD POSIFLUSH) Social History Social History Tobacco Use Smoking status: Former Packs/day: 1.00 Types: Cigarettes Quit date: 09/04/1997 Years since quittin.1 Smokeless tobacco: Never Tobacco comments: Pt smoked on AND off x 20 years. Vaping Use Vaping Use: Never used Substance Use Topics Alcohol use: Yes Comment: occassionally Drug use: No REVIEW OF SYSTEMS: as above Reviewed relevant PMHx, PSHx, Social Hx, current medications and allergies. Review of Symptoms REVIEW OF SYSTEMS See HPI. EXAM: BP 110/64 (BP Site: Right Arm, BP Position: Sitting, BP Cuff Size: Regular Adult) Pulse 64 Resp 16 Wt 72.1 kg (159 lb) BMI 26.87 kg/m? General Appearance: Well appearing, alert, in no acute distress, well-hydrated, well nourished.. Skin: Skin color, texture, turgor normal, no suspicious rashes or lesions. Head: Normocephalic, no masses, lesions, tenderness or abnormalities. Lungs: Lungs clear to auscultation. No wheezing, rhonchi, rales.. Heart: RRR without murmur, gallop, or r (more content not included)...[facility]02-01-2023 Miscellaneous Notes* Telephone Encounter - Lillie Choi LPN - 10/05/2022 2:08 PM EST Pt. informed * Telephone Encounter - Mable Mcpherson APRN.CNP - 10/05/2022 12:37 PM EST Please call patient and let her know lab results and ECHO are back. Vitamin D is slightly elevated -- I recommend decreasing the vitamin D3 supplement she is taking. Try taking every other day. Otherwise, all other lab work looks fantastic! ECHO does show some mild aortic regurgitation and a slightly dilated left atrium. Compared to ECHO in 2016 -- this is unchanged. Continue with biotechnician to establish care. Thank you, Mable Mcpherson APRN.LAM documented in this encounterMount [facility]01-30-2023 NoteHNO ID: [id number] Author: Mable Mcpherson APRN.CNP Service: ? Author Type: Nurse Practitioner Type: Progress Notes Filed: 10/03/2022 5:14 PM Note Text: Chief Complaint Patient presents with: Establish Care HPI Rachel Leigh is a 72 year old female who presents here today for Above Complaints.. Rachel is here today to establish care with our PCP team. Rachel is a new patient to me today. Concerns today.. Pt has numerous complaints and will need close follow-up to continue discussion. 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 Has tried stimulants such as adderall and vyvanse but elevated BP too much and caused palpitations so this was discontinued. Feels celexa helps with ADD symptoms currently. HTN -- Lisinopril 10 mg daily She states compliant with current blood pressure medication(s). She does check BP at home. Average home readings: normal per pt, 120s/80s She denies chest pain, shortness of breath, palpitations, dizziness, leg edema, headaches, or vision changes. Last 14 Encounter BP Readings: Date: BP: 10/03/2022 140/60 08/15/2022 130/75 02/28/2022 136/88 08/20/2021 129/82 02/12/2021 145/82 08/14/2020 124/75 08/16/2019 119/64 05/01/2019 124/80 2019 126/80 08/15/2018 114/75 07/24/2018 147/90 02/05/2018 132/80 01/30/2018 113/74 08/01/2017 125/75 Vitamin D deficiency -- on 5000 unit supplement daily. HLD -- Crestor 5 mg daily Breast cancer -- Triple negative breast cancer. dx June 21 2016. Had lobectomy and nipple removed from L breast. Had lymph nodes removed from armpit at this time as well. Did have a few rounds of chemo. Dr. Collier AND Ruth Khan APRN is who she follows with regularly for oncology. Been in remission since surgery in 2016. Mammogram last month -- normal. Needs close monitoring. Chest pain -- Intermittent CP to central chest x a few minutes per episodes. Happening a few times per month. Has been occurring x 2-4 years. Sometimes will wake up in the morning with this chest discomfort. SOB with exertion when walking up numerous flights of stairs. Denies heart burn or reflux symptoms. Feels this is more cardiac then esophagus. Significant cardiac history in family. Dad had first heart attack at age 60 CAD significant family history with aunts and uncles. Mother with enlarged heart and CHF. Patience-vu??--- Pt reports x 2-4 months of issues with patience-vu? Feels that movies she watches, or sermons at [employer] she has already seen before. She can't predict what is going to happen next but as she is watching something, her brain feels like she has already seen this at a prior date. Thinks possible her short term memory and group home memory are switched? Feels that when she watches something, it goes straight into her long-term memory. HM -- Up to date on mammogram and colonoscopy and PAPs Past medical history, appointments, medications, allergies reviewed. Previous Medical History PAST MEDICAL HISTORY Diagnosis Date Anxiety disorder in conditions classified elsewhere Breast cancer (HCC) 2016 Breast cancer--LEFT Depressive disorder, not elsewhere classified Diverticulosis of colon (without mention of hemorrhage) Esophageal reflux Internal hemorrhoids without mention of complication Lumbago Other and unspecified hyperlipidemia Skin cancer Unspecified essential hypertension Previous Surgical History PAST SURGICAL HISTORY Procedure Laterality Date BX BREAST W/DEVICE 1ST LESION ULTRASOUND GUID Left 06/09/16 U/S core left retroareolar bx COLONOSCOPY FLX DX W/COLLJ SPEC WHEN PFRMD 03/03/2004,2013 Colonoscopy HEART CATHETERIZATION 98 INSJ TUNNELED CTR VAD W/SUBQ PORT AGE 5 YR/> Right 06-28-16 MASTECTOMY,PARTIAL, WITH AXILLARY LYMPHADENECTOMY Left 06-28-16 W/ SLN BIOPSY PAST SURGICAL HISTORY OF BILAT. PARTIAL SALPINGECTOMY PAST SURGICAL HISTORY OF NEUROMA REMOVED FROM L FOOT PAST SURGICAL HISTORY OF REATTACHMENT OF L DISTAL BICEPS TONSILLECTOMY PRIMARY/SECONDARY UNSPECIFIED ORAL SURGERY PROCEDURE, BY REPORT [place] [facility] Family History FAMILY HISTORY Problem Relation Age of Onset Osteoporosis Mother Heart Mother CHF Hypertension Mother Diabetes Father Hypertension Father Heart Father CHF Cancer Maternal Grandfather 60's, lung cancer, hx of smoking Cancer Maternal Uncle 70 Lung cancer Cancer Maternal Uncle 60's; lung and esophageal cancer; hx of smoking Skin Cancer Paternal Aunt Patient Allergies ALLERGIES Allergen Reactions Amantadine Intolerance crying Voltaren [Diclofena* Hives Current Medications Current Outpatient Medications on File Prior to Visit Medication Sig calcium citrate/vitamin D3 (CITRACAL-D3 PETITES ORAL) Take by mouth once daily. cholecalciferol (VITAMIN D3) 5,000 unit tab Take 5,000 Units by mouth once daily. li (more content not included)...[facility]01-30-2023 History of Present illness Narrative* Mable Mcpherson, HISTOLOGY AIDE.MANAGER [employer]ERS[employer] - 10/03/2022 2:20 PM EST Chief Complaint Patient presents with: Establish Care HPI Rachel Leigh is a 72 year old female who presents here today for Above Complaints.. Rachel is here today to establish care with our PCP team. Rachel is a new patient to me today. Concerns today.. Pt has numerous complaints and will need close follow-up to continue discussion. 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 Has tried stimulants such as adderall and vyvanse but elevated BP too much and caused palpitations so this was discontinued. Feels celexa helps with ADD symptoms currently. HTN -- Lisinopril 10 mg daily She states compliant with current blood pressure medication(s). She does check BP at home. Average home readings: normal per pt, 120s/80s She denies chest pain, shortness of breath, palpitations, dizziness, leg edema, headaches, or vision changes. Last 14 Encounter BP Readings: Date: BP: 10/03/2022 140/60 08/15/2022 130/75 02/28/2022 136/88 08/20/2021 129/82 02/12/2021 145/82 08/14/2020 124/75 08/16/2019 119/64 05/01/2019 124/80 2019 126/80 08/15/2018 114/75 07/24/2018 147/90 02/05/2018 132/80 01/30/2018 113/74 08/01/2017 125/75 Vitamin D deficiency -- on 5000 unit supplement daily. HLD -- Crestor 5 mg daily Breast cancer -- Triple negative breast cancer. dx June 21 2016. Had lobectomy and nipple removed from L breast. Had lymph nodes removed from armpit at this time aswell. Did have a few rounds of chemo. Dr. Collier & Ruth Khan, HISTOLOGY AIDE is who she follows with regularly for oncology. Been in remission since surgery in 2015. Mammogram last month -- normal. Needs close monitoring. Chest pain -- Intermittent CP to central chest x a few minutes per episodes. Happening a few times per month. Hasbeen occurring x 2-4 years. Sometimes will wake up in the morning with this chest discomfort. SOB with exertion when walking up numerous flights of stairs. Denies heart burn or reflux symptoms. Feels this is more cardiac then esophagus. Significant cardiac history in family. Dad had first heart attack at age 60 CAD significant family history with aunts and uncles. Mother with enlarged heart and CHF. Patience-vu??--- Pt reports x 2-4 months of issues with patience-vu? Feels that movies she watches, or sermons at [employer] she has already seen before. She can't predict what is going to happen next but as she is watching something, her brain feels like she has already seen this at a prior date. 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 Feels that when she watches something, it goes straight into her long-term memory. HM -- Up to date on mammogram and colonoscopy and PAPs Past medical history, appointments, medications, allergies reviewed. Previous Medical History PAST MEDICAL HISTORY Diagnosis Date Anxiety disorder in conditions classified elsewhere Breast cancer (HCC) 2015 Breast cancer--LEFT Depressive disorder, not elsewhere classified Diverticulosis of colon (without mention of hemorrhage) Esophageal reflux Internal hemorrhoids without mention of complication Lumbago Other and unspecified hyperlipidemia Skin cancer Unspecified essential hypertension Previous Surgical History PAST SURGICAL HISTORY Procedure Laterality Date BX BREAST W/DEVICE 1ST LESION ULTRASOUND GUID Left 06/09/16 U/S core left retroareolar bx COLONOSCOPY FLX DX W/COLLJ SPEC WHEN PFRMD 03/03/2004,2012 Colonoscopy HEART CATHETERIZATION 98 INSJ TUNNELED CTR VAD W/SUBQ PORT AGE 7 YR/> Right 06-28-16 MASTECTOMY,PARTIAL, WITH AXILLARY LYMPHADENECTOMY Left 06-28-16 W/ SLN BIOPSY PAST SURGICAL HISTORY OF BILAT. PARTIAL SALPINGECTOMY PAST SURGICAL HISTORY OF NEUROMA REMOVED FROM L FOOT PAST SURGICAL HISTORY OF REATTACHMENT OF L DISTAL BICEPS TONSILLECTOMY PRIMARY/SECONDARY <AGE 14 UNSPECIFIED ORAL SURGERY PROCEDURE, BY REPORT [place] [facility] Family History FAMILY HISTORY Problem Relation Age of Onset Osteoporosis Mother Heart Mother CHF Hypertension Mother Diabetes Father Hypertension Father Heart Father CHF Cancer Maternal Grandfather 60's, lung cancer, hx of smoking Cancer Maternal Uncle 70 Lung cancer Cancer Maternal Uncle 60's; lung and esophageal cancer; hx of smoking Skin Cancer Paternal Aunt Patient Allergies ALLERGIES Allergen Reactions Amantadine Intolerance crying Voltaren [Diclofena* Hives Current Medications Current Outpatient Medications on File Prior to Visit Medication Sig calcium citrate/vitamin D3 (CITRACAL-D3 PETITES ORAL) Take by mouth once daily. cholecalciferol (VITAMIN D3) 5,000 unit tab Take 5,000 Units by mouth once daily. lisinopril (ZESTRIL, PRINIVIL) 10 mg tablet Take 10 mg by mouth once daily. citalopram (CELEXA) 20 mg tablet Take 20 mg by mouth once daily. OTC NUTRITIONAL SUPPLEMENT 20 mg Collagen Powder, add to cup of coffee every morning rosuvastatin (CRESTOR) 5 mg tablet Take 5 mg by mouth once daily. B-complex with vitamin C (VITAMIN B COMPLEX-C ORAL) Take 1 capsule by mouth once daily. MAGNESIUM ORAL Take 1 tablet by mouth once daily. aspirin, enteric coated (ASPIRIN, ENTERIC COATED) 81 mg EC tablet Take 81 mg by mouth once daily. flaxseed 1,000 mg cap Take 1 capsule by mouth once daily. multivitamins(DAILY MULTIVITAMIN TAB) Take one(1) tablet daily. No current facility-administered medications on file prior to visit. Social History Social History Tobacco Use Smoking status: Former Packs/day: 1.00 Types: Cigarettes Quit date: 09/04/1997 Years since quittin.0 Smokeless tobacco: Never Tobacco comments: Pt smoked on & off x 20 years. Vaping Use Vaping Use: Never used Substance Use Topics Alcohol use: Yes Comment: occassionally Drug use: No REVIEW OF SYSTEMS: as above Reviewed relevant PMHx, PSHx, Social Hx, current medications and allergies. Review of Symptoms REVIEW OF SYSTEMS See HPI. All other systems are negative. EXAM: BP 140/60 (BP Site: Left Arm, BP Position: Sitting, BP Cuff Size: Regular Adult) Pulse 72 Resp 14 Ht 163.8 cm (5' 4.5 ) Wt 74.4 kg (164 lb) SpO2 98% BMI 27.72 kg/m General Appearance: Well appearing, alert, in no acute distress, well-hydrated, well nourished.. Skin: Skin color, texture, turgor normal, no suspicious rashes or lesions. Head: Normocephalic, no masses, lesions, tenderness or abnormalities. Neck: Supple, no adenopathy; thyroid symmetric, normal size, no bruits. Back:no pain to palpation of vertebrae, good flexion and extension, good range of motion, no muscletenderness, reflexes are 2+ and symmetric, motor and sensory appear to be normal, negative SLR test, no evidence of scoliosis Lungs: Lungs clear to auscultation. No wheezing, rhonchi, rales.. Heart: RRR without murmur, gallop, or rubs. No ectopy. Abdomen: Normal abdominal exam, Abdomen soft, non-tender. Bowel sounds normal. No masses, organomegaly. Extremities: No deformities, edema, skin discoloration, clubbing or cyanosis. Good capillary refill. . Musculoskeletal: No joint swelling, deformity, or tenderness. Peripheral Pulses: Normal. Neurologic: Gait normal. Reflexes normal and symmetric. Sensation grossly intact.. Health Maintenance List ANNUAL PCP TEAM CHRONIC DISEASE VISIT Never done HEPATITIS C SCREENING Never done BP CONTROLLED (<130/80) Never done SHINGRIX VACCINE(1 of 2) Never done PNEUMOCOCCAL: 65+(2 - PCV) due on 07/20/2005 MAMMOGRAM due on 11/16/2012 LIPID SCREEN due on 02/27/2015 DTAP,TDAP,TD(3 - Td or Tdap) due on 03/04/2020 DIABETES SCREEN due on 01/19/2021 COVID-19 VACCINE(4 - Booster for Moderna series) due on 03/03/2022 ADVANCE DIRECTIVE DISCUSSION Never done COLORECTAL CANCER SCREENING due on 02/03/2027 BONE DENSITY Completed INFLUENZA Completed ASSESSMENT/PLAN: 1. Wellness examination - ICD9: V70.0, ICD10: Z00.00 (primary diagnosis) - Counseled on healthy diet and regular exercise - Calcium intake with supplements or by diet of 1000 mg/day for under 50, 1200- 1500 mg/day for 50+ - Follow up for annual exam in one year - COMP METABOLIC PANEL - CBC + DIFF - LIPID PANEL BASIC - VITAMIN D 25 HYDROXY - TSH BLD - HGB A1C 2. Unspecified essential hypertension - ICD9: 401.9, ICD10: I10 - suboptimal control - Continue current medication(s) - Encouraged dietary sodium restriction/DASH diet - Recommended regular aerobic exercise. - Recommend home blood pressure monitoring, to bring results in on next visit - Follow up in 1 month for BP recheck. - Goal of BP <130/80 - Recommend home or pharmacy blood pressure monitoring - Recommended no refined sugar, low refined starch, healthy oil intake (olive oil), healthy protein(fish) along the lines of the Mediterranean diet. 3. Depression, unspecified depression type - ICD9: 311, ICD10: F32.A Stable. Well controlled. Continue on current regimen. 4. Vitamin D deficiency - ICD9: 268.9, ICD10: E55.9 - VITAMIN D 25 HYDROXY 5. Malignant neoplasm of left breast, stage 3 (HCC) - ICD9: 174.9, ICD10: C50.912 Stable. In remission. Will keep close monitoring on mammograms. Up to date currently. Done last month and was normal. 6. Chest pain, unspecified type - ICD9: 786.50, ICD10: R07.9 Pt would like to establish with biotechnician d/t significant family history. Consult placed. EKG and ECHO as ordered. Symptoms x numerous years. Anxiety vs cardiac?? - ECG COMPLETE - ECHO - PERFLUTREN LIPID MICROSPHERES 1.1 MG/ML INJECTION IN NS 10 ML - SODIUM CHLORIDE 0.9 % (FLUSH) INJECTION SYRINGE - CONSULT TO CARDIOLOGY 7. Memory problem - ICD9: 780.93, ICD10: R41.3 RTO in 2-4 weeks for continued neuro discussion. Will further investigate with mini-cog testing. Will discuss possible CT brain and/or neurology consult? Needs further discussion and assessment at follow-up. Ran out of time d/t establish care visit and numerous complaints. RTO in 2-4 weeks, sooner if needed. I spent 65 minutes in the visit, with more than 50% of the total [id number] time of the visit in counseling / coordination of care. Prescription instructions reviewed with patient as applicable. Potential red flag symptoms discussed with the patient. Reviewed appropriate action plan to take if red flag symptoms occur. Patient agreeable to treatment plan. Mable Shelton APRN.MANAGER UNIVERSITY [address] [place] [address] documented in this encounterMount [facility]el [facility] System01-27-2023 Miscellaneous Notes* Telephone Encounter - Barbara Tellez Ma - 09/30/2022 8:41 AM EST Spoke to patient and she was scheduled Barbara Tellez Ma * Telephone Encounter - Howard Arias DO - 09/30/2022 7:56 AM EST Patient would need to see Anay or Mable Arias DO * Telephone Encounter - Jennifer Dunne LPN - 09/29/2022 12:[address] Arias is out of the office today.We will keep this in her box for when she returns but she is currently not taking any new pts. * Telephone Encounter - Luana Gonzalez - 09/29/2022 11:49 AM EST Patient called back to see if Dr Arias had responded to patient's request documented in this encounterMount Carmel Health System01-26-2023 Miscellaneous Notes* Telephone Encounter - Luana Carvíctor [facility] - 09/29/2022 11:47 AM EST Patient called back to check to see if Dr Arias had responded. * [facility] 2:21 PM EST Spoke with patient and she would like establish with you. She was a patient of Dr Nichols. She wasalso was a patient of Dr Jain and still is a patient of Ruth Khan. She is not having a good experience with Dr London and would like to establish with the [facility] with you.She stated she has heard great things about you. Thank You documented in this encounterMount Carmel Health System12-12-2022 NoteHNO ID: [id number] Author: Ruth Khan APRN.MANAGER [employer] Service: ? Author Type: Nurse Practitioner Type: Progress Notes Filed: 08/15/2022 10:55 AM Note Text: Chief Complaint Patient presents with: Established Patient HPI: Rachel Leigh is a 72 year old female who presents here today for follow up breast cancer. Per Dr. Jain's previous note: H/o abnormal left mammogram. She is A0. Menarche at age 13. This child born when she was 23. menopause age 51. She did not breast-feed. No previous breast biopsy. She is not on any estrogen replacement. Family history is negative for breast cancer or ovarian cancer. She denies any left nipple discharge or bleeding. No left breast pain. The patient simply presented for routine mammogram screening. On June 02, 2016 at the [facility] she had bilateral mammography. There was felt to be a ridge of tissue and the subareolar region of the left breast with thickening of the periareolar areolar region. Correlation with ultrasound was recommended. The mammograms were interpreted as BI-RADS Category 0. Subsequently on June 06, 2016 an ultrasound and diagnostic left mammogram was obtained demonstrating a 2.1 x 1.4 x 1.2 cm irregular hypoechoic mass in the retroareolar region of the left breast with increased vascular supply. BI-RADS Category 5. Biopsy strongly recommended. The patient by Dr. Blancas at the request of Dr. Preet Bernstein MD for advice regarding abnormal left mammogram. Mrs. Leigh had a needle biopsy of the left breast mass on June 09, 2016. Pathology showed invasive ductal carcinoma, nuclear grade 3 (1.1 centimeter in greatest length); ER/MA 0%, HER-2/ember positive 2+ by IHC, FISH nonamplified ( HER-2: CEP 17 ratio: 1.09, average HER-2 signal 1.8 ). Status post partial left mastectomy with removal of the nipple areolar complex as well as a left axillary blue dye sentinel lymph node biopsy then extended to a left axillary lymph node dissection. The primary tumor was retroareolar though not invading the areola or nipple. 2.1 x 2 x 1.5 cm. The initial sentinel lymph node was negative. A total of 14 lymph nodes were removed. 8 with macro metastasis. Overall grade was 3. Margins were clear being 0.2 cm from the overlying nipple which was removed with other margins being more than 3 cm. The sentinel node had a 1 cm area of metastasis with extranodal extension noted. Estrogen receptor -0% Progesterone receptor -0% HER-2/ember equivocal 2+ HER-2/ember by dual ALEJANDRO negative Stage IIIA Adjuvant Chemotherapy Treatment: Dose-dense Adriamycin / Cytoxan x 4; Pacitaxel x 4 ( 07/25/16 - 11/13/16 ) Adjuvant Radiation Therapy: 6000 cGy in 30 fractions. (5000 cGy in 25 fractions to the left breast and regional lymphatics to the 100% isodose line with 10 AND 15 MV and 6 segmented guevara followed by 1000 cGy in 5 fractions boost to the tumor bed to the 90% isodose line with 12 MV electron and 1 en face field.) ( 11/22/16 to 01/04/17 ) No new concerns today. Mammogram scheduled in two weeks-ordered by GLUE SPECIALTY SUPERVISOR. She is being followed by GI for esophageal spasms. Recent EGD. Neg. Appetite: Good. Energy level: Good. Denies fevers or recent illness. I had covid in March. Recovered at home. 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 Past medical history, appointments, medications, allergies reviewed. No changes. EXAM: BP 130/75 Pulse 60 Temp 36.7 ?C (98 ?F) Ht 163 cm (5' 4.17 ) Wt 75.3 kg (166 lb) SpO2 98% BMI 28.34 kg/m? APPEARANCE Well appearing, alert, in no acute distress, well-hydrated, well nourished. HEART RRR with normal S1 and S2, no murmurs LUNG clear to auscultation BREAST FEMALE no mass/nodule b/l, L nipple/AC surgically absent/radiation changes LYMPH NODES No cervical lymphadenopathy, No supraclavicular lymphadenopathy, and No axillary lymphadenopathy. ABDOMEN bowel sounds normoactive, soft, non-tender EXTREMITIES No edema NEURO Awake, alert and oriented x 3, Normal gait, and No involuntary motions. SKIN Skin color, texture, turgor normal, no suspicious rashes or lesions ASSESSMENT/PLAN: 1. 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 Stage IIIA Status post partial left mastectomy. Completed Adjuvant chemotherapy AND radiation therapy. - No concerning findings on exam. - Mammogram due 2021. Ordered by GLUE SPECIALTY SUPERVISOR-Done at [facility]. - Bone density per GLUE SPECIALTY SUPERVISOR. - Mammogram as scheduled. - Follow up with GI as scheduled. - Follow up in 6 months. (more content not included)...[facility]12-12-2022 History of Present illness Narrative* Ruth Khan APRN.MANAGER [employer]IV[employer]ITY - 08/15/2022 8:41 AM EST Chief Complaint Patient presents with: Established Patient HPI: Rachel Leigh is a 72 year old female who presents here today for follow up breast cancer. Per Dr. Jain's previous note: H/o abnormal left mammogram. She is A0. Menarche at age 13. This child born when she was 23. menopause age 51. She did not breast-feed. No previous breast biopsy. She is not on any estrogen replacement. Family history is negative for breast cancer or ovarian cancer. She denies any left nipple discharge or bleeding. No left breast pain. The patient simply presented for routine mammogram screening. On June 02, 2016 at the [facility] she had bilateral mammography. There was felt to be a ridge of tissue and the subareolar region of the left breast with thickening of the periareolar areolar region. Correlation with ultrasound was recommended. The mammograms were interpreted as BI-RADS Category 0. Subsequently on June 06, 2016 an ultrasound and diagnostic left mammogram was obtained demonstrating a 2.1 x 1.4 x 1.2 cm irregular hypoechoic mass in the retroareolar region of the left breast with increased vascular supply. BI-RADS Category 5. Biopsy strongly recommended. The patient by Dr. Blancas at the request of Dr. Preet Bernstein MD for advice regarding abnormal left mammogram. Mrs. Leigh had a needle biopsy of the left breast mass on June 09, 2016. Pathologyshowed invasive ductal carcinoma, nuclear grade 3 (1.1 centimeter in greatest length); ER/MA 0%, HER-2/ember positive 2+ by IHC, FISH nonamplified ( HER-2: CEP 17 ratio: 1.09, average HER-2 signal 1.8 ). Status post partial left mastectomy with removal of the nipple areolar complex as well as a left axillary blue dye sentinel lymph node biopsy then extended to a left axillary lymph node dissection. The primary tumor was retroareolar though not invading the areola or nipple. 2.1 x 2 x 1.5 cm. The initial sentinel lymph node was negative. A total of 14 lymph nodes were removed. 8 with macro metastasis. Overall grade was 3. Margins were clear being 0.2 cm from the overlying nipple which was removed with other margins being more than 3 cm. The sentinel node had a 1 cm area of metastasis with extranodal extension noted. Estrogen receptor -0% Progesterone receptor -0% HER-2/ember equivocal 2+ HER-2/ember by dual ALEJANDRO negative Stage IIIA Adjuvant Chemotherapy Treatment: Dose-dense Adriamycin / Cytoxan x 4; Pacitaxel x 4 ( 07/25/16 - 11/13/16 ) Adjuvant Radiation Therapy: 6000 cGy in 30 fractions. (5000 cGy in 25 fractions to the left breast and regional lymphatics to the 100% isodose line with 10 & 15 MV and 6 segmented guevara followedby 1000 cGy in 5 fractions boost to the tumor bed to the 90% isodose line with 12 MV electron and 1en face field.) ( 11/22/16 to 01/04/17 ) No new concerns today. Mammogram scheduled in two weeks-ordered by GLUE SPECIALTY SUPERVISOR. She is being followed by GI for esophageal spasms. Recent EGD. Neg. Appetite: Good. Energy level: Good. Denies fevers or recent illness. I had covid in March. Recovered at home. 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 Past medical history, appointments, medications, allergies reviewed. No changes. EXAM: BP 130/75 Pulse 60 Temp 36.7 C (98 F) Ht 163 cm (5' 4.17 ) Wt 75.3 kg (166 lb) SpO2 98% BMI 28.34 kg/m APPEARANCE Well appearing, alert, in no acute distress, well-hydrated, well nourished. HEART RRR with normal S1 and S2, no murmurs LUNG clear to auscultation BREAST FEMALE no mass/nodule b/l, L nipple/AC surgically absent/radiation changes LYMPH NODES No cervical lymphadenopathy, No supraclavicular lymphadenopathy, and No axillary lymphadenopathy. ABDOMEN bowel sounds normoactive, soft, non-tender EXTREMITIES No edema NEURO Awake, alert and oriented x 3, Normal gait, and No involuntary motions. SKIN Skin color, texture, turgor normal, no suspicious rashes or lesions ASSESSMENT/PLAN: 1. 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 Stage IIIA Status post partial left mastectomy. Completed Adjuvant chemotherapy & radiation therapy. - No concerning findings on exam. - Mammogram due 2021. Ordered by GLUE SPECIALTY SUPERVISOR-Done at [facility]. - Bone density per GLUE SPECIALTY SUPERVISOR. - Mammogram as scheduled. - Follow up with GI as scheduled. - Follow up in 6 months. - Pt. aware to call office any questions/concerns. The patient indicates understanding of these issues and agrees with the plan. All documentation from previous visit of 02/28/22-Dr. Jain/myself was copied and pasted, documentation has been reviewed and edited as necessary for today's visit. Ruth Khan APRN.CNP documented in this encounterMount Carmel Health System06-27-2022 History of Present illness Narrative* Ruth Khan APRN.CNP - 02/28/2022 8:18 AM EDT Chief Complaint Patient presents with: Established Patient HPI: Rachel Leigh is a 72 year old female who presents here today for follow up breast cancer. Per Dr. Jain's previous note: H/o abnormal left mammogram. She is A0. Menarche at age 13. This child born when she was 23. menopause age 51. She did not breast-feed. No previous breast biopsy. She is not on any estrogen replacement. Family history is negative for breast cancer or ovarian cancer. She denies any left nipple discharge or bleeding. No left breast pain. The patient simply presented for routine mammogram screening. On June 02, 2016 at the [facility] she had bilateral mammography. There was felt to be a ridge of tissue and the subareolar region of the left breast with thickening of the periareolar areolar region. Correlation with ultrasound was recommended. The mammograms were interpreted as BI-RADS Category 0. Subsequently on June 06, 2016 an ultrasound and diagnostic left mammogram was obtained demonstrating a 2.1 x 1.4 x 1.2 cm irregular hypoechoic mass in the retroareolar region of the left breast with increased vascular supply. BI-RADS Category 5. Biopsy strongly recommended. The patient by Dr. Blancas at the request of Dr. Preet Bernstein MD for advice regarding abnormal left mammogram. Mrs. Leigh had a needle biopsy of the left breast mass on June 09, 2016. Pathologyshowed invasive ductal carcinoma, nuclear grade 3 (1.1 centimeter in greatest length); ER/MA 0%, HER-2/ember positive 2+ by IHC, FISH nonamplified ( HER-2: CEP 17 ratio: 1.09, average HER-2 signal 1.8 ). Status post partial left mastectomy with removal of the nipple areolar complex as well as a left axillary blue dye sentinel lymph node biopsy then extended to a left axillary lymph node dissection. The primary tumor was retroareolar though not invading the areola or nipple. 2.1 x 2 x 1.5 cm. The initial sentinel lymph node was negative. A total of 14 lymph nodes were removed. 8 with macro metastasis. Overall grade was 3. Margins were clear being 0.2 cm from the overlying nipple which was removed with other margins being more than 3 cm. The sentinel node had a 1 cm area of metastasis with extranodal extension noted. Estrogen receptor -0% Progesterone receptor -0% HER-2/ember equivocal 2+ HER-2/ember by dual ALEJANDRO negative Stage IIIA Adjuvant Chemotherapy Treatment: Dose-dense Adriamycin / Cytoxan x 4; Pacitaxel x 4 ( 07/25/16 - 11/13/16 ) Adjuvant Radiation Therapy: 6000 cGy in 30 fractions. (5000 cGy in 25 fractions to the left breast and regional lymphatics to the 100% isodose line with 10 & 15 MV and 6 segmented guevara followedby 1000 cGy in 5 fractions boost to the tumor bed to the 90% isodose line with 12 MV electron and 1en face field.) ( 11/22/16 to 01/04/17 ) No new concerns today. Appetite: Good. Energy level: Good. Denies fevers or recent illness. 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 Past medical history, appointments, medications, allergies reviewed. No changes. EXAM: BP 136/88 Pulse 68 Temp 37 C (98.6 F) (Temporal) Wt 81.6 kg (180 lb) BMI 29.81 kg/m APPEARANCE Well appearing, alert, in no acute distress, well-hydrated, well nourished. HEART RRR with normal S1 and S2, no murmurs LUNG clear to auscultation BREAST FEMALE no mass/nodule b/l, L nipple/AC surgically absent/radiation changes LYMPH NODES No cervical lymphadenopathy, No supraclavicular lymphadenopathy and No axillary lymphadenopathy. ABDOMEN bowel sounds normoactive, soft, non-tender, non-distended, without organomegaly or palpablemasses EXTREMITIES No edema NEURO Awake, alert and oriented x 3, Normal gait and No involuntary motions. SKIN Skin color, texture, turgor normal, no suspicious rashes or lesions ASSESSMENT/PLAN: 1. 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 Completed Adjuvant chemotherapy & radiation therapy. - No concerning findings on exam. - Mammogram due early 2021. Ordered by GLUE SPECIALTY SUPERVISOR-Done at [facility]. - Bone density per GLUE SPECIALTY SUPERVISOR. - Follow up in 6 months. - Pt. aware to call office any questions/concerns. The patient indicates understanding of these issues and agrees with the plan. All documentation from previous visit of 08/20/21-Dr. Jain/myself was copied and pasted, documentation has been reviewed and edited as necessary for today's visit. Ruth Khan APRN.CNP documented in this encounterMount Carmel Health System03-13-2017 History of Past illness Narrative* Problem Noted Date Resolved Date Cancer of central portion of left female breast 11/14/2016 01/20/2017 Chemotherapy-induced neutropenia 08/05/2016 01/27/2017 documented as of this encounter (statuses as of 03/01/2022) [address]13-2017 History of Past illness Narrative* Problem Noted Date Resolved Date Cancer of central portion of left female breast 11/14/2016 01/20/2017 Chemotherapy-induced neutropenia 08/05/2016 01/27/2017 documented as of this encounter (statuses as of 08/15/2022) [address]-2017 History of Past illness Narrative* Problem Noted Date Resolved Date Cancer of central portion of left female breast 11/14/2016 01/20/2017 Chemotherapy-induced neutropenia 08/05/2016 01/27/2017 documented as of this encounter (statuses as of 09/29/2022) [address]-2017 History of Past illness Narrative* Problem Noted Date Resolved Date Cancer of central portion of left female breast 11/14/2016 01/20/2017 Chemotherapy-induced neutropenia 08/05/2016 01/27/2017 documented as of this encounter (statuses as of 09/30/2022) [address]2017 History of Past illness Narrative* Problem Noted Date Resolved Date Cancer of central portion of left female breast 11/14/2016 01/20/2017 Chemotherapy-induced neutropenia 08/05/2016 01/27/2017 documented as of this encounter (statuses as of 10/04/2022) [address]2017 History of Past illness Narrative* Problem Noted Date Resolved Date Cancer of central portion of left female breast 11/14/2016 01/20/2017 Chemotherapy-induced neutropenia 08/05/2016 01/27/2017 documented as of this encounter (statuses as of 10/05/2022) [address]2017 History of Past illness Narrative* Problem Noted Date Resolved Date Cancer of central portion of left female breast 11/14/2016 01/20/2017 Chemotherapy-induced neutropenia 08/05/2016 01/27/2017 documented as of this encounter (statuses as of 11/17/2022) [address]2017 History of Past illness Narrative* Problem Noted Date Resolved Date Cancer of central portion of left female breast 11/14/2016 01/20/2017 Chemotherapy-induced neutropenia 08/05/2016 01/27/2017 documented as of this encounter (statuses as of 11/24/2022) [address]2017 History of Past illness Narrative* Problem Noted Date Resolved Date Cancer of central portion of left female breast 11/14/2016 01/20/2017 Chemotherapy-induced neutropenia 08/05/2016 01/27/2017 documented as of this encounter (statuses as of 02/14/2023) [address]2017 History of Past illness Narrative* Problem Noted Date Resolved Date Cancer of central portion of left female breast 11/14/2016 01/20/2017 Chemotherapy-induced neutropenia 08/05/2016 01/27/2017 documented as of this encounter (statuses as of 02/27/2023) [address]2017 History of Past illness Narrative* Problem Noted Date Resolved Date Cancer of central portion of left female breast 11/14/2016 01/20/2017 Chemotherapy-induced neutropenia 08/05/2016 01/27/2017 documented as of this encounter (statuses as of 03/09/2023) [address]2017 History of Past illness Narrative* Problem Noted Date Diagnosed Date Resolved Date Cancer of central portion of left female breast 11/14/2016 01/20/2017 Chemotherapy-induced neutropenia 08/05/2016 01/27/2017 documented as of this encounter (statuses as of 03/23/2023) [address]2017 History of Past illness Narrative* Problem Noted Date Diagnosed Date Resolved Date Cancer of central portion of left female breast 11/14/2016 01/20/2017 Chemotherapy-induced neutropenia 08/05/2016 01/27/2017 documented as of this encounter (statuses as of 07/09/2023) [facility] Diagnosis Invasive ductal carcinoma of left breast in female (HCC)- Primary documented [facility] this encounter [facility]* Diagnosis Personal history of malignant neoplasm of breast- [facility] Wellness examination- Primary Unspecified essential hypertension Depression, unspecified depression type Vitamin D deficiency Unspecified vitamin D deficiency Malignant neoplasm of left breast, stage 3 (HCC) Chest pain, unspecified type Memory problem [facility] Bacterial sinusitis- Primary Unspecified sinusitis (chronic) [facility] Diagnosis 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 note* Diagnosis Seizure (HCC)- Primary Other convulsions documented in this encounter [facility] note* Diagnosis Intracranial arachnoid cyst- Primary Cerebral cysts Unspecified essential hypertension Malignant neoplasm of left breast, stage 3 (HCC) History of breast cancer Personal history of malignant neoplasm of breast documented in this encounter [facility] note* Diagnosis Cognitive and behavioral changes- Primary Other signs and symptoms involving cognition documented in this encounter [facility] note* Diagnosis Cognitive and behavioral changes Other signs and symptoms involving cognition documented in this encounter 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 note* Diagnosis Subjective cognitive impairment- Primary Depression, unspecified depression type Attention deficit disorder, unspecified hyperactivity presence documented in this encounter [facility] note* Diagnosis Memory changes Memory loss documented in this encounter [facility] note* Diagnosis Psychogenic nonepileptic seizure- Primary documented in this encounter [facility] for referral (narrative)* Outpatient Procedure (Routine) - Pending Review Specialty Diagnoses / Procedures Referred By Nirmal bernal Referred To Contact [facility] Diagnoses Seizure (HCC) Procedures EPIL EEG LEAD PLACEMENT EEG EXTENDED MONITORING 61-119 MINUTES ELECTROENCEPHALOGRAM REC COMA/SLEEP ONLY Crispin Hawkins MD [address] [place] [address] [facility] [address] [place] [address] Referral ID Status Reason Start Date Expiration Date Visits Requested Visits Authorized [id number] Pending Review Auto-Generat ed Referral 03/08/2023 03/08/2024 1 1 [facility] Advance Directives No Advanced Directives Records FoundDocuments on File Type Date Recorded 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 Advance Directive(s) 02/03/2017 7:34 AM Reason for Referral Specialty Diagnoses / Procedures Referred By Contac t Referred To Contact Cardiology Diagnoses Chest pain, unspecified type Procedures CONSULT TO CARDIOLOGY OFFICE/OUTPATIENT [facility] 60-74 MINUTES Mable Mcpherson, HISTOLOGY AIDE.MANAGER UNIVERSITY [address] [place] [address] Referral ID Status Reason Start Date Expiration Date Visits Requested Visits Authorized [id number] Authorized PCP Requested Referral 10/03/2022 10/03/2023 1 1 Specialty Diagnoses / Procedures Referred By Contac t Referred To Contact HEART [facility] Diagnoses Chest pain, unspecified type Procedures ECHO ECHO TTHRC R-T 2D W/WOM-MODE COMPL SPEC&COLR D Mable Mcpherson, HISTOLOGY AIDE.MANAGER UNIVERSITY [address] [place] [address] [facility] [address] [place] [address] Referral ID Status Reason Start Date Expiration Date Visits Requested Visits Authorized [id number] Authorized Auto-Generat ed Referral 10/03/2022 10/03/2023 1 1 Specialty Diagnoses / Procedures Referred By Contac t Referred To Contact [facility] Diagnoses Chest pain, unspecified type Procedures ECG COMPLETE ECG ROUTINE ECG W/LEAST 12 LDS W/I&R Mable Mcpherson, HISTOLOGY AIDE.MANAGER UNIVERSITY [address] [place] [address] [id number] [place] [address] Referral ID Status Reason Start Date Expiration Date Visits Requested Visits Authorized [id number] Pending Review Auto-Generat ed Referral 10/03/2022 10/03/2023 1 1 Specialty Diagnoses / Procedures Referred By Contac t Referred To Contact Neurosurgery Diagnoses Intracranial arachnoid cyst Procedures CONSULT TO NEUROSURGERY OFFICE/OUTPATIENT [facility] 60-74 MINUTES Carissa Ledbetter PA-C [address] [place] [address] Referral ID Status Reason Start Date Expiration Date Visits Requested Visits Authorized [id number] Authorized PCP Requested Referral 02/14/2023 02/14/2024 1 1 Specialty Diagnoses / Procedures Referred By Contac t Referred To Contact Neurology Diagnoses Patience vu seizure disorder (HCC) Procedures CONSULT TO NEUROLOGY OFFICE/OUTPATIENT [facility] 60-74 MINUTES Carissa Ledbetter PA-C [address] [phone] Referral ID Status Reason Start Date Expiration Date Visits Requested Visits Authorized [id number] Authorized PCP Requested Referral 02/14/2023 02/14/2024 1 1 Specialty Diagnoses / Procedures Referred By Contac t Referred To Contact Neurology Diagnoses Cognitive and behavioral changes Procedures CONSULT TO NEUROLOGY OFFICE/OUTPATIENT [facility] 60-74 MINUTES Crispin Hawkins MD [address] [place] [address] Referral ID Status Reason Start Date Expiration Date Visits Requested Visits Authorized [id number] Authorized PCP Requested Referral 03/30/2023 03/29/2024 1 1 Specialty Diagnoses / Procedures Referred By Contac t Referred To Contact CT IMAGING Diagnoses Memory changes Procedures CT BRAIN WO IVCON CT HEAD/BRAIN W/O CONTRAST MATERIAL Mable Mcpherson, HISTOLOGY AIDE.MANAGER UNIVERSITY [address] [place] [address] [facility] [place] [address] Referral ID Status Reason Start Date Expiration Date V isits Requested Visits Authorized [id number] Closed Auto-Generate d Referral 10/24/2022 11/23/2023 1 1 Specialty Diagnoses / Procedures Referred By Contac t Referred To Contact Psychology Diagnoses Psychogenic nonepileptic seizure Procedures CONSULT TO PSYCHOLOGY OFFICE/OUTPATIENT [facility] 60-74 MINUTES Crispin Hawkins MD [address] [place] [address] Referral ID Status Reason Start Date Expiration Date Visits Requested Visits Authorized [id number] Pending Review PCP Requested Referral 08/11/2023 08/10/2024 1 1 Summary Purpose Family History No Family History Records FoundNo Family History Records FoundNo Family History Records Found Additional Source Comments Source Comments (unrecognize d section and content) In the event this informatio n is protected by the Federal Confidentiality of Alcohol and Drug Abuse Patient Records regulations: The Federal rules restrict any use of the information to criminally investigate or prosecute any alcohol or drug abuse patient.[facility] the event this information is protected by the Federal Confidentiality of Alcohol and Drug Abuse Patient Records regulations: The Federal rules restrict any use of the information to criminally investigate or prosecute any alcohol or drug abuse patient.[facility] System[facility] the event this information is protected by the Federal Confidentiality of Alcohol and Drug Abuse Patient Records regulations: The Federal rules restrict any use of the information to criminally investigate or prosecute any alcohol or drug abuse patient.[facility] System[facility] the event this information is protected by the Federal Confidentiality of Alcohol and Drug Abuse Patient Records regulations: The Federal rules restrict any use of the information to criminally investigate or prosecute any alcohol or drug abuse patient.[facility] System[facility] the event this information is protected by the Federal Confidentiality of Alcohol and Drug Abuse Patient Records regulations: The Federal rules restrict any use of the information to criminally investigate or prosecute any alcohol or drug abuse patient.[facility] System[facility] the event this information is protected by the Federal Confidentiality of Alcohol and Drug Abuse Patient Records regulations: The Federal rules restrict any use of the information to criminally investigate or prosecute any alcohol or drug abuse patient.[facility] System[facility] the event this information is protected by the Federal Confidentiality of Alcohol and Drug Abuse Patient Records regulations: The Federal rules restrict any use of the information to criminally investigate or prosecute any alcohol or drug abuse patient.[facility] System[facility] the event this information is protected by the Federal Confidentiality of Alcohol and Drug Abuse Patient Records regulations: The Federal rules restrict any use of the information to criminally investigate or prosecute any alcohol or drug abuse patient.[facility] System[facility] the event this information is protected by the Federal Confidentiality of Alcohol and Drug Abuse Patient Records regulations: The Federal rules restrict any use of the information to criminally investigate or prosecute any alcohol or drug abuse patient.[facility] System[facility] the event this information is protected by the Federal Confidentiality of Alcohol and Drug Abuse Patient Records regulations: The Federal rules restrict any use of the information to criminally investigate or prosecute any alcohol or drug abuse patient.[facility] System[facility] the event this information is protected by the Federal Confidentiality of Alcohol and Drug Abuse Patient Records regulations: The Federal rules restrict any use of the information to criminally investigate or prosecute any alcohol or drug abuse patient.[facility] System[facility] the event this information is protected by the Federal Confidentiality of Alcohol and Drug Abuse Patient Records regulations: The Federal rules restrict any use of the information to criminally investigate or prosecute any alcohol or drug abuse patient.[facility] System[facility] the event this information is protected by the Federal Confidentiality of Alcohol and Drug Abuse Patient Records regulations: The Federal rules restrict any use of the information to criminally investigate or prosecute any alcohol or drug abuse patient.[facility] System[facility] the event this information is protected by the Federal Confidentiality of Alcohol and Drug Abuse Patient Records regulations: The Federal rules restrict any use of the information to criminally investigate or prosecute any alcohol or drug abuse patient.[facility] System[facility] the event this information is protected by the Federal Confidentiality of Alcohol and Drug Abuse Patient Records regulations: The Federal rules restrict any use of the information to criminally investigate or prosecute any alcohol or drug abuse patient.[facility] System[facility] the event this information is protected by the Federal Confidentiality of Alcohol and Drug Abuse Patient Records regulations: The Federal rules restrict any use of the information to criminally investigate or prosecute any alcohol or drug abuse patient.[facility] System[facility] the event this information is protected by the Federal Confidentiality of Alcohol and Drug Abuse Patient Records regulations: The Federal rules restrict any use of the information to criminally investigate or prosecute any alcohol or drug abuse patient.[facility] System[facility] the event this information is protected by the Federal Confidentiality of Alcohol and Drug Abuse Patient Records regulations: The Federal rules restrict any use of the information to criminally investigate or prosecute any alcohol or drug abuse patient.[facility] SystemIn the event this information is protected by the Federal Confidentiality of Alcohol and Drug Abuse Patient Records regulations: The Federal rules restrict any use of the information to criminally investigate or prosecute any alcohol or drug abuse patient.[facility] SystemIn the event this information is protected by the Federal Confidentiality of Alcohol and Drug Abuse Patient Records regulations: The Federal rules restrict any use of the information to criminally investigate or prosecute any alcohol or drug abuse patient.[facility] SystemIn the event this information is protected by the Federal Confidentiality of Alcohol and Drug Abuse Patient Records regulations: The Federal rules restrict any use of the information to criminally investigate or prosecute any alcohol or drug abuse patient.[facility] SystemIn the event this information is protected by the Federal Confidentiality of Alcohol and Drug Abuse Patient Records regulations: The Federal rules restrict any use of the information to criminally investigate or prosecute any alcohol or drug abuse patient.[facility] Reason for Visit (unrecogniz ed section and content) Reason Comments Patient Question Reason Comments Establish Care Reason Comments Establish Care Reason Comments Results Reason Comments Sinus Problem Sinus pressure, faci al pain and drainage x 10 days Reason Comments Follow Up Reason Comments New Patient Seizures Specialty Diagnoses / Procedures Referred By Nirmal bernal Referred To Contact Neurology Diagnoses Patience vu seizure disorder (HCC) Procedures CONSULT TO NEUROLOGY OFFICE/OUTPATIENT [facility] 60-74 MINUTES Carissa Ledbetter PA-C [address] [place] [address] Referral ID Status Reason Start Date Expiration Date V isits Requested Visits Authorized [id number] Closed PCP Requested Referral 02/14/2023 02/14/2024 1 1 Reason Comments Aneurysm Specialty Diagnoses / Procedures Referred By Contac t Referred To Contact Neurosurgery Diagnoses Intracranial arachnoid cyst Procedures CONSULT TO NEUROSURGERY OFFICE/OUTPATIENT [facility] 60-74 MINUTES Carissa Ledbetter PA-C [address] [place] [address] Referral ID Status Reason Start Date Expiration Date V isits Requested Visits Authorized [id number] Closed PCP Requested Referral 02/14/2023 02/14/2024 1 1 Reason Onset Date Comments Transition Of Care 03/31/2023 TCM Initial A [facility] Discharge 03/30/23 Reason Comments New Patient Specialty Diagnoses / Procedures Referred By Contac t Referred To Contact Neurology Diagnoses Cognitive and behavioral changes Procedures CONSULT TO NEUROLOGY OFFICE/OUTPATIENT [facility] 60-74 MINUTES Crispin Hawkins MD [address] [place] [place] [phone] Referral ID Status Reason Start Date Expiration Date V isits Requested Visits Authorized [id number] Closed PCP Requested Referral 03/30/2023 03/29/2024 1 1 Reason Comments Follow Up Memory changes Reason Comments Refill Request Reason Onset Date Comments Transition Of Care 04/30/[address] [facility] Discharge 03/30/23 Reason Comments Short Term Disability Papers Reason Comments Radiology CT Specialty Diagnoses / Procedures Referred By Contac t Referred To Contact CT IMAGING Diagnoses Memory changes Procedures CT BRAIN WO IVC CT HEAD/BRAIN W/O CONTRAST MATERIAL Mable Mcpherson APRN.MANAGER UNIVERSITY [phone] [facility] [place] [address] Referral ID Status Reason Start Date Expiration Date V isits Requested Visits Authorized [id number] Closed Auto-Generate d Referral 10/24/2022 11/23/2023 1 1 Reason Comments Follow Up Care Teams (unrecognized sec tion and content) Healthcare Sales Representative Relationship Specialty Start Date End Date Preet Bernstein MD PCP - General Family Medicine 06/09/16 Ezekiel Jesus MD, [address] [place] [address] Physician Radiation Oncology 10/31/16 Healthcare Sales Representative Relationship Specialty Start Date End Date Preet Bernstein MD PCP - General Family Medicine 06/09/16 Ezekiel Jesus MD, [address] [place] [address] Physician Radiation Oncology 10/31/16 Healthcare Sales Representative Relationship Specialty Start Date End Date Preet Bernstein MD PCP - General Family Medicine 06/09/16 09/29/22 Howard Arias, DO [address] [place] [address] PCP - General Family Medicine 09/30/22 Ezekiel Jesus MD, [address] [place] [address] Physician Radiation Oncology 10/31/16 Healthcare Sales Representative Relationship Specialty Start Date End Date Howard Arias, DO [address] [place] [address] PCP - General Family Medicine 09/30/22 Ezekiel Jesus MD, [address] [place] [address] Physician Radiation Oncology 10/31/16 Healthcare Sales Representative Relationship Specialty Start Date End Date Howard Arias, DO [address] [place] [address] PCP - General Family Medicine 09/30/22 Ezekiel Jesus MD, [address] [place] [address] Physician Radiation Oncology 10/31/16 Healthcare Sales Representative Relationship Specialty Start Date End Date Howard Arias, DO [address] [place] [address] PCP - General Family Medicine 09/30/22 Ezekiel Jesus MD, [address] [place] [address] Physician Radiation Oncology 10/31/16 Healthcare Sales Representative Relationship Specialty Start Date End Date Howard Arias, DO [address] [place] [address] PCP - General Family Medicine 09/30/22 Ezekiel Jesus MD, [address] [place] [address] Physician Radiation Oncology 10/31/16 Healthcare Sales Representative Relationship Specialty Start Date End Date Howard Arias, DO [address] [place] [address] PCP - General Family Medicine 09/30/22 Ezekiel Jesus MD, [address] [place] [address] Physician Radiation Oncology 10/31/16 Healthcare Sales Representative Relationship Specialty Start Date End Date Howard Arias, DO [address] [place] [address] PCP - General Family Medicine 09/30/22 Ezekiel Jesus MD, [address] [place] [address] Physician Radiation Oncology 10/31/16 Healthcare Sales Representative Relationship Specialty Start Date End Date Howard Arias, DO [address] [place] [address] PCP - General Family Medicine 09/30/22 Ezekiel Jesus MD, [address] [place] [address] Physician Radiation Oncology 10/31/16 Healthcare Sales Representative Relationship Specialty Start Date End Date Howard Arias DO [address] [place] [address] PCP - General Family Medicine 09/30/22 Ezekiel Jesus MD, MD [address] [place] [address] Physician Radiation Oncology 10/31/16 Healthcare Sales Representative Relationship Specialty Start Date End Date Howard Arias DO [address] [place] [address] PCP - General Family Medicine 09/30/22 Ezekiel Jesus MD, MD [address] [place] [address] Physician Radiation Oncology 10/31/16 Healthcare Sales Representative Relationship Specialty Start Date End Date Howard Arias DO [address] [place] [address] PCP - General Family Medicine 09/30/22 Ezekiel Jesus MD, MD [address] [place] [address] Physician Radiation Oncology 10/31/16 Cleveland Calhoun, RN [address] [place] [address] Primary Care Paste Worker Internal Medicine 03/31/23 04/30/23 Healthcare Sales Representative Relationship Specialty Start Date End Date Howard Arias DO [address] [place] [address] PCP - General Family Medicine 09/30/22 Ezekiel Jesus MD, MD [address] [place] [address] Physician Radiation Oncology 10/31/16 Cleveland Calhoun RN [address] [place] [address] Primary Care Paste Worker Internal Medicine 03/31/23 04/30/23 Healthcare Sales Representative Relationship Specialty Start Date End Date Howard Arias DO [address] [place] [address] PCP - General Family Medicine 09/30/22 Ezekiel Jesus MD, [address] [place] [address] Physician Radiation Oncology 10/31/16 Cleveland Calhoun RN [address] [place] [address] Primary Care Paste Worker Internal Medicine 03/31/23 04/30/23 Healthcare Sales Representative Relationship Specialty Start Date End Date Howard Arias DO [address] [place] [address] PCP - General Family Medicine 09/30/22 Ezekiel Jesus MD, MD [address] [place] [address] Physician Radiation Oncology 10/31/16 Cleveland Calhoun RN [address] [place] [address] Primary Care Paste Worker Internal Medicine 03/31/23 04/30/23 Healthcare Sales Representative Relationship Specialty Start Date End Date Howard Arias DO [address] [place] [address] PCP - General Family Medicine 09/30/22 Ezekile Jesus MD, MD [address] [place] [address] Physician Radiation Oncology 10/31/16 Healthcare Sales Representative Relationship Specialty Start Date End Date Howard Arias DO [address] [facility] [place] [address] PCP - General Family Medicine 09/30/22 Ezekiel Jesus MD, [address] [place] [address] Physician Radiation Oncology 10/31/16 Cleveland Calhoun, RN [address] [place] [address] Primary Care Paste Worker Internal Medicine 03/31/23 04/30/23 Healthcare Sales Representative Relationship Specialty Start Date End Date Howard Arias DO [address] [facility] [place] [address] PCP - General Family Medicine 09/30/22 Ezekiel Jesus MD, [address] [place] [address] Physician Radiation Oncology 10/31/16 Healthcare Sales Representative Relationship Specialty Start Date End Date Howard Arias DO [address] [facility] [place] [place] [address] PCP - General Family Medicine 09/30/22 Ezekiel Jesus MD, [address] [place] [address] Physician Radiation Oncology 10/31/16 INFORMATION SOURCE (unrecogn ized section and content) DATE CREATED AUTHOR AUTHOR'S ORGANIZ ATION 05/16/2023 [facility] DATE CREATED AUTHOR AUTHOR'S ORGANIZ ATION 08/15/2023 [facility] FOR RECORDS PERTAINING TO PATIENTS WHO ARE OR HAVE BEEN ENROLLED IN A CHEMICAL DEPENDENCY/SUBSTANCEABUSE PROGRAM, SOME INFORMATION MAY BE OMITTED. This clinical summary was aggregated from multiple sources. Caution should be exercised in using it in the provision of clinical care. This summary normalizes information from multiple sources, and as a consequence, information in this document may materially change the coding, format and clinical context of patient data. In addition, data may be omitted in some cases. CLINICAL DECISIONS SHOULD BE BASED ON THE PRIMARY CLINICAL RECORDS. [employer] [facility]. provides no warranty or guarantee of the accuracy or completeness of information in this document.
== END | disposition home or self-care (01) ==
LOC: OPBI 08:44
PROVIDERS: PCP Student in an Organized Health Care Education/Training Program; Referring Provider Obstetrics & Gynecology; Visit Provider Obstetrics & Gynecology
DX: Z12.31 Encounter for screening mammogram for malignant neoplasm of breast (principal); Z85.3 Personal history of malignant neoplasm of breast
CPT/HCPCS: 77063; 77067

== ENCOUNTER → 2023-11-15 | Outpatient (CLI) | payer MEDICARE, SELFPAY | END | disposition home or self-care (01) | PROVIDERS: PCP Student in an Organized Health Care Education/Training Program; Referring Provider Nurse Practitioner Family; Visit Provider Nurse Practitioner Family | DX: R53.82 Chronic fatigue, unspecified (principal); M25.50 Pain in unspecified joint; R42 Dizziness and giddiness; R41.3 Other amnesia ==

== ENCOUNTER → 2024-03-01 | Outpatient (CLI) | payer MEDICARE, SELFPAY ==
[2024-03-01 12:15] LABS: Absolute Lymphocyte Count 1.84 X10^3/uL (0.83-4.51); Absolute Neutrophil Count 2.8 X10^3/uL (2.0-7.7); Basophil# 0.05 X10^3/uL; Basophil% 0.9 % (0-1); Eosinophil# 0.21 X10^3/uL; Eosinophils% 3.8 % (0-5); Hematocrit 38.5 % (37-47); Hemoglobin 12.7 g/dL (12.0-15.0); Lymphocyte # 1.84 X10^3/ul (0.83-4.51); Lymphocyte % 33.3 % (19-41); Mean Corpuscular Hgb 33.7 pg (27.0-32.0); Mean Corpuscular Volume 102.1 fL (81-99); Mean Platelet Vol. 10.8 fl (6.2-12.0); Monocyte% 10.9 % (0-10); NRBC Flagged by Analyzer 0 % (0-5); Neutrophil # 2.81 X10^3/uL (2.7-7.7); Neutrophil % 50.9 % (47-70); Platelet Count 187 K/mm3 (150-450); RBC Distribution Width CV 13.5 % (11.6-14.6); RBC Distribution Width SD 50.6 fl (35.1-43.9); Red Blood Count 3.77 M/mm3 (4.2-5.4); White Blood Count 5.5 K/mm3 (4.4-11.0)
[2024-03-01 15:59] LABS: Absolute Lymphocyte Count 1.54 X10^3/uL (0.83-4.51); Absolute Neutrophil Count 2.8 X10^3/uL (2.0-7.7); Basophil# 0.04 X10^3/uL; Basophil% 0.8 % (0-1); Eosinophil# 0.17 X10^3/uL; Eosinophils% 3.4 % (0-5); Hematocrit 37.8 % (37-47); Hemoglobin 12.4 g/dL (12.0-15.0); Lymphocyte # 1.54 X10^3/ul (0.83-4.51); Lymphocyte % 30.6 % (19-41); Mean Corp Hgb Conc 32.8 g/dL (32-36); Mean Corpuscular Hgb 33.4 pg (27.0-32.0); Mean Corpuscular Volume 101.9 fL (81-99); Mean Platelet Vol. 9.8 fl (6.2-12.0); Monocyte# 0.51 X10^3/uL; Monocyte% 10.1 % (0-10); NRBC Flagged by Analyzer 0 % (0-5); Neutrophil # 2.77 X10^3/uL (2.7-7.7); Neutrophil % 54.9 % (47-70); Platelet Count 176 K/mm3 (150-450); RBC Distribution Width CV 13.5 % (11.6-14.6); RBC Distribution Width SD 51.3 fl (35.1-43.9); Red Blood Count 3.71 M/mm3 (4.2-5.4)
[2024-03-01 16:29] LABS: ALB/GLOB Ratio 1.2 RATIO (0.9-2.4); AST(SGOT) 22 U/L (15-37); Alanine Aminotransfer ALT/SGPT 22 U/L (13-56); Albumin, Serum 3.6 g/dL (3.2-5.0); Alkaline Phosphatase 69 U/L (45-117); Anion Gap 5 (5-15); BUN 23 mg/dL (7-18); BUN/Creat Ratio 25.9 RATIO (10-20); Calcium,Total 9.4 mg/dL (8.5-10.1); Chloride 104 mmol/L (98-107); Creatinine, Serum 0.89 mg/dL (0.55-1.02); EST Glomerular Filtration Rate 66 mL/min (>60); Est Glom Filt Rate - Afr Amer 80 mL/min (>60); Glucose 94 mg/dL (74-106); Protein, Total 6.6 g/dL (6.4-8.2); Sodium Level 139 mmol/L (136-145)
[2024-03-05 05:07] LABS: G6PD Quant Test 263 (127-427); Red Blood Cell Count Test/G6PD 3.78 x10E6/uL (3.77-5.28)
[2024-03-05 05:07] LABS: G6PD Quant Test 267 (127-427); Red Blood Cell Count Test/G6PD 3.71 x10E6/uL (3.77-5.28)
== END | disposition home or self-care (01) ==
PROVIDERS: PCP Student in an Organized Health Care Education/Training Program; Referring Provider Nurse Practitioner Family; Visit Provider Nurse Practitioner Family
DX: R42 Dizziness and giddiness (principal); D84.81 Immunodeficiency due to conditions classified elsewhere; R41.82 Altered mental status, unspecified; A68.1 Tick-borne relapsing fever
CPT/HCPCS: 36415; 80053; 82955; 85025

== ENCOUNTER → 2024-06-24 | Outpatient (CLI) | payer MEDICARE, SELFPAY | END | disposition home or self-care (01) | PROVIDERS: PCP Student in an Organized Health Care Education/Training Program; Referring Provider Nurse Practitioner Family; Visit Provider Nurse Practitioner Family | DX: Z13.220 Encounter for screening for lipoid disorders (principal); Z82.49 Family history of ischemic heart disease and other diseases of the circulatory system; Z83.2 Family history of diseases of the blood and blood-forming organs and certain disorders involving the immune mechanism; D68.59 Other primary thrombophilia | CPT/HCPCS: 36415 ==

== ENCOUNTER → 2024-09-06 | Outpatient (CLI) | payer MEDICARE, SELFPAY ==
--- NOTE | 2024-09-06 09:56 | BI_ITS ---
MAMMOGRAPHY - BILATERAL SCREENING 3-D TOMOSYNTHESIS REASON FOR EXAM: Female, 74 years old. Routine screening PERTINENT HISTORY: Personal history of breast cancer, with previous left lumpectomy TECHNIQUE: 2-D mammograms and 3-D Tomosynthesis of the breast (s) were performed. CAD was performed. COMPARISON: 08/19/2022 FINDINGS: The breast composition is composed of scattered fibroglandular density. Scattered benign calcifications are seen. No dense spiculated masses or suspicious microcalcifications are identified. Stable architectural distortion from previous surgery in the left breast There is no skin thickening or retraction. There has been no significant change since the prior study. BI/SCRN MAMM (CAD)W/BRENNEN BILAT IMPRESSION: No mammographic signs of malignancy. Routine yearly mammograms recommended. ASSESSMENT CATEGORY: BIRADS Category 2: Benign. A letter regarding these results will be sent to the patient by the facility within 30 days. FOLLOW UP RECOMMENDATION: Yearly follow up mammogram recommended. (A) Approximately 10% of breast cancers are not detected by mammography. A normal mammogram should not delay biopsy of a clinically suspicious abnormality. Electronically Signed: Elmo Rodriguez MD at 11:37 EST ,
== END | disposition home or self-care (01) ==
LOC: OPBI 09:56
PROVIDERS: PCP Student in an Organized Health Care Education/Training Program; Referring Provider Obstetrics & Gynecology; Visit Provider Obstetrics & Gynecology
DX: Z12.31 Encounter for screening mammogram for malignant neoplasm of breast (principal); Z85.3 Personal history of malignant neoplasm of breast
CPT/HCPCS: 77063; 77067

== ENCOUNTER 2024-11-28 18:01 | Observation (INO) | payer MEDICARE, SELFPAY ==
[2024-11-28] VITALS (12 sets, daily range): BP systolic 129–161; BP diastolic 74–88; PULSE 64–79; RESP 12–17; TEMP 36.3–36.4; O2SAT 97–100; BMI 29.0; BMI 28.5
--- NOTE | 2024-11-28 18:17 | EX.ED.DYSGE1 ---
HPI History of Present Illness Chief Complaint: Dizziness [facility] Medical History Hyperlipidemia Abnormal ultrasound of breast Vestibular neuritis History of left breast cancer Osteopenia s/p port removal s/p port insertion Sleep apnea Osteoarthritis Anxiety Breast cancer HTN (hypertension) Home Medications ?Medication ?Instructions ?Recorded ?Last Taken ?Type cholecalciferol (vitamin D3) 25 2,000 unit PO BID supplement 06/24/16 Unknown History mcg (1,000 unit) tablet multivitamin with folic acid 400 1 tab PO DAILY supplement 06/24/16 Unknown History mcg tablet rosuvastatin 5 mg tablet 5 mg PO DAILY cholestrol 04/23/19 Unknown History aspirin 81 mg chewable tablet 81 mg PO DAILY@0800 05/11/19 Unknown History citalopram 20 mg tablet 20 mg PO QDAY 09/06/24 Unknown History latanoprost 0.005 % eye drops 1 drp ophthalmic (eye) QPM 11/28/24 Unknown History lisinopril 10 mg tablet 10 mg PO DAILY 11/28/24 Unknown History Allergy/AdvReac Type Severity Reaction Status Date / Time amantadine Allergy Unknown Verified 11/28/24 18:03 diclofenac (From Voltaren) Allergy Hives Verified 11/28/24 18:03 methylprednisolone (From Allergy Hives Verified 11/28/24 18:03 Medrol) Family History Mother Congestive heart failure Father Congestive heart failure Diabetes Surgical History History of left breast biopsy (~08/2019) neuroma surgery H/O tubal ligation S/P tonsillectomy and adenoidectomy H/O lumpectomy Social History Smoking Status: Former smoker alcohol intake: current details: social substance use type: does not use caffeine: Yes what type of physical activity do you participate in: none seatbelt use: always do you feel safe at home: Yes additional social history: EXAM Physical Exam Const Vital Signs: 11/28/24 18:02 11/28/24 20:02 11/28/24 20:07 Temperature 97.6 F L Temperature Source Oral Pulse Rate 75 66 64 Respiratory Rate 14 17 16 Blood Pressure 161/88 H 141/82 H Blood Pressure Mean 112 101 Pulse Ox 100 98 Oxygen Delivery Method Room Air 11/28/24 20:15 11/28/24 20:30 11/28/24 20:45 Temperature Temperature Source Pulse Rate 74 67 70 Respiratory Rate 13 16 17 Blood Pressure 129/85 H 141/80 H Blood Pressure Mean 99 98 Pulse Ox Oxygen Delivery Method 11/28/24 21:00 11/28/24 21:15 11/28/24 21:34 Temperature Temperature Source Pulse Rate 74 76 79 Respiratory Rate 17 16 16 Blood Pressure 139/75 H 150/77 H 158/79 H Blood Pressure Mean 92 100 100 Pulse Ox Oxygen Delivery Method 11/28/24 21:45 11/28/24 21:58 11/28/24 22:00 Temperature 97.4 F L Temperature Source Pulse Rate 69 70 70 Respiratory Rate 15 14 12 Blood Pressure 136/74 H 136/74 H 148/79 H Blood Pressure Mean 94 94 100 Pulse Ox 97 98 99 Oxygen Delivery Method [facility] MDM MDM Narrative Medical decision making narrative: HISTORY OF PRESENT ILLNESS: 74-year-old female with past medical history of vestibular neuritis, hyperlipidemia, hyperlipidemia breast cancer here with nausea vomiting and dizziness. The patient states this began acutely just prior to arrival. Notes movement or opening her eyes makes her more nauseous and dizzy. She notes this feels like prior episodes of vertigo. Denies severe headache or head trauma. Denies chest pain or shortness of breath. Denies palpitations. Denies recent bleeding diathesis. Denies melena hematochezia or hematuria. REVIEW OF SYSTEMS: Pertinent positives: Nausea, vomiting and dizziness Pertinent negatives: PHYSICAL EXAM: Nursing triage notes reviewed, Vital signs reviewed Constitutional: please see mdm HENT: MMM Eyes: Pupils equal round and reactive to light, Extraocular muscles intact, horizontal nystagmus noted, no vertical or rotatory nystagmus noted. POCUS ultrasound showed optic nerve diameter of 3 mm. Essentially showing normal intraocular pressure. Neck: No stridor, no JVD, full neck ROM Lungs: Clear to auscultation, No wheezing or rales. No increased work of breathing, no conversational dyspnea, no accessory muscle use, no nasal flaring. No respiratory distress noted Heart: Regular rate and rhythm, No murmurs, No rubs and No gallops, 2+ distal pulses (radial, femoral, posterior tibial) in all extremities Abdomen: Soft, there is no tenderness, rigidity, rebound or guarding, no obvious peritoneal signs, no palpable pulsatile abdominal masses, no auscultated abdominal bruit : No CVAT Extremities: No edema Neuro: alert and oriented x3, neuro exam at baseline, cranial nerves II through XII are intact. No pain with extraocular muscle movement. There is negative test of skew. 5 of 5 strength in upper and lower extremities in flexion extension. Intact sensation to light touch in upper and lower extremity dermatomes. No truncal or extremity ataxia. No dysdiadochokinesia. Difficult to assess gait secondary to acuity of the patient's condition. 2+ reflexes in upper and lower extremities. No meningeal signs. Negative Babinski. NIH of 0. Skin: No rash or lesions noted MEDICAL DECISION MAKING: Chief Complaint: As per HPI External records reviewed: Reviewed prior imaging studies. Reviewed prior cardiovascular studies. Factors affecting care: As per [facility] Social determinants of health: none History obtained from others: none Consults: none [facility] Narrative: The patient was initially hemodynamically stable, afebrile and nontoxic-appearing. Initially in acute distress, diaphoretic and actively vomiting. Exam without lateralizing deficits. No obvious ataxia, vertical or rotatory nystagmus. I considered the following differential diagnosis: Arrhythmia, anemia, electro disturbance, ICH, posterior circulation CVA, BPPV, vestibular neuritis, ACS The patient was initially resuscitated with 1 L normal saline, Compazine and Versed. ALL IMAGES (IF OBTAINED) HAVE BEEN PERSONALLY REVIEWED AND INTERPRETED BY MYSELF. EKG with normal sinus rhythm, normal axis, no STEMI High-sensitivity troponin is negative, no evidence of myocardial ischemia CBC without leukocytosis, severe anemia, no thrombocytopenia. BMP without significant electrolyte abnormalities, no acute kidney injury LFTs show no evidence of hepatobiliary pathology. CT scan of the brain shows no evidence of ICH or mass I have personally reviewed the patient's chest x-ray. Chest x-ray is unremarkable for pulmonary edema, pneumothorax, pneumonia or focal cardiopulmonary abnormality. On my initial evaluation before all labs images back patient noted symptomatic improvement. Less dizziness with able to open her eyes comfortably. On reevaluation patient noted continued nausea. She was given A dose of 5 mg Reglan. She was ambulated here in the emergency department significant difficulty required multiple medical staff to safely ambulate. She continued to complain of nausea and so she received a dose of haloperidol. Given intractable nausea vomiting, multiple doses of IV antiemetics, gait instability and ongoing dizziness patient is admitted for intractable dizziness and nausea and vomiting. Discussed the case with the inpatient doctor Dr. Lam recommended scopolamine patch which was applied. The patient and/or family, caregivers express understanding. The patient and/or family, caregivers agrees with the plan. Shared decision making: I will have a discussion with the patient and or visitors regarding risk/benefits of further testing or admission. They will be made aware of of the risk/benefits inherent in this decision they will be given the opportunity to voice understanding. Total critical care time today provided was at least 0 minutes. This excludes separately billable procedures. Critical care time (if documented) is secondary to the patient having high probability of clinically significant/life threatening deterioration in the patient's condition which required my urgent intervention. Impression: 1. Acute vertiginous dizziness 2. Intractable nausea vomiting Dispo: Admit This note was generated with [employer] dictation software. It may contain incorrect words, spelling, and punctuation that were not noted in review of the chart prior to signing. Lab Data Labs: Laboratory Results - last 24 hr 11/28/24 11/28/24 18:13 18:18 WBC 6.6 RBC 4.04 L Hgb 13.7 Hct 39.2 MCV 97.0 MCH 33.9 H MCHC 34.9 RDW Std Deviation 44.1 H RDW Coeff of Rivas 12.3 Plt Count 146 L MPV 11.0 Immature Gran % (Auto) 0.300 Neut % (Auto) 53.5 Lymph % (Auto) 33.6 [place] % (Auto) 9.3 Eos % (Auto) 2.7 Baso % (Auto) 0.6 Absolute Neuts (auto) 3.5 Absolute Lymphs (auto) 2.21 Nucleated RBC % 0 Sodium 135 Potassium 3.4 Chloride 103 Carbon Dioxide 15.8 L Anion Gap 16 H BUN 23 H Creatinine 0.78 Estim Creat Clear Calc 63.72 Est GFR (MDRD) Non-Af 81 BUN/Creatinine Ratio 30.1 H Glucose 142 H Calcium 9.3 Total Bilirubin 0.31 AST 26 ALT 16 Alkaline Phosphatase 69 Troponin T High Sens < 6 Total Protein 6.3 Albumin 4.0 Globulin 2.4 Albumin/Globulin Ratio 1.7 POC Glucose 151 H Radiography Diagnostic Testing: Clinical Impression(s) from Imaging Studies Brain CT 11/28/24 18:31 IMPRESSION: Mild off axis imaging. No intracranial hemorrhage, mass effect or CT evidence of large vascular territory acute infarct. Reading Location: [facility] Chest X-Ray 11/28/24 19:01 IMPRESSION: No evidence of acute disease. Reading Location: [facility] Discharge Plan Triage Chief Complaint: Dizziness ED Provider: Chas Calvillo Dx/Rx/DC Orders Primary Care Provider: Howard Arias
--- NOTE | 2024-11-28 18:31 | CT_ITS ---
PROCEDURE: BRAIN/HEAD WITHOUT CONTRAST 11/28/2024 REASON FOR EXAM: DIZZINESS TECHNIQUE: Head CT without intravenous contrast. Coronal and Sagittal reconstruction series were provided. One or more dose reduction techniques were used (e.g., Automated exposure control, adjustment of the mA and/or kV according to patient size, use of iterative reconstruction technique. RADIATION DOSE SUMMARY: CTDlvol: 44.99 mGy DLP: 812.98 mGycm COMPARISON: 05/13/2019 FINDINGS: Mild off axis imaging. No intracranial hemorrhage, mass effect or CT evidence of large vascular territory acute infarct. The wright-white differentiation appears preserved. The ventricles are unchanged in size and remain midline. The visualized paranasal sinuses, mastoids and orbits appear within limits. Bilateral parasellar carotid calcification again noted. CT/Brain/Head without Contrast IMPRESSION: Mild off axis imaging. No intracranial hemorrhage, mass effect or CT evidence of large vascular territory acute infarct. Reading Location: [id number]
--- NOTE | 2024-11-28 18:31 | EKG12_ITS ---
Test Reason : DIZZYNESS Blood Pressure : */* mmHG Vent. Rate : 67 BPM Atrial Rate : 67 BPM P-R Int : 112 ms QRS Dur : 84 ms QT Int : 454 ms P-R-T Axes : 7 40 36 degrees QTcB Int : 479 ms Normal sinus rhythm Normal ECG Confirmed by BYRON MANCINI, JOHN ([id number]), proposal editor ERIC TAYLOR ([id number]) on 11/29/2024 8:24:00 AM Referred By: Chas Calvillo Confirmed By: JOHN MATTHEWS MD
[2024-11-28 18:36] LABS: Bedside Glucose 151 mg/dL (74-106)
[2024-11-28] MEDS: proCHLORPERazine 10 MG/2 ML Vial 5 MG IV (18:39)
[2024-11-28] MEDS: Midazolam 2 MG/2 ML Syringe IV (18:39)
[2024-11-28] MEDS: 0.9% Normal Saline (500mL Bag) 500 ML 1000 ML IV (18:39)
[2024-11-28 18:41] LABS: Absolute Lymphocyte Count 2.21 X10^3/uL (0.83-4.51); Absolute Neutrophil Count 3.5 X10^3/uL (2.0-7.7); Basophil# 0.04 X10^3/uL; Basophil% 0.6 % (0-1); Eosinophil# 0.18 X10^3/uL; Eosinophils% 2.7 % (0-5); Hematocrit 39.2 % (37-47); Hemoglobin 13.7 g/dL (12.0-15.0); Lymphocyte # 2.21 X10^3/ul (0.83-4.51); Lymphocyte % 33.6 % (19-41); Mean Corp Hgb Conc 34.9 g/dL (32-36); Mean Corpuscular Hgb 33.9 pg (27.0-32.0); Monocyte# 0.61 X10^3/uL; Monocyte% 9.3 % (0-10); NRBC Flagged by Analyzer 0 % (0-5); Neutrophil # 3.52 X10^3/uL (2.7-7.7); Neutrophil % 53.5 % (47-70); POSITIVE COUNT NO; POSITIVE DIFFERENTIAL NO; POSITIVE MORPHOLOGY NO; Platelet Count 146 K/mm3 (150-450); RBC Distribution Width CV 12.3 % (11.6-14.6); RBC Distribution Width SD 44.1 fl (35.1-43.9); Red Blood Count 4.04 M/mm3 (4.2-5.4); White Blood Count 6.6 K/mm3 (4.4-11.0)
--- NOTE | 2024-11-28 19:01 | RAD_ITS ---
PROCEDURE: CHEST 1 VIEW (PORTABLE) 11/28/2024 REASON FOR EXAM: DIZZINESS TECHNIQUE: Frontal view of the chest. FINDINGS: The lungs are clear. The cardiac and mediastinal contours appear within limits. Ectatic thoracic aorta with atherosclerotic change of the aortic arch. Surgical clips left lateral chest. Visualized osseous structures appear within limits. RAD/Chest 1 View (Portable) IMPRESSION: No evidence of acute disease. Reading Location: [id number]
[2024-11-28 19:17] LABS: ALB/GLOB Ratio 1.7 RATIO (0.9-2.4); AST(SGOT) 26 U/L (<=31); Alanine Aminotransfer ALT/SGPT 16 U/L (<=34); Alkaline Phosphatase 69 U/L (35-104); Anion Gap 16 (5-15); BUN 23 mg/dL (4-19); BUN/Creat Ratio 30.1 RATIO (10-20); Calcium,Total 9.3 mg/dL (7.6-11.0); Carbon Dioxide 15.8 mmol/L (21.0-32.0); Chloride 103 mmol/L (98-108); Creatinine, Serum 0.78 mg/dL (0.70-1.20); EST Glomerular Filtration Rate 81 (>60); Estimated Creatinine Clearance 63.72 ml/min (50-250); Globulin 2.4 g/dL (2.2-4.2); Glucose 142 mg/dL (70-99); Potassium 3.4 mmol/L (3.3-5.1); Protein, Total 6.3 g/dL (5.9-8.4); Sodium Level 135 mmol/L (133-145); Total Bilirubin 0.31 mg/dL (0.00-1.30); Troponin T High Sensitivity < 6 ng/L (<=14)
[2024-11-28] MEDS: Metoclopramide 10 MG/2 ML Vial 5 MG IV (20:13)
[2024-11-28] MEDS: Scopolamine 1mg/72hr Patch 1 PATCH TD (21:47)
--- NOTE | 2024-11-28 22:03 | PCM.HP.STD ---
[facility] - General General Date of Admission: 11/28/24 Date of Service: 11/28/24 Chief Complaint: Severe Persistent Vertigo with Intractable Nausea and Vomiting. HPI Narrative RACHEL SHARMA, is a 74 F with a past medical history of essential hypertension; on lisinopril, hyperlipidemia; on rosuvastatin, former tobacco abuse, overweight; with BMI of 29 this admission, GABY; on CPAP, history of vestibular neuritis; with frequent bouts of vertigo, history of neuroma surgery, history of triple-negative Left breast cancer (2016); s/p lumpectomy with subsequent chemotherapy and radiation, depression with anxiety; on citalopram, osteopenia, OA and glaucoma; on latanoprost drops with recent ocular procedure secondary to increased IOP due to close angle glaucoma who presents to [facility] ER complaining of severe persistent vertigo with intractable nausea and vomiting. Ms. Sharma reports her symptoms began approximately 1 hour prior to arrival with the abrupt-onset of severe dizziness and vertigo. She also admits to associated nausea and vomiting with bilious emesis. She denies related fever, chills, abdominal pain, diarrhea, constipation, chest pain, SOB, headache, paresthesias or focal neurologic deficits. In the ER she was diagnosed with Severe Persistent Vertigo complicated by Intractable Nausea and Vomiting likely due to Acute Flare of Chronic Vestibular Neuritis after recent eye surgery for Close Angle Glaucoma compounded by laboratory evidence of Dehydration with BUN/creatinine ratio of 30.1 present on admission with patient noted to have Left-leaning horizontal nystagmus and she was then admitted to the general medical floor under observational status for ongoing care for a stay that is expected to be less than 2 midnights. [facility] Medical History Hyperlipidemia Abnormal ultrasound of breast Vestibular neuritis History of left breast cancer Osteopenia s/p port removal s/p port insertion Sleep apnea Osteoarthritis Anxiety Breast cancer HTN (hypertension) Home Medications ?Medication ?Instructions ?Recorded ?Last Taken ?Type cholecalciferol (vitamin D3) 25 2,000 unit PO BID supplement 06/24/16 Unknown History mcg (1,000 unit) tablet multivitamin with folic acid 400 1 tab PO DAILY supplement 06/24/16 Unknown History mcg tablet rosuvastatin 5 mg tablet 5 mg PO DAILY cholestrol 04/23/19 Unknown History aspirin 81 mg chewable tablet 81 mg PO DAILY@0800 05/11/19 Unknown History citalopram 20 mg tablet 20 mg PO QDAY 09/06/24 Unknown History latanoprost 0.005 % eye drops 1 drp ophthalmic (eye) QPM 11/28/24 Unknown History lisinopril 10 mg tablet 10 mg PO DAILY 11/28/24 Unknown History Allergy/AdvReac Type Severity Reaction Status Date / Time amantadine Allergy Unknown Verified 11/28/24 18:03 diclofenac (From Voltaren) Allergy Hives Verified 11/28/24 18:03 methylprednisolone (From Allergy Hives Verified 11/28/24 18:03 Medrol) Family History Mother Congestive heart failure Father Congestive heart failure Diabetes Surgical History History of left breast biopsy (~08/2019) neuroma surgery H/O tubal ligation S/P tonsillectomy and adenoidectomy H/O lumpectomy Social History Smoking Status: Former smoker alcohol intake: current details: social substance use type: does not use caffeine: Yes what type of physical activity do you participate in: none seatbelt use: always do you feel safe at home: Yes additional social history: ROS ROS Narrative Review of Systems: Constitutional: Patient denies fever or chills. Eyes: Patient denies changes in vision or discharge from eyes. ENT: Patient denies runny nose, sore throat or ear pain. Resp: Patient denies SOB or cough. CV: Patient denies chest pain, palpitations, heart racing or LE edema. GI: Patient admits to severe persistent dizziness and vertigo with intractable nausea and vomiting with bilious emesis as per HPI. : Patient denies dysuria or hematuria. MSK: Patient denies arthralgias or myalgias. Skin: Patient denies rash, abscess, wounds or jaundice. Psych: Patient admits to heightened anxiety but she denies SI or HI. Neuro: Patient admits to severe persistent vertigo with dizziness but she denies headache, paresthesias or focal neurologic deficits. Allergy: Patient denies lip swelling, tongue swelling or urticaria. Hematology: Patient denies easy bleeding or easy bruisability. Endocrinology: Patient denies polyuria, polydipsia or polyphagia. 14 point ROS otherwise negative except for positives noted above in HPI. Vital Signs Vital Signs Vital Signs: 11/28/24 18:02 11/28/24 20:02 11/28/24 21:58 Temperature 97.6 F L 97.4 F L Temperature Source Oral Pulse Rate 75 66 70 Respiratory Rate 14 17 14 Blood Pressure 161/88 H 141/82 H 136/74 H Blood Pressure Mean 112 101 94 Pulse Ox 100 98 98 Oxygen Delivery Method Room Air Weight Weight: 169 lb 1.513 oz Body Mass Index (BMI) 29.0 Physical Exam Const alert, oriented x3 and average body habitus Constitutional Narrative: Mild distress noted. General Appearance: cooperative HEENT normocephalic, head/scalp atraumatic, hearing grossly normal bilaterally and moist oral mucous membranes Eyes PERRL and EOMs intact bilaterally Eyes Narrative: Left-leaning nystagmus noted. Neck no lymphadenopathy, supple and no JVD Resp normal respiratory effort, no retractions, no use of accessory muscles and clear to auscultation bilaterally Cardio regular rate and regular rhythm GI normal to inspection, nondistended, normoactive bowel sounds, soft to palpation, non-tender and non-distended Extremity normal to inspection, full ROM and no clubbing, cyanosis or edema Skin Skin Narrative: Patient has no evidence of rash, abscess, wounds or jaundice. Neuro oriented x3, CN's II-XII intact bilaterally, moves all extremities and no focal motor deficits Neuro Narrative: Patient appears exhausted with significant residual generalized weakness with vertigo, nausea and vomiting much improved. Sensorium / Orientation: awake, alert, oriented to person, oriented to place and oriented to time Speech: speech normal Psych Mood & Affect: depressed and anxious Results Medical Records Data Attestation: I reviewed the patient's medical records Lab / Micro Data Attestation: I reviewed the patient's lab results. 11/28/24 18:13 11/28/24 18:13 Labs: Laboratory Results - last 24 hr 11/28/24 18:13: WBC 6.6, RBC 4.04 L, Hgb 13.7, Hct 39.2, MCV 97.0, MCH 33.9 H, MCHC 34.9, RDW Std Deviation 44.1 H, RDW Coeff of Rivas 12.3, Plt Count 146 L, MPV 11.0, Immature Gran % (Auto) 0.300, Neut % (Auto) 53.5, Lymph % (Auto) 33.6, [place] % (Auto) 9.3, Eos % (Auto) 2.7, Baso % (Auto) 0.6, Absolute Neuts (auto) 3.5, Absolute Lymphs (auto) 2.21, Nucleated RBC % 0, Sodium 135, Potassium 3.4, Chloride 103, Carbon Dioxide 15.8 L, Anion Gap 16 H, BUN 23 H, Creatinine 0.78, Estim Creat Clear Calc 63.72, Est GFR (MDRD) Non-Af 81, BUN/Creatinine Ratio 30.1 H, Glucose 142 H, Calcium 9.3, Total Bilirubin 0.31, AST 26, ALT 16, Alkaline Phosphatase 69, Troponin T High Sens < 6, Total Protein 6.3, Albumin 4.0, Globulin 2.4, Albumin/Globulin Ratio 1.7 11/28/24 18:18: POC Glucose 151 H Imaging Radiology Impression Brain CT 11/28/24 18:31 IMPRESSION: Mild off axis imaging. No intracranial hemorrhage, mass effect or CT evidence of large vascular territory acute infarct. Reading Location: [facility] Chest X-Ray 11/28/24 19:01 IMPRESSION: No evidence of acute disease. Reading Location: [facility] Assessment & Plan Assessment/Plan (1) Vertigo: (2) Intractable nausea and vomiting: (3) Dehydration: (4) Recurrent vestibular neuritis: (5) Glaucoma: QUALIFIERS: Glaucoma type: unspecified Laterality: unspecified laterality Qualified Code(s): H40.9 - Unspecified glaucoma (6) Overweight (BMI 25.0-29.9): (7) Depression with anxiety: PLAN: Plan 1. Severe Persistent Vertigo complicated by Intractable Nausea and Vomiting - Admit to PCU under observation status. Maintain scopolamine patch begun in the ER with patient having persistent nausea and vomiting in spite of 4 different antiemetics. Give meclizine prn for breakthrough vertigo symptoms. Give ondansetron IV prn for nausea and vomiting. Give promethazine IM prn for breakthrough nausea and vomiting. Give acetaminophen prn for [id number] (level 1-5/10) pain or fever. Give morphine IV prn for severe (level 6-10/10) pain. 2. Acute Flare of Chronic Vestibular Neuritis after recent eye surgery for Close Angle Glaucoma complicating #1 - Check MRI of the brain with IV contrast to evaluate for possible acute inflammatory process and/or acute neurologic insult that may explain the speed and severity of her decline. 3. Dehydration with BUN/creatinine ratio of 30.1 present on admission compounding #1 & #2 - Give volume resuscitation and then recheck renal indices in AM to follow trend of hopeful for improvement. 4. Overweight; with BMI of 29 this admission plus GABY; on CPAP adding to the burden of disease outlined from #1 - #3 - Weight loss will be recommended. Check TSH. 5. Glaucoma; on latanoprost drops with recent ocular procedure secondary to increased IOP due to close angle glaucoma - Maintain latanoprost drops as before. 6. Depression with anxiety; on citalopram adding to the medical complexity of #1 - #4 - Resume citalopram as previous plus give prn alprazolam for breakthrough symptoms. 7. History of triple-negative Left breast cancer (2015); s/p lumpectomy with subsequent chemotherapy and radiation - Noted with no signs of recurrence. 8. Essential Hypertension; on lisinopril - Hold lisinopril until MRI of the brain confirmed negative for acute neurologic insult. 9. Hyperlipidemia; on rosuvastatin - Resume statin and check Lipid Profile. 10. Former tobacco abuse - Noted. 11. History of neuroma surgery - Noted. 12. Osteopenia - Stable. 13. OA - Give acetaminophen prn as per pain scale noted in #1. 14. DVT/GI prophylaxis - Lovenox 40 mg sq daily. Pantoprazole 40 mg IV daily. Total time: Approximately (but not less than) 85 minutes. Charges/Coding Visit Charges OBSV E&M: 48132 Observ/hosp same date L3
--- NOTE | 2024-11-28 22:49 | ECHOD_ITS ---
Reason For Study Reason For Study: TIA/STROKE Procedure This was a 2D Doppler, Color Flow transthoracic echocardiogram. Exam performed in department. Left Ventricle Normal LV size. Mild concentric left ventricular hypertrophy. Left ventricular systolic function is normal. The estimated ejection fraction is 60 %. Stage 1 diastolic dysfunction. No regional wall motion abnormalities noted. Right Ventricle Normal RV size. Normal systolic function. Atria There is mild biatrial dilatation. Mitral Valve There is Moderate focal posterior mitral annular calcification. Trivial mitral valve insufficiency. Tricuspid Valve Normal tricuspid valve. Trivial tricuspid valve insufficiency. Pulmonary artery systolic pressure is 29 mmHg. Aortic Valve Trisinus/trileaflet aortic valve. Mild focal aortic valve calcification. Mild (1+) aortic valve insufficiency. Pulmonic Valve The pulmonic valve is not well visualized. Great Vessels Normal sized aortic root. Pericardium/Pleural No pericardial effusion. MMode/2D Measurements & Calculations LVIDd: 3.7 cm IVSd: 1.2 cm LAV(MOD- bp): 51.5 ml LVIDs: 2.4 cm LVPWd: 1.1 cm LAV(MOD- bp) Indexed: 28.3 ml/m2 FS: 36.2 % LAV(MOD- sp2): 41.8 ml LAV(MOD- sp4): 60.4 ml SV(MOD-sp4): 37.0 ml SV(sp4- el): 37.9 ml LVAd ap4: 22.7 cm2 LVLd ap4: 8.2 cm SI(MOD-sp4): 20.3 ml/m2 EDV(MOD-sp4): 52.8 ml EDV(sp4-el): 53.6 ml LVAs ap4: 11.1 cm2 LVLs ap4: 6.7 cm ESV(MOD-sp4): 15.9 ml ESV(sp4-el): 15.7 ml EF(MOD-sp4): 70.0 % EF(sp4-el): 70.8 % LA A4 area: 20.8 cm2 RA A4 area: 22.2 cm2 Time Measurements MV dec time: 0.25 sec Doppler Measurements & Calculations MV E max danielito: 95.0 cm/sec Lat Peak E' Danielito: 11.6 cm/sec Med Peak E' Danielito: 7.3 cm/sec MV A max danielito: 133.0 cm/sec E/E' lat: 8.2 E/E' med: 13.0 MV E/A: 0.71 MV V2 max: 128.3 cm/sec MV dec slope: 394.7 cm/sec2 Ao V2 max: 159.7 cm/sec MV max P.6 mmHg Ao max P.2 mmHg MV V2 mean: 82.9 cm/sec Ao V2 mean: 110.8 cm/sec MV mean P.0 mmHg Ao mean P.6 mmHg MV V2 VTI: 41.9 cm Ao V2 VTI: 39.4 cm AV (velocity ratio): 0.76 LV V1 max: 128.7 cm/sec TR max danielito: 255.5 cm/sec LV V1 max P.6 mmHg TR max P.1 mmHg LV V1 mean P.1 mmHg LV V1 mean: 93.9 cm/sec LV V1 VTI: 30.0 cm ECHO/Echo Complete Interpretation Summary The estimated ejection fraction is 60 %. Mild concentric left ventricular hypertrophy. Stage 1 diastolic dysfunction. There is mild biatrial dilatation. There is Moderate focal posterior mitral annular calcification. Mild focal aortic valve calcification. Mild (1+) aortic valve insufficiency. Ordering Physician: iMchael Breaux Referring Physician: Chas Calvillo Performed By: Antonieta Painting RCS
[2024-11-28] MEDS: 0.9% Saline Lock 10 ML Syringe IV (23:54)
[2024-11-28] MEDS: Lorazepam 2 MG/ML WCH Syringe 0.5 MG IV (23:54)
[2024-11-29] MEDS: Pantoprazole Sodium 40 MG in 0.9% Normal Saline (100mL MB+) 100 ML 330 MG IV ×2 (00:01→10:52)
[2024-11-29] MEDS: 0.9% Normal Saline (1000mL) 1,000 ML 70 ML IV (00:01)
[2024-11-29 00:05] VITALS: BP 135/69; PULSE 66; RESP 18; TEMP 36.7; O2SAT 98
[2024-11-29 00:39] VITALS: O2SAT 98
[2024-11-29 00:48] VITALS: BMI 28.5
[2024-11-29 00:55] LABS: Hemoglobin A1c 5.5 % (<=5.6)
[2024-11-29 01:07] LABS: Vitamin B12 679 pg/mL (180-914)
[2024-11-29 04:00] VITALS: BP 113/69; PULSE 65; RESP 14; TEMP 36.7; O2SAT 98
[2024-11-29 04:55] LABS: Alcohol, Blood (Medical)-Serum < 10.1 mg/dL (<=10.0)
[2024-11-29 08:00] VITALS: BP 158/77; PULSE 70; RESP 18; TEMP 36.8; O2SAT 99
[2024-11-29 08:01] LABS: Base Excess -1 mmol/L (-2 to +2); Bicarbonate 23.1 mmol/L (22-26); Blood Gas Specimen Type ART; Mode Not entered; O2 Delivery Device Room Air; PO2 86 mmHG (75-100); SITE R Radial; SO2 97 % (95-99); Total Carbon Dioxide 24 mmol/L; pCO2 34.7 mmHg (35-45); pH 7.43 (7.35-7.45)
[2024-11-29] MEDS: Meclizine HCl 25 MG Tablet PO ×2 (08:06→14:54)
[2024-11-29] MEDS: proMETHazine 25 MG/ML Syringe 12.5 MG IM ×2 (08:06→13:05)
[2024-11-29] MEDS: ALPRAZolam 0.25 MG Tablet 0.125 MG PO (09:07)
[2024-11-29] MEDS: Cholecalciferol (VIT D3) 25 MCG TABLET (1,000 UNITS) 50 MCG PO ×2 (09:10→21:06)
[2024-11-29] MEDS: Aspirin 81 MG TAB.CHEW PO (09:10)
[2024-11-29] MEDS: Citalopram 20 MG Tablet PO (09:10)
[2024-11-29] MEDS: Atorvastatin Calcium 10 MG Tablet PO (09:10)
--- NOTE | 2024-11-29 09:30 | MRI_ITS ---
PROCEDURE: BRAIN W/WO CONTRAST 11/29/2024 REASON FOR EXAM: SEVERE VERTIGO W/ VESTIBULAR NEURITIS. TECHNIQUE: Brain MRI without and with intravenous contrast with additional dedicated imaging of the IACs. CONTRAST: Clariscan 15 mL COMPARISON: 11/28/2024 FINDINGS: No evidence of acute ischemia or mass lesion.No intracranial hemorrhage. No abnormal enhancement. The ventricles and sulci are normal in appearance.No extra-axial collection or midline shift. The posterior fossa has a CSF signal extra-axial collection at the posterior medial aspect of the right cerebellar lobe, likely representing a prominent cisterna magna or arachnoid cyst. The internal auditory canals are unremarkable. The orbits and paranasal sinuses are unremarkable.The calvarium and soft tissues are unremarkable. MRI/Brain W/WO Contrast IMPRESSION: 1. No acute ischemia or mass lesion. 2. Normal MRI of the brain. Reading Location: [facility]
[2024-11-29 09:57] LABS: Cholesterol 177 mg/dL (<=200); High Density Lipoprotein 77 mg/dL; Low Density Lipoprotein Calc. 89 mg/dL; Triglycerides 52 mg/dL; Very Low Density Lipoprotein 10 mg/dL (5-40); cholesterol:hdl ratio screen 2.29
[2024-11-29 10:37] LABS: Anion Gap 12 (5-15); BUN 17 mg/dL (4-19); BUN/Creat Ratio 27.7 RATIO (10-20); Calcium,Total 9.2 mg/dL (7.6-11.0); Carbon Dioxide 19.9 mmol/L (21.0-32.0); Chloride 104 mmol/L (98-108); Creatinine, Serum 0.62 mg/dL (0.70-1.20); EST Glomerular Filtration Rate 94 (>60); Estimated Creatinine Clearance 63.16 ml/min (50-250); Glucose 111 mg/dL (70-99); Potassium 3.7 mmol/L (3.3-5.1); Sodium Level 136 mmol/L (133-145)
--- NOTE | 2024-11-29 11:41 | NEURO.CONS ---
Assessment and Plan: Neuro Assessment/Plan RACHEL SHARMA is a 74 F who is presenting with vertigo that started abruptly yesterday after sudden head movement, with symptoms exaggerated by moving her head towards the left side. MRI brain with no acute findings or acute stroke She is feeling better today Presentation more consistent with BPPV Recommend symptomatic management Vestibular PT, vestibular rehab Will will sign off. Please contact with quetsions. I personally attended this patient and spent a total time of 65 minutes evaluating this patient including clinical assessment, review of chart, medical history imaging, and determining appropriate treatment and workup. HPI Consult Data Date of Consult: 11/29/24 HPI Narrative HPI Narrative: RACHEL SHARMA, is a 74 F She has a history of essential hypertension; on lisinopril, hyperlipidemia; on rosuvastatin, former tobacco abuse, overweight; with BMI of 29 this admission, GABY; on CPAP, history of vestibular neuritis; with frequent bouts of vertigo, history of neuroma surgery, history of triple-negative Left breast cancer (2016); s/p lumpectomy with subsequent chemotherapy and radiation, depression with anxiety; on citalopram, osteopenia, OA and glaucoma; on latanoprost drops with recent ocular procedure secondary to increased IOP due to close angle glaucoma She presented to [facility] complaining of severe persistent vertigo with intractable nausea and vomiting. She was putting her eye drops, she bent backwards to put up the drop, and when she brought her head back up she instantly felt dizzy with vertigo and nausea. Yesterday her symptoms were persistent and would exaggerate with any head movements. Today she is feeling better, and notices the symptoms are worse when she turns her head to the L side. Says she is having a little cold over the past week or so She says she has a diagnosis of neuritis or a vestibular thing. She has had vertigo in the past, at times associated with sinusitis, but at others more positional. History is vague, and patient is unable to provide accurate details. This morning, she is feeling better compared to yesterday. PHYSICAL EXAM: Exam performed with help of the nurse/REBEL present with patient on Tele site NEURO: AAOx3, follows commands, no aphasia/dysarthria. On left lateral gaze there is leftward beating nystagmus. No nystagmus on primary gaze. Face symmetric, Intact facial sensation. Tongue midline. Head turning intact. Sensation: intact to light touch all over Motor: All extremities antigravity Coordination: FTN intact bilaterally PFSH Medical History Hyperlipidemia Abnormal ultrasound of breast Vestibular neuritis History of left breast cancer Osteopenia s/p port removal s/p port insertion Sleep apnea Osteoarthritis Anxiety Breast cancer HTN (hypertension) Home Medications ?Medication ?Instructions ?Recorded ?Last Taken ?Type cholecalciferol (vitamin D3) 25 2,000 unit PO BID supplement 06/24/16 Unknown History mcg (1,000 unit) tablet multivitamin with folic acid 400 1 tab PO DAILY supplement 06/24/16 Unknown History mcg tablet rosuvastatin 5 mg tablet 5 mg PO DAILY cholestrol 04/23/19 Unknown History aspirin 81 mg chewable tablet 81 mg PO DAILY@0800 05/11/19 Unknown History citalopram 20 mg tablet 20 mg PO QDAY 09/06/24 Unknown History latanoprost 0.005 % eye drops 1 drp ophthalmic (eye) QPM 11/28/24 Unknown History lisinopril 10 mg tablet 10 mg PO DAILY 11/28/24 Unknown History Allergy/AdvReac Type Severity Reaction Status Date / Time amantadine Allergy Unknown Verified 11/28/24 18:03 diclofenac (From Voltaren) Allergy Hives Verified 11/28/24 18:03 methylprednisolone (From Allergy Hives Verified 11/28/24 18:03 Medrol) Family History Mother Congestive heart failure Father Congestive heart failure Diabetes Surgical History History of left breast biopsy (~08/2019) neuroma surgery H/O tubal ligation S/P tonsillectomy and adenoidectomy H/O lumpectomy Social History Smoking Status: Former smoker alcohol intake: current details: social substance use type: does not use caffeine: Yes what type of physical activity do you participate in: none seatbelt use: always do you feel safe at home: Yes additional social history: Vital Signs Vital Signs Vital Signs: 11/28/24 18:02 11/28/24 20:02 11/28/24 20:07 Temperature 97.6 F L Temperature Source Oral Pulse Rate 75 66 64 Pulse Strength Respiratory Rate 14 17 16 Respiratory Effort Respiratory Depth Respiratory Pattern Blood Pressure 161/88 H 141/82 H Blood Pressure Mean 112 101 Blood Pressure Source Blood Pressure Position Blood Pressure Location Pulse Ox 100 98 Oxygen Delivery Method Room Air 11/28/24 20:15 11/28/24 20:30 11/28/24 20:45 Temperature Temperature Source Pulse Rate 74 67 70 Pulse Strength Respiratory Rate 13 16 17 Respiratory Effort Respiratory Depth Respiratory Pattern Blood Pressure 129/85 H 141/80 H Blood Pressure Mean 99 98 Blood Pressure Source Blood Pressure Position Blood Pressure Location Pulse Ox Oxygen Delivery Method 11/28/24 21:00 11/28/24 21:15 11/28/24 21:34 Temperature Temperature Source Pulse Rate 74 76 79 Pulse Strength Respiratory Rate 17 16 16 Respiratory Effort Respiratory Depth Respiratory Pattern Blood Pressure 139/75 H 150/77 H 158/79 H Blood Pressure Mean 92 100 100 Blood Pressure Source Blood Pressure Position Blood Pressure Location Pulse Ox Oxygen Delivery Method 11/28/24 21:45 11/28/24 21:58 11/28/24 22:00 Temperature 97.4 F L Temperature Source Pulse Rate 69 70 70 Pulse Strength Respiratory Rate 15 14 12 Respiratory Effort Respiratory Depth Respiratory Pattern Blood Pressure 136/74 H 136/74 H 148/79 H Blood Pressure Mean 94 94 100 Blood Pressure Source Blood Pressure Position Blood Pressure Location Pulse Ox 97 98 99 Oxygen Delivery Method 11/29/24 00:05 11/29/24 00:39 11/29/24 00:52 Temperature 98.1 F Temperature Source Oral Pulse Rate 66 Pulse Strength Respiratory Rate 18 Respiratory Effort Normal Non-Labored Respiratory Depth Normal Respiratory Pattern Normal Blood Pressure 135/69 H Blood Pressure Mean 91 Blood Pressure Source Monitor Blood Pressure Position Semi-Fowlers Blood Pressure Location Right Arm Pulse Ox 98 98 Oxygen Delivery Method Room Air Room Air Room Air 11/29/24 04:00 11/29/24 08:00 11/29/24 08:05 Temperature 98.0 F 98.3 F Temperature Source Oral Oral Pulse Rate 65 70 Pulse Strength Respiratory Rate 14 18 Respiratory Effort Normal Non-Labored Respiratory Depth Normal Respiratory Pattern Normal Blood Pressure 113/69 158/77 H Blood Pressure Mean 83 104 Blood Pressure Source Monitor Monitor Blood Pressure Position Semi-Fowlers Semi-Fowlers Blood Pressure Location Right Arm Right Arm Pulse Ox 98 99 Oxygen Delivery Method Room Air Room Air Room Air 11/29/24 10:00 Temperature Temperature Source Pulse Rate Pulse Strength Normal (2+) Respiratory Rate Respiratory Effort Respiratory Depth Respiratory Pattern Blood Pressure Blood Pressure Mean Blood Pressure Source Blood Pressure Position Blood Pressure Location Pulse Ox Oxygen Delivery Method Weight Weight: 75.3 kg Body Mass Index (BMI) 28.5 EEG Results Procedure Details EEG Procedure Details: RACHEL SHARMA is a 74 year old F with a past medical history of , who presents for evaluation of Electroencephalogram on DATE at TIME NIHSS NIHSS Nursing Documentation NIHSS Nursing Documentation: NIHSS: Ischemic Stroke/TIA Start: 11/28/24 23:17 Text: For PCU Patients: NIH and Neuro Check every 4 Status: Active hours, PRN and with change in RN caregiver. Freq: [id number] Protocol: Activity Type Activity Date Activity User E-sign Co-sign Detail Recorded Client Recorded Date Recorded By Document 11/29/24 08:00 JMN 0 11/29/24 10:34 JMN 11/29/24 08:00 NIH Stroke Scale [NIHSS] A score of 0 is normal or asymptomatic . Total possible score is 42. Inpatient: RN or Physician to activate a stroke alert for onset of new stroke symptoms or with NIHSS increase >/= 3 points. Following change in neurological status, NIHSS will be performed per physician order or more frequently PRN. -1a. Level of Consciousness Alert; keenly responsive -1b. LOC Questions Answers BOTH questions correctly. -1c. LOC Commands Performs both tasks correctly . -2. Best Gaze Normal -3. Visual No visual loss -4. Facial Palsy Normal symmetrical movements -5a. Left Arm No drift; arm holds 90 (or 45 ) degrees for full 10 seconds -5b. Right Arm No drift; arm holds 90 (or 45 ) degrees for full 10 seconds -6a. Left Leg No drift; leg holds 30-degree position for full 5 seconds -6b. Right Leg No drift; leg holds 30-degree position for full 5 seconds -7. Limb Ataxia Absent -8. Sensory Normal; no sensory loss -9. Best Language No aphasia; normal -10. Dysarthria Normal -11. Extinction and Inattention No abnormality -Total 0 Query Text:A score of 0 is normal or asymptomatic. Total possible score is 42 . ED: Notify Physician for NIHSS increase by > / = 3 points. Inpatient: RN or Physician to activate a stroke alert for NIHSS increase of > / = 3 points. Coma Scale [Assess] -Eye Opening Spontaneous -Motor Obeys Commands -Verbal Oriented [Total] -Coma Scale Total 15 Lab / Micro Data 11/28/24 18:13 11/29/24 07:43 Labs: Laboratory Results - last 24 hr 11/28/24 18:13: WBC 6.6, RBC 4.04 L, Hgb 13.7, Hct 39.2, MCV 97.0, MCH 33.9 H, MCHC 34.9, RDW Std Deviation 44.1 H, RDW Coeff of Rivas 12.3, Plt Count 146 L, MPV 11.0, Immature Gran % (Auto) 0.300, Neut % (Auto) 53.5, Lymph % (Auto) 33.6, [place] % (Auto) 9.3, Eos % (Auto) 2.7, Baso % (Auto) 0.6, Absolute Neuts (auto) 3.5, Absolute Lymphs (auto) 2.21, Nucleated RBC % 0, Sodium 135, Potassium 3.4, Chloride 103, Carbon Dioxide 15.8 L, Anion Gap 16 H, BUN 23 H, Creatinine 0.78, Estim Creat Clear Calc 63.72, Est GFR (MDRD) Non-Af 81, BUN/Creatinine Ratio 30.1 H, Glucose 142 H, Hemoglobin A1c 5.5 L, Calcium 9.3, Total Bilirubin 0.31, AST 26, ALT 16, Alkaline Phosphatase 69, Troponin T High Sens < 6, Total Protein 6.3, Albumin 4.0, Globulin 2.4, Albumin/Globulin Ratio 1.7, Vitamin B12 679, Serum Folate 30.40, TSH 1.260, Ethyl Alcohol < 10.1 11/28/24 18:18: POC Glucose 151 H 11/29/24 07:43: Sodium 136, Potassium 3.7, Chloride 104, Carbon Dioxide 19.9 L, Anion Gap 12, BUN 17, Creatinine 0.62 L, Estim Creat Clear Calc 63.16, Est GFR (MDRD) Non-Af 94, BUN/Creatinine Ratio 27.7 H, Glucose 111 H, Calcium 9.2, Triglycerides 52, Cholesterol 177, LDL Cholesterol, Calc 89, VLDL Cholesterol 10, HDL Cholesterol 77, Cholesterol/HDL Ratio 2.29 ABG Data ABG results: ABG 11/29/24 07:58 Specimen Type ART Sample Site R Radial pH 7.43 Bicarbonate Actual 23.1 Total CO2 24 Base Excess -1 O2 Saturation 97 ABG pCO2 34.7 L ABG pO2 86 O2 Delivery Device Room Air Vent Mode Not entered Imaging Radiology Impression Brain CT 11/28/24 18:31 IMPRESSION: Mild off axis imaging. No intracranial hemorrhage, mass effect or CT evidence of large vascular territory acute infarct. Reading Location: [facility] Chest X-Ray 11/28/24 19:01 IMPRESSION: No evidence of acute disease. Reading Location: [facility] Brain MRI 11/29/24 09:30 IMPRESSION: 1. No acute ischemia or mass lesion. 2. Normal MRI of the brain. Reading [facility] Active Medications Active Medications Active Medications: Current Medications Generic Name Dose Route Start Last Admin Trade Name Freq PRN Reason Stop Dose Admin Acetaminophen 650 mg 11/28/24 23:30 Acetaminophen 325 Mg Tablet PO Q6H PRN PRN Pain 1-5/10 or Fever Alprazolam 0.125 mg 11/28/24 23:30 11/29/24 09:07 Alprazolam 0.25 Mg Tablet PO 0.125 mg TID PRN PRN Administration ANXIETY/AGITATION Aspirin 81 mg 11/29/24 08:00 11/29/24 09:10 Aspirin 81 Mg Tab.Chew PO 81 mg DAILY@0800 THOMAS Administration Atorvastatin Calcium 10 mg 11/29/24 10:00 11/29/24 09:10 Atorvastatin Calcium 10 Mg Tablet PO 10 mg DAILY THOMAS Administration Cholecalciferol 50 mcg 11/29/24 10:00 11/29/24 09:10 Cholecalciferol (Vit D3) 25 Mcg Tablet (1,000 Units) PO 50 mcg BID THOMAS Administration Citalopram Hydrobromide 20 mg 11/29/24 10:00 11/29/24 09:10 Citalopram 20 Mg Tablet PO 20 mg DAILY THOMAS Administration Enoxaparin Sodium 40 mg 11/29/24 06:00 11/29/24 06:31 Enoxaparin 40 Mg/0.4 Ml Syringe SC Not Given DAILY@0600 THOMAS Pantoprazole Sodium 40 mg/ 110 mls @ 330 mls/hr 11/28/24 23:00 11/29/24 11:12 Sodium Chloride IV Infused Q24 THOMAS Infusion Sodium Chloride 1,000 mls @ 70 mls/hr 11/28/24 23:30 11/29/24 00:01 IV 11/29/24 13:47 70 mls/hr .[id number] THOMAS Administration Sodium Chloride 100 mls @ 15 mls/hr 11/28/24 23:30 IV .Q6H40M PRN Saline Flush Sodium Chloride 100 mls @ 15 mls/hr 11/28/24 23:30 IV .Q6H40M PRN Additional IVPB Infusion Iopamidol 0 ml 11/28/24 23:30 11/29/24 00:56 Contrast Allergy Safety Check IV Not Given X1 THOMAS Latanoprost 1 drp 11/29/24 21:00 Latanoprost 0.005% 1 Bottle OPHTHALMIC QPM [facility] Meclizine HCl 25 mg 11/28/24 23:00 11/29/24 08:06 Meclizine Hcl 25 Mg Tablet PO 25 mg 4X/DAY PRN PRN Administration VERTIGO Morphine Sulfate 2 mg 11/28/24 23:30 Morphine 2 Mg/Ml Syringe IV Q4H PRN PRN Pain Score 6-10 Multivitamins 1 tablet 11/29/24 08:00 11/29/24 09:20 Multivitamins,Therapeutic Tablet PO Not Given DAILYCM [facility] Promethazine HCl 12.5 mg 11/28/24 23:30 11/29/24 08:06 Promethazine 25 Mg/Ml Syringe IM 12.5 mg Q4H PRN PRN Administration NAUSEA/VOMITING Scopolamine HBr 1 patch 11/28/24 22:00 11/28/24 21:47 Scopolamine 1mg/72hr Patch TD 1 patch Q3D THOMAS Administration Sodium Chloride 10 - 40 ml 11/28/24 23:30 11/28/24 23:54 0.9% Saline Lock 10 Ml Syringe IV 10 ml UD PRN Administration SALINE FLUSH
[2024-11-29] MEDS: 0.9% Saline Lock 10 ML Syringe IV (13:06)
[2024-11-29 14:00] LABS: Amphetamine Urine NEGATIVE (<1000 ng/mL); Barbiturate Urine NEGATIVE (< 200 ng/mL); Benzodiazepine Urine PRESUMPTIVE POSITIVE (< 200 ng/mL); Buprenorphine Urine NEGATIVE (< 200 ng/mL); Cocaine Urine NEGATIVE (< 300 ng/mL); Fentanyl, Urine NEGATIVE; Methadone Urine NEGATIVE (< 300 ng/mL); Opiates Urine NEGATIVE (< 300 ng/mL); Oxycodone, Urine NEGATIVE (< 100 ng/mL); PCP Urine NEGATIVE (< 25 ng/mL); THC Urine NEGATIVE (< 50 ng/mL)
--- NOTE | 2024-11-29 14:23 | CHAPLAIN ---
Type of Pastoral Visit _x__ Initial Visit ___ Follow-up Visit ___ On-call Visit ___ General Patient Visit ___ Spiritual Assessment ___ Family Conference ___ Bereavement ___ Rapid Response ___ Code Blue ___ Other (describe below) Pastoral Care Referral From _x__ Patient ___ Family ___ Nurse ___ Physician ___ Hardboard Factory Worker ___ Obiee Consultant ___ Other (describe below) Sacrament/Intervention _x__ Active listening ___ Anointing ___ Lutheran ___ Bereavement ___ Communion _x__ Lisa exploration ___ _x__ Life review _x__ Prayer ___ Reconciliation ___ Sacrament of Sick _x__ Supportive presence ___ Wedding ___ Other (describe below) Pastoral Comments patient is welcoming and explains her health situation and the concern for taking a trip [place] later this summer; pt gives life review and lisa perspective of where she is now with a lisa community; pt has questions about churches; pt expresses confidence about her family and future; prayer is given
[2024-11-29 14:56] VITALS: BP 117/63; PULSE 58; RESP 16; TEMP 36.6; O2SAT 98
--- NOTE | 2024-11-29 15:27 | CASEMGMT ---
Met with patient to complete HINSON form. HINSON form explained to patient who voiced understanding and signed form. Original form placed in pt?s chart and copy provided to patient. Laura Hathaway, Discharge Planning Asst
--- NOTE | 2024-11-29 15:53 | PN.HOSP_ITS ---
Subjective Subjective Dizziness has improved since this morning however she still has dizziness especially when she looks to the left Objective Data Objective Data Vital Signs: Vital Signs Temp Pulse Resp BP Pulse Ox O2 Del Method 97.8 F 58 L 16 117/63 98 Room Air 11/29/24 14:56 11/29/24 14:56 11/29/24 14:56 11/29/24 14:56 11/29/24 14:56 11/29/24 14:56 Oxygen Delivery Method Room Air Weight: 166 lb 0.129 oz Body Mass Index (BMI) 28.5 Intake & Output: Intake and Output for Last 24 Hours 11/28/24 11/29/24 11/30/24 03:59 03:59 03:59 Intake Total 610 / 610 1110 / 1110 Output Total 0 / 0 0 / 0 Balance 610 / 610 1110 / 1110 Lab / Micro Data 11/28/24 18:13 11/29/24 07:43 Labs: Laboratory Results - last 24 hr 11/28/24 13:10: Urine Opiates Screen NEGATIVE, U Buprenorphine Qual NEGATIVE, Ur Oxycodone Screen NEGATIVE, Urine Methadone Screen NEGATIVE, Urine Fentanyl Screen NEGATIVE, Ur Barbiturates Screen NEGATIVE, Ur Phencyclidine Scrn NEGATIVE, Ur Amphetamines Screen NEGATIVE, U Benzodiazepines Scrn PRESUMPTIVE POSITIVE, Urine Cocaine Screen NEGATIVE, U Cannabinoids Screen NEGATIVE 11/28/24 18:13: WBC 6.6, RBC 4.04 L, Hgb 13.7, Hct 39.2, MCV 97.0, MCH 33.9 H, MCHC 34.9, RDW Std Deviation 44.1 H, RDW Coeff of Rivas 12.3, Plt Count 146 L, MPV 11.0, Immature Gran % (Auto) 0.300, Neut % (Auto) 53.5, Lymph % (Auto) 33.6, [place] % (Auto) 9.3, Eos % (Auto) 2.7, Baso % (Auto) 0.6, Absolute Neuts (auto) 3.5, Absolute Lymphs (auto) 2.21, Nucleated RBC % 0, Sodium 135, Potassium 3.4, Chloride 103, Carbon Dioxide 15.8 L, Anion Gap 16 H, BUN 23 H, Creatinine 0.78, Estim Creat Clear Calc 63.72, Est GFR (MDRD) Non-Af 81, BUN/Creatinine Ratio 30.1 H, Glucose 142 H, Hemoglobin A1c 5.5 L, Calcium 9.3, Total Bilirubin 0.31, AST 26, ALT 16, Alkaline Phosphatase 69, Troponin T High Sens < 6, Total Protein 6.3, Albumin 4.0, Globulin 2.4, Albumin/Globulin Ratio 1.7, Vitamin B12 679, Serum Folate 30.40, TSH 1.260, Ethyl Alcohol < 10.1 11/28/24 18:18: POC Glucose 151 H 11/29/24 07:43: Sodium 136, Potassium 3.7, Chloride 104, Carbon Dioxide 19.9 L, Anion Gap 12, BUN 17, Creatinine 0.62 L, Estim Creat Clear Calc 63.16, Est GFR (MDRD) Non-Af 94, BUN/Creatinine Ratio 27.7 H, Glucose 111 H, Calcium 9.2, Triglycerides 52, Cholesterol 177, LDL Cholesterol, Calc 89, VLDL Cholesterol 10, HDL Cholesterol 77, Cholesterol/HDL Ratio 2.29 ABG Data ABG results: ABG 11/29/24 07:58 Specimen Type ART Sample Site R Radial pH 7.43 Bicarbonate Actual 23.1 Total CO2 24 Base Excess -1 O2 Saturation 97 ABG pCO2 34.7 L ABG pO2 86 O2 Delivery Device Room Air Vent Mode Not entered Radiography Diagnostic Testing: Radiology Impression Brain CT 11/28/24 18:31 IMPRESSION: Mild off axis imaging. No intracranial hemorrhage, mass effect or CT evidence of large vascular territory acute infarct. Reading Location: [facility] Chest X-Ray 11/28/24 19:01 IMPRESSION: No evidence of acute disease. Reading Location: [facility] Echocardiogram 11/28/24 22:49 Interpretation Summary The estimated ejection fraction is 60 %. Mild concentric left ventricular hypertrophy. Stage 1 diastolic dysfunction. There is mild biatrial dilatation. There is Moderate focal posterior mitral annular calcification. Mild focal aortic valve calcification. Mild (1+) aortic valve insufficiency. Ordering Physician: Michael Breaux Referring Physician: Chas Calvillo Performed By: Antonieta Painting RCS Brain MRI 11/29/24 09:30 IMPRESSION: 1. No acute ischemia or mass lesion. 2. Normal MRI of the brain. Reading Location: [facility] Physical Exam Narrative General: Alert, Oriented x3, Cooperative, No apparent distress HEENT: Atraumatic, PERRLA, EOMI, Normocephalic, no nystagmus Oral: Moist Mucosa Neck: Supple, No JVD Lungs: Diminished, Normal air movement, No rhonchi, No wheeze, No rales Cardiovascular: Regular rate, Regular Rhythm, Normal S1, Normal S2, No murmurs Abdomen: Soft, Non Tender, Non-Distended, No Hepato-splenomegaly Extremities: No edema, Capillary Refill Less than 3 Seconds Skin: No rashes, No breakdown Musculoskeletal: No Tenderness to Palpation of Joints or Extremities Neurological: No focal neurological deficits, moves all extremities Psych/Mental Status: Flat Assessment & Plan Assessment/Plan (1) Vertigo: PLAN: Plan 1. Acute on chronic BPPV ? MRI is negative for vestibular neuritis ? Appreciate neurology's assistance ? Continue with vestibular therapy on discharge ? Likely DC in the morning ? She was on some IV fluids for mild dehydration ? Continue to encourage ambulation and p.o. intake ? She is on scopolamine and meclizine 2. Essential HTN/HLD ? Blood pressures are stable ? Can resume her home blood pressure medications in the morning ? Continue with Lipitor and aspirin ? Will monitor make adjustments as necessary 3. Anxiety/depression ? Stable ? Continue with her home medication DVT: Lovenox Charges/Coding Visit Charges Inpatient E&M: 97106 Subs Hosp L2
--- NOTE | 2024-11-29 15:57 | CASEMGMT ---
NIGEL JENKINS NOTE: NIGEL JENKINS to room. Pt sitting up in chair. Introduced self and role. Pt lives w/her family in 2-story home w/3 steps to enter. She states family can assist her up the stairs when she gets home and she can do FFSU if needed until dizziness improves, as she has went through this in the past in 2019. She would like to do OP PT/vestibular therapy @ [facility] and would like NIGEL JENKINS to schedule appt. Script obtained and faxed to [facility]. The earliest appt they have is 12/06 but they can put her on cancellation list and will call her for earlier appt if one becomes available. Pt agreeable to appt on 12/06 and it was scheduled for 9 AM. Pt made aware. DC plan updated. Pt provided w/[employer] phone #. Pt also given copy of the OP therapy script as well. Pt has a walker @ home and denies having other dc needs or concerns. Toi STOREY RN, CM
[2024-11-29] MEDS: Latanoprost 0.005% 1 Bottle 1 DRP OPHTHALMIC (21:06)
[2024-11-29 21:11] VITALS: BP 134/90; PULSE 52; RESP 16; TEMP 36.8; O2SAT 99
[2024-11-30 03:30] VITALS: BP 130/73; PULSE 54; RESP 16; TEMP 36.2; O2SAT 97
[2024-11-30] MEDS: Enoxaparin 40 MG/0.4 ML Syringe SC (05:45)
[2024-11-30 08:15] VITALS: BP 137/88; PULSE 55; RESP 18; TEMP 36.6; O2SAT 97
[2024-11-30] MEDS: Citalopram 20 MG Tablet PO (08:20)
[2024-11-30] MEDS: Cholecalciferol (VIT D3) 25 MCG TABLET (1,000 UNITS) 50 MCG PO (08:20)
[2024-11-30] MEDS: Pantoprazole Sodium 40 MG in 0.9% Normal Saline (100mL MB+) 100 ML 330 MG IV (08:21)
[2024-11-30] MEDS: Multivitamins,Therapeutic Tablet 1 TABLET PO (08:22)
[2024-11-30] MEDS: Aspirin 81 MG TAB.CHEW PO (08:22)
[2024-11-30] MEDS: Atorvastatin Calcium 10 MG Tablet PO (08:22)
--- NOTE | 2024-11-30 09:47 | DCINST_ITS ---
Discharge Instructions Diet Discharge Diet: No restrictions DC O2, CPAP, BIPAP needs Home O2 Discharge instructions: No Dressing / Incision Discharge Activity: Return to Normal Activity Dressing / Incision Call your doctor if you observe: Fever of 101 or Higher, Shortness of breath, Dizziness, Fainting spells, Swelling in the ankles, Chest pain and Increased palpitations (irregular heartbeat) Follow Up Care Test Results: Test results from this visit will be discussed in further detail at your follow- up appointment, if applicable. Discharge Plan Admission Admit Date/Time: 11/28/24 22:38 Attending Provider: Earl Mulligan Primary Care Provider: Howard Arias Consulting Providers: Michael Breaux Discharge Orders/Prescriptions Prescriptions: New meclizine 25 mg Tablet 25 mg PO 4X/DAY PRN PRN (Reason: Vertigo) 5 Days Qty: 20 0RF Continued rosuvastatin 5 mg tablet 5 mg PO DAILY citalopram 20 mg tablet 20 mg PO QDAY cholecalciferol (vitamin D3) 1,000 UNIT tablet 2,000 unit PO BID multivitamin with folic acid 1 TABLET tablet 1 tab PO DAILY aspirin 81 MG tablet,chewable 81 mg PO DAILY@0800 lisinopril 10 mg tablet 10 mg PO DAILY latanoprost 0.005 % drops 1 drp ophthalmic (eye) QPM Patient Comments: left eye ketorolac 0.5 % drops 1 drp ophthalmic (eye) Q6H Rx Instructions: 1 drop in left eye, 4x daily Referrals / Follow Up: Howard Arias DO [Primary Care Provider] - Within 1 Week Disposition Disposition (needs filled in before D/C Order can be placed): Home, Self Care
[2024-11-30] MEDS: Meclizine HCl 25 MG Tablet PO (09:55)
--- NOTE | 2024-11-30 15:26 | PCM.DC.SUM ---
Providers Date of Admission: 11/28/24 Primary Care Physician: Dr. Howard Arias, DO Consultations 11/28/24 23:17 Consult: Tele-Neurology Routine Consulting Provider: [facility] Reason for Consult: Acute Ischemic Stroke/TIA EMERGENT Consult: No MD Notified: Yes Date Notified: 11/28/24 Time Notified: 05:25 Method of Notification: Answering Service Method of Consult:: Telemedicine Comments:: service contacted Dr Jackie Lawrence will befollowing pt Nursing Unit Staff Notify [facility] of Tele-Neurology Consult: Yes Reason For Visit: SEVERE PERSISTENT VERTIGO WITH INTRACTABLE Diagnosis Discharge Diagnosis (1) Vertigo: Status: Acute Code(s): R42 - Dizziness and giddiness Medications at Discharge Home Medications cholecalciferol (vitamin D3) 25 mcg (1,000 unit) tablet 2,000 unit PO BID supplement 06/24/16 multivitamin with folic acid 400 mcg tablet 1 tab PO DAILY supplement 06/24/16 rosuvastatin 5 mg tablet 5 mg PO DAILY cholestrol 04/23/19 aspirin 81 mg chewable tablet 81 mg PO DAILY@0800 05/11/19 citalopram 20 mg tablet 20 mg PO QDAY 09/06/24 latanoprost 0.005 % eye drops 1 drp ophthalmic (eye) QPM 11/28/24 lisinopril 10 mg tablet 10 mg PO DAILY 11/28/24 ketorolac 0.5 % eye drops 1 drp ophthalmic (eye) Q6H 11/29/24 meclizine 25 mg tablet 25 mg PO 4X/DAY PRN PRN Vertigo 5 days #20 tabs 11/30/24 Hospital Course Operations None Procedures 2-D Echocardiogram Summary of Care Provided Minutes Spent on Discharge: 33 Hospital Course: Per HPI: RACHEL LEIGH, is a 74 F with a past medical history of essential hypertension; on lisinopril, hyperlipidemia; on rosuvastatin, former tobacco abuse, overweight; with BMI of 29 this admission, GABY; on CPAP, history of vestibular neuritis; with frequent bouts of vertigo, history of neuroma surgery, history of triple-negative Left breast cancer (2015); s/p lumpectomy with subsequent chemotherapy and radiation, depression with anxiety; on citalopram, osteopenia, OA and glaucoma; on latanoprost drops with recent ocular procedure secondary to increased IOP due to close angle glaucoma who presents to [facility] ER complaining of severe persistent vertigo with intractable nausea and vomiting. Ms. Leigh reports her symptoms began approximately 1 hour prior to arrival with the abrupt-onset of severe dizziness and vertigo. She also admits to associated nausea and vomiting with bilious emesis. She denies related fever, chills, abdominal pain, diarrhea, constipation, chest pain, SOB, headache, paresthesias or focal neurologic deficits. In the ER she was diagnosed with Severe Persistent Vertigo complicated by Intractable Nausea and Vomiting likely due to Acute Flare of Chronic Vestibular Neuritis after recent eye surgery for Close Angle Glaucoma compounded by laboratory evidence of Dehydration with BUN/creatinine ratio of 30.1 present on admission with patient noted to have Left-leaning horizontal nystagmus and she was then admitted to the general medical floor under observational status for ongoing care for a stay that is expected to be less than 2 midnights. Hospital Course: 1. Acute on chronic BPPV?74-year-old female presented to hospital with dizziness and MRI was obtained which was negative for any type of intracranial pathology, no stroke. Neurology agreed that this was vertigo. Today on the day of discharge she had no dizziness and was able to ambulate without any difficulty. I discussed with her the possibility of discharge and she expressed understanding of the risk and benefits of going home and want to go home today. Will continue with meclizine on discharge as well as prescription for vestibular therapy. I recommend that she follow-up with her PCP in 3 to 5 days. 2. Essential hypertension, hyperlipidemia, anxiety, depression are chronic medical conditions complicate her care. Her home medications were continued where appropriate Physical Exam Narrative General: Alert, Oriented x3, Cooperative, No apparent distress HEENT: Atraumatic, PERRLA, EOMI, Normocephalic, no nystagmus Oral: Moist Mucosa Neck: Supple, No JVD Lungs: Diminished, Normal air movement, No rhonchi, No wheeze, No rales Cardiovascular: Regular rate, Regular Rhythm, Normal S1, Normal S2, No murmurs Abdomen: Soft, Non Tender, Non-Distended, No Hepato-splenomegaly Extremities: No edema, Capillary Refill Less than 3 Seconds Skin: No rashes, No breakdown Musculoskeletal: No Tenderness to Palpation of Joints or Extremities Neurological: No focal neurological deficits, moves all extremities Psych/Mental Status: Normal affect, appropriate Weight / BMI Weight Weight: 166 lb 0.129 oz Body Mass Index (BMI) 28.5 ABG / Lab / Microbiology Data 11/28/24 18:13 11/29/24 07:43 D/C Instructions Discharge Diet: No restrictions Call your doctor if you observe: Fever of 101 or Higher, Shortness of breath, Dizziness, Fainting spells, Swelling in the ankles, Chest pain and Increased palpitations (irregular heartbeat) DC O2, CPAP, BIPAP Needs Home O2 Discharge instructions: No Meaningful Use Info Meaningful Use Meaningful Use Diagnoses (Choose all that apply): None applicable Ischemic Stroke Statin Dosing Therapy Reference: STATIN DOSE THERAPY REFERENCE: * Patients > 75 years receive moderate or high dose statin therapy. * Patients 75 years or YOUNGER should receive HIGH intensity statin dose unless contraindicated. You will be required to document reason for non-treatment if statin daily dose does not meet guidelines. HIGH DOSE STATIN THERAPY DAILY Atorvastatin > than or = to 40 mg Rosuvastatin > than or = to 20 mg Amlodipine + Atorvastatin > than or = to 2.5/40 mg Ezetimibe + Simvastatin 10/80 mg Simvastatin 80mg Discharge Plan Admission Admit Date/Time: 11/28/24 22:38 Attending Provider: Earl Mulligan Primary Care Provider: Howard Arias Consulting Providers: Michael Breaux Discharge Orders/Prescriptions Prescriptions: New meclizine 25 mg Tablet 25 mg PO 4X/DAY PRN PRN (Reason: Vertigo) 5 Days Qty: 20 0RF Continued rosuvastatin 5 mg tablet 5 mg PO DAILY citalopram 20 mg tablet 20 mg PO QDAY cholecalciferol (vitamin D3) 1,000 UNIT tablet 2,000 unit PO BID multivitamin with folic acid 1 TABLET tablet 1 tab PO DAILY aspirin 81 MG tablet,chewable 81 mg PO DAILY@0800 lisinopril 10 mg tablet 10 mg PO DAILY latanoprost 0.005 % drops 1 drp ophthalmic (eye) QPM Patient Comments: left eye ketorolac 0.5 % drops 1 drp ophthalmic (eye) Q6H Rx Instructions: 1 drop in left eye, 4x daily Referrals / Follow Up: Howard Arias DO [Primary Care Provider] - Within 1 Week Disposition Disposition (needs filled in before D/C Order can be placed): Home, Self Care Charges/Coding Visit Charges Inpatient E&M: 81458 Disch Hosp >30min
== END 2024-11-30 09:49 | disposition home or self-care (01) ==
LOC: ED 21:47 → PCU 22:53
PROVIDERS: Admitting Provider Internal Medicine; Emergency Provider Emergency Medicine; PCP Student in an Organized Health Care Education/Training Program; Referring Provider Emergency Medicine; Visit Provider Family Medicine
DX: H81.10 Benign paroxysmal vertigo, unspecified ear (principal); R11.2 Nausea with vomiting, unspecified; E66.3 Overweight; I10 Essential (primary) hypertension; M19.90 Unspecified osteoarthritis, unspecified site; Z79.52 Long term (current) use of systemic steroids; R47.1 Dysarthria and anarthria; F41.8 Other specified anxiety disorders; H40.9 Unspecified glaucoma; E86.0 Dehydration; Z82.49 Family history of ischemic heart disease and other diseases of the circulatory system; Z68.29 Body mass index [BMI] 29.0-29.9, adult; Z92.3 Personal history of irradiation; Z87.891 Personal history of nicotine dependence; M85.80 Other specified disorders of bone density and structure, unspecified site; E78.5 Hyperlipidemia, unspecified; G47.33 Obstructive sleep apnea (adult) (pediatric); R26.81 Unsteadiness on feet; Z85.3 Personal history of malignant neoplasm of breast; Z98.51 Tubal ligation status; Z99.89 Dependence on other enabling machines and devices; Z79.899 Other long term (current) drug therapy
CPT/HCPCS: 36415; 36600; 70450; 70553; 71045; 80048; 80053; 80061; 80307; 82077; 82607; 82746; 82803; 82962; 83036; 84443; 84484; 85025; 93005; 93306; 96361; 96365; 96366; 96372; 96375; 96376; 97116; 97162; 99221; 99285; A9575; Q9957; A4216; G0378

== ENCOUNTER 2025-01-10 12:00 | Outpatient (RCR) | payer MEDICARE, SELFPAY ==
--- NOTE | 2024-12-03 11:25 | HP.PTEVAL ---
Patient's Visit Information Visit Information Visit Information: RACHEL SHARMA is a 74 year old F referred to Physical Therapy by Dr. Earl Mulligan MD with a diagnosis of dizziness, giddiness. Vestibular neuronitis.. Date of Evaluation: 12/03/24 Physical Therapist: Víctor Madrigal, DPT, OCS, CSCS Visit Plan Frequency: 2x /Week Duration: 4-6 Weeks Plan: 2x/week for 3-6 weeks. work on balance and progressing to HEP, functional balance, VOR progression, monitor need for further positional. Subjective Subjective: Dizzy started last 5 days ago in the evening. Had some eye procedure and needed to do drops 4x/day Tilted head back on to put drop in and spun and nauseous. Got to recliner and laid down until dtr came home. Threw up in bucket and called squad as she could not move down the steps. Went to ER and checked for stroke with MRI and did not have one. Was getting up at the time with walker. Was given nausea and dizzy meds whcih she still takes and they help. Currently feels funny but not spinning. Had some spinning sitting up this am. Feels unsteady and uses wh walker now but not prior. Lives with alex hood dtr in law, in two story , has to be careful on steps now but is fine normally. Sleeping is OK. Not employed. Actiuvities include books and not very active. Overall 60% better than at hospital. Had a cold prior to this starting. Objective Objective: Walks wobbly with wh walkr into PT mod I[facility] I but slow. Steps reciprocal with two rails. cervical AROM WFL L rotation limited > R. UE AROM WFL. - R HD, + L HD for up torsional nystagmus that does not fatigue for over a minute. treated with L ziggy thompson. Oculomotor: nystagmus with gaze L , head shake none. - skew eye deviation, - ocular tilt. + DVA 6 lines from SVA + head thrust L. normal pursuit and saccades, VOR is hard to keep eyes on target but not overly dizzy, No dizzyness or spinning today but very unsteady. Balance/Special Test Scores Functional Gait Assessment Score: 18 % Disability: 40.0000 Dizziness Score: 100 Goals Goal 1:: abolish dizzyness 100% Goal Time Frame: 4-6 Weeks Goal 2:: 25/30 FGA to minimize fall risk Goal Time Frame: 4-6 Weeks Goal 3:: Pt feel back to 100% of activities without hesitation Goal Time Frame: 4-6 Weeks Goal 4:: DHI score <20 Goal Time Frame: 4-6 Weeks Rehabilitation Potential Physical Therapy Diagnosis: unsteadyness and dizzy feeling effecting mobility. Rehabilitation Potential: Good Anticipated Interventions Patient/Client Instruction: Educate patient on: Condition For the Purpose of:: To decrease pain, To increase ROM, To improve muscle performance and motor function, To increase tolerance to activity/condition/position and To improve ability of physical actions for home/community/work/leisure Therapeutic Exercise to Include: Balance training Comment: adaptation and positional For the Purpose of:: To increase tolerance to activity/condition/position, To improve ability of physical actions for home/community/work/leisure and To improve safety Text: Thank you for the opportunity to evaluate your patient. For Medicare and Medicare HMO plans, please review the plan of care and approve it. It will need to be FAXED BACK to us at [phone] for Medicare purposes. For Medicare only, by signing this I certify the plan of care. Please let me know if there are questions or concerns regarding this plan of care. Physician Signature: Date:
--- NOTE | 2025-01-10 12:26 | HP.PTDCSUM ---
Discharge Summary D/C summary: It has been my pleasure to treat RACHEL SHARMA referred by Dr. Earl Mulligan MD, with the diagnosis of dizziness, giddiness. Vestibular neuronitis. for a total of 11 visit(s). Discharge Date: 01/10/25 Please see the following information for a summary of their discharge status. Subjective Subjective: Doing well. Saw Marlene and had positional treatment for R ear. Still has some unsttadiness but no falls. No spinning. 90% better. 10% is unsteadiness. Gym workout is going well and will keep doing it. No f/u with Marlene scheduled. Overall Improvement % Improvement: 90 Objective Objective/Function: FGA is good for age. - B hallpike nicole today. - roll tests. Goals Goal 1:: abolish dizzyness 100% Goal Progress: Goal Met for spinning Goal 2:: FGA to minimize fall risk Goal Progress: Goal Met Goal 3:: Pt feel back to 100% of activities without hesitation Goal Progress: 90 Goal 4:: DHI score <20 Goal Progress: Goal Met Plan Plan: d/c to HEP D/C Information Discharge Comments: To contact Dr. Rosario if dizzyness returns. d/c sentence: If there are questions or concerns regarding this patient's physical therapy, please feel free to call me at [phone]. Thank you for the referral of this patient. Sincerely, Víctor Madrigal, DPT, OCS, CSCS Balance/Gait/Functional tests Balance/Special Test Scores Functional Gait Assessment Score: 27 % Disability: 10.0000 Dizziness Score: 8 Improvement % Improvement: 90
== END 2025-01-10 19:00 | disposition home or self-care (01) ==
LOC: PT 12:00
PROVIDERS: PCP Student in an Organized Health Care Education/Training Program; Referring Provider Family Medicine; Visit Provider Family Medicine
DX: H81.20 Vestibular neuronitis, unspecified ear (principal)
CPT/HCPCS: 97110; 97161; 97164; 97530